=== PATIENT | male | born 1950 | race African-American/Black ===

== ENCOUNTER 2023-12-22 13:50 | Outpatient (CLI) | payer MEDICARE, BC, SELFPAY ==
[2023-12-22] MEDS: albuterol 2.5 mg/3 mL Neb INHALATION (14:05)
[2023-12-22 14:07] VITALS: PULSE 95; RESP 18; O2SAT 90
[2023-12-22 14:11] VITALS: PULSE 94
== END 2023-12-22 13:51 | disposition home or self-care (01) ==
PROVIDERS: Visit Provider Nurse Practitioner Family
DX: J44.9 Chronic obstructive pulmonary disease, unspecified (principal); R94.2 Abnormal results of pulmonary function studies
CPT/HCPCS: 94060; 94726; 94729

== ENCOUNTER 2025-01-12 04:12 | Inpatient (IN) | payer MEDICARE, SELFPAY ==
[2025-01-12] VITALS (61 sets, daily range): BP systolic 67–128; BP diastolic 50–87; PULSE 73–126; RESP 15–41; TEMP 36.2–36.8; O2SAT 85–98; BMI 25.7; BMI 24.0
--- NOTE | 2025-01-12 04:16 | XRR_ITS ---
PROCEDURE INFORMATION: Exam: XR Chest Exam date and time: 01/12/2025 4:18 AM Age: 74 years old Clinical indication: Shortness of breath; Prior surgery; Surgery date: 6+ months; Surgery type: Cervical fusion; C/O SOB. Hypotensive. ; Additional info: Dyspnea flulike symptoms TECHNIQUE: Imaging protocol: Radiologic exam of the chest. Views: 1 view. COMPARISON: No relevant prior studies available. FINDINGS: Lungs: Appears to be large bulla formation in the right upper lobe. Severe COPD changes. Infiltrates of the lung bases. Postsurgical change of the left upper lobe. Pleural spaces: Small left pleural effusion. Heart/Mediastinum: Unremarkable. No cardiomegaly. Vasculature: Atherosclerotic disease. Bones/joints: Unremarkable. XR/XR chest 1V portable [id number] IMPRESSION: 1. Basilar infiltrates with possible iuas-bbbqcci-avep-right pleural effusions. May represent multifocal infection in the correct clinical setting. 2. Likely bulla formation in the right upper lobe, rarely focal pneumothoraces can appear similarly. Consider CT of the chest for further assessment.
--- NOTE | 2025-01-12 04:17 | ECG_ITS ---
[facility] Test Date: 2025-01-12 Pat Name: Edgard Slater Department: Room: Gender: Male Manager Leasing: : 1950 Requested By: Bebeto Webb Order Number: [id number] Troncoso MD: Tin Toledo M.D. Measurements Intervals [place] Rate: 79 P: 67 [place]: 149 QRS: 106 QRSD: 93 T: -10 QT: 430 QTc: 495 Interpretive Statements SINUS RHYTHM WITH FREQUENT VENTRICULAR PREMATURE COMPLEXES POSSIBLE LEFT ATRIAL ENLARGEMENT [-0.1mV P-WAVE IN V1/V2] RIGHT AXIS DEVIATION [QRS AXIS > 100] NONSPECIFIC ST & T-WAVE ABNORMALITY PROLONGED QT INTERVAL No previous ECG available for comparison Electronically Signed On 01-13-2025 18:03:21 BRIDGE EXPERT by Tin Toledo M.D. [id number]
--- NOTE | 2025-01-12 04:26 | W.ED.FALL ---
Documented by User: Bebeto Webb DO 01/12/25 04:28 HPI - Fall General: Chief Complaint: Fall Stated Complaint: Fall, Flu Like Time Seen by Provider: 01/12/25 04:16 History of Present Illness: Patient presents to the ER by EMS with complaints of flulike symptoms, weakness and fall. Patient stated he got up to use the restroom and fell and could not get himself back up because he is weak. Has been having flulike symptoms for the last several days. Patient denies any injury or hitting his head from the fall. Patient is on Eliquis. Patient also uses 2 L of oxygen per nasal cannula at all times. Related Data Home Medications ?Medication ?Instructions ?Recorded ?Confirmed albuterol sulfate 90 mcg/actuation 2 puff inhalation QID PRN 01/12/25 01/12/25 aerosol inhaler Shortness Of Breath Or Wheezing amlodipine 5 mg-benazepril 10 mg 1 cap PO DAILY 01/12/25 01/12/25 capsule apixaban 5 mg tablet (Eliquis) 5 mg PO BID 01/12/25 01/12/25 cholecalciferol (vitamin D3) 125 125 mcg PO DAILY 01/12/25 01/12/25 mcg (5,000 unit) tablet (Vitamin D3) cyanocobalamin (vitamin B-12) 1,000 mcg SUBCUT Q30D 01/12/25 01/12/25 1,000 mcg/mL injection solution furosemide 20 mg tablet 20 mg PO DAILY 01/12/25 01/12/25 omeprazole 40 mg capsule,delayed 40 mg PO DAILY 01/12/25 01/12/25 release potassium chloride 8 mEq 8 meq PO DAILY 01/12/25 01/12/25 capsule,extended release Allergies Allergy/AdvReac Type Severity Reaction Status Date / Time No Known Allergies Allergy Verified 01/12/25 09:38 Review of Systems General: Reports: 10 or more systems reviewed and unremarkable except in HPI and below Physical Exam Const: COMMON NORMALS: no acute distress, average body habitus, patient oriented x3, no limitations, healthy appearing, alert and well nourished HENMT: COMMON NORMALS: normocephalic, atraumatic, hearing grossly normal bilaterally, external ears normal, Normal external nose present, moist oral mucous membranes and oropharynx normal HEAD & SCALP: normocephalic and atraumatic NOSE: Normal external nose present EXTERNAL EAR: Yes external ears normal Neck/C-Spine: COMMON NORMALS: full ROM, no lymphadenopathy, supple, no meningeal signs and no JVD Chest: COMMONS NORMALS: normal inspection of the chest and normal palpation of entire chest wall Resp: COMMON NORMALS: normal respiratory effort, No retractions, No use of accessory muscles and clear to auscultation bilaterally AUSCULTATION: clear to auscultation bilaterally Cardio: COMMON NORMALS: no JVD, regular rate, regular rhythm, S1 normal heart sound present, S2 normal heart sound present, No gallops present (Cardio), No clicks present (Cardio), No murmurs present (Cardio) and No rub (Cardio) RATE: regular rate RHYTHM: regular rhythm HEART SOUNDS: S1 normal heart sound present and S2 normal heart sound present GI: COMMON NORMALS: Normal to inspection, nondistended, normoactive bowel sounds present, Soft to palpation, non-tender, No hepatosplenomegaly present and no masses PALPATION: Yes Soft to palpation and Yes No hepatosplenomegaly present Neuro: COMMON NORMALS: patient oriented x3 SENSORIUM/ORIENTATION: Yes alert MENINGEAL SIGNS: Yes no meningeal signs Course Vital Signs: Vital signs: Vital Signs Pulse Rate 79 01/12/25 07:58 Respiratory Rate 24 H 01/12/25 07:58 Blood Pressure 82/56 01/12/25 07:58 Pulse Oximetry 96 01/12/25 06:30 Oxygen Delivery Me thod Nasal Cannula 01/12/25 06:00 Oxygen Flow Rate 2 01/12/25 06:00 - Fall Medical Records I reviewed the patient's medical records. Lab Data I reviewed the patient's lab results. 01/12/25 05:04 01/12/25 05:04 Radiology Impressions Chest/Abdomen/Pelvis CT 01/12/25 06:23 IMPRESSION: 1. Large amount of soft tissue at the hilar regions bilaterally encasing and narrowing the pulmonary arteries. Combination of pulmonary emboli and lymphadenopathy. Pulmonary arterial narrowing is predominately due to lymphadenopathy. Greatest narrowing involves the LEFT main pulmonary artery. 2. Marked RIGHT heart strain. 3. Extensive bilateral pulmonary opacifications consistent with pneumonia and atelectasis, predominantly at the lung bases. Follow-up chest CT to resolution to ensure no underlying malignancy. 4. Chronic emphysema. 5. Cholelithiasis without acute cholecystitis. 6. Extensive atherosclerosis aorta. 7. Postsurgical changes near the GE junction and stomach. No prior studies for comparison. No obvious perforation. 8. No GI tract ischemia or obstruction. 9. Chronic atrophy and cortical thinning lower pole LEFT kidney from ischemia. 10. Marked pancreatic atrophy. 11. Bilateral renal cysts. 12. RIGHT adrenal mass 1.8 cm. Notified Saurav Girard DO at 01/12/2025 9:46 AM. Chest X-Ray 01/12/25 07:21 IMPRESSION: Central line placement and abnormal chest as above. Head CT 01/12/25 08:05 IMPRESSION: 1. No acute intracranial hemorrhage or edema. 2. Moderate cerebral atrophy and small vessel disease. Laboratory Results WBC 12.64 10^3/uL (3.29-11.43) H 01/12/25 05:04 RBC 4.48 10^6/uL (3.85-5.65) 01/12/25 05:04 Hgb 14.90 g/dL (11.27-16.99) 01/12/25 05:04 Hct 42.4 % (37-53) 01/12/25 05:04 MCV 94.6 fl (82-101) 01/12/25 05:04 MCH 33.3 pg (27-33) H 01/12/25 05:04 MCHC 35.1 g/dL (30-55) 01/12/25 05:04 RDW 20.0 % (12.1-15.1) H 01/12/25 05:04 Plt Count 313 10^3/cmm (157-399) 01/12/25 05:04 MPV 12.5 fL (7.4-10.4) H 01/12/25 05:04 Neut % (Auto) 86.1 % 01/12/25 05:04 Lymph % (Auto) 8.6 % 01/12/25 05:04 Bullock % (Auto) 4.1 % 01/12/25 05:04 Eos % (Auto) 0.0 % 01/12/25 05:04 Baso % (Auto) 0.2 % 01/12/25 05:04 Neut # (Auto) 10.87 10^3/uL (1.8-7.7) H 01/12/25 05:04 Lymph # (Auto) 1.1 10^3/uL (0.8-4.8) 01/12/25 05:04 Bullock # (Auto) 0.5 10^3/uL (0.2-0.9) 01/12/25 05:04 Eos # (Auto) 0.0 10^3/uL (0.0-0.8) 01/12/25 05:04 Baso # (Auto) 0.0 10^3/uL (0.0-0.1) 01/12/25 05:04 Nucleated RBC % (auto) 4.3 % 01/12/25 05:04 Nucleated RBCs # 0.5 /100WBC 01/12/25 05:04 Sodium 139 mmol/L (136-145) 01/12/25 05:04 Potassium 3.4 mmol/L (3.5-5.1) L 01/12/25 05:04 Chloride 95 mmol/L (98-107) L 01/12/25 05:04 Carbon Dioxide 23 mmol/L (22-29) 01/12/25 05:04 Anion Gap 24.4 (5-19) H 01/12/25 05:04 BUN 30 mg/dL (8-23) H 01/12/25 05:04 Creatinine 1.4 mg/dL (0.7-1.2) H 01/12/25 05:04 GFR Calculation Not Reportable 01/12/25 05:04 Glucose 87 mg/dL (65-115) 01/12/25 05:04 Calculated Osmolality 294 mOsm/kg (285-295) 01/12/25 05:04 Lactic Acid 6.2 mmol/L (0.5-2.2) H* 01/12/25 05:04 Lactic Acid (Sepsis) 6.2 mmol/L (0.5-2.2) H* 01/12/25 07:32 Calcium 8.5 mg/dL (8.5-10.5) 01/12/25 05:04 Magnesium 1.9 mg/dL (1.7-2.3) 01/12/25 05:04 Total Bilirubin 4.2 mg/dL (0.15-1.2) H 01/12/25 05:04 AST 682 U/L (0-40) H 01/12/25 05:04 ALT 194 U/L (0-41) H 01/12/25 05:04 Alkaline Phosphatase 160 U/L (40-130) H 01/12/25 05:04 Troponin T Baseline 25 ng/L (0-15) H 01/12/25 05:04 Troponin T 120 Minute 24.75 ng/L (0-15) H 01/12/25 06:56 Delta Troponin T -0.25 ABS# (0-10) L 01/12/25 06:56 NT-Pro-B Natriuret Pep 26541 pg/mL (0-450) H 01/12/25 05:04 Total Protein 5.9 g/dL (6.6-8.7) L 01/12/25 05:04 Albumin 2.6 g/dL (3.5-5.2) L 01/12/25 05:04 Globulin 3.3 g/dL (1.3-4.6) 01/12/25 05:04 Procalcitonin > 100.00 ng/mL (0-0.5) H 01/12/25 05:04 Influenza A (PCR) Positive (Negative) 01/12/25 04:18 Influenza Type B (PCR) Negative (Negative) 01/12/25 04:18 RSV (PCR) Negative (Negative) 01/12/25 04:18 SARS-CoV-2 (PCR) Negative (Negative) 01/12/25 04:18 All radiology interpretation(s) finalized by discharge Discharge Plan Discharge Patient Disposition: Admitted As Inpatient Admit Provider: Sea Shepherd Clinical Impression: Influenza A, Pneumonia, Septic shock, Pulmonary HTN, Acute on chronic right-sided heart failure, Personal history of DVT (deep vein thrombosis) Condition: Stable Sign Out Sign Out Data: Patient Sign Out occurred on 01/12/25 at 05:50. Patient's care was discussed, and care was transferred from Bebeto Webb DO to Saurav Girard DO. Coding Level of Care Code ED Education Professor for Chg Fwd Documented by User: Saurav Girard DO 01/12/25 10:36 HPI - Fall General: Chief Complaint: Fall Stated Complaint: Fall, Flu Like Time Seen by Provider: 01/12/25 04:16 Related Data Home Medications ?Medication ?Instructions ?Recorded ?Confirmed albuterol sulfate 90 mcg/actuation 2 puff inhalation QID PRN 01/12/25 01/12/25 aerosol inhaler Shortness Of Breath Or Wheezing amlodipine 5 mg-benazepril 10 mg 1 cap PO DAILY 01/12/25 01/12/25 capsule apixaban 5 mg tablet (Eliquis) 5 mg PO BID 01/12/25 01/12/25 cholecalciferol (vitamin D3) 125 125 mcg PO DAILY 01/12/25 01/12/25 mcg (5,000 unit) tablet (Vitamin D3) cyanocobalamin (vitamin B-12) 1,000 mcg SUBCUT Q30D 01/12/25 01/12/25 1,000 mcg/mL injection solution furosemide 20 mg tablet 20 mg PO DAILY 01/12/25 01/12/25 omeprazole 40 mg capsule,delayed 40 mg PO DAILY 01/12/25 01/12/25 release potassium chloride 8 mEq 8 meq PO DAILY 01/12/25 01/12/25 capsule,extended release Allergies Allergy/AdvReac Type Severity Reaction Status Date / Time No Known Allergies Allergy Verified 01/12/25 09:38 Procedures Central Line Placement Right IJ: Prep: mask, gown and gloves Central Line Prep: Chlorhexidine scrub Local Anesthetic: lidocaine 1% Amount of anesthesia used (mL): 5 Central Line Lumen Inserted: triple Post Procedure: sutured in place, good blood return, all ports aspirated, flushed, capped and sterile dressing applied Post Procedure X-Ray: tip of catheter in good position Patient Tolerated Procedure: well Course Vital Signs: Vital signs: Vital Signs Pulse Rate 79 01/12/25 07:58 Respiratory Rate 24 H 01/12/25 07:58 Blood Pressure 82/56 01/12/25 07:58 Pulse Oximetry 96 01/12/25 06:30 Oxygen Delivery Me thod Nasal Cannula 01/12/25 06:00 Oxygen Flow Rate 2 01/12/25 06:00 MDM - Fall Medical Decision Making Care assumed at change of shift patient is septic tensive several is low blood pressures I believe were spurious he had a child's cuff on his forearm on the right and it had slipped down however he is even when it was corrected for he still had blood pressures in the 80s systolic. Patient is awake and alert. I discussed that events precipitating this illness with the family and been sick for couple days he has a history of PE but has not been taking his Eliquis last couple days patient states he was told he had a upper left leg clot that went to his lung he has been on the Eliquis for several months now. He has been increasingly short of breath he is normally not on oxygen now requiring 2 to 3 L to maintain his oxygen saturations. On exam he is noted to have significant JVD as well. He does not have any swelling in his legs. Based on his exam findings and his laboratory tests which show marked elevation of his liver functions I highly suspect he has a right sided heart failure stat ultrasound was ordered this confirmed dilated right ventricle with bowing of the septum. Patient has a mild elevation of his creatinine we do not know what his baseline creatinine is he was given fluids improved his blood pressure and then brought to CT suite for CTA chest abdomen pelvis. Also included to head since family report he fell this morning when he got up to go to the bathroom patient denies striking his head there is no loss consciousness he was stunned for a time according to the son was gasping for breath. He is denying any chest pain at this time. His lactate is elevated at 6. Because of his right sided heart failure has been given fluid to bring his pressure up not given him a full fluid bolus because of concern of worsening his overall condition. He is also been cultured and started on IV antibiotics vancomycin and Zosyn. CTA of the chest shows pulmonary embolism but rather moderate load there is more extrinsic compression from lymphadenopathy. We already started heparinizing the patient before the CT came back because they reviewed the CT and could see definite PE. His blood pressure did not respond to fluids because of his severe right heart failure did not feel any further fluids were warranted and instead we started him on Levophed. His blood pressure has improved significantly to 127/63 at this time. He has received his antibiotics. Discussed Dr. Shepherd also called and talked talk to the pulmonology on-call doctor at [facility] in [place]. Fortunately they had previous records on this patient we had power shared the CT done today and he reviewed it comparing to 1 they did in September 2024. They also had an echo done in September 2024. It showed dilated right ventricular failure at that time as well as pulmonary hypertension. The lymphadenopathy was present in September 2024 as well. Food And Drug Research Scientist felt that it had increased somewhat in size. He did not feel that the Bianka patient was a candidate for embolectomy he agreed that it was more intrinsic compression. He recommended Tamiflu antibiotics to treat secondary pneumonia and heparin. We are going to try to get the films power shared to our facility so our radiologist can compare them. Discussed Dr. Guerra the time is dictation she is comparing films and will update her report. Lab Data 01/12/25 05:04 01/12/25 05:04 Radiology Impressions Chest/Abdomen/Pelvis CT 01/12/25 06:23 IMPRESSION: 1. Large amount of soft tissue at the hilar regions bilaterally encasing and narrowing the pulmonary arteries. Combination of pulmonary emboli and lymphadenopathy. Pulmonary arterial narrowing is predominately due to lymphadenopathy. Greatest narrowing involves the LEFT main pulmonary artery. 2. Marked RIGHT heart strain. 3. Extensive bilateral pulmonary opacifications consistent with pneumonia and atelectasis, predominantly at the lung bases. Follow-up chest CT to resolution to ensure no underlying malignancy. 4. Chronic emphysema. 5. Cholelithiasis without acute cholecystitis. 6. Extensive atherosclerosis aorta. 7. Postsurgical changes near the GE junction and stomach. No prior studies for comparison. No obvious perforation. 8. No GI tract ischemia or obstruction. 9. Chronic atrophy and cortical thinning lower pole LEFT kidney from ischemia. 10. Marked pancreatic atrophy. 11. Bilateral renal cysts. 12. RIGHT adrenal mass 1.8 cm. Notified Saurav Girard DO at 01/12/2025 9:46 AM. Chest X-Ray 01/12/25 07:21 IMPRESSION: Central line placement and abnormal chest as above. Head CT 01/12/25 08:05 IMPRESSION: 1. No acute intracranial hemorrhage or edema. 2. Moderate cerebral atrophy and small vessel disease. Laboratory Results WBC 12.64 10^3/uL (3.29-11.43) H 01/12/25 05:04 RBC 4.48 10^6/uL (3.85-5.65) 01/12/25 05:04 Hgb 14.90 g/dL (11.27-16.99) 01/12/25 05:04 Hct 42.4 % (37-53) 01/12/25 05:04 MCV 94.6 fl (82-101) 01/12/25 05:04 MCH 33.3 pg (27-33) H 01/12/25 05:04 MCHC 35.1 g/dL (30-55) 01/12/25 05:04 RDW 20.0 % (12.1-15.1) H 01/12/25 05:04 Plt Count 313 10^3/cmm (157-399) 01/12/25 05:04 MPV 12.5 fL (7.4-10.4) H 01/12/25 05:04 Neut % (Auto) 86.1 % 01/12/25 05:04 Lymph % (Auto) 8.6 % 01/12/25 05:04 Bullock % (Auto) 4.1 % 01/12/25 05:04 Eos % (Auto) 0.0 % 01/12/25 05:04 Baso % (Auto) 0.2 % 01/12/25 05:04 Neut # (Auto) 10.87 10^3/uL (1.8-7.7) H 01/12/25 05:04 Lymph # (Auto) 1.1 10^3/uL (0.8-4.8) 01/12/25 05:04 Bullock # (Auto) 0.5 10^3/uL (0.2-0.9) 01/12/25 05:04 Eos # (Auto) 0.0 10^3/uL (0.0-0.8) 01/12/25 05:04 Baso # (Auto) 0.0 10^3/uL (0.0-0.1) 01/12/25 05:04 Nucleated RBC % (auto) 4.3 % 01/12/25 05:04 Nucleated RBCs # 0.5 /100WBC 01/12/25 05:04 Sodium 139 mmol/L (136-145) 01/12/25 05:04 Potassium 3.4 mmol/L (3.5-5.1) L 01/12/25 05:04 Chloride 95 mmol/L (98-107) L 01/12/25 05:04 Carbon Dioxide 23 mmol/L (22-29) 01/12/25 05:04 Anion Gap 24.4 (5-19) H 01/12/25 05:04 BUN 30 mg/dL (8-23) H 01/12/25 05:04 Creatinine 1.4 mg/dL (0.7-1.2) H 01/12/25 05:04 GFR Calculation Not Reportable 01/12/25 05:04 Glucose 87 mg/dL (65-115) 01/12/25 05:04 Calculated Osmolality 294 mOsm/kg (285-295) 01/12/25 05:04 Lactic Acid 6.2 mmol/L (0.5-2.2) H* 01/12/25 05:04 Lactic Acid (Sepsis) 6.2 mmol/L (0.5-2.2) H* 01/12/25 07:32 Calcium 8.5 mg/dL (8.5-10.5) 01/12/25 05:04 Magnesium 1.9 mg/dL (1.7-2.3) 01/12/25 05:04 Total Bilirubin 4.2 mg/dL (0.15-1.2) H 01/12/25 05:04 AST 682 U/L (0-40) H 01/12/25 05:04 ALT 194 U/L (0-41) H 01/12/25 05:04 Alkaline Phosphatase 160 U/L (40-130) H 01/12/25 05:04 Troponin T Baseline 25 ng/L (0-15) H 01/12/25 05:04 Troponin T 120 Minute 24.75 ng/L (0-15) H 01/12/25 06:56 Delta Troponin T -0.25 ABS# (0-10) L 01/12/25 06:56 NT-Pro-B Natriuret Pep 70815 pg/mL (0-450) H 01/12/25 05:04 Total Protein 5.9 g/dL (6.6-8.7) L 01/12/25 05:04 Albumin 2.6 g/dL (3.5-5.2) L 01/12/25 05:04 Globulin 3.3 g/dL (1.3-4.6) 01/12/25 05:04 Procalcitonin > 100.00 ng/mL (0-0.5) H 01/12/25 05:04 Influenza A (PCR) Positive (Negative) 01/12/25 04:18 Influenza Type B (PCR) Negative (Negative) 01/12/25 04:18 RSV (PCR) Negative (Negative) 01/12/25 04:18 SARS-CoV-2 (PCR) Negative (Negative) 01/12/25 04:18 Critical Care Time Critical Care Time: Critical Care Time: Yes Total Critical Care Time: 40 Attestation: The high probability of a clinically significant, sudden or life threatening deterioration of the patient's cardiovascular respiratory renal system(s) required my full and direct attention, intervention and personal management. The critical care time is as shown. This time is in addition to time spent performing any reported procedures but includes the following: [x] Data and vital sign review and interpretation [x] Patient assessment, examination and intervention [x] Documentation [x] Medication orders and management Discharge Plan Discharge Patient Disposition: Admitted As Inpatient Admit Provider: Sea Shepherd Clinical Impression: Influenza A, Pneumonia, Septic shock, Pulmonary HTN, Acute on chronic right-sided heart failure, Personal history of DVT (deep vein thrombosis) Condition: Stable Sign Out Sign Out Data: Patient Sign Out occurred on 01/12/25 at 05:50. Patient's care was discussed, and care was transferred from Bebeto Webb DO to Saurav Girard DO. Coding Level of Care Code ED Education Professor for Ashley Melendez
[2025-01-12 05:13] LABS: Basophils % 0.2 %; Hematocrit 42.4 % (37-53); Lymphocytes # 1.1 10^3/uL (0.8-4.8); Lymphocytes % 8.6 %; Mean Corpuscular HGB Conc 35.1 g/dL (30-55); Mean Corpuscular Hemoglobin 33.3 pg (27-33); Mean Corpuscular Volume 94.6 fl (82-101); Mean Platelet Volume 12.5 fL (7.4-10.4); Monocytes # 0.5 10^3/uL (0.2-0.9); Monocytes % 4.1 %; Neutrophils # 10.87 10^3/uL (1.8-7.7); Neutrophils % 86.1 %; Nucleated Red Blood Cells # 0.5 /100WBC; Nucleated Red Blood Cells % 4.3 %; Platelet Count 313 10^3/cmm (157-399); Red Blood Count 4.48 10^6/uL (3.85-5.65); White Blood Count 12.64 10^3/uL (3.29-11.43)
[2025-01-12] MEDS: sodium chloride 0.9% 1,000 ML 999 ML IV ×2 (05:16→06:08)
[2025-01-12 05:33] LABS: Troponin(5th) Baseline 25 ng/L (0-15)
[2025-01-12 05:35] LABS: Influenza A POSITIVE (Negative); Influenza B NEGATIVE (Negative); Respiratory Syncytial Virus Ce NEGATIVE (Negative); SARS-CoV-2 PCR NEGATIVE (Negative)
[2025-01-12 05:42] LABS: NT Pro B Type Natriuretic Pept 13973 pg/mL (0-450)
[2025-01-12 05:50] LABS: Lactic Sepsis W/Reflex 6.2 mmol/L (0.5-2.2)
[2025-01-12 05:53] LABS: Alanine Aminotransferase 194 U/L (0-41); Albumin Level 2.6 g/dL (3.5-5.2); Alkaline Phosphatase 160 U/L (40-130); Aspartate Amino Transferase 682 U/L (0-40); Blood Urea Nitrogen 30 mg/dL (8-23); Calcium 8.5 mg/dL (8.5-10.5); Carbon Dioxide 23 mmol/L (22-29); Chloride 95 mmol/L (98-107); Globulin 3.3 g/dL (1.3-4.6); Glucose 87 mg/dL (65-115); Magnesium 1.9 mg/dL (1.7-2.3); Osmolality Calculated 294 mOsm/kg (285-295); Sodium 139 mmol/L (136-145); Total Bilirubin 4.2 mg/dL (0.15-1.2); Total Protein 5.9 g/dL (6.6-8.7)
[2025-01-12 06:06] LABS: Anion Gap 24.4 (5-19); Potassium 3.4 mmol/L (3.5-5.1)
[2025-01-12] MEDS: piperacillin-tazobactam 3.375 GM in sodium chloride 0.9% (plus) 50 ML IV ×3 (06:08→22:56)
[2025-01-12 06:17] LABS: Procalcitonin > 100.00 ng/mL (0-0.5)
--- NOTE | 2025-01-12 06:23 | USCV_ITS ---
Bryon Edgard Age: 74 Gender: M : 1950 Exam Date: 01/12/2025 07:50 Ordering Phys: Saurav Girard DO Technologist: Exam Location: [facility] [place] Indication: pe rt side pressure BP: 73 / 53 HR: 80 Rhythm: Sinus Technical Quality: Adequate MEASUREMENTS (Male / Female) Normal Values 2D ECHO LV Diastolic Diameter PLAX 3.2 cm 4.2 - 5.9 / 3.9 - 5.3 cm IVS Diastolic Thickness 1.2 cm 0.6 - 1.0 / 0.6 - 0.9 cm IVS Systolic Thickness 1.8 cm LVPW Diastolic Thickness 1.2 cm 0.6 - 1.0 / 0.6 - 0.9 cm LVPW Systolic Thickness 1.4 cm LVOT Diameter 2.2 cm LV Ejection Fraction 2D Teich 66.9 % LV Ejection Fraction MOD 4C 72.9 % LV Ejection Fraction MOD 2C 60.2 % LV Ejection Fraction 2C AL 62.1 % LA Diameter 3.4 cm RA Systolic Volume 4C AL 79.9 ml RA Systolic Volume 4C MOD 74.6 ml Aorta at Sinotubular Diameter 2.6 cm M-MODE LA Ao Ratio MM 1.3 AV Cusp Separation MM 2.0 cm DOPPLER AV Peak Velocity 154.0 cm/s LVOT Peak Velocity 101.0 cm/s AV Area Cont Eq vti 2.9 cm squared AV Area Cont Eq pk 2.6 cm squared MV Peak Velocity 80.0 cm/s TV Peak Velocity 260.5 cm/s TR Peak Velocity 326.0 cm/s TR Peak Gradient 42.5 mmHg TV Peak E Velocity 123.0 cm/s FINDINGS Left Ventricle Left ventricle is normal in size. LV systolic function is normal with EF of 65-70%. No regional wall motion abnormalities are seen. Septal motion consistent with RV pressure overload. Right Ventricle RV is dilated Right Atrium Dilated Left Atrium Normal in size Mitral Valve Structurally normal mitral valve. Mild mitral regurgitation. Aortic Valve Structurally normal aortic valve. No significant stenosis or regurgitation. Tricuspid Valve Mild tricuspid regurgitation. RVSP is 40 to 45 mmHg. This is consistent with mild pulmonary hypertension Pulmonic Valve Not well visualized Pericardium Normal Aorta Normal in size IVC Not visualized CONCLUSIONS LV systolic function is normal with EF of 65-70%. Septal motion consistent with RV pressure overload. RV is dilated. Right atrium is dilated. Mild mitral regurgitation. Mild tricuspid regurgitation. Mild pulmonary hypertension Tin Toledo MD (Electronically Signed) Final Date: 13 January 2025 11:20 S
--- NOTE | 2025-01-12 06:23 | CT_ITS ---
WS: [id number] CTA CHEST WITH CT ABDOMEN AND PELVIS. HISTORY: Flulike symptoms, weakness and fall. TECHNIQUE: CT angiogram is performed through the chest. Additional imaging is performed through the abdomen and pelvis with IV contrast. Sagittal and coronal reformats have been submitted. MIP imaging also reviewed. All CT scans at [facility] use at least one of these dose optimization techniques: automated exposure control; mA and/or kV adjustment per patient size (includes targeted exams where dose is matched to clinical indication); or iterative reconstruction. Contrast: Omnipaque 350; 95 cc IV. DLP: 850.09 mGy.cm COMPARISON: No similar studies. Chest CTA: Pulmonary emboli identified. The main pulmonary artery is slightly dilated and free of emboli. Thrombus is noted in the aleman of the proximal pulmonary arteries. There is also marked narrowing of the pulmonary arteries which is likely due to encasement by lymphoid tissue. Hilar lymph nodes aren't enlarged. Encroachment upon the pulmonary arteries is causing narrowing. There is RIGHT heart strain. Mild pulmonary enlargement. Mild atherosclerosis aorta. Centrilobular and paraseptal emphysema. Groundglass attenuation throughout both lungs. Bilateral pulmonary opacifications in the mid and lower lung avalos, greatest at the lung bases. Consistent with pneumonia. No pneumothorax. No significant pericardial or pleural effusions. Abdomen CT: Hepatic steatosis. 8 mm low-attenuation liver mass may be a cyst. Early metastatic site not excluded. Cholelithiasis without acute cholecystitis. Severe pancreatic atrophy. Small spleen. RIGHT adrenal mass 1.8 cm. LEFT adrenal gland is normal. Atherosclerosis aorta. No aortic aneurysm. Heavy calcification at the origin of the SMA and celiac axis. Decreased enhancement lower pole LEFT kidney with cortical thinning consistent with an area of ischemia. Bilateral renal cysts. Portal vein and SMV are normally enhancing. Postsurgical changes are noted near the GE junction. There is some tethering which is probably clotted chronic and related to the surgical procedure. Foci of air at the surgical site involving the distal esophagus all appear to be contained. No prior studies available to evaluate for any interval change of the postsurgical site. No GI tract obstruction. No ascites. Pelvic CT: Urinary bladder is minimally distended. No free fluid in the pelvis. No adenopathy. Soft tissue anasarca. No destructive bone lesions are identified. Note: No prior studies are available at [address] [place] [address]. If studies become available an addendum can be performed. Comparison with prior imaging would be very beneficial in this patient. CT/CT angio chest w abd pel w con IMPRESSION: 1. Large amount of soft tissue at the hilar regions bilaterally encasing and n arrowing the pulmonary arteries. Combination of pulmonary emboli and lymphadeno moose. Pulmonary arterial narrowing is predominately due to lymphadenopathy. Gr eatest narrowing involves the LEFT main pulmonary artery. 2. Marked RIGHT heart strain. 3. Extensive bilateral pulmonary opacifications consistent with pneumonia and atelectasis, predominantly at the lung bases. Follow-up chest CT to resolution to ensure no underlying malignancy. 4. Chronic emphysema. 5. Cholelithiasis without acute cholecystitis. 6. Extensive atherosclerosis aorta. 7. Postsurgical changes near the GE junction and stomach. No prior studies for comparison. No obvious perforation. 8. No GI tract ischemia or obstruction. 9. Chronic atrophy and cortical thinning lower pole LEFT kidney from ischemia. 10. Marked pancreatic atrophy. 11. Bilateral renal cysts. 12. RIGHT adrenal mass 1.8 cm. Notified Saurav Girard DO at 01/12/2025 9:46 AM.
[2025-01-12 06:59] LABS: Reflex Lactate Order REFLEX LACTIC ORDERD
--- NOTE | 2025-01-12 07:21 | XR_ITS ---
WS: [id number] XR chest 1V portable [id number] REASON FOR EXAM: LINE PL FINDINGS: Compared to the previous examination 0420 hours this same day, right internal jugular central venous line is been placed. The tip is within the right atrium. There is significant tortuosity of the aorta and cardiac enlargement. There is extensive bullous disease in the right upper lung and coarse reticular interstitial lung opacities in the lower lung avalos. There is blunting of the left costophrenic angle. There is no examination for comparison therefore the chronicity of the changes in the lower lung avalos are of uncertain chronicity. Potentially this could represent acute/subacute congestive heart failure or somewhat less likely acute/subacute pneumonitis. XR/XR chest 1V portable [id number] IMPRESSION: Central line placement and abnormal chest as above.
[2025-01-12 07:24] LABS: Troponin 5 2HR 24.75 ng/L (0-15); Troponin 5 2HR Delta -0.25 ABS# (0-10)
[2025-01-12 07:57] LABS: Lactic Acid level (Lactate) 6.2 mmol/L (0.5-2.2)
--- NOTE | 2025-01-12 08:05 | CT_ITS ---
WS: [id number] CT HEAD NONCONTRAST HISTORY: fall TECHNIQUE: Contiguous axial imaging performed through the brain. Bone and soft tissue windows. Sagittal and coronal reformats reviewed. All CT scans at [facility] use at least one of these dose optimization techniques: automated exposure control; mA and/or kV adjustment per patient size (includes targeted exams where dose is matched to clinical indication); or iterative reconstruction. DLP: 1014.68 mGy.cm COMPARISON: None available. Moderate symmetric atrophy and small vessel disease. No acute infarct. No atrophy or prior infarcts or herniation. Ventricles: Normal size with no hydrocephalus. Paranasal sinuses: As visualized are clear. Mastoid air cells: Well pneumatized. Calvarium and scalp: Skull is intact with no soft tissue edema or swelling. Moderate atherosclerotic calcification in the intracranial carotid arteries. CT/CT head wo con* [id number] IMPRESSION: 1. No acute intracranial hemorrhage or edema. 2. Moderate cerebral atrophy and small vessel disease.
--- NOTE | 2025-01-12 08:08 | PC.PHAR ---
Patient gave me a medication list from his wallet , only a few are on his external med list . I will call [facility] and verify when the open at 8:30am.
--- NOTE | 2025-01-12 08:14 | PC.PHAR ---
Patient statess he takes Eliquis ,I called [facility] and they have 1 fill for Eliquis 5 on 11/03/24 30days.No other fill dates .
[2025-01-12] MEDS: iohexol 350 mg/mL 500 mL Btl (per mL) IV (08:45)
--- NOTE | 2025-01-12 08:47 | PC.PHAR ---
I spoke to [facility] and their last fill for anything was 11/02/24 for the Furosemide 20 and the Lotrel 5/10mg . Pharmacist states that he should be out of everything and h hasn't picked up since October .
[2025-01-12] MEDS: norepinephrine 4 MG/250 ML BAG 30 MG IV (09:38)
[2025-01-12] MEDS: heparin 5,000 unit/mL INJ 1 mL IVP (11:00)
[2025-01-12] MEDS: heparin drip 25,000 UNIT/500 ML PREMIX 26 UNIT IV (11:06)
[2025-01-12 11:29] LABS: Troponin 5 6HR 24.47 ng/L (0-15); Troponin 5 6HR Delta -0.53 ng/L (0-12)
--- NOTE | 2025-01-12 11:40 | PC.NURSE ---
Pt arrives to ICU from ED. Pt able to tell his name, birthdate, where he is and month. But then he started talking about walking into a corner when [facility] question about transportation asked. CVL right , patent with Levophed at 10mcg/min and Heparin at 26 ml/hr. Pt given call light and remote instructions. No further questions. Pt denied need to urinate at this time.
--- NOTE | 2025-01-12 13:23 | P.HP_ITS ---
Providers/Chief Complaint 2 Admitting Physician: Sea Shepherd Chief Complaint: Fall, Flu Like History of Present Illness Edgard Slater is a 74 year old male with history of gaskets, status post gastric resection, history of bilateral lower extremity DVT, PEs, on Eliquis, however, has had difficulty obtaining Eliquis and so had not been able to take his medication for last 2 weeks. He was brought in for evaluation to emergency room due to generalized weakness, fall, flulike symptoms. In ER he was found to be in shock, required starting Levophed, found positive for influenza. With history of PE, DVT, having missed anticoagulation, concern for recurrent VTE, massive PE. Underwent additional assessment with CT angiogram chest as well as TTE. Finding of right ventricular strain on TTE and preliminary echo read by ER physician, findings further discussed with critical care provider at [facility] in [place] was also able to review and compare his prior imaging from a year ago with noted rather unchanged findings currently. Recommendation for anticoagulation without thrombolysis as well as treatment for influenza. Review of Systems 2 Const: Reports: fatigue and malaise; Denies: fever(s) ENMT: Denies: throat pain Card: Denies: chest pain, edema, pre-syncope or dyspnea on exertion Resp: Denies: dyspnea, productive cough, change in phlegm color or hemoptysis GI: Denies: abdominal pain, nausea, vomiting, diarrhea, constipation, hematochezia or melena : Denies: flank pain, difficulty urinating, urinary frequency or hematuria Musc: Denies: back pain, joint swelling or joint redness Skin/Breast: Denies: rash or new lesions Neuro: Denies: headache(s) or confusion Medications/Allergies Home Medications ?Medication ?Instructions ?Recorded ?Confirmed ?Last Taken ?Type albuterol sulfate 90 mcg/actuation 2 puff inhalation Q ID PRN 01/12/25 01/12/25 Unknown History aerosol inhaler Shortness Of Breath Or Wheez ing amlodipine 5 mg-benazepril 10 mg 1 cap PO DAILY 01/12/25 Unknown History capsule apixaban 5 mg tablet (Eliquis) 5 mg PO BID 01/12/25 Unknown History cholecalciferol (vitamin D3) 125 125 mcg PO DAILY 06/0101/12/25 Unknown History mcg (5,000 unit) tablet (Vitamin D3) cyanocobalamin (vitamin B-12) 1,000 mcg SUBCUT Q30D 01/12/25 10/14/24 History 1,000 mcg/mL injection solution furosemide 20 mg tablet 20 mg PO DAILY 01/12/2506/01 Unknown History omeprazole 40 mg capsule,delayed 40 mg PO DAILY 01/12/25 Unknown History release potassium chloride 8 mEq 8 meq PO DAILY 01/12/2506/01 Unknown History capsule,extended release Allergies Allergy/AdvReac Type Severity Reaction Status Date / Time No Known Allergies Allergy Verified 01/12/25 09:38 PFSH Acute 2 PFSH: Medical History HTN (hypertension) PE (pulmonary thromboembolism) DVT (deep venous thrombosis) Gastric cancer Surgical History H/O resection of stomach Social History (Updated 01/12/25 @ 14:25 by Sea Shepherd MD) Smoking and tobacco/nicotine status: former use of tobacco/nicotine Alcohol intake: current Alcohol use comment: States has been trying to quit, has not drank in 2 months Substance/Drug Use: never Household members: significant other Vitals/I&O/Wt Last Vital Signs Pulse 83 01/12/25 11:00 Resp 25 H 01/12/25 10:00 BP 114/58 01/12/25 11:30 Pulse Ox 95 01/12/25 11:00 O2 Del Method Nasal Cannula 01/12/25 11:47 O2 Flow Rate 2 01/12/25 06:00 01/11/25 01/12/25 01/12/25 22:59 06:59 14:59 Intake Total 0 / 0 2102.5 / 2102.5 Balance 0 / 0 2102.5 / 2102.5 Weight last 48 hrs Weight 90.718 kg Physical Exam 2 Const: COMMON NORMALS: patient oriented x3 and alert GENERAL APPEARANCE: c ooperative ORIENTATION/CONSCIOUSNESS: Yes awake HENMT: COMMON NORMALS: oropharynx normal Neck/C-Spine: COMMON NORMALS: no JVD Resp: COMMON NORMALS: normal respiratory effort and clear to auscultation bilaterally AUSCULTATION: clear to auscultation bilaterally Cardio: COMMON NORMALS: no JVD, regular rhythm, S1 normal heart sound present, S2 normal heart sound present and No murmurs present (Cardio) RHYTHM: regular rhythm HEART SOUNDS: S1 normal heart sound present and S2 normal heart sound present GI: COMMON NORMALS: Normal to inspection, nondistended, normoactive bowel sounds present, Soft to palpation and non-tender PALPATION: Yes Soft to palpation Extremity: COMMON NORMALS: no joint enlargement GENERAL: Yes edema (Trace) Neuro: COMMON NORMALS: patient oriented x3 and moves all extremities S ENSORIUM/ORIENTATION: Yes alert Skin: COMMON NORMALS: no rashes or lesions noted GENERAL SKIN EXAM: no rashes or lesions noted Data 01/12/25 05:04 01/12/25 05:04 Micro: Microbiology 01/12/25 05:40 Blood Culture - Preliminary Blood SPECIMEN COLLECTED 01/12/25 05:40 Blood Culture - Preliminary Blood SPECIMEN COLLECTED A&P Assessment and plan (1) Obstructive cardiovascular shock: Obstructive cardiovascular shock on presentation as below, requiring 10 mcg/min Levophed with multiorgan injury including acute kidney injury, creatinine up to 1.4, BUN 30, as well as acute liver injury, acute liver dysfunction, AST 682, ALT 194, alk phos 160, T. bili 4.2. With cardiac demand ischemia with troponin 25-25-25, NT proBNP 13,973. Consideration of thrombolytic therapy as below. As per condition continue treatment with anticoagulation, hemodynamic support in ICU. Continue pressor, target arterial pressure 65 mmHg. Request NICOM assessment fluid responsiveness. Monitor vitals. Discussed with nursing staff, if fluid responsive will give additional fluid boluses. (2) Pulmonary embolus: Noted pulmonary embolization on CT angiogram, with history of PE, has not been able to take his anticoagulants over the last 2 weeks due to having difficulty filling Eliquis. Additionally noted large amount of soft tissue in the hilar regions bilaterally encasing and narrowing pulmonary arteries, in combination with pulmonary emboli additionally found to have bilateral lymphadenopathy. Pulmonary artery narrowing predominantly due to the lymphadenopathy. Greatest on the left. Marked right heart strain noted on CT, and right heart strain noted on preliminary read of TTE in ER. Concerns discussed with rn first assist at [facility] given hemodynamic instability in setting of PE, concern for massive PE, consideration of treatment with thrombolysis, consideration of corticosteroids with lymphadenopathy and extrinsic pulmonary artery compression. Recommendation at this time to treat with anticoagulation, without corticosteroids, without thrombolysis at this time. With noted lactic acidosis 6.2. Reviewed vitals, CBC, CMP, magnesium, troponin, procalcitonin, COVID, chest, RSV PCR, chest x-ray, CT abdomen pelvis. Right IJ CVC had been obtained in ER due to poor peripheral access and for hemodynamic support. Reviewed chest x-ray reviewed head CT, reviewed ER provider note, discussed with ER provider. Continue hemodynamic support. Continue Levophed, target mean arterial pressure 65 mmHg. Continue treatment in ICU. (3) Influenza A: Will give Tamiflu, oxygen support as needed. Maintain isolation. Monitor oxygenation. Breathing treatments as needed. Monitor for possible undiagnosed COPD exacerbation. Incentive spirometer. With possible secondary bacterial pneumonia with patchy opacities as below. Empiric coverage with Zosyn. Check MRSA PCR. (4) Liver dysfunction: Acute liver dysfunction, AST 682, ALT 194, alk phos 160, T. bili 4.2. No abdominal pain, no right upper quadrant tenderness. CT abdomen pelvis with incidentally noted cholelithiasis without acute cholecystitis. For now empiric antibiotic coverage with Zosyn as below but low suspicion of infectious gallbladder process. Suspect component possible shock liver with multiorgan dysfunction with obstructive shock as above, additionally possible component of congestive hepatopathy with possible acute on chronic right heart failure with endorgan injury with contrast hepatopathy, congestive nephropathy. Continue metabolic support, reassess liver parameters. Check INR. Check hepatitis panel. (5) Lymphadenopathy: Mediastinal lymphadenopathy, additional incidentally noted 1.8 cm right adrenal mass. Seems to have been some progression of lymphadenopathy compared to the CT done blurrier ago at [facility]. Will need follow-up, consideration of biopsy given history of malignancy. (6) Leukocytosis: Patchy opacities on CT in both lungs, consideration of possible pneumonia with dyspnea, tachypnea, hypoxia, requiring 2 L of oxygen, not normally on oxygen, concern for possible aspiration pneumonia, continue empiric antibiotic coverage with Zosyn for now. He does not have cough at this time, no sputum production. Collect culture in case producing sputum. Obtain MRSA PCR. Continue nasal oxygen. Plan Emphysema: Incidentally noted on CT chest. Breathing treatments as needed. Atherosclerosis of aorta: Incidentally noted on CT. Chronic atrophy and cortical thinning of the left kidney, lower pole, follow-up with PCP. Pancreatic atrophy: Incidentally noted on CT Right adrenal mass: 1.8 cm incident[address] noted on CT. Will need follow-up after acute illness. EtOH consumption: He reports that he does drink quite a bit of alcohol. States that he feels he needs to cut down and has been trying to. States he has not drank any in about 2 months. History of gastric cancer with gastric resection. Continue PPI History of hypertension: Currently in shock. Hold any antihypertensives. PDMP PDMP Reviewed: Not Reviewed Attestations 2 Medical Necessity Statement*: Admission over 2 midnights anticipated for assessment management of obstructive shock intermittent with bilateral compression of pulmonary trace with both extrinsic compression with bilateral lymphadenopathy as well as recurrent pulmonary emboli, with multiorgan injury, influenza A infection, possible secondary bacterial pneumonia intermittent with underlying emphysema, additional comorbidities as above. Coding Level of Care Code Critical Care >/= 30 minutes Critical care time (in minutes): 50 The high probability of a clinically significant, sudden or life threatening deterioration, as referenced in this documentation, required my full and direct attention, intervention and personal management. The critical care time shown is in addition to time spent performing any reported separately billable procedures and includes the following: [x] Data and vital sign review and interpretation [x ] Patient assessment, examination and intervention [x] Medication orders and management [x] Patient/Family updates as able [x] Care Coordination and Documentation. Diagnoses Obstructive cardiovascular shock R57.8 Pulmonary embolus I26.99 Influenza A J10.1 Liver dysfunction K76.89 Lymphadenopathy R59.1 Leukocytosis D72.829
[2025-01-12] MEDS: oseltamivir phosphate 75 mg Capsule PO (14:25)
--- NOTE | 2025-01-12 15:26 | PC.NURSE ---
[facility] hemodynamic assessment completed. SVI CI HR 1502 18 1.6 92 1503 16 1.5 92 PLR start 1504 18 1.7 92 1505 19 1.7 92 1506 19 1.7 91 1507 20 1.9 96 1508 20 1.9 95 1509 20 1.9 95 SVI change 9.2%. Pt not fluid responsive. Dr Shepherd notified via secured messaging.
--- NOTE | 2025-01-12 16:07 | USR_ITS ---
PROCEDURE INFORMATION: Exam: US Abdomen, Limited; Right Upper Quadrant Exam date and time: 01/12/2025 5:33 PM Age: 74 years old Clinical indication: Abnormal findings; Abnormal lab test; Other: Tbili elev; Prior surgery; Surgery date: 6+ months; Surgery type: Unsure of dates or what he had done but patient has had abdominal surgery and history of stomach CA; Additional info: Tbili elev, ap elev, confirm no findings of cholecystitis TECHNIQUE: Imaging protocol: Real time ultrasound of the abdomen with image documentation. Limited exam focused on the right upper quadrant. COMPARISON: CT angio chest w abd pel w con 01/12/2025 8:28 AM FINDINGS: Liver: Small complex cyst versus clustered cysts measuring up to 1.1 cm in the right lobe of the liver. The liver is otherwise normal. Gallbladder: Gallstones identified within the gallbladder. Gallbladder wall measures at the upper limits of normal at 3 mm. Biliary ducts: There is no evidence of intra or extrahepatic ductal dilatation. The common bile duct measures 3 mm. Pancreas: The visualized portions of the pancreas are within normal limits. The tail is obscured by bowel gas. Right kidney: 2.4 cm simple renal cyst. The right kidney is otherwise normal. There is no renal calcification or hydronephrosis identified. The right kidney measures 8.4 cm in length. Aorta: The visualized aorta appears within normal limits. Inferior vena cava: The visualized inferior vena cava is within normal limits. Portal venous: The portal vein is patent. US/US gall bladder [id number] IMPRESSION: 1. Cholelithiasis. Borderline gallbladder wall thickening. 2. Other nonemergent findings above.
[2025-01-12] MEDS: norepinephrine 4 MG/250 ML BAG 37.5 MG IV (16:31)
[2025-01-12 16:43] LABS: Creatine Phosphokinase 55 U/L (39-308)
[2025-01-12 18:32] LABS: INR 2.23 (0.8-1.2)
[2025-01-12 18:55] LABS: Partial Thromboplastin Time > 250.0 SECONDS (23.9-36.7)
[2025-01-12 18:59] LABS: Hepatitis A Antibody IgM Non-Reactive (Nonreactive); Hepatitis B Core IgM Non-Reactive (Nonreactive); Hepatitis B Surface Antigen Non-Reactive (Nonreactive); Hepatitis C Virus Antibody Non-Reactive (Nonreactive)
--- NOTE | 2025-01-12 19:10 | PC.NURSE ---
Heparin Drip Patient's ptt critical >250. Dr. Bauman contacted and order received to pause heparin drip for 4 hours then recheck ptt.
[2025-01-12 19:43] LABS: MRSA PCR OZH (swab) NOT DETECTED (Negative)
[2025-01-12 20:15] LABS: Glucose Point of Care 71 mg/dL (70-110)
[2025-01-12 20:15] LABS: Glucose Point of Care 78 mg/dL (70-110)
[2025-01-12] MEDS: glucagon 1 mg/mL KIT 1 mL IM (20:39)
--- NOTE | 2025-01-12 21:15 | PC.NURSE ---
Physician Communication No urine output documented since admission. Bladder scan revealed 140 ml urine remaining in the bladder. Additionally, patient's blood sugar 71 on first check, 78 on recheck. When attempting to drink juice, patient starting choking and coughing. Dr. Bauman notified of bladder scan results, blood sugar, and trouble swallowing. Orders received for insertion of a fallon catheter, administration of 1 mg glucagon IM, npo diet, and a speech eval.
[2025-01-12 21:21] LABS: Bilirubin Urine 2+ (Negative); Blood Urine Negative (Negative); Glucose Urine UA Negative (Normal); Ketones Urine Negative (Negative); Leukocyte Esterase Urine Trace (Negative); Nitrate Urine Positive (Negative); Protein Urine 1+ (Negative); Urine Appearance Clear (CLEAR); Urine Color Dark Yellow (Yellow)
[2025-01-12 21:24] LABS: Add Urine Microscopic? YES; Bacteria Urine None Seen /hpf; RBC Urine 0-2 /hpf (0-2); Squamous Epithelial Cell Urine 0-5 /hpf (0-5); Universal Test for UA Present (0); WBC Urine 0-5 /hpf (0-5)
[2025-01-12 21:35] LABS: Add Urine Culture? No; Specific Gravity, Urine 1.059 (1.005-1.030)
--- NOTE | 2025-01-12 22:02 | PC.NURSE ---
Ativan Following fallon catheter insertion, patient attempting to get out of bed multiple times while pulling at vital sign wires. Verbal redirection and repositioning attempted with no success. Patient continuing to thrash around in bed. Dr. Bauman contacted and order received for ativan per [facility] protocol.
[2025-01-12] MEDS: norepinephrine 4 MG/250 ML BAG 45 MG IV (22:22)
[2025-01-12] MEDS: LORazepam 2 mg/mL INJ 1 mL IVP (22:24)
[2025-01-12 23:11] LABS: Glucose Point of Care 85 mg/dL (70-110)
[2025-01-12 23:28] LABS: Partial Thromboplastin Time 52.9 SECONDS (23.9-36.7)
[2025-01-13] VITALS (99 sets, daily range): BP systolic 66–125; BP diastolic 43–93; PULSE 83–133; RESP 12–40; TEMP 35.9–36.6; O2SAT 71–99
--- NOTE | 2025-01-13 | PC.NURSE ---
Heparin drip Patient's ptt resulted 52.9. Dr. Bauman contacted and order received to restart heparin drip 2 unit/kg/hr less than previous rate.
[2025-01-13] MEDS: norepinephrine 4 MG/250 ML BAG 45 MG IV (03:41)
[2025-01-13] MEDS: piperacillin-tazobactam 3.375 GM in sodium chloride 0.9% (plus) 50 ML IV ×3 (05:04→22:05)
--- NOTE | 2025-01-13 05:20 | PC.NURSE ---
Neurological status Dr. Bauman notified of patient's declined neurological status following ativan administration earlier in shift. Order received to place ativan on hold.
[2025-01-13 06:56] LABS: Basophils % 0.2 %; Hematocrit 34.4 % (37-53); Lymphocytes # 0.5 10^3/uL (0.8-4.8); Lymphocytes % 3.4 %; Mean Corpuscular HGB Conc 35.2 g/dL (30-55); Mean Corpuscular Hemoglobin 33.2 pg (27-33); Mean Corpuscular Volume 94.5 fl (82-101); Mean Platelet Volume 11.4 fL (7.4-10.4); Monocytes # 0.6 10^3/uL (0.2-0.9); Monocytes % 4.2 %; Neutrophils # 13.94 10^3/uL (1.8-7.7); Neutrophils % 90.7 %; Nucleated Red Blood Cells # 0.8 /100WBC; Nucleated Red Blood Cells % 4.9 %; Platelet Count 279 10^3/cmm (157-399); Red Blood Count 3.64 10^6/uL (3.85-5.65); Red Cell Distribution Width 20.4 % (12.1-15.1); White Blood Count 15.36 10^3/uL (3.29-11.43)
[2025-01-13 07:12] LABS: Alanine Aminotransferase 618 U/L (0-41); Albumin Level 2.3 g/dL (3.5-5.2); Alkaline Phosphatase 145 U/L (40-130); Anion Gap 26.9 (5-19); Blood Urea Nitrogen 35 mg/dL (8-23); Calcium 7.8 mg/dL (8.5-10.5); Carbon Dioxide 18 mmol/L (22-29); Chloride 100 mmol/L (98-107); Globulin 3.4 g/dL (1.3-4.6); Glucose 109 mg/dL (65-115); Magnesium 1.9 mg/dL (1.7-2.3); Osmolality Calculated 301 mOsm/kg (285-295); Potassium 3.9 mmol/L (3.5-5.1); Sodium 141 mmol/L (136-145); Total Bilirubin 3.7 mg/dL (0.15-1.2); Total Protein 5.7 g/dL (6.6-8.7)
[2025-01-13 07:22] LABS: Aspartate Amino Transferase 2084 U/L (0-40)
[2025-01-13 07:31] LABS: Partial Thromboplastin Time > 250.0 SECONDS (23.9-36.7)
--- NOTE | 2025-01-13 07:38 | PC.NURSE ---
Addendum entered by Shayan Finley RN 01/13/25 11:47: Per Dr manzanares orders, restarted heparin at half the previous rate. 6 units/kg/hr...... 11ml/hr. Original Note: PTT resulted as greater than 250. NUrse turned off heparin drip and alerted physician. waiting on further orders.
--- OUTSIDE RECORDS SUMMARY | 2025-01-13 09:43 | XMS_ITS | Encounter Summary ---
Author Organization [facility] Address [address] [place] [address] Care Team Providers Care Pole Peeler Name Role Phone Unavailable Primary Care Provider Unavailabl e Encounter Details Date Type Department Care Team (Late st Contact Info) Description 01/12/2025 Chart Note [facility] [address] [place] [address] Meir Hines FNP [address] [place] [address] Social History Tobacco Use Types Packs/Day Years Used Date Smoking Tobacco: Former Cigarettes 2 31 Smokeless Tobacco: Never Comments:Quit 1994 Feeling Safe Answer Date Recorded Are you in a relationship wi th someone who hurts you emotionally and/or physically? No 09/19/2024 Sex and Gender Information Value Date Recorded Sex Assigned at Not on file Legal Sex Male 10:19 AM CDT Gender Identity Not on file Sexual Orientation Not on file documented as of this encounter Progress Notes * Meir Hines FNP - 01/12/2025 10:31 AM CST Received call from outside hospital for patient with PE. Evidence of right heart strain on CT scan.There is also concern for extrinsic compression of the pulmonary artery secondary to mediastinal lymphadenopathy. There is some mediastinal lymphadenopathy that is not adequate to cause significant right heart strain, patient does have pulmonary embolism however there is no saddle PE. There was a question regarding possible sarcoidosis and administration of steroids, given the patient does not have a diagnosis of steroids and is positive for influenza A I do not recommend steroids at this time.Recommended for full PERT evaluation for IR intervention for pulmonary embolism, would need to consult with the PERT team with CCM. E MOCK UP ASSEMBLER documented in this encounter Plan of Treatment Not on file documented as of this encounter Visit Diagnoses Not on filedocumented in this encounter
--- OUTSIDE RECORDS SUMMARY | 2025-01-13 09:43 | XMS_ITS | Encounter Summary ---
Author Organization [facility] Address [address] [place] [address] Care Team Providers Care Digital Learning Platforms Manager Name Role Phone Unavailable Primary Care Provider Unavailabl e Encounter Details Date Type Department Care Team (Late st Contact Info) Description 12/19/2024 External Device Data [facility] ABSTRACTION Provider, Abstract NO ADDRESS ON FILE Social History Tobacco Use Types Packs/Day Years [...] on file documented as of this encounter Plan of Treatment Not on file documented as of this encounter Visit Diagnoses Not on filedocumented in this encounter
--- OUTSIDE RECORDS SUMMARY | 2025-01-13 09:43 | XMS_ITS | Continuity of Care Document ---
Author Organization [facility] Address [address] [place] [address] [place] [address] Phone Care Team Providers Care Primary Health Organisation Manager Name Role Phone Unavailable Unavailable Unavailable Allergies, Adverse Reactions, Alerts Substance Reaction Status Criticality No Known allergies Medications Medication Instructions Dosage Effective Dates (start - stop) Status Comments Prilosec 20 mg Cap take by Oral route 2 times every day 0.00 - Active Advance Directives Directive Yes / No Effective Date File Name Resuscitation Not Answered N/A N/A Life Support Not Answered N/A N/A Intubation Not Answered N/A N/A Antibiotics Not Answered N/A N/A IV Fluid Support Not Answered N/A N/A Tube Feed Not Answered N/A N/A Other Directive N/A N/A WARNING:The information contained in this section is historical and is provided for information only and does not constitute a legal document or any assurance that the information is still accurate. Please verify the information with the amaya of the legal document before using it for clinical purposes. Encounters Encounter Description Practice Location Reason(s) For Visit Diagnoses Date Provider Providers Copied on Encounter [facility], [address] [place] [address] [place], [id number], [place] tel:[phone] *[facility] No Information No Information Family History Family Member Type Diagnosis Age At Onset Problem (finding) Family history of Cance r - Payers Payer name Insurance type Covered alliance party ID Authoriza tion(s) No Information Social History Type Description Quantity Date Captured Comments Alcohol Use Details - Caffeine Use Details Unknown Tobacco Use Status No Information Smoking Status No Information Sex Male Chief Complaint And Reason For Visit No Information Reason For Referral Reason For Referral No Information History Of Present Illness Encounter Date Complaint History Of Prese nt Illness No Information Functional Status Date Functional Assessmen t No Information Instructions Date Instruction Additional Infor mation No Information Assessments Type Assessment Date No Information Patient Care Teams Name Effective Dates (start - stop) Status Members No Information
--- OUTSIDE RECORDS SUMMARY | 2025-01-13 09:43 | XMS_ITS | Clinical Summary ---
Author Organization [facility] Address [address] [address] Phone Care Team Providers Care Entry Manager Name Role Phone Unavailable Primary Care Provider Unavailabl e Allergies No known active allergies Medications amLODIPine-jodi zepril (LOTREL) 5-10 mg capsule Take 1 Capsule by mouth daily. Active fluvastatin (LESCOL XL) 80 mg Extended Release 24 hour tablet Take by mouth daily at bedtime. Active ergocalciferol (VITAMIN D2) 50,000 unit capsule Take 50,000 Units by mouth every 7 days. Active fluticasone propion-salmete roL (ADVAIR DISKUS,WIXELA INHUB) 250-50 mcg/dose disk inhaler Take 1 Puff by inhalation 2 times daily. Active albuterol sulfate HFA 90 mcg/actuation aerosol inhaler Take 2 Puffs by inhalation every 6 hours as needed for Shortness of Breath. Active omeprazole (PriLOSEC) 40 mg Capsule, Delayed Release(E.C.) Take 40 mg by mouth 2 times daily. Active fluticasone propionate (FLONASE) 50 mcg/spray Mcintosh, Suspension nasal inhaler Administer 2 Sprays in each nostril daily. Active cyanocobalamin (VITAMIN B-12) 500 mcg tablet Take 1,000 mcg by mouth every 30 days. 3 Active furosemide (LASIX) 20 mg tablet Take 20 mg by mouth daily. 4 Active potassium chloride (MICRO-K EXTENCAPS) 8 mEq Extended Release capsule Take 8 mEq by mouth daily. 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 09/11/2024 Encounters Date Type Department Care Team Description 01/12/2025 Chart Note [facility] [address] [place] [address] Meir Hines, ADAMA 01/09/2025 External Device Data [facility] ABSTRACTION Provider, Abstract 01/02/2025 External Device Data [facility] ABSTRACTION Provider, Abstract 12/19/2024 External Device Data [facility] ABSTRACTION Provider, Abstract 12/05/2024 External Device Data [facility] ABSTRACTION Provider, Abstract 11/22/2024 External Device Data [facility] ABSTRACTION Provider, Abstract 11/14/2024 External Device Data [facility] ABSTRACTION Provider, Abstract 10/17/2024 External Device Data [facility] ABSTRACTION Provider, Abstract 10/17/2024 Telephone [facility] [address] [place] [address] Jill Ortega NP Results from Last 3 Months Family History Medical History Relation Name Comments Lung Cancer Brother 1 Prostate Cancer Brother 2 Lung Cancer Brother 3 Other Father Prostate Cancer Father Heart Disease Mother Heart Disease Sister 1 Stroke Sister 1 Relation Name Status Comments Brother 1 Brother 2 Brother 3 Brother 4 Alive Brother 5 Alive Father Mother Sister 1 Sister 2 Alive Social History Tobacco Use Types Packs/Day Years Used Date Smoking Tobacco: Former Cigarettes 2 31 Smokeless Tobacco: Never Tobacco Cessation:Counseling Given: Not Answered Comments:Quit 1994 Feeling Safe Answer Date Recorded Are you in a relationship wi th someone who hurts you emotionally and/or physically? No 09/19/2024 Sex and Gender Information Value Date Recorded Sex Assigned at Not on file Legal Sex Male 10:19 AM CDT Gender Identity Not on file Sexual Orientation Not on file Last Filed Vital Signs Vital Sign Reading Time Taken Comments Blood Pressure 110/71 09/26/2024 2:57 PM CRANE ASSEMBLER Pulse 90 09/26/2024 2:57 PM CRANE ASSEMBLER Temperature 37.5 ??C (99.5 ??F) 09/26/2024 2:57 PM CS T Respiratory Rate 20 09/26/2024 2:57 PM CRANE ASSEMBLER Oxygen Saturation 92% 09/26/2024 2:57 PM CRANE ASSEMBLER Inhaled Oxygen Concentration - - Weight 80.9 kg (178 lb 6.4 oz) 09/26/2024 2:57 P M CRANE ASSEMBLER Height 172.7 cm (5' 8 ) 09/26/2024 2:57 PM CRANE ASSEMBLER Body Mass Index 27.13 09/26/2024 2:57 PM CRANE ASSEMBLER Plan of Treatment Health Maintenance Due Date Last Done Comments COLORECTAL SCREENING 1994 Colorectal Cancer Screening 1994 FIT-DNA Q 3 years 1994 FIT/FOBT Q 1 year 1994 Flex Sig/CT Colonography Q 5 years 1994 Abdominal Aortic Aneurysm (AAA) Screening 2014 PNEUMOCOCCAL VACCINE 50+ YEA RS (2 of 2 - PCV) 01/17/2022 01/17/2021 INFLUENZA VACCINE (#1) 2024 10/18/2023 RSV VACCINE (60+ or ) (1 - 1-dose 75+ series) 2024 Medicare Advantage (MI) Prev entative Visit/Annual Wellness Visit 11/08/2024 DTAP/TDAP/TD VACCINES (2 - Td or Tdap) 09/30/2031 ZOSTER VACCINE Completed 07/10/2021, 01/08/[address] [place] [address] [facility] MEDICARE HMO
--- OUTSIDE RECORDS SUMMARY | 2025-01-13 09:43 | XMS_ITS | Encounter Summary ---
Author Organization [facility] Address [address] [place] [address] Care Team Providers Care Residential Building Inspector Name Role Phone Unavailable Primary Care Provider Unavailabl e Encounter Details Date Type Department Care Team (Late st Contact Info) Description 01/09/2025 External Device Data STL ABSTRACTION Provider, [...]
--- OUTSIDE RECORDS SUMMARY | 2025-01-13 09:43 | XMS_ITS | Encounter Summary ---
Author Organization [facility] Address [address] [place] [address] Care Team Providers Care Software Publisher Name Role Phone Unavailable Primary Care Provider Unavailabl e Encounter Details Date Type Department Care Team (Late st Contact Info) Description 01/02/2025 External Device Data ST[facility] ABSTRACTION Provider, [...]
--- NOTE | 2025-01-13 09:59 | PC.NURSE ---
Patient's mental status continues to be altered (see notes from previous nurse). Currently is non verbal, pulling at monitoring devises and very fidgety. Very little urine is present in fallon catheter bag. Previous nurse reports only 130mL of urine since admission. Nurse bladder scanned patient to rule out distended bladder as a source of agitation. Bladder scan shows no urine retained.
[2025-01-13 10:32] LABS: Glucose Point of Care 91 mg/dL (70-110)
[2025-01-13] MEDS: norepinephrine 4 MG/250 ML BAG 22.5 MG IV (10:33)
--- NOTE | 2025-01-13 10:33 | PC.SLP ---
Attempted service shop foreman eval-nursing reported history of ativan for aggitation, currently aggitated and not following directives. Unable to perform service shop foreman eval at this time
[2025-01-13 11:59] LABS: Estmated Average Glucose 123; Hemoglobin A1C 5.9 % (4.0-6.0)
[2025-01-13 12:20] LABS: HIV 1 & 2 Antibody Non-Reactive (Non-Reactiv); HIV 1 & 2 Antigen Non-Reactive (Non-Reactiv)
[2025-01-13 12:28] LABS: Vitamin B12 > 2000 pg/mL (232-1245)
[2025-01-13 12:31] LABS: Iron 132 ug/dL (59-158)
[2025-01-13 12:36] LABS: Ammonia 34 umol/L (16-60)
[2025-01-13 12:41] LABS: Procalcitonin > 100.00 ng/mL (0-0.5)
[2025-01-13 13:01] LABS: Unsaturated Iron Binding < 17 ug/dL (112-347)
[2025-01-13 13:14] LABS: Glucose Point of Care 93 mg/dL (70-110)
[2025-01-13] MEDS: methylPREDNISolone sod succ 40 mg/mL INJ IVP ×2 (13:42→20:49)
--- NOTE | 2025-01-13 13:49 | PM.PN ---
Subjective Subjective: Hospital course, labs appreciated. It seems patient was confused overnight and received dose of Ativan earlier today morning. After Ativan he has been more confused and otherwise has been feeling cooperative. Remains on 2-4 of Levophed. Mean artery pressure mostly maintained at 65. Poor urine output. Slight tachycardia. Seen with life partner at bedside. Vitals/I&O/Wt Last Vital Signs Temp 97.1 F L 01/13/25 08:15 Pulse 93 01/13/25 11:00 Resp 22 H 01/13/25 11:00 BP 102/61 01/13/25 11:00 Pulse Ox 95 01/13/25 11:00 O2 Del Method Nasal Cannula 01/13/25 11:00 O2 Flow Rate 3 01/13/25 11:00 FiO2 3 01/13/25 09:31 01/12/25 01/13/25 01/13/25 22:59 06:59 14:59 Intake Total 705.500 / 2838.000 300.75 / 3138.750 462.300 / 462.300 Output Total 30 / 30 100 / 130 0 / 0 Balance 675.500 / 2808.000 200.75 / 3008.750 462.300 / 462.300 Weight last 48 hrs Weight 67.5 kg Weight 69.5 kg Weight 90.718 kg Physical Exam Narrative: General: No acute distress, on nasal cannula, AO x 1 to 2, confused HEENT: PERRLA, pupils bilaterally equal and reactive Chest: Bilateral bronchial breath sounds, occasional rhonchi all over lung avalos CVS: S1-S2 regular, no murmurs, tachycardia, no gallops, no rubs Abdomen: Soft, nontender, no organomegaly, bowel sounds present Neuro: No focal deficits, no facial deformity, Urinary Catheter Management: Swain: Cath Placed During This Visit: yes Reason for Continuing Indwelling Catheter: Accurate Measurement of Urinary Output in Critically Ill Patients Urinary Catheter Date of Insertion: 01/12/25 Urinary Catheter Time of Insertion: 21:00 Data 01/14/25 04:55 01/14/25 04:55 Micro: Microbiology 01/12/25 05:40 Blood Culture - Preliminary Blood NEGATIVE TO DATE 01/12/25 05:40 Blood Culture - Preliminary Blood NEGATIVE TO DATE A&P Assessment and plan (1) Obstructive cardiovascular shock: Concerns for right heart failure. Multiorgan dysfunction. Keep mean arterial pressure 65. Recheck lactate level. Patient has had minimal urine output with worsening transaminitis. If lactate level continues to remain elevated will plan to add dobutamine. Continue with Levophed. Wean Levophed keeping mean arterial pressure over 65. IV albumin Q8h Patient not found to be fluid responsive on NICOM fluid assessment. (2) Hypoxic respiratory failure: Oxygen supplementation keeping saturation over 90%. In setting of aspiration pneumonia, COPD exacerbation due to influenza, pulmonary embolism and obstruction to pulmonary vasculature because of significant hilar lymphadenopathy. (3) Pulmonary embolus: History of PE in the past. History of RV dysfunction in the past. Missed home medications of Eliquis for last couple of weeks. Found to have pulmonary embolism along with right heart strain on CTA due to combination of PE and obstruction of pulmonary vasculature due to lymphadenopathy. Continue with heparin drip. Oxygen supplementation keeping saturation over 90%. (4) Influenza A: Supportive treatment. Continue Tamiflu as per creatinine clearance. Aggressive pulmonary toilet with incentive spirometry when patient is more awake. MRSA swab negative. Concern for superadded bacterial infection. Start on Solu-Medrol 40 mg every 8 hours IV. (5) Pneumonia: Concern for aspiration pneumonia. Chest imaging showing concerns for right lower lobe pneumonia. For now continue with IV Zosyn. MRSA swab negative. Follow-up blood culture. Sputum culture when possible. Trend procalcitonin. Keep n.p.o. for now. Speech evaluation once patient is more awake. (6) Acute kidney injury: In setting of multiorgan failure due to cardiogenic shock. Patient anuric. Repeat BMP later in the day. Strict input and output charting, daily weights. Swain catheterization. Monitor electrolytes. Medical reconciliation done for nephrotoxic drugs. CT abdomen pelvis negative for obstructive nephropathy. (7) Liver dysfunction: Severe transaminitis. Worsening. Could be in setting of shock along with right-sided heart failure. Appreciate CT abdomen pelvis along with gallbladder ultrasound. Concern for cholelithiasis but no emergent findings. Worsening transaminitis with hyperbilirubinemia. Check hepatitis panel, HIV. Dobutamine drip as above. (8) Lymphadenopathy: Mediastinal lymphadenopathy, additional incidentally noted 1.8 cm right adrenal mass. Seems to have been some progression of lymphadenopathy compared to the CT done 1 year ago at [facility]. Will need follow-up, consideration of biopsy given history of malignancy versus sarcoidosis. Check FRANCISCO level. (9) Elevated lactic acid level: (10) Acute on chronic right-sided heart failure: (11) Pulmonary HTN: (12) Encephalopathy: Metabolic encephalopathy. Could be in setting of acute illness with shock and influenza. Frequent reorientation. Patient did receive Ativan overnight after which he became obtunded. No further Ativan. Haldol 1 mg every 4 hours as needed. As per family member he has not had alcohol in many months. Urine drug screen not checked on admission. Will try to see if can be added. Check ammonia level. Plan EtOH consumption: He reports that he does drink quite a bit of alcohol. States that he feels he needs to cut down and has been trying to. States he has not drank any in about 2 months. History of gastric cancer with gastric resection. Continue PPI History of hypertension: Currently in shock. Hold any antihypertensives. Analgesia: Tylenol as needed Glycemic control: Not needed. Check A1c. Nutrition: N.p.o. for now. CODE STATUS: Discussed in detail with the life partner. Patient does not have a DPOA. Patient is but is not in touch with his anymore. He does have a brother. Will try to get in touch with the brother. Full code for now. PUD prophylaxis: Protonix DVT prophylaxis: Heparin drip will be sufficient Severely guarded prognosis Continue with care at ICU This documentation was created by [employer] student recruiter software. Every effort was made to ensure accuracy of student recruiter. Any obvious errors or omissions should be clarified with the author of the document. PDMP PDMP Reviewed: Not Reviewed Attestations Medical Necessity Statement*: Requires further hospitalization for management of cardiogenic shock with multiorgan dysfunction in setting of right-sided heart failure, pulmonary embolism with lymphadenopathy encasing pulmonary vasculature, encephalopathy, influenza, pneumonia Critical Care Time: The high probability of a clinically significant, sudden or life threatening deterioration of the patient's [cardiac, renal, pulmonary, GI, neurological, goals of care] system(s) required my full and direct attention, intervention and personal management. The critical care time is as shown. This time is in addition to time spent performing any reported procedures but includes the following: [x] Data and vital sign review and interpretation [x] Patient assessment, examination and intervention [x] Documentation [x] Medication orders and management Critical Care Time (min): 90 Coding Level of Care Code Critical Care >/= 30 minutes Critical care time (in minutes): 90 The high probability of a clinically significant, sudden or life threatening deterioration, as referenced in this documentation, required my full and direct attention, intervention and personal management. The critical care time shown is in addition to time spent performing any reported separately billable procedures and includes the following: [x] Data and vital sign review and interpretation [x] Patient assessment, examination and intervention [x] Medication orders and management [x] Patient/Family updates as able [x] Care Coordination and Documentation. Other Coding Information This patient has a high probability of clinically significant, sudden or life threatening deterioration of the patient's (neurological/pulmonary/cardiac/renal/ID/endocrine) systems required my full, direct attention, the highest level of physician preparedness for urgent intervention and personal management. I managed/supervised life or organ supporting interventions that required frequent physician assessment. I devoted my full attention in the ICU to the direct care of this patient for the period of time indicated above. Time I spent with family or surrogate(s) is included only if the patient was incapable of providing necessary information or participating in decision making. This time includes the following services provided: Telemetry review NOn-Mechanical Ventilation Hemodynamic interpretation, assessment and management Review and interpretation of CXR Review and interpretation of lab values Review and interpretation of microbiologic data and culture results Review of medications and administration Review and interpretation of Nutrition requirements and management Discussion of management with other consultants and services Clinical update to family members Diagnoses Obstructive cardiovascular shock R57.8 Hypoxic respiratory failure J96.91 Pulmonary embolus I26.99 Influenza A J10.1 Pneumonia J18.9 Acute kidney injury N17.9 Liver dysfunction K76.89 Lymphadenopathy R59.1 Elevated lactic acid level R79.89 Acute on chronic right-sided heart failure I50.813 Pulmonary HTN I27.20 Encephalopathy G93.40
[2025-01-13 14:06] LABS: Lactic Sepsis W/Reflex 4.5 mmol/L (0.5-2.2)
[2025-01-13 14:09] LABS: Reflex Lactate Order REFLEX LACTIC ORDERD
[2025-01-13] MEDS: ipratropium-albuterol 3 mL Neb INHALATION ×2 (14:33→19:58)
[2025-01-13] MEDS: DOBUTamine drip 500 MG/250 ML PREMIX 10.13 MG IV (14:39)
[2025-01-13 15:14] LABS: Anion Gap 20.8 (5-19); Blood Urea Nitrogen 39 mg/dL (8-23); Calcium 7.7 mg/dL (8.5-10.5); Carbon Dioxide 22 mmol/L (22-29); Chloride 103 mmol/L (98-107); Glucose 113 mg/dL (65-115); Lactic Acid level (Lactate) 3.7 mmol/L (0.5-2.2); Osmolality Calculated 304 mOsm/kg (285-295); Potassium 3.8 mmol/L (3.5-5.1); Sodium 142 mmol/L (136-145)
[2025-01-13 16:41] LABS: Glucose Point of Care 113 mg/dL (70-110)
[2025-01-13] MEDS: albumin 25 G/100 ML BAG 60 G IV (17:50)
[2025-01-13] MEDS: sodium chloride 0.9% 500 ML IV (17:57)
[2025-01-13] MEDS: sodium chloride 0.9% 1,000 ML 50 ML IV (17:59)
[2025-01-13 18:49] LABS: Partial Thromboplastin Time 123.1 SECONDS (23.9-36.7)
--- NOTE | 2025-01-13 19:18 | PC.NURSE ---
SHift SUmmary: Altered mental status throughout shift, no improvement. Very fidgety, will occasionally open eyes an look towards his name being called but will not speak. Doesn't appear to be aware of surroundings. By end of shift has been titrated off of levophed. Started on Dobutamine. Started on albumin and maintenance fluids. WIth last check at 1800 today the PTT was 123.1. Has been greater than 250 on two previous occasions. Per Dr manzanares heparin was paused and needs to be restarted in 4 hours at half the rate. (restart @ 2300 at 5.5 ml/hr)
[2025-01-13 19:20] LABS: Amphetamines Screen Urine Negative (Negative); Barbiturates Screen Urine Negative (Negative); Benzodiazepines Screen Urine Negative (Negative); Cocaine Screen Urine Negative (Negative); Opiate Screen Urine Negative (Negative); PCP Screen Urine Negative (Negative); THC Screen Urine Negative (Negative)
[2025-01-13] MEDS: budesonide 0.5 mg/2 mL Neb INHALATION (19:58)
[2025-01-13 20:20] LABS: Cortisol Random 24.25 ug/dL (2.47-19.5)
[2025-01-14] VITALS (62 sets, daily range): BP systolic 79–126; BP diastolic 47–88; PULSE 89–130; RESP 14–35; TEMP 35.4–36.2; O2SAT 84–100
[2025-01-14] MEDS: albumin 25 G/100 ML BAG 60 G IV ×3 (01:07→16:49)
[2025-01-14] MEDS: ipratropium-albuterol 3 mL Neb INHALATION ×4 (03:40→20:00)
[2025-01-14] MEDS: morphine 4 mg/mL SDV 1 mL 2 MG IVP (04:16)
[2025-01-14] MEDS: methylPREDNISolone sod succ 40 mg/mL INJ IVP ×3 (05:00→21:56)
[2025-01-14 05:04] LABS: Basophils % 0.2 %; Hematocrit 29.1 % (37-53); Lymphocytes # 0.3 10^3/uL (0.8-4.8); Lymphocytes % 2.3 %; Mean Corpuscular HGB Conc 34.7 g/dL (30-55); Mean Corpuscular Hemoglobin 34.5 pg (27-33); Mean Corpuscular Volume 99.3 fl (82-101); Mean Platelet Volume 11.5 fL (7.4-10.4); Monocytes # 0.3 10^3/uL (0.2-0.9); Monocytes % 2.5 %; Neutrophils # 11.46 10^3/uL (1.8-7.7); Neutrophils % 93.5 %; Nucleated Red Blood Cells # 0.6 /100WBC; Nucleated Red Blood Cells % 4.6 %; Platelet Count 249 10^3/cmm (157-399); Red Blood Count 2.93 10^6/uL (3.85-5.65); Red Cell Distribution Width 20.8 % (12.1-15.1); White Blood Count 12.26 10^3/uL (3.29-11.43)
[2025-01-14 05:16] LABS: INR 1.79 (0.8-1.2)
[2025-01-14 05:22] LABS: Alanine Aminotransferase 484 U/L (0-41); Alkaline Phosphatase 104 U/L (40-130); Anion Gap 25.9 (5-19); Blood Urea Nitrogen 44 mg/dL (8-23); Calcium 7.8 mg/dL (8.5-10.5); Carbon Dioxide 17 mmol/L (22-29); Chloride 101 mmol/L (98-107); Chol HDL Ratio 4.19 mg/dL (1.0-5.00); Cholesterol 67 mg/dL (0-200); Globulin 2.6 g/dL (1.3-4.6); Glucose 152 mg/dL (65-115); HDL Cholesterol 16 mg/dL (60-100); LDL Cholesterol Calculated 32 mg/dL (50-129); Osmolality Calculated 304 mOsm/kg (285-295); Potassium 3.9 mmol/L (3.5-5.1); Sodium 140 mmol/L (136-145); Total Bilirubin 3.7 mg/dL (0.15-1.2); Total Protein 5.6 g/dL (6.6-8.7); Triglycerides 96 mg/dL (0-150); VLDL Cholestrol Calculation 19 mg/dL (0-30)
[2025-01-14 05:25] LABS: Partial Thromboplastin Time 83.5 SECONDS (23.9-36.7)
[2025-01-14 05:34] LABS: Aspartate Amino Transferase 1160 U/L (0-40)
[2025-01-14 05:37] LABS: Folate Level 12.1 ng/mL (4.5-32.2)
--- NOTE | 2025-01-14 06:47 | PC.NURSE ---
Preformed a bladder scan due to 0 catheter output overnight. No urine found via bladder scan, consistent with previous nurse on day shifts assessment.
[2025-01-14] MEDS: piperacillin-tazobactam 3.375 GM in sodium chloride 0.9% (plus) 50 ML IV ×2 (08:09→13:13)
[2025-01-14] MEDS: budesonide 0.5 mg/2 mL Neb INHALATION ×2 (08:43→20:00)
[2025-01-14] MEDS: FUROsemide 10 mg/mL SDV 10mL 80 MG IVP (09:31)
--- NOTE | 2025-01-14 09:35 | CTR_ITS ---
PROCEDURE INFORMATION: Exam: CT Head Without Contrast Exam date and time: 01/14/2025 3:06 PM Age: 74 years old Clinical indication: Altered mental status/memory loss; Additional info: AMS TECHNIQUE: Imaging protocol: Computed tomography of the head without contrast. Radiation optimization: All CT scans at this facility use at least one of these dose optimization techniques: automated exposure control; mA and/or kV adjustment per patient size (includes targeted exams where dose is matched to clinical indication); or iterative reconstruction. COMPARISON: CT head wo con* [id number] 01/12/2025 8:20 AM RADIATION DOSE METRICS: Total DLP (mGy-cm): 992.14 FINDINGS: Brain: Moderate to markedly prominent patchy periventricular and deep white matter decreased density seen both cerebral hemispheres. The midline is intact. Beam hardening artifact obscure some resolution through the lower sections of the posterior fossa. No hemorrhage. Unremarkable white matter. No mass effect. Atherosclerotic calcifications are seen in the right supraclinoid ICA and to a trace degree in the vertebrobasilar system. Cerebral ventricles: No ventriculomegaly. Paranasal sinuses: Tiny air-fluid levels are seen in the right ethmoid and sphenoid sinus air cells. Sinuses are otherwise relatively unremarkable with respect to the visualized portions. Mastoid air cells: Visualized mastoid air cells are well aerated. Bones: Unremarkable. No acute fracture. Soft tissues: Unremarkable. CT/CT head wo con* [id number] IMPRESSION: 1. No acute intracranial head CT findings. 2. Atrophy/involutional changes of aging with chronic small-vessel disease, unchanged. 3. Small air-fluid levels in the sinuses are nonspecific.
[2025-01-14] MEDS: norepinephrine 4 MG/250 ML BAG 7.5 MG IV (09:40)
[2025-01-14 09:59] LABS: ABG PCO2 29.9 mmHg (35-45); ABG PH Result 7.32 (7.35-7.45); Alveolar-Arterial Oxygen Gradi 29.4 mmHg (5-10); Arterial Blood Gas Hematocrit 31.8 % (42-52); Base Excess ABG -9.5 mmol/L (-2.0-2.0); Blood Gas Allen Test Pos; Blood Gas Operator Identificat GD; Blood Gas Sample Site Radial, left; Blood Gas Sample Type Arterial; HCO3 ABG 15.4 mmol/L (22-26); HGB O2 Sat 76.3 % (95-100); Methemoglobin 0.6 % (0.4-1.5); Oxygen Device NC; Oxygen Saturation ABG 77.6; PO2 ABG 50.4 mmHg (80.0-100.0); PO2 FiO2 Ratio Arterial Blood 114; Potassium Level - ABG 4.2 mmol/L (3.5-5.0); Total Hemoglobin 10.4 g/dL (14-18)
[2025-01-14] MEDS: sodium bicarbonate 50 MEQ in sodium chloride 0.45% 1,000 ML 100 MEQ IV (10:04)
--- NOTE | 2025-01-14 10:50 | PC.SLP ---
attempted automobile and property underwriter eval-nursing reported not coherent for eval
[2025-01-14] MEDS: haloperidol inj 5 mg/mL INJ 1 mL 1 MG IM (12:08)
[2025-01-14] MEDS: FUROsemide 100 MG in sodium chloride 0.9% 40 ML IV ×2 (13:11→21:55)
[2025-01-14] MEDS: LORazepam 2 mg/mL INJ 1 mL IVP (13:11)
[2025-01-14] MEDS: DOBUTamine drip 500 MG/250 ML PREMIX 10.13 MG IV (13:46)
--- NOTE | 2025-01-14 13:59 | PM.CCN ---
Critical Care Event Note The high probability of a clinically significant, sudden or life threatening deterioration of the patient's [] system(s) required my full and direct attention, intervention and personal management. The critical care time is as shown. This time is in addition to time spent performing any reported procedures but includes the following: [x] Data and vital sign review and interpretation [x] Patient assessment, examination and intervention [x] Documentation [x] Medication orders and management Critical Care Time Code activated: No Critical Care Time (min): 10 Additional information about critical care time: I was asked to come to the ICU to intubate Mr. Slater by Dr. Erickson. The patient was confused and unable to answer questions. Sats were in the mid to high 90's on high flow nasal cannula. I reviewed his meds and history. He was intubated wtih fiber optic assistance, an 8.0 cuffed tube, rocuronium and etomidate. No complications. Tube placement was confirmed with ausculation of bilateral lungs and epigastrium, color change on the CO2 detector. Sats dropped to 89% few quickly after the high flow cannula was removed but improved as quickly once he was intubated and on the vent. Procedures Intubation Sedative: etomidate Mg given: 20 Paralytic: rocuronium Mg given: 50 Laryngoscope: fiber optic video scope ET tube size: 8 Tube secured depth (cm): 25 Tube secured location: lips Tube placement confirmation: visualized tube passing through cords, equal breath sounds bilaterally, no breath sounds over epigastrium and color change noted Intubation complications: none Coding Level of Care Code Acute Code for Chg Fwd Time Spent (min) 10
[2025-01-14] MEDS: fentaNYL 1,000 MCG/100 ML BAG 2.5 MCG IV (14:20)
[2025-01-14] MEDS: rocuronium 10 mg/mL INJ 5mL 50 MG (14:20)
--- NOTE | 2025-01-14 14:21 | PC.NURSE ---
Pt intubated at 1345 by ER doctor and ER nurse. This nurse entered room after intubation and started sedation.
--- NOTE | 2025-01-14 14:58 | PM.PN ---
Subjective Subjective: Seen multiple times during the day today. Early in the morning patient was found to be confused, has been an uric overnight. Today morning he was seen on Levophed of 2, dobutamine of 5. Found to be saturating in the low and 80s on 6 L and will transition to heated high flow. He was given high-dose Lasix. He remained an uric. Eventually because of worsening encephalopathy he was intubated. Postintubation he is on 50% FiO2, tidal volume of 500 with PEEP of 8. Later in the day Levophed was weaned off and was continued on dobutamine of 5 with mean of pressure being maintained around 70. Vitals/I&O/Wt Last Vital Signs Temp 95.8 F L 01/14/25 07:30 Pulse 117 H 01/14/25 13:07 Resp 14 01/14/25 14:09 BP 97/62 01/14/25 12:30 Pulse Ox 100 01/14/25 14:09 O2 Del Method Heated High Flow 01/14/25 12:59 O2 Flow Rate 60 01/14/25 12:59 FiO2 100 01/14/25 14:09 01/13/25 01/14/25 01/14/25 22:59 07:59 14:59 Intake Total 776.583 / 1238.883 275.925 / 1514.808 294.167 / 294.167 Output Total 0 / 10 Balance 766.583 / 1228.883 275.925 / 1504.808 294.167 / 294.167 Weight last 48 hrs Weight 71.139 kg Weight 67.5 kg Physical Exam Narrative: General: Intubated, sedated HEENT: PERRLA, pupils bilaterally equal and reactive Chest: Bilateral bronchial breath sounds, occasional rhonchi all over lung avalos CVS: S1-S2 regular, no murmurs, tachycardia, no gallops, no rubs Abdomen: Soft, nontender, no organomegaly, bowel sounds present Neuro: No focal deficits, no facial deformity, Urinary Catheter Management: Swain: Cath Placed During This Visit: yes Reason for Continuing Indwelling Catheter: Accurate Measurement of Urinary Output in Critically Ill Patients Urinary Catheter Date of Insertion: 01/12/25 Urinary Catheter Time of Insertion: 21:00 Data 01/14/25 04:55 01/14/25 04:55 A&P Assessment and plan (1) Obstructive cardiovascular shock: Concerns for right heart failure. Multiorgan dysfunction. Keep mean arterial pressure 65. Wean Levophed accordingly. Continue with dobutamine drip. LFTs improving on dobutamine drip. Recheck CBC, CMP, lactate later in the day. Continue with IV albumin every 8 hours. Switch to bicarb drip at 50 cc/h given metabolic acidosis. (2) Hypoxic respiratory failure: Oxygen supplementation keeping saturation over 90%. In setting of aspiration pneumonia, COPD exacerbation due to influenza, pulmonary embolism and obstruction to pulmonary vasculature because of significant hilar lymphadenopathy. Intubated on 01/14. (3) Pulmonary embolus: History of PE in the past. History of RV dysfunction in the past. Missed home medications of Eliquis for last couple of weeks. Found to have pulmonary embolism along with right heart strain on CTA due to combination of PE and obstruction of pulmonary vasculature due to lymphadenopathy. Continue with heparin drip. Oxygen supplementation keeping saturation over 90%. (4) Influenza A: Supportive treatment. Did not get Tamiflu for last 2 days because of AMS. Restart Tamiflu as per creatinine clearance as he is intubated now. Aggressive pulmonary toilet with incentive spirometry when patient is more awake. MRSA swab negative. Concern for superadded bacterial infection. Continue with Solu-Medrol 40 mg every 8 hours IV. (5) Pneumonia: Concern for aspiration pneumonia. Chest imaging showing concerns for right lower lobe pneumonia. For now continue with IV Zosyn. MRSA swab negative. Follow-up blood culture. Pro-Siddharth elevated. Stat sputum culture. Speech evaluation once patient is more awake. (6) Acute kidney injury: In setting of multiorgan failure due to cardiogenic shock. Patient anuric. Repeat BMP later in the day. Strict input and output charting, daily weights. Swain catheterization. Monitor electrolytes. Medical reconciliation done for nephrotoxic drugs. CT abdomen pelvis negative for obstructive nephropathy. (7) Liver dysfunction: Severe transaminitis. Worsening. Could be in setting of shock along with right-sided heart failure. Appreciate CT abdomen pelvis along with gallbladder ultrasound. Concern for cholelithiasis but no emergent findings. Worsening transaminitis with hyperbilirubinemia. Check hepatitis panel, HIV. Dobutamine drip as above. (8) Lymphadenopathy: Mediastinal lymphadenopathy, additional incidentally noted 1.8 cm right adrenal mass. Seems to have been some progression of lymphadenopathy compared to the CT done 1 year ago at [facility]. Will need follow-up, consideration of biopsy given history of malignancy versus sarcoidosis. Check FRANCISCO level. (9) Elevated lactic acid level: (10) Acute on chronic right-sided heart failure: (11) Pulmonary HTN: (12) Encephalopathy: Metabolic encephalopathy. Could be in setting of acute illness with shock and influenza. Frequent reorientation. Patient did receive Ativan overnight after which he became obtunded. No further Ativan. Haldol 1 mg every 4 hours as needed. As per family member he has not had alcohol in many months. Urine drug screen not checked on admission. Will try to see if can be added. Check ammonia level. Plan EtOH consumption: He reports that he does drink quite a bit of alcohol. States that he feels he needs to cut down and has been trying to. States he has not drank any in about 2 months. History of gastric cancer with gastric resection. Continue PPI History of hypertension: Currently in shock. Hold any antihypertensives. Analgesia: Tylenol as needed Glycemic control: Not needed. Check A1c. Nutrition: N.p.o. for now. CODE STATUS: Discussed in detail with the life partner. Patient does not have a DPOA. Patient is but is not in touch with his anymore. He does have a brother. Will try to get in touch with the brother. Full code for now. PUD prophylaxis: Protonix DVT prophylaxis: Heparin drip will be sufficient Severely guarded prognosis Continue with care at ICU Plan for the day: Intubated given concerns for metabolic encephalopathy, respiratory failure. Maintains oxygen supplementation over 90%. Maintain sedation with fentanyl and Versed for now. Continues to remain encephalopathic. Urine drug screen negative. Check CT head. Encephalopathy could be in setting of hypoxia and hypotension on admission. Continue with heparin drip. Pulmicort twice daily, DuoNeb every 6 hour. Continue with Solu-Medrol every 8 hour. Restart Tamiflu as patient is intubated now. Has remained anuric. IV Lasix 100 mg one-time. Continue with IV albumin every 8 hours. Will recheck urine output in next 2 hours. If remains low will start on Lasix drip. Recheck CMP and CBC during the day. Repeat ABG. If persistent metabolic acidosis and anuria on Lasix drip will consult nephrology. Metabolic acidosis. Start on bicarb drip at 50 cc/h. Repeat ABG later in the day. LFTs improving. Continue with dobutamine drip. Wean Levophed keeping mean arterial pressure over 65. Repeating CMP later in the day. Recheck lactate. Follow-up cultures. Continue with IV Zosyn for now. MRSA swab negative. Patient's care discussed in detail with life partner at bedside. We discussed poor prognosis. For now she wants to continue with aggressive management. She is agreeable with dialysis if needed. This documentation was created by [employer] managing cognitive engineer software. Every effort was made to ensure accuracy of managing cognitive engineer. Any obvious errors or omissions should be clarified with the author of the document. PDMP PDMP Reviewed: Not Reviewed Attestations Medical Necessity Statement*: Requires further hospitalization for management of respiratory failure, mechanical ventilation, multiorgan failure due to cardiogenic shock, liver and renal failure as patient remains anuric Critical Care Time: The high probability of a clinically significant, sudden or life threatening deterioration of the patient's [cardiac, pulmonary, renal, goals of care discussion, GI] system(s) required my full and direct attention, intervention and personal management. The critical care time is as shown. This time is in addition to time spent performing any reported procedures but includes the following: [x] Data and vital sign review and interpretation [x] Patient assessment, examination and intervention [x] Documentation [x] Medication orders and management Critical Care Time (min): 90 Coding Level of Care Code Critical Care >/= 30 minutes Critical care time (in minutes): 90 The high probability of a clinically significant, sudden or life threatening deterioration, as referenced in this documentation, required my full and direct attention, intervention and personal management. The critical care time shown is in addition to time spent performing any reported separately billable procedures and includes the following: [x] Data and vital sign review and interpretation [x] Patient assessment, examination and intervention [x] Medication orders and management [x] Patient/Family updates as able [x] Care Coordination and Documentation. Other Coding Information This patient has a high probability of clinically significant, sudden or life threatening deterioration of the patient's (neurological/pulmonary/cardiac/renal/ID/endocrine) systems required my full, direct attention, the highest level of physician preparedness for urgent intervention and personal management. I managed/supervised life or organ supporting interventions that required frequent physician assessment. I devoted my full attention in the ICU to the direct care of this patient for the period of time indicated above. Time I spent with family or surrogate(s) is included only if the patient was incapable of providing necessary information or participating in decision making. This time includes the following services provided: Telemetry review Mechanical Ventilation Hemodynamic interpretation, assessment and management Review and interpretation of CXR Review and interpretation of lab values Review and interpretation of microbiologic data and culture results Review of medications and administration Review and interpretation of Nutrition requirements and management Discussion of management with other consultants and services Clinical update to family members Diagnoses Obstructive cardiovascular shock R57.8 Hypoxic respiratory failure J96.91 Pulmonary embolus I26.99 Influenza A J10.1 Pneumonia J18.9 Acute kidney injury N17.9 Liver dysfunction K76.89 Lymphadenopathy R59.1 Elevated lactic acid level R79.89 Acute on chronic right-sided heart failure I50.813 Pulmonary HTN I27.20 Encephalopathy G93.40
[2025-01-14 15:00] LABS: ABG PCO2 42.3 mmHg (35-45); ABG PH Result 7.27 (7.35-7.45); Alveolar-Arterial Oxygen Gradi 41.4 mmHg (5-10); Arterial Blood Gas Hematocrit 29.4 % (42-52); Base Excess ABG -7.3 mmol/L (-2.0-2.0); Blood Gas Allen Test Pos; Blood Gas Operator Identificat GD; Blood Gas Sample Site Radial, right; Blood Gas Sample Type Arterial; Carboxyhemoglobin 0.6 %THgb (0.4-20.1); HCO3 ABG 19.2 mmol/L (22-26); HGB O2 Sat 98.8 % (95-100); Ionized Calcium Level - ABG 1.1 mmol/L (1.1-1.4); Methemoglobin 0.6 % (0.4-1.5); Oxygen Device VENT; Oxygen Saturation ABG > 99.1; PO2 FiO2 Ratio Arterial Blood 335; Potassium Level - ABG 3.4 mmol/L (3.5-5.0); Total Hemoglobin 9.6 g/dL (14-18)
--- NOTE | 2025-01-14 15:16 | XRR_ITS ---
PROCEDURE INFORMATION: Exam: XR Chest Exam date and time: 01/14/2025 2:22 PM Age: 74 years old Clinical indication: Device placement; Ett placement (vent status); Additional info: Ett/og placement TECHNIQUE: Imaging protocol: Radiologic exam of the chest. Views: 1 view. COMPARISON: CT angio chest w abd pel w con 01/12/2025 8:28 AM FINDINGS: Lungs: Various monitoring leads and tubing artifacts overlie the chest. A right jugular central line is seen with its tip in the SVC RA level. An NG tube extends to the epigastric region over the area of the stomach. An ET tube appears to be present over the manubrial level but is not well seen due to overlying artifacts. Bilateral central and lower lung areas of irregular consolidative like infiltrates are suspected with blunting of the angles consistent with effusions. Pleural spaces: Unremarkable. No pleural effusion. No pneumothorax. Heart/Mediastinum: Bilateral hilar prominence is noted. The heart is enlarged. Bones/joints: Plate and screws are seen over the lower cervical region. XR/XR chest 1V portable [id number] IMPRESSION: 1. Support devices appear to be appropriately positioned, as noted above. 2. Prominent bilateral azalia with central and lower lung infiltrates appear improved in comparison to the prior CT scanogram study from 2 days ago
[2025-01-14] MEDS: midazolam hcl 100 MG/100 ML BAG IV (16:50)
[2025-01-14 17:13] LABS: Partial Thromboplastin Time 58.2 SECONDS (23.9-36.7)
[2025-01-14] MEDS: pantoprazole 40 mg SDV IVP (18:05)
--- NOTE | 2025-01-14 18:06 | PC.NURSE ---
Heparin gtt paused per verbal orders.
[2025-01-14 18:34] LABS: Basophils % 0.1 %; Hematocrit 27.5 % (37-53); Lymphocytes # 0.4 10^3/uL (0.8-4.8); Lymphocytes % 2.3 %; Mean Corpuscular HGB Conc 33.8 g/dL (30-55); Mean Corpuscular Hemoglobin 33.2 pg (27-33); Mean Corpuscular Volume 98.2 fl (82-101); Mean Platelet Volume 12.1 fL (7.4-10.4); Monocytes # 0.5 10^3/uL (0.2-0.9); Monocytes % 3.2 %; Neutrophils # 14.94 10^3/uL (1.8-7.7); Neutrophils % 92.8 %; Nucleated Red Blood Cells # 0.6 /100WBC; Nucleated Red Blood Cells % 3.9 %; Platelet Count 238 10^3/cmm (157-399); Red Cell Distribution Width 21.4 % (12.1-15.1); White Blood Count 16.09 10^3/uL (3.29-11.43)
[2025-01-14 18:53] LABS: Lactic Sepsis W/Reflex 1.9 mmol/L (0.5-2.2)
--- NOTE | 2025-01-14 20:24 | PM.CONSULT ---
Providers/Reason For Consult Consulting Physician/Specialty*: General Surgery Reason for Consult*: Need for temporary dialysis catheter Attending Physician: Chuck Brown MD History of Present Illness History of Present Illness Edgard Slater is a 74 year old male admitted with cardiogenic shock, lactic acidosis, encephalopathy respiratory failure and multiorgan failure including YESI with anuria. Currently intubated and sedated. I was consulted as it has been decided that the patient will require dialysis today. Review of Systems General: Reports: ROS unobtainable due to endotracheal tube Medications/Allergies Home Medications ?Medication ?Instructions ?Recorded ?Confirmed ?Last Taken ?Type albuterol sulfate 90 mcg/actuation 2 puff inhalation QID PRN 01/12/25 01/12/25 Unknown History aerosol inhaler Shortness Of Breath Or Wheezing amlodipine 5 mg-benazepril 10 mg 1 cap PO DAILY 01/12/25 01/12/25 Unknown History capsule apixaban 5 mg tablet (Eliquis) 5 mg PO BID 01/12/25 01/12/25 Unknown History cholecalciferol (vitamin D3) 125 125 mcg PO DAILY 01/12/25 01/12/25 Unknown History mcg (5,000 unit) tablet (Vitamin D3) cyanocobalamin (vitamin B-12) 1,000 mcg SUBCUT Q30D 01/12/25 01/12/25 10/14/24 History 1,000 mcg/mL injection solution furosemide 20 mg tablet 20 mg PO DAILY 01/12/25 01/12/25 Unknown History omeprazole 40 mg capsule,delayed 40 mg PO DAILY 01/12/25 01/12/25 Unknown History release potassium chloride 8 mEq 8 meq PO DAILY 01/12/25 01/12/25 Unknown History capsule,extended release Allergies Allergy/AdvReac Type Severity Reaction Status Date / Time No Known Allergies Allergy Verified 01/12/25 09:38 Current Medications Generic Name Dose Route Start Last Admin Trade Name Freq PRN Reason Stop Dose Admin Albuterol/Ipratropium 3 ml 01/13/25 14:00 01/14/25 20:00 Ipratropium-Albuterol 3 Ml Neb INHALATION 3 ml Q6H.RESP JOANNA Administration Budesonide 0.5 mg 01/13/25 20:00 01/14/25 20:00 Budesonide 0.5 Mg/2 Ml Neb INHALATION 0.5 mg BID.RESPIRATORY JOANNA Administration Haloperidol Lactate 1 mg 01/13/25 12:18 01/14/25 12:08 Haloperidol Inj 5 Mg/Ml Inj 1 Ml IM 1 mg Q4H PRN Administration AGITATION Heparin Sodium/Sodium Chloride 25,000 unit in 500 mls @ 0 mls/hr 01/12/25 09:00 01/14/25 17:50 Heparin Drip IV Infused CONT JOANNA Titration Protocol Per Protocol Norepinephrine Bitartrate 4 mg in 250 mls @ 0 mls/hr 01/12/25 09:30 01/14/25 09:40 Levophed IV 2 mcg/min .Q0M JOANNA 7.5 mls/hr Administration Protocol Per Protocol Piperacillin Sod/Tazobactam 50 mls @ 12.5 mls/hr 01/12/25 14:00 01/14/25 19:53 Sod 3.375 gm/ Sodium Chloride IV Infused Q8H JOANNA Infusion Protocol Dobutamine HCl/Dextrose 500 mg in 250 mls @ 0 mls/hr 01/13/25 14:30 01/14/25 13:46 Dobutamine Drip IV 5 mcg/kg/min .Q0M JOANNA 10.13 mls/hr Administration Protocol Per Protocol Albumin Human 25 g in 100 mls @ 60 mls/hr 01/13/25 17:45 01/14/25 19:53 Albumin IV Infused Q8H JOANNA Infusion Sodium Bicarbonate 50 meq/ 1,050 mls @ 50 mls/hr 01/14/25 09:45 01/14/25 10:04 Sodium Chloride IV 100 mls/hr .Q21H JOANNA Administration Furosemide 100 mg/ Sodium 50 mls @ 5 mls/hr 01/14/25 11:45 01/14/25 13:11 Chloride IV 10 mg/hr .Q10H JOANNA 5 mls/hr Administration 10 MG/HR Fentanyl 1,000 mcg in 100 mls @ 0 mls/hr 01/14/25 13:45 01/14/25 14:20 Sublimaze IV 25 mcg/hr .Q0M JOANNA 2.5 mls/hr Administration Protocol Per Protocol Midazolam HCl 100 mg in 100 mls @ 0 mls/hr 01/14/25 14:00 01/14/25 16:50 Versed IV 2 mg/hr .Q0M JOANNA 2 mls/hr Administration Protocol Per Protocol Lorazepam 2 mg 01/12/25 21:54 01/12/25 22:24 Lorazepam 2 Mg/Ml Inj 1 Ml IVP 2 mg PRN PRN Administration WITHDRAWAL Protocol Methylprednisolone Sodium Succinate 40 mg 01/13/25 12:30 01/14/25 12:08 Methylprednisolone Sod Succ 40 Mg/Ml Inj IVP 40 mg Q8H JOANNA Administration Oseltamivir Phosphate 30 mg 01/14/25 09:00 01/14/25 09:32 Oseltamivir Phosphate 30 Mg Capsule PO Not Given DAILY JOANNA Pantoprazole Sodium 40 mg 01/14/25 17:35 01/14/25 18:05 Pantoprazole 40 Mg Sdv IVP 40 mg DAILY JOANNA Administration PFSH Acute PFSH: Medical History HTN (hypertension) PE (pulmonary thromboembolism) DVT (deep venous thrombosis) Gastric cancer Surgical History H/O resection of stomach Social History (Updated 01/12/25 @ 14:25 by Sea Shepherd MD) Smoking and tobacco/nicotine status: former use of tobacco/nicotine Alcohol intake: current Alcohol use comment: States has been trying to quit, has not drank in 2 months Substance/Drug Use: never Household members: significant other Vitals/I&O/Wt Last Vital Signs Temp 97.1 F L 01/14/25 16:41 Pulse 91 01/14/25 20:00 Resp 14 01/14/25 20:00 BP 105/71 01/14/25 18:00 Pulse Ox 95 01/14/25 20:00 O2 Del Method Mechanical Ventilation 01/14/25 20:00 O2 Flow Rate 60 01/14/25 12:59 FiO2 40 01/14/25 20:00 01/14/25 01/14/25 01/14/25 07:59 14:59 22:59 Intake Total 275.925 / 1514.808 394.167 / 578.789 6698.025 / 1575.192 Output Total 0 / 10 Balance 275.925 / 1504.808 394.167 / 654.533 9838.025 / 1575.192 Weight last 48 hrs Weight 156 lb 13.362 oz Weight 148 lb 12.992 oz Physical Exam Narrative: Patient is intubated and sedated, unresponsive. Bilateral groins were examined and appeared unremarkable. Ultrasound examination bilateral groin show adequate targets on both sides. Urinary Catheter Management: Swain: Cath Placed During This Visit: yes Reason for Continuing Indwelling Catheter: Accurate Measurement of Urinary Output in Critically Ill Patients Urinary Catheter Date of Insertion: 01/12/25 Urinary Catheter Time of Insertion: 21:00 Data 01/14/25 18:18 01/14/25 04:55 Micro: Microbiology 01/14/25 14:05 Gram Stain - Final Sputum - Endotracheal Tube Aspirate A&P Assessment and plan (1) Personal history of DVT (deep vein thrombosis): (2) Pulmonary embolus: (3) Obstructive cardiovascular shock: (4) Septic shock: Plan After complete history physical examination and review of all available clinical data I agree that patient will benefit from placement of a temporary dialysis catheter. Consent was obtained from patient life partner, I discussed all risk benefits with the life partner including the risk of bleeding, infection, need for additional interventions, pneumothorax in the case of a catheter in the neck or injury to the intra-abdominal structures in the case of a catheter in the groin. I discussed with the family members at high risk of bleeding as the patient is currently on a heparin drip we have stopped it for about 1 hour before proceeding. A left femoral dialysis catheter was placed without complications, catheter is ready to be used. My recommendation is that we hold heparin drip for 12 hours to prevent hematoma. PDMP PDMP Reviewed: Not Reviewed Coding Level of Care Code Acute Code for g Fwd Diagnoses Personal history of DVT (deep vein thrombosis) Z86.718 Pulmonary embolus I26.99 Obstructive cardiovascular shock R57.8 Septic shock A41.9; R65.21
--- NOTE | 2025-01-14 20:29 | P.PCN_ITS ---
Procedure/Consent Time out: Time Out Performed: Yes Consent: Consent for Procedure: Consent obtained from other (indicate) ([email or web address] (life partner)), Risks & Benefits reviewed and Agrees to proceed with procedure Procedure Narrative: The patient was already intubated and sedated in the ICU. He was in a supine position. Bilateral groins were prepped and draped in the usual sterile fashion. Timeout was conducted. I proceeded to identified with ultrasound the right femoral vein it appeared to be a good target, I proceeded to place some local anesthesia on top of the main and then I accessed the vein with a 18-gauge needle. I attempted to advance the wire but I felt distal resistance. I accessed the vein 2 more times and every time the wire had distal resistance therefore I decided to abandon this approach and go to the left groin. In the left groin the femoral vein was identified, I was able to cannulate the vein with a 18-gauge needle and immediate return of blood was noted. This was done under ultrasound guidance. The wire was advanced and the needle was removed. Wire position was verified with ultrasound. I then proceeded to make a small incision at the level of the wire insertion site in the skin, the tract was dilated with sequential sizes of dilators and then a double-lumen dialysis catheter was advanced over the wire and the wire removed. The catheter was tested and was working well on both ports. The catheter was fixed with #3-0 silk to the skin. A sterile dressing and a chlorhexidine sauk-suiattle was placed. The catheter was tested once again and was working well was flushed with saline. At the end of the procedure all counts were correct patient tolerated well the procedure and remained in the ICU in stable but critical condition Acute Procedures Epistaxis Control: Time out performed: Yes
[2025-01-14 20:37] LABS: Hepatitis C Virus Antibody Non-Reactive (Nonreactive)
[2025-01-14 20:38] LABS: Hepatitis B Surface AB < 3.5 (11.5-1000); Hepatitis B Surface Antigen Non-Reactive (Nonreactive)
[2025-01-14 20:46] LABS: Alanine Aminotransferase 344 U/L (0-41); Albumin Level 3.4 g/dL (3.5-5.2); Alkaline Phosphatase 82 U/L (40-130); Anion Gap 25.6 (5-19); Aspartate Amino Transferase 630 U/L (0-40); Blood Urea Nitrogen 48 mg/dL (8-23); Calcium 7.7 mg/dL (8.5-10.5); Carbon Dioxide 19 mmol/L (22-29); Chloride 102 mmol/L (98-107); Globulin 2.2 g/dL (1.3-4.6); Glucose 215 mg/dL (65-115); Osmolality Calculated 315 mOsm/kg (285-295); Potassium 3.6 mmol/L (3.5-5.1); Sodium 143 mmol/L (136-145); Total Bilirubin 3.6 mg/dL (0.15-1.2); Total Protein 5.6 g/dL (6.6-8.7)
[2025-01-14 21:17] LABS: Glucose Point of Care 206 mg/dL (70-110)
--- NOTE | 2025-01-14 21:39 | PM.CONSULT ---
Providers/Reason For Consult Consulting Physician/Specialty*: Nephrology Reason for Consult*: Carlos Requesting Physician: DR Brown Attending Physician: Chuck Brown MD History of Present Illness History of Present Illness Patient is intubated and sedated on mechanical ventilation. he is unable to provide any medical history. History is obtained from the medical record. Edgard Slater is a 74 year old male, with a history of gastric resection, history of bilateral LE DVT, PE, who initially presented to the ER on 01/12/2025 complaining og generalized weakness, falls, myalgias. he was previously on Eliquis; however, he has had difficulty obtaining Eliquis and had not taken Eliquis for 2 weeks prior to presentation. On presentation, he was found to be Influenza A positive and was hypotensive, requirin Levophed. CT chest PE protocol revealed a PE and his TTE revealed right ventricular strain. Patient subsequently developed respiratory failure and was intubated. He was weaned off LEvophed, but has been requiring dobutamine. He became anuric with a rising creatinine, prompting a nephrology consult. Review of Systems General: Reports: ROS unobtainable due to medical condition Medications/Allergies Home Medications ?Medication ?Instructions ?Recorded ?Confirmed ?Last Taken ?Type albuterol sulfate 90 mcg/actuation 2 puff inhalation QID PRN 01/12/25 01/12/25 Unknown History aerosol inhaler Shortness Of Breath Or Wheezing amlodipine 5 mg-benazepril 10 mg 1 cap PO DAILY 01/12/25 01/12/25 Unknown History capsule apixaban 5 mg tablet (Eliquis) 5 mg PO BID 01/12/25 01/12/25 Unknown History cholecalciferol (vitamin D3) 125 125 mcg PO DAILY 01/12/25 01/12/25 Unknown History mcg (5,000 unit) tablet (Vitamin D3) cyanocobalamin (vitamin B-12) 1,000 mcg SUBCUT Q30D 01/12/25 01/12/25 10/14/24 History 1,000 mcg/mL injection solution furosemide 20 mg tablet 20 mg PO DAILY 01/12/25 01/12/25 Unknown History omeprazole 40 mg capsule,delayed 40 mg PO DAILY 01/12/25 01/12/25 Unknown History release potassium chloride 8 mEq 8 meq PO DAILY 01/12/25 01/12/25 Unknown History capsule,extended release Allergies Allergy/AdvReac Type Severity Reaction Status Date / Time No Known Allergies Allergy Verified 01/12/25 09:38 Current Medications Generic Name Dose Route Start Last Admin Trade Name Freq PRN Reason Stop Dose Admin Albuterol/Ipratropium 3 ml 01/13/25 14:00 01/14/25 20:00 Ipratropium-Albuterol 3 Ml Neb INHALATION 3 ml Q6H.RESP JOANNA Administration Budesonide 0.5 mg 01/13/25 20:00 01/14/25 20:00 Budesonide 0.5 Mg/2 Ml Neb INHALATION 0.5 mg BID.RESPIRATORY JOANNA Administration Haloperidol Lactate 1 mg 01/13/25 12:18 01/14/25 12:08 Haloperidol Inj 5 Mg/Ml Inj 1 Ml IM 1 mg Q4H PRN Administration AGITATION Heparin Sodium/Sodium Chloride 25,000 unit in 500 mls @ 0 mls/hr 01/12/25 09:00 01/14/25 17:50 Heparin Drip IV Infused CONT JOANNA Titration Protocol Per Protocol Norepinephrine Bitartrate 4 mg in 250 mls @ 0 mls/hr 01/12/25 09:30 01/14/25 09:40 Levophed IV 2 mcg/min .Q0M JOANNA 7.5 mls/hr Administration Protocol Per Protocol Piperacillin Sod/Tazobactam 50 mls @ 12.5 mls/hr 01/12/25 14:00 01/14/25 19:53 Sod 3.375 gm/ Sodium Chloride IV Infused Q8H JOANNA Infusion Protocol Dobutamine HCl/Dextrose 500 mg in 250 mls @ 0 mls/hr 01/13/25 14:30 01/14/25 13:46 Dobutamine Drip IV 5 mcg/kg/min .Q0M JOANNA 10.13 mls/hr Administration Protocol Per Protocol Albumin Human 25 g in 100 mls @ 60 mls/hr 01/13/25 17:45 01/14/25 19:53 Albumin IV Infused Q8H JOANNA Infusion Sodium Bicarbonate 50 meq/ 1,050 mls @ 50 mls/hr 01/14/25 09:45 01/14/25 10:04 Sodium Chloride IV 100 mls/hr .Q21H JOANNA Administration Furosemide 100 mg/ Sodium 50 mls @ 5 mls/hr 01/14/25 11:45 01/14/25 13:11 Chloride IV 10 mg/hr .Q10H JOANNA 5 mls/hr Administration 10 MG/HR Fentanyl 1,000 mcg in 100 mls @ 0 mls/hr 01/14/25 13:45 01/14/25 14:20 Sublimaze IV 25 mcg/hr .Q0M JOANNA 2.5 mls/hr Administration Protocol Per Protocol Midazolam HCl 100 mg in 100 mls @ 0 mls/hr 01/14/25 14:00 01/14/25 16:50 Versed IV 2 mg/hr .Q0M JOANNA 2 mls/hr Administration Protocol Per Protocol Lorazepam 2 mg 01/12/25 21:54 01/12/25 22:24 Lorazepam 2 Mg/Ml Inj 1 Ml IVP 2 mg PRN PRN Administration WITHDRAWAL Protocol Methylprednisolone Sodium Succinate 40 mg 01/13/25 12:30 01/14/25 12:08 Methylprednisolone Sod Succ 40 Mg/Ml Inj IVP 40 mg Q8H JOANNA Administration Oseltamivir Phosphate 30 mg 01/14/25 09:00 01/14/25 09:32 Oseltamivir Phosphate 30 Mg Capsule PO Not Given DAILY JOANNA Pantoprazole Sodium 40 mg 01/14/25 17:35 01/14/25 18:05 Pantoprazole 40 Mg Sdv IVP 40 mg DAILY JOANNA Administration PFSH Acute PFSH: Medical History HTN (hypertension) PE (pulmonary thromboembolism) DVT (deep venous thrombosis) Gastric cancer Surgical History H/O resection of stomach Social History (Updated 01/12/25 @ 14:25 by Sea Shepherd MD) Smoking and tobacco/nicotine status: former use of tobacco/nicotine Alcohol intake: current Alcohol use comment: States has been trying to quit, has not drank in 2 months Substance/Drug Use: never Household members: significant other Vitals/I&O/Wt Last Vital Signs Temp 97.1 F L 01/14/25 16:41 Pulse 91 01/14/25 20:00 Resp 14 01/14/25 20:00 BP 105/71 01/14/25 18:00 Pulse Ox 95 01/14/25 20:00 O2 Del Method Mechanical Ventilation 01/14/25 20:00 O2 Flow Rate 60 01/14/25 12:59 FiO2 40 01/14/25 20:00 01/14/25 01/14/25 01/14/25 07:59 14:59 22:59 Intake Total 275.925 / 1514.808 394.167 / 330.109 3536.025 / 1575.192 Output Total 0 / 10 Balance 275.925 / 1504.808 394.167 / 226.049 7824.025 / 1575.192 Weight last 48 hrs Weight 71.139 kg Weight 67.5 kg Physical Exam Narrative: GEN: Intubated, sedated, ett in place HEAD: normocephalic, atraumatic EYES: eyes are closed HEENT: ett in place NECK: no jvd CV: RRR LUNGS: diminished BS ABD: Soft, ND, +bs EXT: trace BLE edema NEURO: sedated : fallon in place SKIN: no rash Urinary Catheter Management: Fallon: Cath Placed During This Visit: yes Reason for Continuing Indwelling Catheter: Accurate Measurement of Urinary Output in Critically Ill Patients Urinary Catheter Date of Insertion: 01/12/25 Urinary Catheter Time of Insertion: 21:00 Data 01/14/25 18:18 01/14/25 19:51 Micro: Microbiology 01/14/25 14:05 Gram Stain - Final Sputum - Endotracheal Tube Aspirate A&P Assessment and plan (1) Acute kidney injury: CARLOS- His carlos is likely due to ATN from sepsis and possibly contrast induced nephropathy. he will need to initiate renal replacement therapy. I will attempt HD today. If he is unable to tolerate HD today, he will need to be transferrd to another facility for CRRT - Maintain map > 65 for renal perfusion cardiogenic shock- On dobutamine per the primary service. Likely due to PE. on AC per the primary service acute hypoxic respiratory failure- due to influenza, pneumonia and PE. on zosyn per the primary service acidosis- due to lactate and carlos. i expect his acidosis to improve with HD PE- on heparin drip Influenza A- on Tamiflu. PDMP PDMP Reviewed: Not Reviewed Consult Attestations Medical Necessity Statement: carlos, acute respiratory failure Time Spent in Patient Care: 50 minutes Coding Level of Care Code Acute Code for Chg Fwd Diagnoses Acute kidney injury N17.9
--- NOTE | 2025-01-14 22:20 | PC.NURSE ---
Dr. Brown called for an update on the patient. Advised of current sedation levels and heparin currently paused. Received orders to restart the heparin drip now at the previous rate and to follow the protocol afterwards, and to use an extra dose of albumin if needed for hypotension during dialysis.
[2025-01-14] MEDS: heparin drip 25,000 UNIT/500 ML PREMIX 3.5 UNIT IV (22:24)
--- NOTE | 2025-01-14 22:33 | PC.HD ---
Patient intubated and sedated. Phone consent obtained from [facility] Marcos Olivera with Frederic Cueto RN as witness.
[2025-01-14] MEDS: albumin 12.5 GM/50 ML VIAL IV ×2 (23:10→23:45)
[2025-01-15] VITALS (61 sets, daily range): BP systolic 89–140; BP diastolic 63–98; PULSE 72–109; RESP 14–26; TEMP 33.9–37.1; O2SAT 91–100
[2025-01-15] MEDS: albumin 12.5 GM/50 ML VIAL IV ×2 (00:03→17:13)
[2025-01-15] MEDS: heparin, porcine 1,000 unit/mL INJ 10 mL 10000 UNIT INTRACATH (01:05)
[2025-01-15] MEDS: ipratropium-albuterol 3 mL Neb INHALATION ×4 (01:26→19:42)
--- NOTE | 2025-01-15 01:29 | PC.HD ---
During dialysis tx pt had recurring hypotension requiring albumin x3 and Levophed gtt started at 2mcg/min, 2L fluid removed.
[2025-01-15] MEDS: albumin 25 G/100 ML BAG 60 G IV ×3 (02:36→17:13)
[2025-01-15] MEDS: fentaNYL 1,000 MCG/100 ML BAG 12.5 MCG IV (03:03)
[2025-01-15] MEDS: methylPREDNISolone sod succ 40 mg/mL INJ IVP ×3 (03:59→20:25)
--- NOTE | 2025-01-15 04:15 | PC.NURSE ---
Patient had trending downward temperature with axillary and temporal scan. Rectal temperature probe applied, and found to have 93.0 [address] temperature. Bear hugger applied. Dr. Bauman notified.
[2025-01-15 04:24] LABS: Basophils % 0.1 %; Hematocrit 24.4 % (37-53); Lymphocytes # 0.2 10^3/uL (0.8-4.8); Mean Corpuscular HGB Conc 34.8 g/dL (30-55); Mean Corpuscular Hemoglobin 33.3 pg (27-33); Mean Corpuscular Volume 95.7 fl (82-101); Mean Platelet Volume 10.9 fL (7.4-10.4); Monocytes # 0.6 10^3/uL (0.2-0.9); Monocytes % 3.4 %; Neutrophils # 15.05 10^3/uL (1.8-7.7); Neutrophils % 93.7 %; Nucleated Red Blood Cells % 5.9 %; Platelet Count 209 10^3/cmm (157-399); Red Blood Count 2.55 10^6/uL (3.85-5.65); Red Cell Distribution Width 20.8 % (12.1-15.1); White Blood Count 16.07 10^3/uL (3.29-11.43)
[2025-01-15 04:44] LABS: Alanine Aminotransferase 325 U/L (0-41); Albumin Level 4.3 g/dL (3.5-5.2); Alkaline Phosphatase 101 U/L (40-130); Anion Gap 22.4 (5-19); Aspartate Amino Transferase 494 U/L (0-40); Blood Urea Nitrogen 30 mg/dL (8-23); Calcium 8.4 mg/dL (8.5-10.5); Carbon Dioxide 23 mmol/L (22-29); Chloride 98 mmol/L (98-107); Globulin 2.3 g/dL (1.3-4.6); Glucose 181 mg/dL (65-115); Osmolality Calculated 301 mOsm/kg (285-295); Partial Thromboplastin Time 102.4 SECONDS (23.9-36.7); Potassium 3.4 mmol/L (3.5-5.1); Sodium 140 mmol/L (136-145); Total Bilirubin 3.8 mg/dL (0.15-1.2); Total Protein 6.6 g/dL (6.6-8.7)
[2025-01-15 04:45] LABS: Magnesium 2.1 mg/dL (1.7-2.3)
--- NOTE | 2025-01-15 04:58 | PC.NURSE ---
Contacted Dr. Bauman in reference to patient's PTT lab and heparin protocol. By protocol, heparin would be decreased by 6ml/hr, however, heparin currently running at 3.5ml/hr. Heparin is currently off standard protocol ranges per previous orders from Dr. Brown. Received orders from Dr. Bauman to hold heparin for now and retest PTT lab at 0700.
[2025-01-15 05:06] LABS: Blood Gas Allen Test Pos; Blood Gas Operator Identificat JDB; Blood Gas Sample Site Radial, right; Blood Gas Sample Type Arterial; Ionized Calcium Level - ABG 1.1 mmol/L (1.1-1.4); Methemoglobin 0.5 % (0.4-1.5); Oxygen Device VENT; Potassium Level - ABG 3.2 mmol/L (3.5-5.0)
--- NOTE | 2025-01-15 05:07 | PC.NURSE ---
Bladder scan preformed as patient remains anuric. After several attempts, only ~10mL fluid found with bladder scanner.
[2025-01-15 05:08] LABS: ABG PCO2 44.8 mmHg (35-45); ABG PH Result 7.34 (7.35-7.45); Alveolar-Arterial Oxygen Gradi 21.7 mmHg (5-10); Arterial Blood Gas Hematocrit 30.9 % (42-52); Base Excess ABG -1.9 mmol/L (-2.0-2.0); HGB O2 Sat 87.3 % (95-100); Oxygen Saturation ABG 88.7; PO2 FiO2 Ratio Arterial Blood 157; Total Hemoglobin 10.1 g/dL (14-18)
[2025-01-15 05:21] LABS: Glucose Point of Care 185 mg/dL (70-110)
[2025-01-15] MEDS: piperacillin-tazobactam 3.375 GM in sodium chloride 0.9% (plus) 50 ML IV ×2 (05:40→20:50)
--- NOTE | 2025-01-15 06:00 | XRR_ITS ---
PROCEDURE INFORMATION: Exam: XR Chest Exam date and time: 01/15/2025 4:22 AM Age: 74 years old Clinical indication: Device placement; Ett placement (vent status); Resp failure. Intubated. Flu a positive; Additional info: Respiratory failure, intubated TECHNIQUE: Imaging protocol: Radiologic exam of the chest. Views: Portable semi upright AP chest x-ray, 1 view. COMPARISON: CR XR chest 1V portable [id number] 01/14/2025 2:22 PM FINDINGS: Tubes, catheters and devices: ET tube in place in expected position within the trachea. Right IJ central line in place within the right atrium. NG or OG tube in place within the stomach or proximal small bowel with side port at the GE junction or gastric remnant. Monitor leads project over the chest. Lungs: Upper lung zone emphysema with bibasilar pneumonia versus atelectasis. Right apical bulla. Pleural spaces: Possible small pleural effusions. No evidence of pneumothorax. Heart/Mediastinum: Heart size is stable. Obscured cardiac borders. GE junction postsurgical changes with small metallic clips and sutures. Vasculature: Atherosclerotic tortuosity and calcification of the thoracic aorta. Bones/joints: Previous lower cervical spine fusion with metallic hardware in place. XR/XR chest 1V portable [id number] IMPRESSION: 1. Upper lung zone emphysema with bibasilar pneumonia versus atelectasis. 2. Possible small pleural effusions. 3. Supportive lines and tubes in place as described.
[2025-01-15 07:05] LABS: Partial Thromboplastin Time 60.9 SECONDS (23.9-36.7)
[2025-01-15] MEDS: budesonide 0.5 mg/2 mL Neb INHALATION ×2 (07:47→19:42)
[2025-01-15] MEDS: FUROsemide 100 MG in sodium chloride 0.9% 40 ML IV ×2 (08:38→08:52)
[2025-01-15] MEDS: pantoprazole 40 mg SDV IVP (08:51)
[2025-01-15] MEDS: sodium bicarbonate 50 MEQ in sodium chloride 0.45% 1,000 ML IV (08:52)
[2025-01-15] MEDS: oseltamivir phosphate 30 mg Capsule PO (08:52)
--- NOTE | 2025-01-15 10:25 | P.PN_ITS ---
Subjective 2 Subjective: Patient is intubated and sedated on mechanical ventilation with an fio2 45% and peep 8. he is on dobutamine 5mg. he was initiated on HD yesterday Medications: Reviewed: Yes Vitals/I&O/Wt Last Vital Signs Temp 93.0 F L 01/15/25 04:00 Pulse 96 01/15/25 07:51 Resp 14 01/15/25 09:47 BP 138/91 01/15/25 06:00 Pulse Ox 97 01/15/25 09:47 O2 Del Method Mechanical Ventilation 01/15/25 07:51 O2 Flow Rate 60 01/14/25 12:59 FiO2 40 01/15/25 09:47 01/14/25 01/15/25 01/15/25 22:59 06:59 14:59 Intake Total 2221.626 / 2615.793 987.082 / 3602.875 207.834 / 207.834 Output Total 0 / 0 2544 / 2544 Balance 2221.626 / 2615.793 -1556.918 / 1058.875 207.834 / 207.834 Weight last 48 hrs Weight 70 kg Weight 69.5 kg Weight 71.139 kg Physical Exam 2 Narrative: GEN: Intubated, sedated, ett in place HEAD: normocephalic, atraumatic EYES: eyes are closed HEENT: ett in place NECK: no jvd CV: RRR LUNGS: diminished BS ABD: Soft, ND, +bs EXT: trace BLE edema NEURO: sedated : fallon in place SKIN: no rash Urinary Catheter Management: Fallon: Cath Placed During This Visit: yes Reason for Continuing Indwelling Catheter: Accurate Measurement of Urinary Output in Critically Ill Patients Urinary Catheter Date of Insertion: 01/12/25 Urinary Catheter Time of Insertion: 21:00 Data 01/15/25 04:15 01/15/25 04:15 Micro: Microbiology 01/14/25 14:05 Gram Stain - Final Sputum - Endotracheal Tube Aspirate A&P Assessment and plan (1) Acute kidney injury: YESI- His yesi is likely due to ATN from sepsis and possibly contrast induced nephropathy. he was initiated on hd yesterday. I will plan on HD again today with uf as tolerated. - Maintain map > 65 for renal perfusion cardiogenic shock- On dobutamine per the primary service. Likely due to PE. on AC per the primary service acute hypoxic respiratory failure- due to influenza, pneumonia and PE. on zosyn per the primary service. i will plan on uf with hd to assist with weaning acidosis- due to lactate and yesi. Improve with HD PE- on heparin drip Influenza A- on Tamiflu. PDMP PDMP Reviewed: Not Reviewed Attestations 2 Medical Necessity Statement*: yesi, ahrf Time Spent in Patient Care: 25 minutes Coding Level of Care Code Acute Code for [facility] Fwd Diagnoses Acute kidney injury N17.9
[2025-01-15] MEDS: DOBUTamine drip 500 MG/250 ML PREMIX 10.13 MG IV (10:45)
[2025-01-15] MEDS: fentaNYL 1,000 MCG/100 ML BAG 10 MCG IV ×2 (10:45→20:50)
--- NOTE | 2025-01-15 11:05 | PC.SLP ---
Patient sleeping upon therapist arrival. Nursing stated patient would not be good candidate for speech therapy today.
[2025-01-15 16:58] LABS: Partial Thromboplastin Time 51.7 SECONDS (23.9-36.7)
[2025-01-15] MEDS: heparin drip 25,000 UNIT/500 ML PREMIX 3.5 UNIT IV (18:49)
--- NOTE | 2025-01-15 19:56 | PC.NURSE ---
After physical assessment, a small firm spot was noted on the left lateral hip not far from the patient's left groin HD port, which was firmer as compared to the right side. Spoke with Dr. Bauman with findings and trending downward Hgb. Received orders to hold heparin for now, CTA abdomen/pelvis, and inform the dialysis nurse that hemodialysis may be early in the morning due to contrast from CT.
--- NOTE | 2025-01-15 20:05 | PM.PN ---
Vitals/I&O/Wt Last Vital Signs Temp 98.4 F 01/15/25 18:48 Pulse 77 01/15/25 19:43 Resp 14 01/15/25 19:44 BP 98/68 01/15/25 18:48 Pulse Ox 94 01/15/25 19:44 O2 Del Method Mechanical Ventilation 01/15/25 19:43 O2 Flow Rate 60 01/14/25 12:59 FiO2 40 01/15/25 19:44 01/15/25 01/15/25 01/15/25 06:59 14:59 22:59 Intake Total 987.082 / 3602.875 628.920 / 628.920 206.725 / 835.645 Output Total 2544 / 2544 Balance -1556.918 / 1058.875 628.920 / 628.920 206.725 / 835.645 Weight last 48 hrs Weight 70 kg Weight 69.5 kg Weight 71.139 kg Physical Exam Narrative: GEN: Intubated, sedated, ett in place HEAD: normocephalic, atraumatic EYES: eyes are closed HEENT: ett in place NECK: no jvd CV: RRR LUNGS: diminished BS ABD: Soft, ND, +bs EXT: trace BLE edema NEURO: sedated : fallon in place SKIN: no rash Urinary Catheter Management: Fallon: Cath Placed During This Visit: yes Reason for Continuing Indwelling Catheter: Accurate Measurement of Urinary Output in Critically Ill Patients Urinary Catheter Date of Insertion: 01/12/25 Urinary Catheter Time of Insertion: 21:00 Data 01/15/25 04:15 01/15/25 04:15 Micro: Microbiology 01/14/25 14:05 Gram Stain - Final Sputum - Endotracheal Tube Aspirate Sputum Culture - Preliminary A&P Assessment and plan (1) Obstructive cardiovascular shock: Concerns for right heart failure. Multiorgan dysfunction. Keep mean arterial pressure 65. D/c dobutamine drip. Will start on levophed if needed Echo reviewed (2) Hypoxic respiratory failure: Oxygen supplementation keeping saturation over 90%. In setting of aspiration pneumonia, COPD exacerbation due to influenza, pulmonary embolism and obstruction to pulmonary vasculature because of significant hilar lymphadenopathy. Intubated on 01/14 Fio2 decreased to 40% (3) Pulmonary embolus: History of PE in the past. History of RV dysfunction in the past. Missed home medications of Eliquis for last couple of weeks. Found to have pulmonary embolism along with right heart strain on CTA due to combination of PE and obstruction of pulmonary vasculature due to lymphadenopathy. Continue with heparin drip. Oxygen supplementation keeping saturation over 90%. she (4) Influenza A: Supportive treatment. Did not get Tamiflu for last 2 days because of AMS. Aggressive pulmonary toilet with incentive spirometry when patient is more awake. MRSA swab negative. Continue with Solu-Medrol 40 mg every 8 hours IV. Will start to wean steroids in next 81-2 days (5) Pneumonia: Concern for aspiration pneumonia. Chest imaging showing concerns for right lower lobe pneumonia. For now continue with IV Zosyn. MRSA swab negative. Follow-up blood culture. Pro-Siddharth elevated. Speech evaluation once patient is more awake. Broad spectrum abx if continued to be hypothermic (6) Acute kidney injury: In setting of multiorgan failure due to cardiogenic shock. Patient anuric. Repeat BMP later in the day. Strict input and output charting, daily weights. Fallon catheterization. Monitor electrolytes. Medical reconciliation done for nephrotoxic drugs. CT abdomen pelvis negative for obstructive nephropathy. (7) Liver dysfunction: CMP in am (8) Lymphadenopathy: Mediastinal lymphadenopathy, additional incidentally noted 1.8 cm right adrenal mass. Seems to have been some progression of lymphadenopathy compared to the CT done 1 year [facility] at [facility]. (9) Elevated lactic acid level: (10) Acute on chronic right-sided heart failure: (11) Pulmonary HTN: (12) Encephalopathy: Sedated Plan Nephro on board Continue with HD D/C lasix drip Hold IVF Poor U/O Overall very poor prognosis. PDMP PDMP Reviewed: Not Reviewed Attestations Medical Necessity Statement*: Requires further hospitalization for management of respiratory failure, mechanical ventilation, multiorgan failure due to cardiogenic shock, liver and renal failure as patient remains anuric Critical Care Time: The high probability of a clinically significant, sudden or life threatening deterioration of the patient's [cardiac, pulmonary, renal, goals of care discussion, GI] system(s) required my full and direct attention, intervention and personal management. The critical care time is as shown. This time is in addition to time spent performing any reported procedures but includes the following: [x] Data and vital sign review and interpretation [x] Patient assessment, examination and intervention [x] Documentation [x] Medication orders and management Critical Care Time (min): 90 Coding Level of Care Code Acute Code for Chg Fwd Diagnoses Obstructive cardiovascular shock R57.8 Hypoxic respiratory failure J96.91 Pulmonary embolus I26.99 Influenza A J10.1 Pneumonia J18.9 Acute kidney injury N17.9 Liver dysfunction K76.89 Lymphadenopathy R59.1 Elevated lactic acid level R79.89 Acute on chronic right-sided heart failure I50.813 Pulmonary HTN I27.20 Encephalopathy G93.40
--- NOTE | 2025-01-15 20:07 | CTR_ITS ---
PROCEDURE INFORMATION: Exam: CT Abdomen And Pelvis With Contrast Exam date and time: 01/15/2025 9:32 PM Age: 74 years old Clinical indication: Mass, lump, or swelling; Other: Left hip hematoma; Prior surgery; Surgery date: Post-operative (0-2 days); Surgery type: Dialysis cath; Additional info: Possible hematoma, firm area left lateral hip TECHNIQUE: Imaging protocol: Computed tomography of the abdomen and pelvis with contrast. Radiation optimization: All CT scans at this facility use at least one of these dose optimization techniques: automated exposure control; mA and/or kV adjustment per patient size (includes targeted exams where dose is matched to clinical indication); or iterative reconstruction. Contrast material: OMNI 350; Contrast volume: 100 ml; Contrast route: INTRAVENOUS (IV); COMPARISON: CT angio chest w abd pel w con 01/12/2025 8:28 AM RADIATION DOSE METRICS: Total DLP (mGy-cm): 645.23 FINDINGS: Limitations: Study somewhat limited due to streak artifact created by the patient being scanned with the arms at the sides. Tubes, catheters and devices: There is a nasogastric tube in place within the small gastric pouch that appears to be extending to or through the gastrojejunostomy. There is a left femoral central venous catheter in place extending into the left common iliac vein. Lungs: There is some atelectasis and consolidation posterior right lower lobe with some air bronchograms which is concerning for possible pneumonia. There is mild atelectasis at the left lung base. Pleural spaces: There are small bilateral pleural effusions. Liver: There is a diffuse decrease in hepatic parenchymal density, consistent with moderate fatty infiltration. There is 9 mm benign-appearing simple cyst left lobe of the liver. Gallbladder and biliary ducts: Contrast material within the gallbladder could be from vicarious excretion of contrast. Patient's known gallstones are not as well seen as on the previous examination as they are partly obscured by the contrast material. There is no common bile duct dilation. Pancreas: The pancreas is normal. Spleen: The spleen is normal. Adrenal glands: There is a 13 mm sized right adrenal mass not significantly changed from the recent previous examinations. Consider further evaluation with non urgent adrenal MRI when clinically appropriate. Kidneys and ureters: There is a 3.5 cm sized benign-appearing simple cyst arising from the mid left kidney. There is a 2.3 cm sized benign-appearing simple cyst anterior aspect of the upper pole of the right kidney. Other small cortical cysts are seen in the right kidney. There is also focal scarring in the upper pole of the right kidney. There is no evidence of hydronephrosis. There is no evidence of renal or ureteral calcifications. There is scarring and cortical thinning in the upper pole of the left kidney not significantly changed from previous. Stomach and bowel: There is no evidence of colitis/diverticulitis. There are postsurgical changes in the upper abdomen which appear to represent some form of gastric bypass surgery not significantly changed from the prior examination. The main portion of the body and antrum of the stomach is located anteriorly. There is no evidence of colitis/diverticulitis. There is no evidence of intestinal obstruction. There is mild thickening of the ascending colon which could represent some mild enteritis. Appendix: A normal appendix is identified. Intraperitoneal space: There is a small amount of ascites in the abdomen, mainly around the liver. There is no evidence of free intraperitoneal fluid. Vasculature: The aorta demonstrates mild atherosclerotic calcification. There is no evidence of an abdominal aortic aneurysm. Lymph nodes: There is no evidence of lymphadenopathy. Urinary bladder: Urinary bladder is drained by Swain catheter. Reproductive: Unremarkable as visualized. Bones/joints: There is no evidence of acute fracture. There is no evidence of acute fracture. Soft tissues: There is a large benign lipoma in the left adductor brevis muscle. There is mild subcutaneous edema in the flank regions on both sides. There is more prominent soft tissue thickening or edema in the deeper subcutaneous fat on the left side extending lateral to the left hip. This could represent small hematoma in the subcutaneous region. Please correlate with the clinical findings. The area in question measures approximately 2.6 x 8.2 x [address]/CT abdomen pelvis w con* [id number] IMPRESSION: 1. There is some soft tissue thickening in the subcutaneous fat of the left flank overlying the left hip which could represent small hematoma as questioned in the history 2. Fatty liver 3. Mild ascites 4. Right lower lobe pneumonia not significantly changed. 5. Left adrenal mass not significantly changed COMMENTS: Consistent with the [employer]'s Incidental Findings Committee white paper (J Am Jesus Radiol 2018): Any incidental renal lesion less than 1 cm or classified as too small to characterize, or any incidental cystic renal lesion characterized as simple-appearing, is likely benign. No follow-up imaging is recommended for these lesions per consensus recommendations based on imaging criteria.
[2025-01-15] MEDS: iohexol 350 mg/mL 500 mL Btl (per mL) IV (21:35)
--- NOTE | 2025-01-15 21:54 | PC.NURSE ---
Returned from CT scan.
[2025-01-16] VITALS (61 sets, daily range): BP systolic 94–139; BP diastolic 70–99; PULSE 49–92; RESP 12–28; TEMP 35.8–36.6; O2SAT 94–100
[2025-01-16] MEDS: albumin 25 G/100 ML BAG 60 G IV ×3 (01:03→17:18)
[2025-01-16] MEDS: ipratropium-albuterol 3 mL Neb INHALATION ×4 (01:40→20:38)
[2025-01-16 04:06] LABS: Hematocrit 24.2 % (37-53); Mean Corpuscular Hemoglobin 34.4 pg (27-33); Mean Corpuscular Volume 95.7 fl (82-101); Mean Platelet Volume 11.5 fL (7.4-10.4); Platelet Count 193 10^3/cmm (157-399); Red Blood Count 2.53 10^6/uL (3.85-5.65)
[2025-01-16 04:18] LABS: Anion Gap 23.7 (5-19); Blood Urea Nitrogen 21 mg/dL (8-23); Calcium 9.1 mg/dL (8.5-10.5); Carbon Dioxide 23 mmol/L (22-29); Chloride 97 mmol/L (98-107); Potassium 3.7 mmol/L (3.5-5.1); Sodium 140 mmol/L (136-145); Total Bilirubin 4.2 mg/dL (0.15-1.2); Total Protein 6.5 g/dL (6.6-8.7)
[2025-01-16 04:21] LABS: ABG PCO2 41.8 mmHg (35-45); ABG PH Result 7.36 (7.35-7.45); Alveolar-Arterial Oxygen Gradi 16.8 mmHg (5-10); Arterial Blood Gas Hematocrit 27.7 % (42-52); Base Excess ABG -1.7 mmol/L (-2.0-2.0); Blood Gas Operator Identificat JDB; Blood Gas Sample Site Brachial, right; Blood Gas Sample Type Arterial; Carboxyhemoglobin 0.9 %THgb (0.4-20.1); HCO3 ABG 23.6 mmol/L (22-26); HGB O2 Sat 96.7 % (95-100); Ionized Calcium Level - ABG 1.2 mmol/L (1.1-1.4); Methemoglobin 0.2 % (0.4-1.5); Oxygen Device VENT; Oxygen Saturation ABG 97.9; PO2 FiO2 Ratio Arterial Blood 252; Potassium Level - ABG 3.5 mmol/L (3.5-5.0)
[2025-01-16] MEDS: piperacillin-tazobactam 3.375 GM in sodium chloride 0.9% (plus) 50 ML IV ×2 (05:10→17:18)
[2025-01-16] MEDS: methylPREDNISolone sod succ 40 mg/mL INJ IVP ×3 (05:10→18:43)
[2025-01-16 05:12] LABS: Slide Review Slide Review Perform
[2025-01-16 05:13] LABS: Absolute Segmented Neutrophil 17.2 10/cmm (1.6-7.1); Anisocytosis 2+; Corrected White Blood Count 18.2 10^3/cmm (4.8-10.8); Eosinophils 0 %; Lymphocytes 2 %; Macrocytosis Trace; Microcytosis Trace; Monocytes Absolute 0.4 10^3/cmm (0.1-0.6); Platelet Estimate Normal (Normal); Segmented Neutrophils 85 %; Total Cells Counted 100 (0-100)
[2025-01-16 05:16] LABS: Alanine Aminotransferase 244 U/L (0-41); Albumin Level 4.8 g/dL (3.5-5.2); Alkaline Phosphatase 72 U/L (40-130); Aspartate Amino Transferase 197 U/L (0-40); C Reactive Protein 50.3 mg/L (0.0-4.9); Globulin 1.7 g/dL (1.3-4.6); Glucose 149 mg/dL (65-115); Osmolality Calculated 296 mOsm/kg (285-295)
[2025-01-16 05:18] LABS: Magnesium 2.1 mg/dL (1.7-2.3)
[2025-01-16 05:31] LABS: Procalcitonin > 100.00 ng/mL (0-0.5)
[2025-01-16] MEDS: fentaNYL 1,000 MCG/100 ML BAG 10 MCG IV ×2 (05:57→15:01)
--- NOTE | 2025-01-16 07:00 | XRR_ITS ---
PROCEDURE INFORMATION: Exam: XR Chest Exam date and time: 01/16/2025 6:04 AM Age: 74 years old Clinical indication: Condition or disease; Lung condition and disease; Respiratory failure; Status not specified TECHNIQUE: Imaging protocol: Radiologic exam of the chest. Views: 1 view. COMPARISON: CR XR chest 1V portable [id number] 01/15/2025 4:22 AM FINDINGS: Tubes, catheters and devices: No changes in life-support device positions. The endotracheal tube is about 5.5 cm above will. Central venous catheter extends to the right atrium and terminates near the inferior cavoatrial junction margin. The enteric catheter terminates in the proximal stomach. Lungs: Emphysematous lung changes. Patchy parenchymal opacities in the mid to lower lung zones. Pleural spaces: Costophrenic angles are blunted. Heart/Mediastinum: Mild cardiomegaly. Bones/joints: Multilevel ACDF plate is noted. XR/XR chest 1V portable [id number] IMPRESSION: The patchy bilateral pulmonary disease is similar to comparison.
[2025-01-16] MEDS: budesonide 0.5 mg/2 mL Neb INHALATION ×2 (07:45→20:38)
[2025-01-16] MEDS: oseltamivir phosphate 30 mg Capsule PO (08:47)
[2025-01-16] MEDS: pantoprazole 40 mg SDV IVP (08:47)
--- NOTE | 2025-01-16 09:01 | PC.NURSE ---
Levophed drip was paused at the beginning of this nurse's shift. MAR was updated to reflect this.
--- NOTE | 2025-01-16 11:06 | PM.PN ---
Subjective Subjective: Patient is intubated and sedated on mechanical ventilation with an fio2 35% and peep 8. he currently off dobutamine. Medications: Reviewed: Yes Vitals/I&O/Wt Last Vital Signs Temp 96.6 F L 01/16/25 10:00 Pulse 76 01/16/25 10:00 Resp 14 01/16/25 09:38 BP 115/73 01/16/25 10:00 Pulse Ox 95 01/16/25 10:00 O2 Del Method Mechanical Ventilation 01/16/25 10:00 O2 Flow Rate 60 01/14/25 12:59 FiO2 35 01/16/25 10:00 01/15/25 01/16/25 01/16/25 22:59 06:59 14:59 Intake Total 956.725 / 1585.645 250 / 1835.645 248.25 / 248.25 Output Total 3497 / 3497 40 / 3537 Balance -2540.275 / -1911.355 210 / -1701.355 248.25 / 248.25 Weight last 48 hrs Weight 72.5 kg Weight 69.5 kg Weight 70 kg Weight 69.5 kg Physical Exam Narrative: GEN: Intubated, sedated, ett in place HEAD: normocephalic, atraumatic EYES: eyes are closed HEENT: ett in place NECK: no jvd CV: RRR LUNGS: diminished BS ABD: Soft, ND, +bs EXT: trace BLE edema NEURO: sedated : fallon in place SKIN: no rash Urinary Catheter Management: Fallon: Cath Placed During This Visit: yes Reason for Continuing Indwelling Catheter: Accurate Measurement of Urinary Output in Critically Ill Patients Urinary Catheter Date of Insertion: 01/12/25 Urinary Catheter Time of Insertion: 21:00 Data 01/16/25 03:31 01/16/25 03:31 Micro: Microbiology 01/14/25 14:05 Gram Stain - Final Sputum - Endotracheal Tube Aspirate Sputum Culture - Final A&P Assessment and plan (1) Acute kidney injury: YESI- His yesi is likely due to ATN from sepsis and possibly contrast induced nephropathy. he was initiated on hd on 01/14. I will plan on HD again today with uf as tolerated. - Maintain map > 65 for renal perfusion cardiogenic shock- Improved. he is now off dobutamine. Likely due to PE. Heparin on hold due to bleeding form catheter site per the primary service acute hypoxic respiratory failure- due to influenza, pneumonia and PE. on zosyn per the primary service. i will plan on uf with hd to assist with weaning acidosis- due to lactate and yesi. Improve with HD PE- heparin drip currently on hold due to bleeding form catheter site Influenza A- on Tamiflu. PDMP PDMP Reviewed: Not Reviewed Attestations Medical Necessity Statement*: yesi, respiratory failure Time Spent in Patient Care: 25 minutes Coding Level of Care Code Acute Code for [facility] Diagnoses Acute kidney injury N17.9
[2025-01-16 11:22] LABS: Partial Thromboplastin Time 49.2 SECONDS (23.9-36.7)
--- NOTE | 2025-01-16 15:18 | PC.NURSE ---
Dr. Yusuf ordered to start heparin drip back up per protocol.
[2025-01-16] MEDS: midazolam hcl 100 MG/100 ML BAG IV (17:29)
--- NOTE | 2025-01-16 17:35 | P.PN_ITS ---
Subjective 2 Subjective: 74-year-old male with past medical histo ry significant for gastric cancer with prior gastric resection, bilateral lower extremity DVTs and PEs (was on Eliquis but non-compliant, stopped taking for two weeks prior to admission on 01/14/2025), and chronic respiratory failure on 2L oxygen via nasal cannula at all times presents with generalized weakness, falls, and flu-like symptoms. Information obtained from review of records as patient is currently intubated. Initial vitals in ER showed blood pressure 82/56, respiratory rate 24, pulse 79, and SpO2 96% on room air. Labs revealed WBC 12.6, hemoglobin 14, hematocrit 42, platelets 313, sodium 139, potassium 3.4, chloride 95, bicarbonate 23, BUN 30, creatinine 1.4, lactic acid 6.2, elevated LFTs (AST 682, ALT 194, alkaline phosphatase 160), troponin T 25 (24 at 120 minutes), proBNP 13,973, procalcitonin >100. Influenza A positive, B/RSV/COVID-[address] chest/abdomen/pelvis on 01/12/2025 showed large amount of soft tissue at hilar regions bilaterally encasing and narrowing pulmonary arteries (combination of pulmonary emboli and lymphadenopathy suspected, greatest narrowing of left main pulmonary artery causing marked right heart strain), extensive bilateral pulmonary opacifications (pneumonia and atelectasis predominantly at lung bases), chronic emphysema, cholelithiasis without acute cholecystitis, extensive atherosclerotic arteritis, surgical changes near GE junction, marked pancreatic atrophy, and 1.8 cm right adrenal mass. Head CT showed moderate cerebral atrophy of small vessel. Noted to have JVD on exam but no lower extremity edema. Comparison to prior CT from 09/2024 at [facility] revealed dilated right ventricular failure, pulmonary hypertension, and lymphadenopathy (increased in size) at that time as well. Not felt to be a candidate for mechanical thrombectomy or thrombolysis by senior db2 systems programmer at [facility]. Started on IV heparin drip and admitted to ICU. Hospital Course - Became increasingly confused on 2024, given Ativan. Continued on IV levetiracetam. - Started on Tamiflu on admission - Initiated on IV Zosyn for suspected vi ral/bacterial pneumonia (possibly aspiration) and elevated procalcitonin. - Developed worsening kidney dysfunction (creatinine increased to 4.7) and anuria, likely due to multi-organ failure from cardiogenic shock. Temporary dialysis catheter placed, started on dialysis 01/14/2025-01/16/2025. - Required pressors (levophed, then dobu tamine which was weaned off 01/15/2025). - LFTs improving, likely due to resolvin g passive congestion from right heart failure. Hepatitis panel negative. - WBC increasing (12.7 on admission, 20. 2 on 01/16/2025), possibly due to steroids and/or infection. Noted to be hypothermic, on bear hugger. - Currently on solumedrol 40mg IV q8h, p zak to change to BID. - Intubated on 01/14/2025 at 1400 for ai rway protection due to increasing confusion and O2 sats in mid 90s on high-flow nasal cannula. - ABG on 01/16/2025: pH 7.36, pCO2 41.8. FiO2 decreased to 35%. - Repeat CT abdomen/pelvis with contrast on 01/15/2025 showed small hematoma in subcutaneous fat of left flank/hip, fatty liver, mild ascites, right lower lobe pneumonia, and stable left renal mass. - Hemoglobin trending down (14.9 on admi ssion, 8.7 on 01/16/2025), possibly due to bleeding into left hip hematoma. - Blood cultures on 01/12/2025 and sputu m culture on 01/14/2025 negative. - TTE on 01/12/2025: EF 65-70%, no RWMA, findings consistent with right ventricular pressure overload (RVSP 40-45 mmHg, dilated RV/RA, normal LA size), mild pulmonary HTN, right heart failure. Vitals/I&O/Wt Last Vital Signs Temp 97.3 F L 01/16/25 15:30 Pulse 74 01/16/25 16:00 Resp 14 01/16/25 16:57 BP 111/74 01/16/25 16:00 Pulse Ox 94 01/16/25 16:57 O2 Del Method Mechanical Ventilation 01/16/25 15:30 O2 Flow Rate 60 01/14/25 12:59 FiO2 35 01/16/25 16:57 01/16/25 01/16/25 01/16/25 06:59 14:59 22:59 Intake Total 250 / 1835.645 261.625 / 261.625 123.150 / 384.775 Output Total 40 / 3537 Balance 210 / -1701.355 261.625 / 261.625 123.150 / 384.775 Weight last 48 hrs Weight 72.5 kg Weight 69.5 kg Weight 70 kg Weight 69.5 kg Physical Exam 2 Narrative: GEN: Intubated, sedated, ett in place HEAD: normocephalic, atraumatic EYES: eyes are closed HEENT: ett in place NECK: no jvd CV: RRR LUNGS: diminished BS ABD: Soft, ND, +bs EXT: trace BLE edema NEURO: sedated : fallon in place SKIN: no rash Urinary Catheter Management: Fallon: Cath Placed During This Visit: yes Reason for Continuing Indwelling Catheter: Accurate Measurement of Urinary Output in Critically Ill Patients Urinary Catheter Date of Insertion: 01/12/25 Urinary Catheter Time of Insertion: 21:00 Data 01/16/25 03:31 01/16/25 03:31 Micro: Microbiology 01/14/25 14:05 Gram Stain - Final Sputum - Endotracheal Tube Aspirate Sputum Culture - Final A&P Assessment and plan (1) Obstructive cardiovascular shock: (2) Hypoxic respiratory failure: (3) Pulmonary embolus: (4) Influenza A: (5) Pneumonia: (6) Acute kidney injury: (7) Liver dysfunction: (8) Lymphadenopathy: (9) Elevated lactic acid level: (10) Acute on chronic right-sided heart failure: (11) Pulmonary HTN: (12) Encephalopathy: Plan Acute Hypoxemic Respiratory Failure -Secondary to pneumonia, pulmonary emboli, and cardiogenic shock. Currently intubated on mechanical ventilation. - ABG 01/16/2025: pH 7.36, pCO2 41.8 on FiO2 35%. Plan: Wean sedation and assess readiness for ventilator liberation trial. Repeat ABG and CXR in AM. Continue pulmonary hygiene (Pulmicort, duonebs). Sepsis due to Pneumonia - Suspected aspiration vs viral/bacterial pneumonia. On broad-spectrum antibiotics. Procalcitonin >100 on admission. Plan: - Continue Zosyn 3.375 grams IV q12h. - Trend WBC and procalcitonin. -Repeat cultures as indicated. Acute Kidney Injury/Failure - Likely secondary to multi-organ failure and cardiogenic shock. Required initiation of dialysis. Plan: - Continue dialysis per nephrology recommendations. - Strict I/Os and daily electrolytes. Influenza A Infection - Positive influenza A testing on admission. On Tamiflu. - Plan: Discontinue Tamiflu today as treatment course completed. Encephalopathy Multifactorial - likely components of toxic/metabolic encephalopathy and hypoxemia. Plan: - Wean sedation as able and assess mental status. - Avoid benzodiazepines if possible. Cardiogenic Shock Secondary to acute right heart failure in the setting of multiple pulmonary emboli and pulmonary HTN. - Off pressors since 01/15/2025. TTE showed dilated RV/RA, RVSP 40-45 mmHg. Plan: - Maintain euvolemia, avoid fluid overload. - Optimize RV afterload reduction. Gastric Cancer - History of gastric cancer with prior resection. No evidence of acute issues on imaging. Plan: - No further work up Pulmonary Emboli - Multiple pulmonary emboli noted on CTA chest. On heparin drip, but paused due to bleeding. Plan: - Restart heparin drip now that bleeding controlled. - If unable to tolerate anticoagulation, consider IVC filter placement. DVT Prophylaxis - Currently on heparin drip for treatment of pulmonary emboli. Code Status - Full code. Unable to discuss goals of care as patient intubated and sedated. - Attempts to contact brother and life partner unsuccessful. in [place] reportedly uninvolved. PDMP PDMP Reviewed: Not Reviewed Attestations 2 Medical Necessity Statement*: Requires further hospitalization for management of respiratory failure, mechanical ventilation, multiorgan failure due to cardiogenic shock, liver and renal failure as patient remains anuric Critical Care Time: The high probability of a clinically significant, sudden or life threatening deterioration of the patient's [cardiac, pulmonary, renal, goals of care discussion, GI] system(s) required my full and direct attention, intervention and personal management. The critical care time is as shown. This time is in addition to time spent performing any reported procedures but includes the following: [x] Data and vital sign review and interpretation [x] Patient assessment, examination and intervention [x] Documentation [x] Medication orders and management Critical Care Time (min): 90 Coding Level of Care Code Acute Code for Chg Fwd Diagnoses Obstructive cardiovascular shock R57.8 Hypoxic respiratory failure J96.91 Pulmonary embolus I26.99 Influenza A J10.1 Pneumonia J18.9 Acute kidney injury N17.9 Liver dysfunction K76.89 Lymphadenopathy R59.1 Elevated lactic acid level R79.89 Acute on chronic right-sided heart failure I50.813 Pulmonary HTN I27.20 Encephalopathy G93.40
[2025-01-16 19:37] LABS: Partial Thromboplastin Time > 250.0 SECONDS (23.9-36.7)
--- NOTE | 2025-01-16 19:40 | PC.NURSE ---
Contacted Dr. Bauman in reference to patient's PTT result at >250. Received orders to pause heparin for 4 hours, restart at down 2units/kg/hr following heparin protocol chart and retest PTT.
[2025-01-17] VITALS (62 sets, daily range): BP systolic 97–140; BP diastolic 69–96; PULSE 58–86; RESP 12–36; TEMP 35.8–37.3; O2SAT 89–98
[2025-01-17] MEDS: fentaNYL 1,000 MCG/100 ML BAG 10 MCG IV ×2 (00:31→21:34)
[2025-01-17] MEDS: albumin 25 G/100 ML BAG 60 G IV ×3 (01:33→17:43)
[2025-01-17] MEDS: ipratropium-albuterol 3 mL Neb INHALATION ×4 (02:42→20:49)
--- NOTE | 2025-01-17 04:08 | PC.NURSE ---
Bearhugger reapplied due to patient's temperature trending downward despite warmed blankets.
[2025-01-17 04:11] LABS: Hematocrit 24.1 % (37-53); Mean Corpuscular HGB Conc 35.7 g/dL (30-55); Mean Corpuscular Hemoglobin 34.1 pg (27-33); Mean Corpuscular Volume 95.6 fl (82-101); Mean Platelet Volume 12.3 fL (7.4-10.4); Platelet Count 168 10^3/cmm (157-399); Red Blood Count 2.52 10^6/uL (3.85-5.65); Red Cell Distribution Width 21.5 % (12.1-15.1); White Blood Count 19.02 10^3/uL (3.29-11.43)
[2025-01-17 04:29] LABS: Alanine Aminotransferase 166 U/L (0-41); Albumin Level 4.8 g/dL (3.5-5.2); Alkaline Phosphatase 69 U/L (40-130); Anion Gap 22.8 (5-19); Aspartate Amino Transferase 79 U/L (0-40); Blood Urea Nitrogen 29 mg/dL (8-23); Calcium 9.4 mg/dL (8.5-10.5); Carbon Dioxide 22 mmol/L (22-29); Chloride 98 mmol/L (98-107); Glucose 166 mg/dL (65-115); Osmolality Calculated 298 mOsm/kg (285-295); Potassium 3.8 mmol/L (3.5-5.1); Sodium 139 mmol/L (136-145); Total Bilirubin 4.2 mg/dL (0.15-1.2); Total Protein 6.8 g/dL (6.6-8.7)
[2025-01-17 04:43] LABS: Partial Thromboplastin Time > 250.0 SECONDS (23.9-36.7)
[2025-01-17 04:45] LABS: ABG PCO2 43.8 mmHg (35-45); ABG PH Result 7.33 (7.35-7.45); Arterial Blood Gas Hematocrit 28.5 % (42-52); Base Excess ABG -2.8 mmol/L (-2.0-2.0); Blood Gas Allen Test Pos; Blood Gas Operator Identificat SAM; Blood Gas Sample Site Radial, right; Blood Gas Sample Type Arterial; Oxygen Device VENT; PO2 ABG 63.9 mmHg (80.0-100.0); PO2 FiO2 Ratio Arterial Blood 182
--- NOTE | 2025-01-17 04:51 | PC.NURSE ---
Contacted Dr. Bauman in reference to patient's >250 PTT critical lab. Received orders to pause heparin and redraw PTT in 4 hours to reevaluate drip rate then.
[2025-01-17 04:59] LABS: Slide Review Slide Review Perform; Total Cells Counted 100 (0-100)
[2025-01-17 05:00] LABS: Absolute Segmented Neutrophil 13.9 10/cmm (1.6-7.1); Eosinophils 0 %; Hypersegmented Polys Trace; Lymphocytes 3 %; Lymphocytes Absolute 0.6 10^3/cmm (1.2-3.4); Macrocytosis 1+; Microcytosis Trace; Platelet Estimate Normal (Normal); Polychromasia Trace; Segmented Neutrophils 73 %; Target Cells 1+
[2025-01-17] MEDS: piperacillin-tazobactam 3.375 GM in sodium chloride 0.9% (plus) 50 ML IV ×2 (05:21→20:28)
--- NOTE | 2025-01-17 06:00 | XR_ITS ---
WS: [id number] Portable AP supine chest, 01/17/2025 Clinical Data: Respiratory failure, intubated Comparison: Portable chest, 01/16/2025 Findings: The multiple tubes remain in the same position. The endotracheal tube, right internal jugular venous catheter and gastric tube remain in the same position. There are patchy parenchymal opacities throughout both lungs also unchanged. There are probably small bilateral pleural effusions. No pneumothorax is seen. The aortic arch is tortuous with calcification. The heart is not enlarged. There are monitor leads on the chest wall. There is an anterior cervical disc fusion. XR/XR chest 1V portable [id number] Impression: No change in bilateral patchy pulmonary opacities.
[2025-01-17] MEDS: budesonide 0.5 mg/2 mL Neb INHALATION ×2 (07:59→20:49)
[2025-01-17] MEDS: methylPREDNISolone sod succ 40 mg/mL INJ IVP ×2 (08:19→20:27)
[2025-01-17] MEDS: oseltamivir phosphate 30 mg Capsule PO (08:19)
[2025-01-17] MEDS: pantoprazole 40 mg SDV IVP (08:19)
[2025-01-17 09:18] LABS: Partial Thromboplastin Time 49.2 SECONDS (23.9-36.7)
[2025-01-17] MEDS: fentaNYL 1,000 MCG/100 ML BAG 7.5 MCG IV (09:47)
--- NOTE | 2025-01-17 10:21 | PC.NURSE ---
Heparin drip restarted at 15 mls/hr per Dr. Yusuf orders.
--- NOTE | 2025-01-17 10:38 | P.PN_ITS ---
Subjective 2 Subjective: Patient is intubated and sedated on mechanical ventilation with an fio2 35% and peep 8. he remains off pressors/dobutamine. Medications: Reviewed: Yes Vitals/I&O/Wt Last Vital Signs Temp 96.4 F L 01/17/25 09:00 Pulse 68 01/17/25 09:00 Resp 12 01/17/25 09:52 BP 115/80 01/17/25 09:00 Pulse Ox 96 01/17/25 09:52 O2 Del Method Mechanical Ventilation 01/17/25 09:00 O2 Flow Rate 60 01/14/25 12:59 FiO2 35 01/17/25 09:52 01/16/25 01/17/25 01/17/25 22:59 06:59 14:59 Intake Total 395.650 / 657.275 311.0 / 968.275 94.542 / 94.542 Output Total 40 / 40 Balance 395.650 / 657.275 311.0 / 968.275 54.542 / 54.542 Weight last 48 hrs Weight 70.454 kg Weight 72.5 kg Weight 69.5 kg Physical Exam 2 Narrative: GEN: Intubated, sedated, ett in place HEAD: normocephalic, atraumatic EYES: eyes are closed HEENT: ett in place NECK: no jvd CV: RRR LUNGS: diminished BS ABD: Soft, ND, +bs EXT: trace BLE edema NEURO: sedated : fallon in place SKIN: no rash Urinary Catheter Management: Fallon: Cath Placed During This Visit: yes Reason for Continuing Indwelling Catheter: Accurate Measurement of Urinary Output in Critically Ill Patients Urinary Catheter Date of Insertion: 01/12/25 Urinary Catheter Time of Insertion: 21:00 Data 01/17/25 03:51 01/17/25 03:51 Micro: Microbiology 01/12/25 05:40 Blood Culture - Final Blood NO GROWTH AFTER 5 DAYS 01/12/25 05:40 Blood Culture - Final Blood NO GROWTH AFTER 5 DAYS 01/14/25 14:05 Gram Stain - Final Sputum - Endotracheal Tube Aspirate Sputum Culture - Final A&P Assessment and plan (1) Acute kidney injury: YESI- His yesi is likely due to ATN from sepsis and possibly contrast induced nephropathy. he was initiated on hd on 01/14. I will plan on HD again today with uf as tolerated. - Maintain map > 65 for renal perfusion cardiogenic shock- Improved. he is now off dobutamine. Likely due to PE. Heparin on hold due to bleeding form catheter site per the primary service acute hypoxic respiratory failure- due to influenza, pneumonia and PE. on zosyn per the primary service. i will plan on uf with hd to assist with weaning acidosis- due to lactate and yesi. Improve with HD PE- heparin drip currently on hold due to bleeding form catheter site Influenza A- on Tamiflu. PDMP PDMP Reviewed: Not Reviewed Attestations 2 Medical Necessity Statement*: yesi Time Spent in Patient Care: 25 minutes Coding Level of Care Code Acute Code for [facility] Diagnoses Acute kidney injury N17.9
--- NOTE | 2025-01-17 15:32 | PC.SOCIAL ---
IMM updated IMM dated and initialed copy given to patient and copy placed in chart
[2025-01-17 18:43] LABS: Partial Thromboplastin Time 200.4 SECONDS (23.9-36.7)
--- NOTE | 2025-01-17 18:51 | PC.NURSE ---
PTT came back at 200. Dr. Yusuf was made aware and he ordered to stop the heaprin drip and recheck a PTT level after 6 hours.
--- NOTE | 2025-01-17 21:11 | P.PN_ITS ---
Subjective 2 Subjective: Weaned off sedation HD today No sign change overnight Medications: Reviewed: Yes Vitals/I&O/Wt Last Vital Signs Temp 96.6 F L 01/17/25 14:00 Pulse 83 01/17/25 20:50 Resp 12 01/17/25 20:50 BP 97/69 01/17/25 18:00 Pulse Ox 97 01/17/25 20:50 O2 Del Method Mechanical Ventilation 01/17/25 20:50 O2 Flow Rate 60 01/14/25 12:59 FiO2 35 01/17/25 20:50 01/17/25 01/17/25 01/17/25 06:59 14:59 22:59 Intake Total 311.0 / 968.275 246.417 / 036.637 5646.795 / 1583.212 Output Total 40 / 40 Balance 311.0 / 968.275 206.417 / 056.444 4302.795 / 1543.212 Weight last 48 hrs Weight 70.454 kg Weight 72.5 kg Weight 69.5 kg Physical Exam 2 Narrative: GEN: Intubated, sedated, ett in place HEAD: normocephalic, atraumatic EYES: eyes are closed HEENT: ett in place NECK: no jvd CV: RRR LUNGS: diminished BS ABD: Soft, ND, +bs EXT: trace BLE edema NEURO: sedated : fallon in place SKIN: no rash Urinary Catheter Management: Fallon: Cath Placed During This Visit: yes Reason for Continuing Indwelling Catheter: Accurate Measurement of Urinary Output in Critically Ill Patients Urinary Catheter Date of Insertion: 01/12/25 Urinary Catheter Time of Insertion: 21:00 Data 01/17/25 03:51 01/17/25 03:51 Micro: Microbiology 01/12/25 05:40 Blood Culture - Final Blood NO GROWTH AFTER 5 DAYS 01/12/25 05:40 Blood Culture - Final Blood NO GROWTH AFTER 5 DAYS A&P Assessment and plan (1) Obstructive cardiovascular shock: (2) Hypoxic respiratory failure: (3) Pulmonary embolus: (4) Influenza A: (5) Pneumonia: (6) Acute kidney injury: (7) Liver dysfunction: (8) Lymphadenopathy: (9) Elevated lactic acid level: (10) Acute on chronic right-sided heart failure: (11) Pulmonary HTN: (12) Encephalopathy: Plan Acute Hypoxemic Respiratory Failure -Secondary to pneumonia, pulmonary emboli, and cardiogenic shock. Currently intubated on mechanical ventilation. - ABG 01/16/2025: pH 7.36, pCO2 41.8 on FiO2 35%. Plan: Repeat ABG and CXR in AM. Continue pulmonary hygiene (Pulmicort, duonebs). Wean sedation today Change to precedex D/w RT Sepsis due to Pneumonia - Suspected aspiration vs viral/bacterial pneumonia. On broad-spectrum antibiotics. Procalcitonin >100 on admission. Plan: - Continue Zosyn 3.375 grams IV q12h. - Trend WBC and procalcitonin. -Repeat cultures as indicated. - No change to managment Acute Kidney Injury/Failure - Likely secondary to multi-organ failure and cardiogenic shock. Required initiation of dialysis. Plan: - Continue dialysis per nephrology recommendations. - Strict I/Os and daily electrolytes. Influenza A Infection - Positive influenza A testing on admission. On Tamiflu. - Plan: DC tamiflu Encephalopathy Multifactorial - likely components of toxic/metabolic encephalopathy and hypoxemia. Plan: - Wean sedation as able and assess mental status. - Avoid benzodiazepines if possible. Cardiogenic Shock Secondary to acute right heart failure in the setting of multiple pulmonary emboli and pulmonary HTN. - Off pressors since 01/15/2025. TTE showed dilated RV/RA, RVSP 40-45 mmHg. Plan: - Maintain euvolemia, avoid fluid overload. - Optimize RV afterload reduction. Gastric Cancer - History of gastric cancer with prior resection. No evidence of acute issues on imaging. Plan: - No further work up Pulmonary Emboli - Multiple pulmonary emboli noted on CTA chest. On heparin drip, but paused due to bleeding. Plan: - Restart heparin drip now that bleeding controlled. - If unable to tolerate anticoagulation, consider IVC filter placement. DVT Prophylaxis - Currently on heparin drip for treatment of pulmonary emboli. Code Status - Full code Assess for select PDMP PDMP Reviewed: Not Reviewed Attestations 2 Medical Necessity Statement*: critical will need over 2 midnight Time Spent in Patient Care: 25 minutes Critical Care Time: The high probability of a clinically significant, sudden or life threatening deterioration of the patient's [cardiac, pulmonary, renal, goals of care discussion, GI] system(s) required my full and direct attention, intervention and personal management. The critical care time is as shown. This time is in addition to time spent performing any reported procedures but includes the following: [x] Data and vital sign review and interpretation [x] Patient assessment, examination and intervention [x] Documentation [x] Medication orders and management Critical Care Time (min): 90 Coding Level of Care Code Acute Code for Chg Fwd Diagnoses Obstructive cardiovascular shock R57.8 Hypoxic respiratory failure J96.91 Pulmonary embolus I26.99 Influenza A J10.1 Pneumonia J18.9 Acute kidney injury N17.9 Liver dysfunction K76.89 Lymphadenopathy R59.1 Elevated lactic acid level R79.89 Acute on chronic right-sided heart failure I50.813 Pulmonary HTN I27.20 Encephalopathy G93.40
[2025-01-17] MEDS: norepinephrine 4 MG/250 ML BAG 7.5 MG IV (21:20)
--- NOTE | 2025-01-17 21:46 | PC.NURSE ---
Fentanyl gtt edits MAR showed fentanyl gtt was about to need replaced. This nurse pulled fentanyl from the pyxis to replace it and the levophed at the same time to avoid repeated entering/exiting flu+ pt room. Medicine was scanned and saved. When this nursewent to replace bag, it was noted that previous bag had plenty left. This nurse checked MAR to see why the discrepancy, and it was discovered that this nurse had made a typo and MAR was showing 100 ml/hr instead of actual 10 ml/hr. Edits were made, but nurse unable to undo administration. Charge nurse (Humberto RN) was informed and this nruse advised to write this note and not waste previous bag. Current rate is 10 ml/hr (100 mcg/hr).
[2025-01-18] VITALS (67 sets, daily range): BP systolic 101–148; BP diastolic 70–102; PULSE 47–101; RESP 8–15; TEMP 35.7–36.4; O2SAT 80–100
[2025-01-18 01:19] LABS: Partial Thromboplastin Time 45.2 SECONDS (23.9-36.7)
[2025-01-18] MEDS: albumin 25 G/100 ML BAG 60 G IV ×3 (01:55→18:50)
[2025-01-18] MEDS: ipratropium-albuterol 3 mL Neb INHALATION ×4 (02:34→20:24)
[2025-01-18 03:40] LABS: ABG PCO2 40.1 mmHg (35-45); ABG PH Result 7.39 (7.35-7.45); Arterial Blood Gas Hematocrit 27.2 % (42-52); Base Excess ABG -0.5 mmol/L (-2.0-2.0); Blood Gas Allen Test Pos; Blood Gas Operator Identificat SAM; Blood Gas Sample Site Radial, right; Blood Gas Sample Type Arterial; HCO3 ABG 24.3 mmol/L (22-26); Oxygen Device VENT; PO2 FiO2 Ratio Arterial Blood 325
[2025-01-18 04:24] LABS: Basophils % 0.1 %; Hematocrit 24.5 % (37-53); Mean Corpuscular HGB Conc 34.7 g/dL (30-55); Mean Corpuscular Hemoglobin 33.2 pg (27-33); Mean Corpuscular Volume 95.7 fl (82-101); Mean Platelet Volume 11.9 fL (7.4-10.4); Monocytes # 0.6 10^3/uL (0.2-0.9); Monocytes % 3.5 %; Neutrophils # 15.35 10^3/uL (1.8-7.7); Neutrophils % 94.7 %; Nucleated Red Blood Cells # 3.1 /100WBC; Nucleated Red Blood Cells % 18.8 %; Platelet Count 164 10^3/cmm (157-399); Red Blood Count 2.56 10^6/uL (3.85-5.65); Red Cell Distribution Width 21.7 % (12.1-15.1)
[2025-01-18 04:51] LABS: Anion Gap 22.2 (5-19); Blood Urea Nitrogen 24 mg/dL (8-23); Calcium 9.9 mg/dL (8.5-10.5); Carbon Dioxide 24 mmol/L (22-29); Chloride 96 mmol/L (98-107); Glucose 155 mg/dL (65-115); Osmolality Calculated 293 mOsm/kg (285-295); Potassium 4.2 mmol/L (3.5-5.1); Sodium 138 mmol/L (136-145)
[2025-01-18] MEDS: piperacillin-tazobactam 3.375 GM in sodium chloride 0.9% (plus) 50 ML IV ×2 (05:19→17:32)
[2025-01-18] MEDS: fentaNYL 1,000 MCG/100 ML BAG 20 MCG IV (05:47)
[2025-01-18 06:01] LABS: Slide Review Slide Review Perform
--- NOTE | 2025-01-18 07:40 | PM.PN ---
Subjective Subjective: sedated, intubated. off of pressors Medications: Reviewed: Yes Medication Review Details: Current Medications Acetaminophen (Acetaminophen 325 Mg Tablet) 650 mg PO Q6H PRN PRN Reason: Mild/Mod Pain Or Temp >/= 101 Albuterol/Ipratropium (Ipratropium-Albuterol 3 Ml Neb) 3 ml INHALATION Q6H.RESP JOANNA Last Admin: 01/18/25 02:34 Dose: 3 ml Alteplase, Recombinant (Alteplase 1 Mg/Ml Sdv 2 Ml) 2 mg INTRACATH PRN PRN PRN Reason: DIALYSIS USE ONLY Alteplase, Recombinant (Alteplase 1 Mg/Ml Sdv 2 Ml) 2 mg INTRACATH PRN PRN PRN Reason: DIALYSIS USE ONLY Alteplase, Recombinant (Alteplase 1 Mg/Ml Sdv 2 Ml) 2 mg INTRACATH PRN PRN PRN Reason: DIALYSIS USE ONLY Budesonide (Budesonide 0.5 Mg/2 Ml Neb) 0.5 mg INHALATION BID.RESPIRATORY JOANNA Last Admin: 01/17/25 20:49 Dose: 0.5 mg Chlorhexidine Gluconate (Chlorhexidine Gluconate 4% Btl 118 Ml) 1 applic TOPICAL DAILY PRN PRN Reason: Intubated patient bathing Haloperidol Lactate (Haloperidol Inj 5 Mg/Ml Inj 1 Ml) 1 mg IM Q4H PRN PRN Reason: AGITATION Last Admin: 01/14/25 12:08 Dose: 1 mg Heparin Sodium (Porcine) (Heparin 5,000 Unit/Ml Inj 1 Ml) 0 unit IVP PRN PRN; Protocol PRN Reason: Heparin Weight Based Protocol -Subsequent Bolus Heparin Sodium (Porcine) (Heparin, Porcine 1,000 Unit/Ml Inj 10 Ml) 1,000 unit IV PRN PRN PRN Reason: clotting Heparin Sodium/Sodium Chloride (Heparin Drip) 25,000 unit in 500 mls @ 0 mls/hr IV CONT JOANNA; Protocol Last Titration: 01/18/25 01:51 Dose: 5.51 unit/kg/hr, 10 mls/hr Norepinephrine Bitartrate (Levophed) 4 mg in 250 mls @ 0 mls/hr IV .Q0M JOANNA; Protocol Last Titration: 01/18/25 01:45 Dose: 0 mcg/min, 0 mls/hr Albumin Human (Albumin) 25 g in 100 mls @ 60 mls/hr IV Q8H [facility] Last Infusion: 01/18/25 02:56 Dose: Infused Fentanyl (Sublimaze) 1,000 mcg in 100 mls @ 0 mls/hr IV .Q0M JOANNA; Protocol Last Admin: 01/18/25 05:47 Dose: 200 mcg/hr, 20 mls/hr Midazolam HCl (Versed) 100 mg in 100 mls @ 0 mls/hr IV .Q0M JOANNA; Protocol Last Titration: 01/17/25 04:23 Dose: 0 mg/hr, 0 mls/hr Sodium Chloride (Sodium Chloride 0.9%) 1,000 mls @ 0 mls/hr IV .Q0M PRN PRN Reason: hypotension or symptomatic Sodium Chloride (Sodium Chloride 0.9%) 1,000 mls @ 0 mls/hr IV .Q0M PRN PRN Reason: hypotension or symptomatic Albumin Human (Albumin) 12.5 gm in 50 mls @ 60 mls/hr IV PRN PRN PRN Reason: Hypotension and/or symptomatic Last Infusion: 01/15/25 19:00 Dose: Infused Piperacillin Sod/Tazobactam (Sod 3.375 gm/ Sodium Chloride) 50 mls @ 12.5 mls/hr IV Q12H [facility]; Protocol Last Admin: 01/18/25 05:19 Dose: 12.5 mls/hr Albumin Human (Albumin) 12.5 gm in 50 mls @ 60 mls/hr IV PRN PRN PRN Reason: Hypotension and/or symptomatic Dexmedetomidine/Sodium Chloride (Precedex) 400 mcg in 100 mls @ 0 mls/hr IV .Q0M JOANNA; Protocol Sodium Chloride (Sodium Chloride 0.9%) 1,000 mls @ 0 mls/hr IV .Q0M PRN PRN Reason: hypotension or symptomatic Lorazepam (Lorazepam 2 Mg/Ml Inj 1 Ml) 2 mg IM Q4H PRN; Protocol PRN Reason: ALCOHOL WITHDRAWAL Lorazepam (Lorazepam 2 Mg/Ml Inj 1 Ml) 2 mg IVP PRN PRN; Protocol PRN Reason: WITHDRAWAL Last Admin: 01/12/25 22:24 Dose: 2 mg Methylprednisolone Sodium Succinate (Methylprednisolone Sod Succ 40 Mg/Ml Inj) 40 mg IVP BID [facility] Last Admin: 01/17/25 20:27 Dose: 40 mg Ondansetron HCl (Ondansetron 2 Mg/Ml Sdv 2 Ml) 4 mg IVP Q8H PRN PRN Reason: vomiting, or N/V if npo Oseltamivir Phosphate (Oseltamivir Phosphate 30 Mg Capsule) 30 mg PO DAILY [facility] Last Admin: 01/17/25 08:19 Dose: 30 mg Pantoprazole Sodium (Pantoprazole 40 Mg Sdv) 40 mg IVP DAILY [facility] Last Admin: 01/17/25 08:19 Dose: 40 mg Vitals/I&O/Wt Last Vital Signs Temp 97.2 F L 01/18/25 06:00 Pulse 65 01/18/25 06:00 Resp 12 01/18/25 03:58 BP 148/96 01/18/25 06:00 Pulse Ox 100 01/18/25 06:00 O2 Del Method Mechanical Ventilation 01/18/25 02:40 O2 Flow Rate 60 01/14/25 12:59 FiO2 35 01/18/25 03:58 01/17/25 01/18/25 01/18/25 22:59 06:59 14:59 Intake Total 1955.045 / 2201.462 263.896 / 2465.358 Output Total 3512 / 3552 Balance -1556.955 / -1350.538 263.896 / -1086.642 Weight last 48 hrs Weight 68.4 kg Weight 67.5 kg Weight 70.454 kg Physical Exam Narrative: intubated, sedated off pressors heent- nc/at neck supple lungs - dull bases heart regular ext + edema + femoral dialysis catheter neuro- not responsive, sedated Urinary Catheter Management: Swain: Cath Placed During This Visit: yes Reason for Continuing Indwelling Catheter: Accurate Measurement of Urinary Output in Critically Ill Patients Urinary Catheter Date of Insertion: 01/12/25 Urinary Catheter Time of Insertion: 21:00 Data 01/18/25 04:03 01/18/25 04:03 Micro: Microbiology 01/12/25 05:40 Blood Culture - Final Blood NO GROWTH AFTER 5 DAYS 01/12/25 05:40 Blood Culture - Final Blood NO GROWTH AFTER 5 DAYS A&P Assessment and plan (1) Acute kidney injury: 74 year old male, with a history of gastric resection, history of bilateral LE DVT, PE, who initially presented to the ER on 01/12/2025 complaining og generalized weakness, falls, myalgias. he was previously on Eliquis; however, he has had difficulty obtaining Eliquis and had not taken Eliquis for 2 weeks prior to presentation. On presentation, he was found to be Influenza A positive and was hypotensive, requirin Levophed. CT chest PE protocol revealed a PE and his TTE revealed right ventricular strain. Patient subsequently developed respiratory failure and was intubated. He was weaned off LEvophed, but has been requiring dobutamine. He became anuric with a rising creatinine, prompting a nephrology consult. cr on admission was 1.4 mg/dl 1. [place] -presumed ATN. s/p HD yesterday. no emergent need for HD today. will hold dialysis. give bumex or furosemide and monitor seen and examined w/ AIDE of RN- usinf A/V equipment Plan diuretic challenge check ck PDMP PDMP Reviewed: Not Reviewed Attestations Medical Necessity Statement*: [place], anuric Time Spent in Patient Care: 16 - 35 minutes (>than 50% of time spent in counselling and/or direct pt care on unit). Coding Level of Care Code Acute Code for [facility] Diagnoses Acute kidney injury N17.9
[2025-01-18] MEDS: budesonide 0.5 mg/2 mL Neb INHALATION ×2 (08:20→20:24)
[2025-01-18 08:44] LABS: Partial Thromboplastin Time 66.7 SECONDS (23.9-36.7)
[2025-01-18] MEDS: fentaNYL 1,000 MCG/100 ML BAG 17.5 MCG IV (09:19)
[2025-01-18] MEDS: methylPREDNISolone sod succ 40 mg/mL INJ IVP ×2 (09:31→17:31)
[2025-01-18] MEDS: heparin drip 25,000 UNIT/500 ML PREMIX 10 UNIT IV (09:33)
[2025-01-18] MEDS: bumetanide 0.25 mg/mL SDV 10 mL 2 MG IVP ×2 (09:35→19:58)
[2025-01-18] MEDS: pantoprazole 40 mg SDV IVP (09:36)
[2025-01-18] MEDS: oseltamivir phosphate 30 mg Capsule PO (09:37)
[2025-01-18] MEDS: dexmedeTOMIDine 0.9 % NaCL 400 MCG/100 ML PREMIX IV (10:55)
[2025-01-18 11:05] LABS: Glucose Point of Care 179 mg/dL (70-110)
[2025-01-18] MEDS: lanolin oint 7 gm 1 APPLIC TOPICAL (17:39)
[2025-01-18 17:46] LABS: Partial Thromboplastin Time 59.8 SECONDS (23.9-36.7)
--- NOTE | 2025-01-18 19:45 | PC.NURSE ---
SHift SUmmary: Uneventful shift. Weaned off of fentanyl. Precedex was only briefly used. CUrrently only on a heparin drip. Patient has remained calm throughout the day. Will open his eyes to voice, but does not appear to have any purposeful movements. May have followed commands during one of the neuro checks, but was not able to reproduce following the commands at a later time. Patient has not produced any urine today. Bladder scan shows no retention.
--- NOTE | 2025-01-18 20:34 | P.PN_ITS ---
Subjective 2 Subjective: Overnight noted to be bradycardic Was placed back on fentanyl overnight Versed has been stopped. Medications: Reviewed: Yes Vitals/I&O/Wt Last Vital Signs Temp 97.1 F L 01/18/25 19:30 Pulse 62 01/18/25 20:25 Resp 12 01/18/25 20:25 BP 135/101 01/18/25 19:30 Pulse Ox 95 01/18/25 20:25 O2 Del Method Mechanical Ventilation 01/18/25 20:25 O2 Flow Rate 60 01/14/25 12:59 FiO2 35 01/18/25 20:25 01/18/25 01/18/25 01/18/25 06:59 14:59 22:59 Intake Total 263.896 / 2465.358 352.034 / 352.034 89.5 / 441.534 Balance 263.896 / -1086.642 352.034 / 352.034 89.5 / 441.534 Weight last 48 hrs Weight 68.4 kg Weight 67.5 kg Weight 70.454 kg Physical Exam 2 Narrative: GEN: Intubated, sedated, ett in place HEAD: normocephalic, atraumatic EYES: eyes are closed HEENT: ett in place NECK: no jvd CV: RRR LUNGS: diminished BS ABD: Soft, ND, +bs EXT: trace BLE edema NEURO: sedated : fallon in place SKIN: no rash Urinary Catheter Management: Fallon: Cath Placed During This Visit: yes Reason for Continuing Indwelling Catheter: Accurate Measurement of Urinary Output in Critically Ill Patients Urinary Catheter Date of Insertion: 01/12/25 Urinary Catheter Time of Insertion: 21:00 Data 01/18/25 04:03 01/18/25 04:03 A&P Assessment and plan (1) Obstructive cardiovascular shock: (2) Hypoxic respiratory failure: (3) Pulmonary embolus: (4) Influenza A: (5) Pneumonia: (6) Acute kidney injury: (7) Liver dysfunction: (8) Lymphadenopathy: (9) Elevated lactic acid level: (10) Acute on chronic right-sided heart failure: (11) Pulmonary HTN: (12) Encephalopathy: Plan Acute Hypoxemic Respiratory Failure -Secondary to pneumonia, pulmonary emboli, and cardiogenic shock. Currently intubated on mechanical ventilation. - ABG 01/16/2025: pH 7.36, pCO2 41.8 on FiO2 35%. - Repeat abg noted today Plan: Repeat ABG in am -Wean fentanyl today -Sedation off -Precedex if needed if not [place] -Discussed with RT for weaning trial today Sepsis due to Pneumonia - Suspected aspiration vs viral/bacterial pneumonia. On broad-spectrum antibiotics. Procalcitonin >100 on admission. Plan: - Continue Zosyn 3.375 grams IV q12h. - Trend WBC and procalcitonin. - Repeat cultures as indicated. - No change to management - Will cosider de-escalation of abx - Has not been febrile Acute Kidney Injury/Failure - Likely secondary to multi-organ failure and cardiogenic shock. Required initiation of dialysis. Plan: - Continue dialysis per nephrology recommendations. - Strict I/Os and daily electrolytes. - Bumex / albumin given today Influenza A Infection - Positive influenza A testing on admission. On Tamiflu. - Plan: DC tamiflu Encephalopathy Multifactorial - likely components of toxic/metabolic encephalopathy and hypoxemia. Plan: - Wean sedation as able and assess mental status. - Avoid benzodiazepines if possible. Cardiogenic Shock Secondary to acute right heart failure in the setting of multiple pulmonary emboli and pulmonary HTN. - Off pressors since 01/15/2025. TTE showed dilated RV/RA, RVSP 40-45 mmHg. Plan: - Maintain euvolemia, avoid fluid overload. - Optimize RV afterload reduction. Gastric Cancer - History of gastric cancer with prior resection. No evidence of acute issues on imaging. Plan: - No further work up Pulmonary Emboli - Multiple pulmonary emboli noted on CTA chest. On heparin drip, but paused due to bleeding. Plan: - Continue heparn drip - If unable to tolerate anticoagulation, consider IVC filter placement. DVT Prophylaxis - Currently on heparin drip for treatment of pulmonary emboli. Code Status - Full code Assess for select PDMP PDMP Reviewed: Not Reviewed Attestations 2 Medical Necessity Statement*: critical will need over 2 midnight Time Spent in Patient Care: 25 minutes Critical Care Time: The high probability of a clinically significant, sudden or life threatening deterioration of the patient's [cardiac, pulmonary, renal, goals of care discussion, GI] system(s) required my full and direct attention, intervention and personal management. The critical care time is as shown. This time is in addition to time spent performing any reported procedures but includes the following: [x] Data and vital sign review and interpretation [x] Patient assessment, examination and intervention [x] Documentation [x] Medication orders and management Critical Care Time (min): 90 Coding Level of Care Code Acute Code for Chg Fwd Diagnoses Obstructive cardiovascular shock R57.8 Hypoxic respiratory failure J96.91 Pulmonary embolus I26.99 Influenza A J10.1 Pneumonia J18.9 Acute kidney injury N17.9 Liver dysfunction K76.89 Lymphadenopathy R59.1 Elevated lactic acid level R79.89 Acute on chronic right-sided heart failure I50.813 Pulmonary HTN I27.20 Encephalopathy G93.40
--- NOTE | 2025-01-18 22:00 | PC.NURSE ---
Sputum Patient's sputum bright pink and frothy while on heparin drip. Dr. Bauman notified and order received to leave heparin drip on unless more than 5 ml of blood suctioned from ET tube.
[2025-01-18 22:25] LABS: Glucose Point of Care 187 mg/dL (70-110)
[2025-01-19] VITALS (115 sets, daily range): BP systolic 118–159; BP diastolic 76–107; PULSE 50–93; RESP 7–24; TEMP 34.1–36.7; O2SAT 77–100
[2025-01-19 00:34] LABS: Partial Thromboplastin Time 77.7 SECONDS (23.9-36.7)
[2025-01-19] MEDS: albumin 25 G/100 ML BAG 60 G IV ×3 (01:02→17:44)
--- NOTE | 2025-01-19 01:22 | PC.NURSE ---
Fentanyl Patient moving arms and legs, biting ET tube, and breathing asynchronously with ventilator. Oxygen saturation decreased to as low as 76%. Fentanyl increased per JAN. Dr. Bauman notified; no new orders received.
[2025-01-19] MEDS: ipratropium-albuterol 3 mL Neb INHALATION ×4 (01:53→20:26)
[2025-01-19 02:42] LABS: Glucose Point of Care 196 mg/dL (70-110)
[2025-01-19] MEDS: piperacillin-tazobactam 3.375 GM in sodium chloride 0.9% (plus) 50 ML IV ×2 (05:49→17:44)
[2025-01-19 06:47] LABS: Basophils % 0.1 %; Hematocrit 24.7 % (37-53); Mean Corpuscular HGB Conc 34.8 g/dL (30-55); Mean Corpuscular Hemoglobin 33.5 pg (27-33); Mean Corpuscular Volume 96.1 fl (82-101); Mean Platelet Volume 12.3 fL (7.4-10.4); Monocytes # 0.6 10^3/uL (0.2-0.9); Monocytes % 4.4 %; Neutrophils # 13.18 10^3/uL (1.8-7.7); Neutrophils % 93.2 %; Nucleated Red Blood Cells # 2.5 /100WBC; Nucleated Red Blood Cells % 17.5 %; Platelet Count 155 10^3/cmm (157-399); Red Blood Count 2.57 10^6/uL (3.85-5.65); Red Cell Distribution Width 22.3 % (12.1-15.1); White Blood Count 14.13 10^3/uL (3.29-11.43)
[2025-01-19 07:00] LABS: Partial Thromboplastin Time 46.2 SECONDS (23.9-36.7)
[2025-01-19 07:04] LABS: Alanine Aminotransferase 93 U/L (0-41); Albumin Level 5.1 g/dL (3.5-5.2); Alkaline Phosphatase 55 U/L (40-130); Aspartate Amino Transferase 34 U/L (0-40); Blood Urea Nitrogen 47 mg/dL (8-23); Calcium 9.9 mg/dL (8.5-10.5); Carbon Dioxide 19 mmol/L (22-29); Chloride 95 mmol/L (98-107); Glucose 176 mg/dL (65-115); Magnesium 2.3 mg/dL (1.7-2.3); Osmolality Calculated 303 mOsm/kg (285-295); Phosphorus 4.3 mg/dL (2.5-4.5); Sodium 138 mmol/L (136-145); Total Bilirubin 4.7 mg/dL (0.15-1.2); Total Protein 7.1 g/dL (6.6-8.7)
[2025-01-19 07:18] LABS: Slide Review Slide Review Perform
[2025-01-19] MEDS: heparin 5,000 unit/mL INJ 1 mL IVP (07:30)
[2025-01-19] MEDS: fentaNYL 1,000 MCG/100 ML BAG 5 MCG IV (07:31)
[2025-01-19] MEDS: bumetanide 0.25 mg/mL SDV 10 mL 2 MG IVP ×2 (07:31→19:05)
[2025-01-19] MEDS: budesonide 0.5 mg/2 mL Neb INHALATION ×2 (08:09→20:26)
--- NOTE | 2025-01-19 09:04 | PM.PN ---
Subjective Subjective: remians on vent. moves, not following commands. not verbal. not able to get a review of systems Medications: Reviewed: Yes Medication Review Details: Current Medications Acetaminophen (Acetaminophen 325 Mg Tablet) 650 mg PO Q6H PRN PRN Reason: Mild/Mod Pain Or Temp >/= 101 Albuterol/Ipratropium (Ipratropium-Albuterol 3 Ml Neb) 3 ml INHALATION Q6H.RESP JOANNA Last Admin: 01/19/25 08:09 Dose: 3 ml Alteplase, Recombinant (Alteplase 1 Mg/Ml Sdv 2 Ml) 2 mg INTRACATH PRN PRN PRN Reason: DIALYSIS USE ONLY Alteplase, Recombinant (Alteplase 1 Mg/Ml Sdv 2 Ml) 2 mg INTRACATH PRN PRN PRN Reason: DIALYSIS USE ONLY Alteplase, Recombinant (Alteplase 1 Mg/Ml Sdv 2 Ml) 2 mg INTRACATH PRN PRN PRN Reason: DIALYSIS USE ONLY Budesonide (Budesonide 0.5 Mg/2 Ml Neb) 0.5 mg INHALATION BID.RESPIRATORY JOANNA Last Admin: 01/19/25 08:09 Dose: 0.5 mg Bumetanide (Bumetanide 0.25 Mg/Ml Sdv 10 Ml) 2 mg IVP Q12H JOANNA Last Admin: 01/19/25 07:31 Dose: 2 mg Chlorhexidine Gluconate (Chlorhexidine Gluconate 4% Btl 118 Ml) 1 applic TOPICAL DAILY PRN PRN Reason: Intubated patient bathing Haloperidol Lactate (Haloperidol Inj 5 Mg/Ml Inj 1 Ml) 1 mg IM Q4H PRN PRN Reason: AGITATION Last Admin: 01/14/25 12:08 Dose: 1 mg Heparin Sodium (Porcine) (Heparin 5,000 Unit/Ml Inj 1 Ml) 0 unit IVP PRN PRN; Protocol PRN Reason: Heparin Weight Based Protocol -Subsequent Bolus Last Admin: 01/19/25 07:30 Dose: 1,400 unit Heparin Sodium (Porcine) (Heparin, Porcine 1,000 Unit/Ml Inj 10 Ml) 1,000 unit IV PRN PRN PRN Reason: clotting Heparin Sodium/Sodium Chloride (Heparin Drip) 25,000 unit in 500 mls @ 0 mls/hr IV CONT JOANNA; Protocol Last Admin: 01/19/25 09:01 Dose: Not Given Norepinephrine Bitartrate (Levophed) 4 mg in 250 mls @ 0 mls/hr IV .Q0M JOANNA; Protocol Last Titration: 01/18/25 01:45 Dose: 0 mcg/min, 0 mls/hr Albumin Human (Albumin) 25 g in 100 mls @ 60 mls/hr IV Q8H JOANNA Last Infusion: 01/19/25 02:41 Dose: Infused Fentanyl (Sublimaze) 1,000 mcg in 100 mls @ 0 mls/hr IV .Q0M JOANNA; Protocol Last Titration: 01/19/25 08:00 Dose: 0 mcg/hr, 0 mls/hr Midazolam HCl (Versed) 100 mg in 100 mls @ 0 mls/hr IV .Q0M JOANNA; Protocol Last Titration: 01/17/25 04:23 Dose: 0 mg/hr, 0 mls/hr Sodium Chloride (Sodium Chloride 0.9%) 1,000 mls @ 0 mls/hr IV .Q0M PRN PRN Reason: hypotension or symptomatic Sodium Chloride (Sodium Chloride 0.9%) 1,000 mls @ 0 mls/hr IV .Q0M PRN PRN Reason: hypotension or symptomatic Albumin Human (Albumin) 12.5 gm in 50 mls @ 60 mls/hr IV PRN PRN PRN Reason: Hypotension and/or symptomatic Last Infusion: 01/15/25 19:00 Dose: Infused Piperacillin Sod/Tazobactam (Sod 3.375 gm/ Sodium Chloride) 50 mls @ 12.5 mls/hr IV Q12H [facility]; Protocol Last Admin: 01/19/25 05:49 Dose: 12.5 mls/hr Albumin Human (Albumin) 12.5 gm in 50 mls @ 60 mls/hr IV PRN PRN PRN Reason: Hypotension and/or symptomatic Dexmedetomidine/Sodium Chloride (Precedex) 400 mcg in 100 mls @ 0 mls/hr IV .Q0M JOANNA; Protocol Last Titration: 01/19/25 08:32 Dose: 0.5 mcg/kg/hr, 8.81 mls/hr Sodium Chloride (Sodium Chloride 0.9%) 1,000 mls @ 0 mls/hr IV .Q0M PRN PRN Reason: hypotension or symptomatic Lanolin (Lanolin Oint 7 Gm) 1 applic TOPICAL PRN PRN PRN Reason: DRYNESS Last Admin: 01/18/25 17:39 Dose: 1 applic Lorazepam (Lorazepam 2 Mg/Ml Inj 1 Ml) 2 mg IM Q4H PRN; Protocol PRN Reason: ALCOHOL WITHDRAWAL Lorazepam (Lorazepam 2 Mg/Ml Inj 1 Ml) 2 mg IVP PRN PRN; Protocol PRN Reason: WITHDRAWAL Last Admin: 01/12/25 22:24 Dose: 2 mg Methylprednisolone Sodium Succinate (Methylprednisolone Sod Succ 40 Mg/Ml Inj) 40 mg IVP BID [facility] Last Admin: 01/18/25 17:31 Dose: 40 mg Ondansetron HCl (Ondansetron 2 Mg/Ml Sdv 2 Ml) 4 mg IVP Q8H PRN PRN Reason: vomiting, or N/V if npo Oseltamivir Phosphate (Oseltamivir Phosphate 30 Mg Capsule) 30 mg PO DAILY [facility] Last Admin: 01/18/25 09:37 Dose: 30 mg Pantoprazole Sodium (Pantoprazole 40 Mg Sdv) 40 mg IVP DAILY [facility] Last Admin: 01/18/25 09:36 Dose: 40 mg Vitals/I&O/Wt Last Vital Signs Temp 96.8 F L 01/19/25 03:30 Pulse 66 01/19/25 08:49 Resp 15 01/19/25 08:35 BP 141/94 01/19/25 06:30 Pulse Ox 90 01/19/25 08:35 O2 Del Method Mechanical Ventilation 01/19/25 08:10 O2 Flow Rate 60 01/14/25 12:59 FiO2 35 01/19/25 08:35 01/18/25 01/19/25 01/19/25 22:59 06:59 14:59 Intake Total 237.58 / 589.614 189.487 / 779.101 106.637 / 106.637 Output Total 30 / 30 Balance 237.58 / 589.614 159.487 / 749.101 106.637 / 106.637 Weight last 48 hrs Weight 64.5 kg Weight 68.4 kg Weight 67.5 kg Physical Exam Narrative: intubated, sedated off pressors heent- nc/at neck supple lungs - dull bases heart regular ext + edema + femoral dialysis catheter neuro- not responsive, sedated, moves Urinary Catheter Management: Swain: Cath Placed During This Visit: yes Reason for Continuing Indwelling Catheter: Accurate Measurement of Urinary Output in Critically Ill Patients Urinary Catheter Date of Insertion: 01/12/25 Urinary Catheter Time of Insertion: 21:00 Data 01/19/25 06:35 01/19/25 06:35 A&P Assessment and plan (1) Acute kidney injury: 74 year old male, with a history of gastric resection, history of bilateral LE DVT, PE, who initially presented to the ER on 01/12/2025 complaining og generalized weakness, falls, myalgias. he was previously on Eliquis; however, he has had difficulty obtaining Eliquis and had not taken Eliquis for 2 weeks prior to presentation. On presentation, he was found to be Influenza A positive and was hypotensive, requirin Levophed. CT chest PE protocol revealed a PE and his TTE revealed right ventricular strain. Patient subsequently developed respiratory failure and was intubated. He was weaned off LEvophed, but has been requiring dobutamine. He became anuric with a rising creatinine, prompting a nephrology consult. cr on admission was 1.4 mg/dl 1. [place] -presumed ATN. for HD today. then monitor for renal recovery -did not urinate w/ diuretic abg- 7.39/40/114 anemia- hgb stable seen and examined w/ AIDE of RN- usinf A/V equipment Plan as above PDMP PDMP Reviewed: Not Reviewed Attestations Medical Necessity Statement*: AMS, VDRF, YESI Time Spent in Patient Care: Greater than 35 minutes (>than 50% of time spent in counselling and/or direct pt care on unit). Coding Level of Care Code Acute Code for g Fwd Diagnoses Acute kidney injury N17.9
[2025-01-19] MEDS: pantoprazole 40 mg SDV IVP (09:09)
[2025-01-19] MEDS: oseltamivir phosphate 30 mg Capsule PO (09:09)
[2025-01-19] MEDS: methylPREDNISolone sod succ 40 mg/mL INJ IVP ×2 (09:10→17:44)
[2025-01-19] MEDS: dexmedeTOMIDine 0.9 % NaCL 400 MCG/100 ML PREMIX 10.57 MCG IV (11:24)
[2025-01-19 13:37] LABS: Partial Thromboplastin Time 120.6 SECONDS (23.9-36.7)
--- NOTE | 2025-01-19 13:58 | PC.NURSE ---
Addendum entered by Chandana Carpenter RN 01/19/25 14:09: Dr. Ysuuf was made aware of this. Original Note: Heparin protocol: Heparin protocol had the patient at 90 kg. It was reported at shift change that heparin drip is being titrated now by the patient's real weight which is 68 kg. Pharmacy was called to update this weight. Heparin protocol is being titrated by new weight.
[2025-01-19] MEDS: heparin, porcine 1,000 unit/mL INJ 10 mL 1000 UNIT IV (14:10)
--- NOTE | 2025-01-19 15:06 | PC.NURSE ---
Patient had multiple breathing trials to see if they would tolerate coming off the ventilator. Patient does well for a short time but then goes apneic. Patient remains ventilated.
--- NOTE | 2025-01-19 15:58 | PC.NURSE ---
Patient's temperature was 93.[address] Yusuf was made aware and bear hugger was applied.
--- NOTE | 2025-01-19 16:33 | P.PN_ITS ---
Subjective 2 Subjective: Did not tolerate weaning trial initially however was changed to pressure support weaning off sedation Medications: Reviewed: Yes Vitals/I&O/Wt Last Vital Signs Temp 96.1 F L 01/19/25 16:00 Pulse 67 01/19/25 16:00 Resp 13 01/19/25 15:57 BP 133/91 01/19/25 16:00 Pulse Ox 92 01/19/25 16:00 O2 Del Method Mechanical Ventilation 01/19/25 16:00 O2 Flow Rate 60 01/14/25 12:59 FiO2 35 01/19/25 16:00 01/19/25 01/19/25 01/19/25 06:59 14:59 22:59 Intake Total 189.487 / 779.101 216.935 / 216.935 Output Total 30 30 Balance 159.487 / 749.101 216.935 / 216.935 Weight last 48 hrs Weight 64.5 kg Weight 68.4 kg Weight 67.5 kg Physical Exam 2 Narrative: GEN: Intubated, sedated, ett in place HEAD: normocephalic, atraumatic EYES: eyes are closed HEENT: ett in place NECK: no jvd CV: RRR LUNGS: diminished BS ABD: Soft, ND, +bs EXT: trace BLE edema NEURO: sedated : fallon in place SKIN: no rash Urinary Catheter Management: Fallon: Cath Placed During This Visit: yes Reason for Continuing Indwelling Catheter: Accurate Measurement of Urinary Output in Critically Ill Patients Urinary Catheter Date of Insertion: 01/12/25 Urinary Catheter Time of Insertion: 21:00 Data 01/20/25 02:33 01/20/25 02:33 A&P Assessment and plan (1) Obstructive cardiovascular shock: (2) Hypoxic respiratory failure: (3) Pulmonary embolus: (4) Influenza A: (5) Pneumonia: (6) Acute kidney injury: (7) Liver dysfunction: (8) Lymphadenopathy: (9) Elevated lactic acid level: (10) Acute on chronic right-sided heart failure: (11) Pulmonary HTN: (12) Encephalopathy: Plan Acute Hypoxemic Respiratory Failure -Secondary to pneumonia, pulmonary emboli, and cardiogenic shock. Currently intubated on mechanical ventilation. - ABG 01/16/2025: pH 7.36, pCO2 41.8 on FiO2 35%. - Repeat abg noted today Plan: - weaning trial -Chest xray in am - ABG in am - Wean off sedation - Continue pressure support Sepsis due to Pneumonia - Suspected aspiration vs viral/bacterial pneumonia. On broad-spectrum antibiotics. Procalcitonin >100 on admission. Plan: - Continue Zosyn 3.375 grams IV q12h. - Trend WBC and procalcitonin. - Repeat cultures as indicated. - No change to management - Will cosider de-escalation of abx - Has not been febrile Acute Kidney Injury/Failure - Likely secondary to multi-organ failure and cardiogenic shock. Required initiation of dialysis. Plan: - Continue dialysis per nephrology recommendations. - Strict I/Os and daily electrolytes. - Bumex / albumin given today Influenza A Infection - Positive influenza A testing on admission. On Tamiflu. - Plan: DC tamiflu Encephalopathy Multifactorial - likely components of toxic/metabolic encephalopathy and hypoxemia. Plan: - Wean sedation as able and assess mental status. - Avoid benzodiazepines if possible. Cardiogenic Shock Secondary to acute right heart failure in the setting of multiple pulmonary emboli and pulmonary HTN. - Off pressors since 01/15/2025. TTE showed dilated RV/RA, RVSP 40-45 mmHg. Plan: - Maintain euvolemia, avoid fluid overload. - Optimize RV afterload reduction. Gastric Cancer - History of gastric cancer with prior resection. No evidence of acute issues on imaging. Plan: - No further work up Pulmonary Emboli - Multiple pulmonary emboli noted on CTA chest. On heparin drip, but paused due to bleeding. Plan: - Continue heparn drip - If unable to tolerate anticoagulation, consider IVC filter placement. DVT Prophylaxis - Currently on heparin drip for treatment of pulmonary emboli. Code Status - Full code Assess for select PDMP PDMP Reviewed: Not Reviewed Attestations 2 Medical Necessity Statement*: critical will need over 2 midnight Time Spent in Patient Care: 25 minutes Critical Care Time: The high probability of a clinically significant, sudden or life threatening deterioration of the patient's [cardiac, pulmonary, renal, goals of care discussion, GI] system(s) required my full and direct attention, intervention and personal management. The critical care time is as shown. This time is in addition to time spent performing any reported procedures but includes the following: [x] Data and vital sign review and interpretation [x] Patient assessment, examination and intervention [x] Documentation [x] Medication orders and management Critical Care Time (min): 90 Coding Level of Care Code Acute Code for Chg Fwd Diagnoses Obstructive cardiovascular shock R57.8 Hypoxic respiratory failure J96.91 Pulmonary embolus I26.99 Influenza A J10.1 Pneumonia J18.9 Acute kidney injury N17.9 Liver dysfunction K76.89 Lymphadenopathy R59.1 Elevated lactic acid level R79.89 Acute on chronic right-sided heart failure I50.813 Pulmonary HTN I27.20 Encephalopathy G93.40
[2025-01-19 18:47] LABS: Glucose Point of Care 144 mg/dL (70-110)
[2025-01-19 19:46] LABS: Partial Thromboplastin Time 121.1 SECONDS (23.9-36.7)
--- NOTE | 2025-01-19 20:00 | PC.NURSE ---
Addendum entered by Aimee Balderrama RN 01/19/25 20:02: This nurse witnessed waste. Original Note: Versed waste 100 ml of versed wasted with LAYLA Yu.
[2025-01-19] MEDS: dexmedeTOMIDine 0.9 % NaCL 400 MCG/100 ML PREMIX 12.33 MCG IV (23:24)
[2025-01-20] VITALS (92 sets, daily range): BP systolic 123–159; BP diastolic 81–109; PULSE 67–92; RESP 15–30; TEMP 35.9–37; O2SAT 78–100
[2025-01-20] MEDS: albumin 25 G/100 ML BAG 60 G IV ×3 (01:45→18:04)
[2025-01-20] MEDS: lanolin oint 7 gm 1 APPLIC TOPICAL (01:47)
[2025-01-20] MEDS: chlorhexidine gluconate 4% Btl 118 mL 1 APPLIC TOPICAL (01:47)
[2025-01-20] MEDS: ipratropium-albuterol 3 mL Neb INHALATION ×4 (01:52→19:46)
--- NOTE | 2025-01-20 01:55 | PC.NURSE ---
pts BP greater than [address] Bauman contacted and order received for hydralazine 10 mg IV push once.
[2025-01-20] MEDS: hyDRALAzine 20 mg/mL INJ 1 mL 10 MG IVP (02:02)
[2025-01-20 03:33] LABS: Partial Thromboplastin Time 42.2 SECONDS (23.9-36.7)
[2025-01-20 03:44] LABS: Hematocrit 26.5 % (37-53); Mean Corpuscular HGB Conc 33.6 g/dL (30-55); Mean Corpuscular Hemoglobin 33.2 pg (27-33); Mean Corpuscular Volume 98.9 fl (82-101); Mean Platelet Volume 12.4 fL (7.4-10.4); Platelet Count 149 10^3/cmm (157-399); Red Blood Count 2.68 10^6/uL (3.85-5.65); Red Cell Distribution Width 23.8 % (12.1-15.1)
[2025-01-20 03:56] LABS: Alanine Aminotransferase 87 U/L (0-41); Albumin Level 5.6 g/dL (3.5-5.2); Alkaline Phosphatase 84 U/L (40-130); Blood Urea Nitrogen 35 mg/dL (8-23); Calcium 10.3 mg/dL (8.5-10.5); Carbon Dioxide 16 mmol/L (22-29); Chloride 95 mmol/L (98-107); Glucose 178 mg/dL (65-115); Magnesium 2.2 mg/dL (1.7-2.3); Osmolality Calculated 298 mOsm/kg (285-295); Phosphorus 3.6 mg/dL (2.5-4.5); Sodium 138 mmol/L (136-145); Total Bilirubin 5.7 mg/dL (0.15-1.2); Total Protein 7.6 g/dL (6.6-8.7)
[2025-01-20 03:58] LABS: Anion Gap 31.4 (5-19); Aspartate Amino Transferase 51 U/L (0-40); Potassium 4.4 mmol/L (3.5-5.1)
[2025-01-20 03:59] LABS: Glucose Point of Care 206 mg/dL (70-110)
[2025-01-20] MEDS: heparin 5,000 unit/mL INJ 1 mL IVP (04:21)
[2025-01-20 04:30] LABS: Absolute Segmented Neutrophil 13.1 10/cmm (1.6-7.1); Eosinophils 0 %; Lymphocytes 2 %; Lymphocytes Absolute 0.3 10^3/cmm (1.2-3.4); Monocytes Absolute 0.3 10^3/cmm (0.1-0.6); Segmented Neutrophils 96 %; Slide Review Slide Review Perform; Total Cells Counted 100 (0-100)
[2025-01-20 04:31] LABS: Absolute Neutrophil 13.1 10^3/cmm (1.4-6.5); Corrected White Blood Count 12.4 10^3/cmm (4.8-10.8); Hypochromasia 2+; Platelet Estimate Normal (Normal); Target Cells 2+
[2025-01-20 04:32] LABS: Anisocytosis 4+; Schistocytes Trace; Spherocytes 1+
[2025-01-20] MEDS: piperacillin-tazobactam 3.375 GM in sodium chloride 0.9% (plus) 50 ML IV ×2 (05:58→18:05)
[2025-01-20] MEDS: dexmedeTOMIDine 0.9 % NaCL 400 MCG/100 ML PREMIX 12.33 MCG IV (06:40)
[2025-01-20] MEDS: budesonide 0.5 mg/2 mL Neb INHALATION ×2 (08:02→19:47)
--- NOTE | 2025-01-20 09:21 | P.PN_ITS ---
Subjective 2 Subjective: The patient was seen and examined. The patient was on the vent. The patient found following commands. Patient may be responding to painful stimuli or just moving on his own. Remains anuric Medications: Reviewed: Yes Medication Review Details: Current Medications Acetaminophen (Acetaminophen 325 Mg Tablet) 650 mg PO Q6H PRN PRN Reason: Mild/Mod Pain Or Temp >/= 101 Albuterol/Ipratropium (Ipratropium-Albuterol 3 Ml Neb) 3 ml INHALATION Q6H.RESP JOANNA Last Admin: 01/20/25 08:02 Dose: 3 ml Alteplase, Recombinant (Alteplase 1 Mg/Ml Sdv 2 Ml) 2 mg INTRACATH PRN PRN PRN Reason: DIALYSIS USE ONLY Alteplase, Recombinant (Alteplase 1 Mg/Ml Sdv 2 Ml) 2 mg INTRACATH PRN PRN PRN Reason: DIALYSIS USE ONLY Alteplase, Recombinant (Alteplase 1 Mg/Ml Sdv 2 Ml) 2 mg INTRACATH PRN PRN PRN Reason: DIALYSIS USE ONLY Budesonide (Budesonide 0.5 Mg/2 Ml Neb) 0.5 mg INHALATION BID.RESPIRATORY JOANNA Last Admin: 01/20/25 08:02 Dose: 0.5 mg Bumetanide (Bumetanide 0.25 Mg/Ml Sdv 10 Ml) 2 mg IVP Q12H JOANNA Last Admin: 01/19/25 19:05 Dose: 2 mg Chlorhexidine Gluconate (Chlorhexidine Gluconate 4% Btl 118 Ml) 1 applic TOPICAL DAILY PRN PRN Reason: Intubated patient bathing Last Admin: 01/20/25 01:47 Dose: 1 applic Haloperidol Lactate (Haloperidol Inj 5 Mg/Ml Inj 1 Ml) 1 mg IM Q4H PRN PRN Reason: AGITATION Last Admin: 01/14/25 12:08 Dose: 1 mg Heparin Sodium (Porcine) (Heparin 5,000 Unit/Ml Inj 1 Ml) 0 unit IVP PRN PRN; Protocol PRN Reason: Heparin Weight Based Protocol -Subsequent Bolus Last Admin: 01/20/25 04:21 Dose: 2,700 unit Heparin Sodium (Porcine) (Heparin, Porcine 1,000 Unit/Ml Inj 10 Ml) 1,000 unit IV PRN PRN PRN Reason: clotting Heparin Sodium/Sodium Chloride (Heparin Drip) 25,000 unit in 500 mls @ 0 mls/hr IV CONT JOANNA; Protocol Last Titration: 01/20/25 04:15 Dose: 3.88 unit/kg/hr, 5 mls/hr Norepinephrine Bitartrate (Levophed) 4 mg in 250 mls @ 0 mls/hr IV .Q0M JOANNA; Protocol Last Titration: 01/18/25 01:45 Dose: 0 mcg/min, 0 mls/hr Albumin Human (Albumin) 25 g in 100 mls @ 60 mls/hr IV Q8H JOANNA Last Infusion: 01/20/25 06:11 Dose: Infused Fentanyl (Sublimaze) 1,000 mcg in 100 mls @ 0 mls/hr IV .Q0M JOANNA; Protocol Last Titration: 01/19/25 08:00 Dose: 0 mcg/hr, 0 mls/hr Midazolam HCl (Versed) 100 mg in 100 mls @ 0 mls/hr IV .Q0M JOANNA; Protocol Last Titration: 01/19/25 20:01 Dose: Infused Sodium Chloride (Sodium Chloride 0.9%) 1,000 mls @ 0 mls/hr IV .Q0M PRN PRN Reason: hypotension or symptomatic Sodium Chloride (Sodium Chloride 0.9%) 1,000 mls @ 0 mls/hr IV .Q0M PRN PRN Reason: hypotension or symptomatic Albumin Human (Albumin) 12.5 gm in 50 mls @ 60 mls/hr IV PRN PRN PRN Reason: Hypotension and/or symptomatic Last Infusion: 01/15/25 19:00 Dose: Infused Piperacillin Sod/Tazobactam (Sod 3.375 gm/ Sodium Chloride) 50 mls @ 12.5 mls/hr IV Q12H JOANNA; Protocol Last Admin: 01/20/25 05:58 Dose: 12.5 mls/hr Albumin Human (Albumin) 12.5 gm in 50 mls @ 60 mls/hr IV PRN PRN PRN Reason: Hypotension and/or symptomatic Dexmedetomidine/Sodium Chloride (Precedex) 400 mcg in 100 mls @ 0 mls/hr IV .Q0M JOANNA; Protocol Last Admin: 01/20/25 06:40 Dose: 0.7 mcg/kg/hr, 12.33 mls/hr Sodium Chloride (Sodium Chloride 0.9%) 1,000 mls @ 0 mls/hr IV .Q0M PRN PRN Reason: hypotension or symptomatic Albumin Human (Albumin) 12.5 gm in 50 mls @ 60 mls/hr IV PRN PRN PRN Reason: Hypotension and/or symptomatic Lanolin (Lanolin Oint 7 Gm) 1 applic TOPICAL PRN PRN PRN Reason: DRYNESS Last Admin: 01/20/25 01:47 Dose: 1 applic Lorazepam (Lorazepam 2 Mg/Ml Inj 1 Ml) 2 mg IM Q4H PRN; Protocol PRN Reason: ALCOHOL WITHDRAWAL Lorazepam (Lorazepam 2 Mg/Ml Inj 1 Ml) 2 mg IVP PRN PRN; Protocol PRN Reason: WITHDRAWAL Last Admin: 01/12/25 22:24 Dose: 2 mg Methylprednisolone Sodium Succinate (Methylprednisolone Sod Succ 40 Mg/Ml Inj) 40 mg IVP BID [facility] Last Admin: 01/19/25 17:44 Dose: 40 mg Ondansetron HCl (Ondansetron 2 Mg/Ml Sdv 2 Ml) 4 mg IVP Q8H PRN PRN Reason: vomiting, or N/V if npo Oseltamivir Phosphate (Oseltamivir Phosphate 30 Mg Capsule) 30 mg PO DAILY [facility] Last Admin: 01/19/25 09:09 Dose: 30 mg Pantoprazole Sodium (Pantoprazole 40 Mg Sdv) 40 mg IVP DAILY [facility] Last Admin: 01/19/25 09:09 Dose: 40 mg Vitals/I&O/Wt Last Vital Signs Temp 98.4 F 01/20/25 07:45 Pulse 86 01/20/25 08:45 Resp 22 H 01/20/25 08:05 BP 140/84 01/20/25 08:45 Pulse Ox 95 01/20/25 08:30 O2 Del Method Mechanical Ventilation 01/20/25 08:05 O2 Flow Rate 60 01/14/25 12:59 FiO2 35 01/20/25 08:05 01/19/25 01/20/25 01/20/25 22:59 06:59 14:59 Intake Total 718.948 / 1085.883 269.667 / 1355.550 Output Total 2500 / 2500 5 Balance -1781.052 / -1414.117 254.667 / -1159.450 Weight last 48 hrs Weight 64 kg Weight 63.2 kg Weight 64.5 kg Physical Exam 2 Narrative: intubated, sedated off pressors heent- nc/at neck supple lungs -clear b/l heart regular ext + 1+ b/l leg edema + femoral dialysis catheter neuro- not responsive, sedated, moves Urinary Catheter Management: Swain: Cath Placed During This Visit: yes Reason for Continuing Indwelling Catheter: Accurate Measurement of Urinary Output in Critically Ill Patients Urinary Catheter Date of Insertion: 01/12/25 Urinary Catheter Time of Insertion: 21:00 Data 01/20/25 02:33 01/20/25 02:33 A&P Assessment and plan (1) Acute kidney injury: 74 year old male, with a history of gastric resection, history of bilateral LE DVT, PE, who initially presented to the ER on 01/12/2025 complaining og generalized weakness, falls, myalgias. he was previously on Eliquis; however, he has had difficulty obtaining Eliquis and had not taken Eliquis for 2 weeks prior to presentation. On presentation, he was found to be Influenza A positive and was hypotensive, requirin Levophed. CT chest PE protocol revealed a PE and his TTE revealed right ventricular strain. Patient subsequently developed respiratory failure and was intubated. He was weaned off LEvophed, but has been requiring dobutamine. He became anuric with a rising creatinine, prompting a nephrology consult. cr on admission was 1.4 mg/dl 1. yesi -presumed ATN. s/p HD yesterday -no signs of renal recovery -did not urinate w/ diuretic 2. anemia- hgb stable has target cells as per hospitalist 3. met acidosis-repeat abg w/ lactate. however, bp is normal. non tender abdomen on exam 4. encephalopathic seen and examined w/ AIDE of RN- usinf A/V equipment Plan as above PDMP PDMP Reviewed: Not Reviewed Attestations 2 Medical Necessity Statement*: AMS, YESI, VDRF Time Spent in Patient Care: 16 - 35 minutes (>than 50% of time sp ent in counselling and/or direct pt care on unit) . Coding Level of Care Code Acute Code for [facility] Fwd Diagnoses Acute kidney injury N17.9
[2025-01-20] MEDS: bumetanide 0.25 mg/mL SDV 10 mL 2 MG IVP ×2 (09:32→20:07)
[2025-01-20] MEDS: methylPREDNISolone sod succ 40 mg/mL INJ IVP ×2 (09:32→18:27)
[2025-01-20] MEDS: oseltamivir phosphate 30 mg Capsule PO (09:33)
[2025-01-20] MEDS: pantoprazole 40 mg SDV IVP (09:33)
[2025-01-20 10:04] LABS: ABG PCO2 33.1 mmHg (35-45); Alveolar-Arterial Oxygen Gradi 15.4 mmHg (5-10); Arterial Blood Gas Hematocrit 28.1 % (42-52); Base Excess ABG -3.9 mmol/L (-2.0-2.0); Blood Gas Allen Test Pos; Blood Gas Operator Identificat BROMA; Blood Gas Sample Site Radial, left; Blood Gas Sample Type Arterial; Carboxyhemoglobin 1.1 %THgb (0.4-20.1); HCO3 ABG 20.4 mmol/L (22-26); HGB O2 Sat 93.4 % (95-100); Ionized Calcium Level - ABG 1.3 mmol/L (1.1-1.4); Methemoglobin 1.5 % (0.4-1.5); Oxygen Device VENT; Oxygen Saturation ABG 95.9; PO2 ABG 83.1 mmHg (80.0-100.0); PO2 FiO2 Ratio Arterial Blood 237; Potassium Level - ABG 3.9 mmol/L (3.5-5.0); Total Hemoglobin 9.2 g/dL (14-18)
[2025-01-20 10:55] LABS: Partial Thromboplastin Time 49.2 SECONDS (23.9-36.7)
[2025-01-20 10:58] LABS: Lactate (Lactic Acid level) 1.7 mmol/L (0.5-2.2)
[2025-01-20 12:39] LABS: Glucose Point of Care 200 mg/dL (70-110)
--- NOTE | 2025-01-20 13:31 | PC.NURSE ---
Extubation: Patient extubated to 4L NC at 1315. Saturating in the mid 90's on 4L. Patient is mumbling incoherently and has a weak cough. Nurse performed oral care immediately after extubation and one of his front teeth was found to have fallen out, tooth was removed from mouth. NUrse continued to assess mouth for any additional teeth that may have fallen out and none were found. Patient has very poor dentation.
[2025-01-20 17:00] LABS: Partial Thromboplastin Time 55.5 SECONDS (23.9-36.7)
--- NOTE | 2025-01-20 18:24 | P.PN_ITS ---
Subjective 2 Subjective: Extubated today to 8l via NC Did follow commands at times post extubation no new clinical event overnight Medications: Reviewed: Yes Vitals/I&O/Wt Last Vital Signs Temp 98.6 F 01/20/25 12:00 Pulse 74 01/20/25 14:00 Resp 18 01/20/25 13:15 BP 140/91 01/20/25 14:00 Pulse Ox 93 01/20/25 14:00 O2 Del Method Nasal Cannula 01/20/25 14:00 O2 Flow Rate 4 01/20/25 14:00 FiO2 35 01/20/25 12:00 01/20/25 01/20/25 01/20/25 06:59 14:59 22:59 Intake Total 269.667 / 1355.550 253.779 / 253.779 36.2 / 289.979 Output Total 2514 Balance 254.667 / -1159.450 253.779 / 253.779 36.2 / 289.979 Weight last 48 hrs Weight 64 kg Weight 63.2 kg Weight 64.5 kg Physical Exam 2 Narrative: GEN: Extuabted HEAD: normocephalic, atraumatic EYES: eyes are closed HEENT: ett in place NECK: no jvd CV: RRR LUNGS: diminished BS ABD: Soft, ND, +bs EXT: trace BLE edema NEURO: sedated : fallon in place SKIN: no rash Urinary Catheter Management: Fallon: Cath Placed During This Visit: yes Reason for Continuing Indwelling Catheter: Accurate Measurement of Urinary Output in Critically Ill Patients Urinary Catheter Date of Insertion: 01/12/25 Urinary Catheter Time of Insertion: 21:00 Data 01/20/25 02:33 01/20/25 02:33 A&P Assessment and plan (1) Obstructive cardiovascular shock: (2) Hypoxic respiratory failure: (3) Pulmonary embolus: (4) Influenza A: (5) Pneumonia: (6) Acute kidney injury: (7) Liver dysfunction: (8) Lymphadenopathy: (9) Elevated lactic acid level: (10) Acute on chronic right-sided heart failure: (11) Pulmonary HTN: (12) Encephalopathy: Plan Acute Hypoxemic Respiratory Failure -Secondary to pneumonia, pulmonary emboli, and cardiogenic shock. Currently intubated on mechanical ventilation. - ABG 01/16/2025: pH 7.36, pCO2 41.8 on FiO2 35%. - Repeat abg noted today Plan: Extbated today - on O2 via NC -Repeat xray if woresning Sepsis due to Pneumonia - Suspected aspiration vs viral/bacterial pneumonia. On broad-spectrum antibiotics. Procalcitonin >100 on admission. Plan: - Continue Zosyn 3.375 grams IV q12h. - Trend WBC and procalcitonin. - Repeat cultures as indicated. - No change to management - Will cosider de-escalation of abx - Has not been febrile - Santos consider change to PO Acute Kidney Injury/Failure - Likely secondary to multi-organ failure and cardiogenic shock. Required initiation of dialysis. Plan: - Continue dialysis per nephrology recommendations. - Strict I/Os and daily electrolytes. - Bumex / albumin given today Influenza A Infection - Positive influenza A testing on admission. On Tamiflu. - Plan: DC tamiflu Encephalopathy Multifactorial - likely components of toxic/metabolic encephalopathy and hypoxemia. Plan: - Wean sedation as able and assess mental status. - Avoid benzodiazepines if possible. - Using precedex if increasing agitation following extubation Cardiogenic Shock Secondary to acute right heart failure in the setting of multiple pulmonary emboli and pulmonary HTN. - Off pressors since 01/15/2025. TTE showed dilated RV/RA, RVSP 40-45 mmHg. Plan: - Maintain euvolemia, avoid fluid overload. - Optimize RV afterload reduction. Gastric Cancer - History of gastric cancer with prior resection. No evidence of acute issues on imaging. Plan: - No further work up Pulmonary Emboli - Multiple pulmonary emboli noted on CTA chest. On heparin drip, but paused due to bleeding. Plan: - Continue heparn drip - If unable to tolerate anticoagulation, consider IVC filter placement. DVT Prophylaxis - Currently on heparin drip for treatment of pulmonary emboli. Code Status - Full code PDMP PDMP Reviewed: Not Reviewed Attestations 2 Medical Necessity Statement*: critical will need over 2 midnight Time Spent in Patient Care: 25 minutes Critical Care Time: The high probability of a clinically significant, sudden or life threatening deterioration of the patient's [cardiac, pulmonary, renal, goals of care discussion, GI] system(s) required my full and direct attention, intervention and personal management. The critical care time is as shown. This time is in addition to time spent performing any reported procedures but includes the following: [x] Data and vital sign review and interpretation [x] Patient assessment, examination and intervention [x] Documentation [x] Medication orders and management Critical Care Time (min): 90 Coding Level of Care Code Acute Code for Chg Fwd Diagnoses Obstructive cardiovascular shock R57.8 Hypoxic respiratory failure J96.91 Pulmonary embolus I26.99 Influenza A J10.1 Pneumonia J18.9 Acute kidney injury N17.9 Liver dysfunction K76.89 Lymphadenopathy R59.1 Elevated lactic acid level R79.89 Acute on chronic right-sided heart failure I50.813 Pulmonary HTN I27.20 Encephalopathy G93.40
--- NOTE | 2025-01-20 19:03 | PC.NURSE ---
SHift SUmmary: Extubated today at 1315. Has done well since on 5 LNC. Since extubation and off of precedex, mental status has continued to improve. His mental state waxes and wanes, but at the time of this note he is able to answer yes/no questions, will occaisonally ask for water (which cannot safely drink at this time), Can tell you his name, will follow simple commands, recognized his girlfriend Sasha when she visited, and recognized his brother's voice on the phone. total urine output: 15mL
--- NOTE | 2025-01-20 19:45 | PC.NURSE ---
Addendum entered by Lucy Guerra RN 01/20/25 20:09: Witnessed Cindi Arenas waste 98ml Fentanyl. Original Note: Fentanyl Wasted: 98ml Fentanyl wasted w/ LAYLA Ayala.
[2025-01-21] VITALS (44 sets, daily range): BP systolic 131–156; BP diastolic 88–109; PULSE 73–99; RESP 14–34; TEMP 36.3–36.4; O2SAT 87–100
[2025-01-21] MEDS: albumin 25 G/100 ML BAG 60 G IV ×3 (00:59→18:01)
[2025-01-21] MEDS: ipratropium-albuterol 3 mL Neb INHALATION ×4 (01:06→20:02)
[2025-01-21 05:16] LABS: Basophils # 0.1 10^3/uL (0.0-0.1); Basophils % 0.3 %; Hematocrit 27.2 % (37-53); Mean Corpuscular HGB Conc 33.8 g/dL (30-55); Mean Corpuscular Hemoglobin 33.7 pg (27-33); Mean Corpuscular Volume 99.6 fl (82-101); Mean Platelet Volume 12.4 fL (7.4-10.4); Monocytes # 0.8 10^3/uL (0.2-0.9); Monocytes % 5.1 %; Neutrophils # 14.05 10^3/uL (1.8-7.7); Neutrophils % 89.2 %; Nucleated Red Blood Cells # 2.7 /100WBC; Nucleated Red Blood Cells % 17.3 %; Platelet Count 126 10^3/cmm (157-399); Red Blood Count 2.73 10^6/uL (3.85-5.65); White Blood Count 15.76 10^3/uL (3.29-11.43)
[2025-01-21 05:17] LABS: Slide Review Slide Review Perform
[2025-01-21 05:26] LABS: Partial Thromboplastin Time 56.4 SECONDS (23.9-36.7)
[2025-01-21] MEDS: piperacillin-tazobactam 3.375 GM in sodium chloride 0.9% (plus) 50 ML IV ×2 (05:33→18:01)
[2025-01-21 05:34] LABS: Alanine Aminotransferase 80 U/L (0-41); Alkaline Phosphatase 60 U/L (40-130); Anion Gap 31.9 (5-19); Aspartate Amino Transferase 36 U/L (0-40); Blood Urea Nitrogen 61 mg/dL (8-23); Calcium 11.2 mg/dL (8.5-10.5); Carbon Dioxide 18 mmol/L (22-29); Chloride 97 mmol/L (98-107); Glucose 153 mg/dL (65-115); Magnesium 2.2 mg/dL (1.7-2.3); Osmolality Calculated 316 mOsm/kg (285-295); Phosphorus 2.8 mg/dL (2.5-4.5); Potassium 3.9 mmol/L (3.5-5.1); Sodium 143 mmol/L (136-145); Total Bilirubin 6.7 mg/dL (0.15-1.2); Total Protein 8.1 g/dL (6.6-8.7)
[2025-01-21 05:47] LABS: Albumin Level 7.2 g/dL (3.5-5.2); Globulin 0.9 g/dL (1.3-4.6)
[2025-01-21] MEDS: budesonide 0.5 mg/2 mL Neb INHALATION ×2 (08:02→20:02)
[2025-01-21] MEDS: bumetanide 0.25 mg/mL SDV 10 mL 2 MG IVP ×2 (08:11→19:58)
[2025-01-21] MEDS: pantoprazole 40 mg SDV IVP (08:12)
[2025-01-21] MEDS: methylPREDNISolone sod succ 40 mg/mL INJ IVP ×2 (08:35→18:01)
--- NOTE | 2025-01-21 09:08 | P.PN_ITS ---
Subjective 2 Subjective: extubated. verbal, follows some simple commands. weak, confused. Medications: Reviewed: Yes Medication Review Details: Current Medications Acetaminophen (Acetaminophen 325 Mg Tablet) 650 mg PO Q6H PRN PRN Reason: Mild/Mod Pain Or Temp >/= 101 Albuterol/Ipratropium (Ipratropium-Albuterol 3 Ml Neb) 3 ml INHALATION Q6H.RESP JOANNA Last Admin: 01/21/25 08:02 Dose: 3 ml Alteplase, Recombinant (Alteplase 1 Mg/Ml Sdv 2 Ml) 2 mg INTRACATH PRN PRN PRN Reason: DIALYSIS USE ONLY Alteplase, Recombinant (Alteplase 1 Mg/Ml Sdv 2 Ml) 2 mg INTRACATH PRN PRN PRN Reason: DIALYSIS USE ONLY Alteplase, Recombinant (Alteplase 1 Mg/Ml Sdv 2 Ml) 2 mg INTRACATH PRN PRN PRN Reason: DIALYSIS USE ONLY Budesonide (Budesonide 0.5 Mg/2 Ml Neb) 0.5 mg INHALATION BID.RESPIRATORY JOANNA Last Admin: 01/21/25 08:02 Dose: 0.5 mg Bumetanide (Bumetanide 0.25 Mg/Ml Sdv 10 Ml) 2 mg IVP Q12H JOANNA Last Admin: 01/21/25 08:11 Dose: 2 mg Chlorhexidine Gluconate (Chlorhexidine Gluconate 4% Btl 118 Ml) 1 applic TOPICAL DAILY PRN PRN Reason: Intubated patient bathing Last Admin: 01/20/25 01:47 Dose: 1 applic Haloperidol Lactate (Haloperidol Inj 5 Mg/Ml Inj 1 Ml) 1 mg IM Q4H PRN PRN Reason: AGITATION Last Admin: 01/14/25 12:08 Dose: 1 mg Heparin Sodium (Porcine) (Heparin 5,000 Unit/Ml Inj 1 Ml) 0 unit IVP PRN PRN; Protocol PRN Reason: Heparin Weight Based Protocol -Subsequent Bolus Last Admin: 01/20/25 04:21 Dose: 2,700 unit Heparin Sodium (Porcine) (Heparin, Porcine 1,000 Unit/Ml Inj 10 Ml) 1,000 unit IV PRN PRN PRN Reason: clotting Heparin Sodium/Sodium Chloride (Heparin Drip) 25,000 unit in 500 mls @ 0 mls/hr IV CONT JOANNA; Protocol Last Titration: 01/21/25 05:29 Dose: 5.43 unit/kg/hr, 7 mls/hr Norepinephrine Bitartrate (Levophed) 4 mg in 250 mls @ 0 mls/hr IV .Q0M JOANNA; Protocol Last Titration: 01/20/25 19:00 Dose: Infused Albumin Human (Albumin) 25 g in 100 mls @ 60 mls/hr IV Q8H JOANNA Last Infusion: 01/21/25 03:08 Dose: Infused Sodium Chloride (Sodium Chloride 0.9%) 1,000 mls @ 0 mls/hr IV .Q0M PRN PRN Reason: hypotension or symptomatic Sodium Chloride (Sodium Chloride 0.9%) 1,000 mls @ 0 mls/hr IV .Q0M PRN PRN Reason: hypotension or symptomatic Albumin Human (Albumin) 12.5 gm in 50 mls @ 60 mls/hr IV PRN PRN PRN Reason: Hypotension and/or symptomatic Last Infusion: 01/15/25 19:00 Dose: Infused Piperacillin Sod/Tazobactam (Sod 3.375 gm/ Sodium Chloride) 50 mls @ 12.5 mls/hr IV Q12H JOANNA; Protocol Last Admin: 01/21/25 05:33 Dose: 12.5 mls/hr Albumin Human (Albumin) 12.5 gm in 50 mls @ 60 mls/hr IV PRN PRN PRN Reason: Hypotension and/or symptomatic Dexmedetomidine/Sodium Chloride (Precedex) 400 mcg in 100 mls @ 0 mls/hr IV .Q0M JOANNA; Protocol Last Titration: 01/21/25 05:34 Dose: 0.1 mcg/kg/hr, 1.76 mls/hr Sodium Chloride (Sodium Chloride 0.9%) 1,000 mls @ 0 mls/hr IV .Q0M PRN PRN Reason: hypotension or symptomatic Albumin Human (Albumin) 12.5 gm in 50 mls @ 60 mls/hr IV PRN PRN PRN Reason: Hypotension and/or symptomatic Lanolin (Lanolin Oint 7 Gm) 1 applic TOPICAL PRN PRN PRN Reason: DRYNESS Last Admin: 01/20/25 01:47 Dose: 1 applic Lorazepam (Lorazepam 2 Mg/Ml Inj 1 Ml) 2 mg IM Q4H PRN; Protocol PRN Reason: ALCOHOL WITHDRAWAL Lorazepam (Lorazepam 2 Mg/Ml Inj 1 Ml) 2 mg IVP PRN PRN; Protocol PRN Reason: WITHDRAWAL Last Admin: 01/12/25 22:24 Dose: 2 mg Methylprednisolone Sodium Succinate (Methylprednisolone Sod Succ 40 Mg/Ml Inj) 40 mg IVP BID [facility] Last Admin: 01/20/25 18:27 Dose: 40 mg Ondansetron HCl (Ondansetron 2 Mg/Ml Sdv 2 Ml) 4 mg IVP Q8H PRN PRN Reason: vomiting, or N/V if npo Oseltamivir Phosphate (Oseltamivir Phosphate 30 Mg Capsule) 30 mg PO DAILY [facility] Last Admin: 01/20/25 09:33 Dose: 30 mg Pantoprazole Sodium (Pantoprazole 40 Mg Sdv) 40 mg IVP DAILY [facility] Last Admin: 01/21/25 08:12 Dose: 40 mg Vitals/I&O/Wt Last Vital Signs Temp 97.3 F L 01/21/25 04:24 Pulse 83 01/21/25 08:05 Resp 20 H 01/21/25 08:05 BP 155/104 01/21/25 06:00 Pulse Ox 97 01/21/25 08:05 O2 Del Method High Flow Nasal Cannula 01/21/25 08:05 O2 Flow Rate 10 01/21/25 08:05 FiO2 35 01/20/25 12:00 01/20/25 01/21/25 01/21/25 22:59 06:59 14:59 Intake Total 228.348 / 482.127 163.880 / 646.007 Output Total 0 15 Balance 213.348 / 467.127 163.880 / 631.007 Weight last 48 hrs Weight 62.868 kg Weight 64 kg Weight 63.2 kg Physical Exam 2 Narrative: extubated vs noted BP elevated heent- nc/at neck supple lungs -clear b/l heart regular ext + 1+ b/l leg edema + femoral dialysis catheter neuro- responsive interactive, talks a little Urinary Catheter Management: Swain: Cath Placed During This Visit: yes Reason for Continuing Indwelling Catheter: Accurate Measurement of Urinary Output in Critically Ill Patients Urinary Catheter Date of Insertion: 01/12/25 Urinary Catheter Time of Insertion: 21:00 Data 01/21/25 04:37 01/21/25 04:37 A&P Assessment and plan (1) Acute kidney injury: 74 year old male, with a history of gastric resection, history of bilateral LE DVT, PE, who initially presented to the ER on 01/12/2025 complaining og generalized weakness, falls, myalgias. he was previously on Eliquis; however, he has had difficulty obtaining Eliquis and had not taken Eliquis for 2 weeks prior to presentation. On presentation, he was found to be Influenza A positive and was hypotensive, requirin Levophed. CT chest PE protocol revealed a PE and his TTE revealed right ventricular strain. Patient subsequently developed respiratory failure and was intubated. He was weaned off LEvophed, but has been requiring dobutamine. He became anuric with a rising creatinine, prompting a nephrology consult. cr on admission was 1.4 mg/dl 1. [place] -presumed ATN. s/p HD 01-19-25 -no signs of renal recovery -did not urinate w/ diuretic repeat HD tomorrow please have surgery place a neck permacath/ tunneled dialysis catheter and remove his femoral dialysis catheter 2. anemia- hgb slowly dropping- give epo, iron studies has target cells as per hospitalist 3. met acidosis-repeat abg w/ metabolic acidosis and resp compensation 4. encephalopathic- improving seen and examined w/ AIDE of RN- usinf A/V equipment Plan as above PDMP PDMP Reviewed: Not Reviewed Attestations 2 Medical Necessity Statement*: per hospitalist. needs a permacath Time Spent in Patient Care: 16 - 35 minutes (>than 50% of time sp ent in counselling and/or direct pt care on unit) . Coding Level of Care Code Acute Code for Chg Fwd Diagnoses Acute kidney injury N17.9
[2025-01-21 10:05] LABS: Iron 98 ug/dL (59-158)
[2025-01-21] MEDS: epoetin alfa-epbx 10,000 unit/ml SDV (ESRD) 10000 UNIT SUBCUT (10:05)
--- NOTE | 2025-01-21 10:15 | P.PN_ITS ---
Subjective 2 Subjective: Patient was extuabated on 01/20 He was initially confused however now this appears to be wax and waning. He was less agitated today Has been requiring HFNC Did not appear to be in respiratory distress Today patients partner was at bedside today. Contact was made with brother who gave consent for PermCath placement Medications: Reviewed: Yes Vitals/I&O/Wt Last Vital Signs Temp 97.3 F L 01/21/25 04:24 Pulse 90 01/21/25 08:30 Resp 23 H 01/21/25 08:30 BP 150/106 01/21/25 08:30 Pulse Ox 97 01/21/25 08:05 O2 Del Method High Flow Nasal Cannula 01/21/25 08:30 O2 Flow Rate 10 01/21/25 08:30 FiO2 35 01/20/25 12:00 01/20/25 01/21/25 01/21/25 22:59 06:59 14:59 Intake Total 228.348 / 482.127 163.880 / 646.007 Output Total Balance 213.348 / 467.127 163.880 / 631.007 Weight last 48 hrs Weight 62.868 kg Weight 64 kg Weight 63.2 kg Physical Exam 2 Narrative: GEN: Extuabted on HFNC HEAD: normocephalic, atraumatic HEENT: Very poor dentition NECK: no jvd CV: RRR LUNGS: diminished BS ABD: Soft, ND, +bs EXT: BLE edema left femoral HD catheter in place NEURO: at time confused. : fallon in place SKIN: no rash Urinary Catheter Management: Fallon: Cath Placed During This Visit: yes Reason for Continuing Indwelling Catheter: Accurate Measurement of Urinary Output in Critically Ill Patients Urinary Catheter Date of Insertion: 01/12/25 Urinary Catheter Time of Insertion: 21:00 Data 01/21/25 04:37 01/21/25 04:37 A&P Assessment and plan (1) Obstructive cardiovascular shock: (2) Hypoxic respiratory failure: (3) Pulmonary embolus: (4) Influenza A: (5) Pneumonia: (6) Acute kidney injury: (7) Liver dysfunction: (8) Lymphadenopathy: (9) Elevated lactic acid level: (10) Acute on chronic right-sided heart failure: (11) Pulmonary HTN: (12) Encephalopathy: Plan Acute Hypoxemic Respiratory Failure- etiology is multi-factorial -Secondary to pneumonia, pulmonary emboli, fluid overload in setting of renal failure. Patient was on mechanical ventilation until he was Extubated on 01/20.Currently on 8L via NC. Does not appear to be in any respiratory distress - Fluid management with HD Plan: - Continue to wean oxygen as tolerated - Keep head of bed > 30 degrees, high risk for aspiration - Made NPO again - ST consult in am - Repeat Chest xray and ABG if again worsening respiratory status - Has been on solu-medrol as well - decreased to BID - Will maintain for now and once oxygen requirement improve de-escalate to daily and or oral taper Acute Pulmonary Emboli with Cor Pulmonale Secondary to acute right heart failure in the setting of multiple pulmonary emboli and pulmonary HTN. - Off pressors since 01/15/2025. TTE showed dilated RV/RA, RVSP 40-45 mmHg. Plan: - Maintain euvolemia, avoid fluid overload. - Optimize RV afterload reduction. - On heparin drip once able to take PO can consider change to Eliquis Sepsis due to Pneumonia - Suspected aspiration vs viral/bacterial pneumonia. On broad-spectrum antibiotics. Procalcitonin >100 on admission. Patient has been on a prolonged course of antibiotics. Currently noted to have increasing leukocytosis which is likely due to steroids. Culture remained negative. No longer hypothermic. Off bear hugger. Plan: - Continue Zosyn 3.375 grams IV q12h. Plan to de-escalate in next few days - Repeat cultures if febrile - Will consider de-escalation of abx Acute Kidney Injury/Failure now progressed to ESRD requiring HD - Likely secondary to multi-organ failure and cardiogenic shock. Required initiation of dialysis. Remained aneuric. Not likely to recover - Currently has a temp HD catheter - Per nephrology patient will likley be HD dependent Plan: - Continue dialysis per nephrology recommendations. - Will need surgery consult for PermCath placement however no surgery coverage available today - Please consult Sx in am for line placement Influenza A Infection - Positive influenza A testing on admission. - Plan: DC tamiflu Encephalopathy - Multi-factorial - likely components of toxic/metabolic encephalopathy and hypoxemia. - Slowing improving, wax and waning Plan: - Haldol IM PRN for agitation - Avoid benzodiazepines if possible. Gastric Cancer - History of gastric cancer with prior resection. No evidence of acute issues on imaging. Plan: - No further work up inpatient FEN - Made NPO again due to risk of aspiration Plan: - ST consult in am Deconditioning - PT/OT consult in am DVT Prophylaxis - Currently on heparin drip for treatment of pulmonary emboli. Code Status - Full code PDMP PDMP Reviewed: Not Reviewed Attestations 2 Medical Necessity Statement*: Will need ongoing hospitalization for management of respiratory failure, PermCath placement, arranging HD. Time Spent in Patient Care: 25 minutes Critical Care Time: The high probability of a clinically significant, sudden or life threatening deterioration of the patient's [cardiac, pulmonary, renal, goals of care discussion, GI] system(s) required my full and direct attention, intervention and personal management. The critical care time is as shown. This time is in addition to time spent performing any reported procedures but includes the following: [x] Data and vital sign review and interpretation [x] Patient assessment, examination and intervention [x] Documentation [x] Medication orders and management Critical Care Time (min): 90 Coding Level of Care Code Acute Code for g Fwd Diagnoses Obstructive cardiovascular shock R57.8 Hypoxic respiratory failure J96.91 Pulmonary embolus I26.99 Influenza A J10.1 Pneumonia J18.9 Acute kidney injury N17.9 Liver dysfunction K76.89 Lymphadenopathy R59.1 Elevated lactic acid level R79.89 Acute on chronic right-sided heart failure I50.813 Pulmonary HTN I27.20 Encephalopathy G93.40
[2025-01-21] MEDS: heparin drip 25,000 UNIT/500 ML PREMIX 7 UNIT IV (10:23)
[2025-01-21 12:01] LABS: Partial Thromboplastin Time 53.9 SECONDS (23.9-36.7)
[2025-01-21] MEDS: heparin 5,000 unit/mL INJ 1 mL IVP (13:26)
--- NOTE | 2025-01-21 18:26 | PC.NURSE ---
Addendum entered by Carol Dominguez RN 01/21/25 18:51: Pt utilizing 9lpm/HFNC. He did not pass his bedside swallow test this am. Original Note: Shift summary: Pt rested in bed throughout this shift. He is alert to self, place and . He can verbalize his needs. He has denied pain or other discomforts. VSS. Sinus rhythm noted on monitor. Dressing change for HD cath completed. CVl in right IJ had dressing changed yesterday, caps and tubing changed today. Precede was at 0.1 mcg/kg/hr, it was stopped. Heparin gtt remains infusing and adjusted per protocol as ordered. His significant other and her children came in to visit him today. He has had 150ml of urine output. No Bm noted.
[2025-01-21 18:47] LABS: Partial Thromboplastin Time 69.5 SECONDS (23.9-36.7)
[2025-01-21] MEDS: metoprolol tartrate 1 mg/1 mL SDV 5 mL 2.5 MG IVP (23:43)
[2025-01-22] VITALS (55 sets, daily range): BP systolic 135–173; BP diastolic 99–121; PULSE 83–102; RESP 14–38; TEMP 35.7–36.9; O2SAT 86–100
--- NOTE | 2025-01-22 01:37 | PC.NURSE ---
Albumin consent Discussed reason for albumin administration and the chance of a reaction with patient. Patient is agreeable to proceed with administration. Patient is physically unable to sign consent at this time due to weakness. Double witnessed consent with LAYLA Paul who signed consent form as a witness.
[2025-01-22 01:46] LABS: Partial Thromboplastin Time 54.7 SECONDS (23.9-36.7)
[2025-01-22 01:50] LABS: Alanine Aminotransferase 70 U/L (0-41); Albumin Level 5.9 g/dL (3.5-5.2); Alkaline Phosphatase 57 U/L (40-130); Anion Gap 33.9 (5-19); Aspartate Amino Transferase 37 U/L (0-40); Blood Urea Nitrogen 79 mg/dL (8-23); Calcium 11.6 mg/dL (8.5-10.5); Carbon Dioxide 17 mmol/L (22-29); Chloride 96 mmol/L (98-107); Globulin 2.1 g/dL (1.3-4.6); Glucose 181 mg/dL (65-115); Magnesium 2.2 mg/dL (1.7-2.3); Osmolality Calculated 324 mOsm/kg (285-295); Phosphorus 2.9 mg/dL (2.5-4.5); Potassium 3.9 mmol/L (3.5-5.1); Sodium 143 mmol/L (136-145)
[2025-01-22 01:53] LABS: Total Bilirubin 7.1 mg/dL (0.15-1.2)
[2025-01-22] MEDS: heparin 5,000 unit/mL INJ 1 mL IVP (02:01)
[2025-01-22] MEDS: albumin 25 G/100 ML BAG 60 G IV ×3 (02:04→17:12)
[2025-01-22 02:06] LABS: Ferritin 853 ng/mL (30-400); Iron 92 ug/dL (59-158); Percent Saturation 78.6 % (20-50); Total Iron Binding Capacity 117 mcg/dl; Unsaturated Iron Binding 25 ug/dL (112-347)
[2025-01-22] MEDS: metoprolol tartrate 1 mg/1 mL SDV 5 mL 2.5 MG IVP ×2 (02:32→23:17)
[2025-01-22] MEDS: ipratropium-albuterol 3 mL Neb INHALATION ×3 (03:18→21:29)
[2025-01-22] MEDS: piperacillin-tazobactam 3.375 GM in sodium chloride 0.9% (plus) 50 ML IV ×2 (05:24→17:12)
[2025-01-22] MEDS: budesonide 0.5 mg/2 mL Neb INHALATION ×2 (08:28→21:30)
[2025-01-22] MEDS: bumetanide 0.25 mg/mL SDV 10 mL 2 MG IVP ×2 (08:36→20:47)
[2025-01-22] MEDS: methylPREDNISolone sod succ 40 mg/mL INJ IVP ×2 (08:36→17:13)
[2025-01-22] MEDS: pantoprazole 40 mg SDV IVP (08:36)
--- NOTE | 2025-01-22 09:45 | PM.PN ---
Subjective Subjective: Patient is lethargic this morning. He wakes up to calling his name, opens his eyes, squeezes my hand, however does not speak in any meaningful words or sentences. Medications: Reviewed: Yes Medication Review Details: Current Medications Acetaminophen (Acetaminophen 325 Mg Tablet) 650 mg PO Q6H PRN PRN Reason: Mild/Mod Pain Or Temp >/= 101 Albuterol/Ipratropium (Ipratropium-Albuterol 3 Ml Neb) 3 ml INHALATION Q6H.RESP JOANNA Last Admin: 01/21/25 08:02 Dose: 3 ml Alteplase, Recombinant (Alteplase 1 Mg/Ml Sdv 2 Ml) 2 mg INTRACATH PRN PRN PRN Reason: DIALYSIS USE ONLY Alteplase, Recombinant (Alteplase 1 Mg/Ml Sdv 2 Ml) 2 mg INTRACATH PRN PRN PRN Reason: DIALYSIS USE ONLY Alteplase, Recombinant (Alteplase 1 Mg/Ml Sdv 2 Ml) 2 mg INTRACATH PRN PRN PRN Reason: DIALYSIS USE ONLY Budesonide (Budesonide 0.5 Mg/2 Ml Neb) 0.5 mg INHALATION BID.RESPIRATORY JOANNA Last Admin: 01/21/25 08:02 Dose: 0.5 mg Bumetanide (Bumetanide 0.25 Mg/Ml Sdv 10 Ml) 2 mg IVP Q12H JOANNA Last Admin: 01/21/25 08:11 Dose: 2 mg Chlorhexidine Gluconate (Chlorhexidine Gluconate 4% Btl 118 Ml) 1 applic TOPICAL DAILY PRN PRN Reason: Intubated patient bathing Last Admin: 01/20/25 01:47 Dose: 1 applic Haloperidol Lactate (Haloperidol Inj 5 Mg/Ml Inj 1 Ml) 1 mg IM Q4H PRN PRN Reason: AGITATION Last Admin: 01/14/25 12:08 Dose: 1 mg Heparin Sodium (Porcine) (Heparin 5,000 Unit/Ml Inj 1 Ml) 0 unit IVP PRN PRN; Protocol PRN Reason: Heparin Weight Based Protocol -Subsequent Bolus Last Admin: 01/20/25 04:21 Dose: 2,700 unit Heparin Sodium (Porcine) (Heparin, Porcine 1,000 Unit/Ml Inj 10 Ml) 1,000 unit IV PRN PRN PRN Reason: clotting Heparin Sodium/Sodium Chloride (Heparin Drip) 25,000 unit in 500 mls @ 0 mls/hr IV CONT JOANNA; Protocol Last Titration: 01/21/25 05:29 Dose: 5.43 unit/kg/hr, 7 mls/hr Norepinephrine Bitartrate (Levophed) 4 mg in 250 mls @ 0 mls/hr IV .Q0M JOANNA; Protocol Last Titration: 01/20/25 19:00 Dose: Infused Albumin Human (Albumin) 25 g in 100 mls @ 60 mls/hr IV Q8H JOANNA Last Infusion: 01/21/25 03:08 Dose: Infused Sodium Chloride (Sodium Chloride 0.9%) 1,000 mls @ 0 mls/hr IV .Q0M PRN PRN Reason: hypotension or symptomatic Sodium Chloride (Sodium Chloride 0.9%) 1,000 mls @ 0 mls/hr IV .Q0M PRN PRN Reason: hypotension or symptomatic Albumin Human (Albumin) 12.5 gm in 50 mls @ 60 mls/hr IV PRN PRN PRN Reason: Hypotension and/or symptomatic Last Infusion: 01/15/25 19:00 Dose: Infused Piperacillin Sod/Tazobactam (Sod 3.375 gm/ Sodium Chloride) 50 mls @ 12.5 mls/hr IV Q12H JOANNA; Protocol Last Admin: 01/21/25 05:33 Dose: 12.5 mls/hr Albumin Human (Albumin) 12.5 gm in 50 mls @ 60 mls/hr IV PRN PRN PRN Reason: Hypotension and/or symptomatic Dexmedetomidine/Sodium Chloride (Precedex) 400 mcg in 100 mls @ 0 mls/hr IV .Q0M JOANNA; Protocol Last Titration: 01/21/25 05:34 Dose: 0.1 mcg/kg/hr, 1.76 mls/hr Sodium Chloride (Sodium Chloride 0.9%) 1,000 mls @ 0 mls/hr IV .Q0M PRN PRN Reason: hypotension or symptomatic Albumin Human (Albumin) 12.5 gm in 50 mls @ 60 mls/hr IV PRN PRN PRN Reason: Hypotension and/or symptomatic Lanolin (Lanolin Oint 7 Gm) 1 applic TOPICAL PRN PRN PRN Reason: DRYNESS Last Admin: 01/20/25 01:47 Dose: 1 applic Lorazepam (Lorazepam 2 Mg/Ml Inj 1 Ml) 2 mg IM Q4H PRN; Protocol PRN Reason: ALCOHOL WITHDRAWAL Lorazepam (Lorazepam 2 Mg/Ml Inj 1 Ml) 2 mg IVP PRN PRN; Protocol PRN Reason: WITHDRAWAL Last Admin: 01/12/25 22:24 Dose: 2 mg Methylprednisolone Sodium Succinate (Methylprednisolone Sod Succ 40 Mg/Ml Inj) 40 mg IVP BID [facility] Last Admin: 01/20/25 18:27 Dose: 40 mg Ondansetron HCl (Ondansetron 2 Mg/Ml Sdv 2 Ml) 4 mg IVP Q8H PRN PRN Reason: vomiting, or N/V if npo Oseltamivir Phosphate (Oseltamivir Phosphate 30 Mg Capsule) 30 mg PO DAILY [facility] Last Admin: 01/20/25 09:33 Dose: 30 mg Pantoprazole Sodium (Pantoprazole 40 Mg Sdv) 40 mg IVP DAILY [facility] Last Admin: 01/21/25 08:12 Dose: 40 mg Vitals/I&O/Wt Last Vital Signs Temp 97.9 F 01/22/25 11:27 Pulse 84 01/22/25 14:00 Resp 22 H 01/22/25 14:00 BP 146/99 01/22/25 14:00 Pulse Ox 100 01/22/25 14:00 O2 Del Method High Flow Nasal Cannula 01/22/25 08:28 O2 Flow Rate 9 01/22/25 08:28 FiO2 35 01/20/25 12:00 01/22/25 01/22/25 01/22/25 06:59 14:59 22:59 Intake Total 151.067 / 545.476 228.6 / 228.6 Output Total 200 / 350 Balance -48.933 / 195.476 228.6 / 228.6 Weight last 48 hrs Weight 66 kg Weight 62.868 kg Physical Exam Narrative: General: No acute distress, AO x3 HEENT: PERRLA, pupils bilaterally equal and reactive, pallors not present Chest: Normal vesicular breath sounds, no added sounds, equal good air entry bilaterally CVS: S1-S2 regular, no murmurs, no tachycardia, no gallops, no rubs Abdomen: Soft, nontender, no organomegaly, bowel sounds present Neuro: No focal deficits, no facial deformity, AO x3, power 5/5 in all limbs Urinary Catheter Management: Swain: Cath Placed During This Visit: yes Reason for Continuing Indwelling Catheter: Accurate Measurement of Urinary Output in Critically Ill Patients Urinary Catheter Date of Insertion: 01/12/25 Urinary Catheter Time of Insertion: 21:00 Data 01/22/25 01:20 01/22/25 01:20 A&P Assessment and plan (1) Obstructive cardiovascular shock: (2) Hypoxic respiratory failure: (3) Pulmonary embolus: (4) Influenza A: (5) Pneumonia: (6) Acute kidney injury: (7) Liver dysfunction: (8) Lymphadenopathy: (9) Elevated lactic acid level: (10) Acute on chronic right-sided heart failure: (11) Pulmonary HTN: (12) Encephalopathy: Plan Acute Hypoxemic Respiratory Failure- etiology is multi-factorial -Secondary to pneumonia, pulmonary emboli, fluid overload in setting of renal failure. Patient was on mechanical ventilation until he was Extubated on 01/20.Currently on 8L via NC. Does not appear to be in any respiratory distress - Fluid management with HD Plan: - Continue to wean oxygen as tolerated - Keep head of bed > 30 degrees, high risk for aspiration - Made NPO again - ST consult in am - Repeat Chest xray and ABG if again worsening respiratory status - Has been on solu-medrol as well - decreased to BID - Will maintain for now and once oxygen requirement improve de-escalate to daily and or oral taper Acute Pulmonary Emboli with Cor Pulmonale Secondary to acute right heart failure in the setting of multiple pulmonary emboli and pulmonary HTN. - Off pressors since 01/15/2025. TTE showed dilated RV/RA, RVSP 40-45 mmHg. Plan: - Maintain euvolemia, avoid fluid overload. - Optimize RV afterload reduction. - On heparin drip once able to take PO can consider change to Eliquis Sepsis due to Pneumonia - Suspected aspiration vs viral/bacterial pneumonia. On broad-spectrum antibiotics. Procalcitonin >100 on admission. Patient has been on a prolonged course of antibiotics. Currently noted to have increasing leukocytosis which is likely due to steroids. Culture remained negative. No longer hypothermic. Off bear hugger. Plan: - Continue Zosyn 3.375 grams IV q12h. Plan to de-escalate in next few days - Repeat cultures if febrile - Will consider de-escalation of abx Acute Kidney Injury/Failure now progressed to ESRD requiring HD - Likely secondary to multi-organ failure and cardiogenic shock. Required initiation of dialysis. Remained aneuric. Not likely to recover - Currently has a temp HD catheter - Per nephrology patient will likley be HD dependent Plan: - Continue dialysis per nephrology recommendations. - Will need surgery consult for PermCath placement however no surgery coverage available today - Please consult Sx in am for line placement Influenza A Infection - Positive influenza A testing on admission. - Plan: DC tamiflu Encephalopathy - Multi-factorial - likely components of toxic/metabolic encephalopathy and hypoxemia. - Slowing improving, wax and waning Plan: - Haldol IM PRN for agitation - Avoid benzodiazepines if possible. Gastric Cancer - History of gastric cancer with prior resection. No evidence of acute issues on imaging. Plan: - No further work up inpatient FEN - Made NPO again due to risk of aspiration Plan: - ST consult in am Deconditioning - PT/OT consult in am DVT Prophylaxis - Currently on heparin drip for treatment of pulmonary emboli. Code Status - Full code January 22, 2025 Patient is planned for placement of a tunneled HD cath today. Currently he has a right jugular CVC in place. This has been in for over 10 days at this point. Will remove jugular CVC today. Alternate IV access to be obtained by placement of a PICC line. Patient has had waxing and waning mentation. Failed a swallow evaluation yesterday. He is again very lethargic today. Will start TPN for nutrition. If mentation remains poor and patient is unable to swallow, may need PEG. Head CT on admission was without any acute intracranial findings. There was noted chronic small vessel disease. Noted to have target cells schistocytes on CBC on January 20, 2025. Elevated T. bili 7.0. Low hemoglobin ranging between 8.2-9. Concern for potential hemolysis as contributing. Check peripheral smear. Check indirect bili, haptoglobin LDH reticulocyte count. Unlikely to have sickle cell disease given no prior history of the same. Brother Mateo denies any known history of sickle cell anemia. Unlikely to be a sickling crisis currently. Continue steroids methylprednisolone 40 mg IV every 12 hours until results of hemolysis labs are available. Continue dialysis per nephrology. Appreciate recommendations. PDMP PDMP Reviewed: Not Reviewed Attestations Medical Necessity Statement*: Tunneled HD cath today. Remove right IJ CVC. Proceed with placement of PICC line. Start TPN, continue to monitor mentation and assess for improvement. Coding Level of Care Code Acute Code for Chg Fwd Diagnoses Obstructive cardiovascular shock R57.8 Hypoxic respiratory failure J96.91 Pulmonary embolus I26.99 Influenza A J10.1 Pneumonia J18.9 Acute kidney injury N17.9 Liver dysfunction K76.89 Lymphadenopathy R59.1 Elevated lactic acid level R79.89 Acute on chronic right-sided heart failure I50.813 Pulmonary HTN I27.20 Encephalopathy G93.40
--- NOTE | 2025-01-22 10:21 | XRR_ITS ---
PROCEDURE INFORMATION: Exam: XR Chest Exam date and time: 01/22/2025 9:49 AM Age: 74 years old Clinical indication: Device placement; Other: Check lines position. TECHNIQUE: Imaging protocol: Radiologic exam of the chest. Views: 1 view. COMPARISON: CR XR chest 1V portable [id number] 01/17/2025 6:06 AM FINDINGS: Tubes, catheters and devices: Right central line terminates in the right atrium. Lungs: Bilateral pulmonary infiltrates are stable. Pleural spaces: Unremarkable. No pleural effusion. No pneumothorax. Heart/Mediastinum: No change in the heart or mediastinum. Bones/joints: Unremarkable. Other findings: Likely left effusion. No acute findings. XR/XR chest 1V portable [id number] IMPRESSION: No significant change.
--- NOTE | 2025-01-22 10:26 | W.PM.OPSFHP ---
Same Day Surgery H&P Indication for Procedure/HPI DATE OF PROCEDURE: January 22, 2025 CHIEF COMPLAINT/INDICATIONFOR SURGICAL PROCEDURE: Need for dialysis PREOP DIAGNOSIS: Acute kidney injury requiring long-term dialysis PLANNED PROCEDURE: Operation Date: 01/22/25 14:55 Proposed Procedures p Dialysis Catheter Insertion(Not Applicable) - Navin Salgado MD 74-year-old male who was admitted with pneumonia multiorgan failure, he has been receiving dialysis through a left groin dialysis catheter, now we have been requested to do tunneled dialysis catheter. I discussed all the risk benefits with the brother including the risk of pneumothorax, cannulation of the artery, injury to surrounding structures, infection, need for additional operations. He shows understanding and agrees. Medications/Allergies* Home Medications ?Medication ?Instructions ?Recorded ?Confirmed ?Type albuterol sulfate 90 mcg/actuation 2 puff inhalation QID PRN 01/12/25 01/12/25 History aerosol inhaler Shortness Of Breath Or Wheezing amlodipine 5 mg-benazepril 10 mg 1 cap PO DAILY 01/12/25 01/12/25 History capsule apixaban 5 mg tablet (Eliquis) 5 mg PO BID 01/12/25 01/12/25 History cholecalciferol (vitamin D3) 125 125 mcg PO DAILY 01/12/25 01/12/25 History mcg (5,000 unit) tablet (Vitamin D3) cyanocobalamin (vitamin B-12) 1,000 mcg SUBCUT Q30D 01/12/25 01/12/25 History 1,000 mcg/mL injection solution furosemide 20 mg tablet 20 mg PO DAILY 01/12/25 01/12/25 History omeprazole 40 mg capsule,delayed 40 mg PO DAILY 01/12/25 01/12/25 History release potassium chloride 8 mEq 8 meq PO DAILY 01/12/25 01/12/25 History capsule,extended release Allergies/Adverse Reactions Allergy/AdvReac Type Severity Reaction Status Date / Time No Known Allergies Allergy Verified 01/12/25 09:38 Current Medications: Generic Name Dose Route Start Last Admin Trade Name Freq PRN Reason Stop Dose Admin Albuterol/Ipratropium 3 ml 01/13/25 14:00 01/22/25 08:27 Ipratropium-Albuterol 3 Ml Neb INHALATION 3 ml Q6H.RESP JOANNA Administration Budesonide 0.5 mg 01/13/25 20:00 01/22/25 08:28 Budesonide 0.5 Mg/2 Ml Neb INHALATION 0.5 mg BID.RESPIRATORY JOANNA Administration Bumetanide 2 mg 01/18/25 08:00 01/22/25 08:36 Bumetanide 0.25 Mg/Ml Sdv 10 Ml IVP 2 mg Q12H JOANNA Administration Chlorhexidine Gluconate 1 applic 01/15/25 02:07 01/20/25 01:47 Chlorhexidine Gluconate 4% Btl 118 Ml TOPICAL 1 applic DAILY PRN Administration Intubated patient bathing Haloperidol Lactate 1 mg 01/13/25 12:18 01/14/25 12:08 Haloperidol Inj 5 Mg/Ml Inj 1 Ml IM 1 mg Q4H PRN Administration AGITATION Heparin Sodium (Porcine) 0 unit 01/12/25 09:00 01/22/25 02:01 Heparin 5,000 Unit/Ml Inj 1 Ml IVP 1,400 unit PRN PRN Administration Heparin Weight Based Protocol -Subsequent Bolus Protocol Heparin Sodium/Sodium Chloride 25,000 unit in 500 mls @ 0 mls/hr 01/12/25 09:00 01/22/25 08:37 Heparin Drip IV Not Given CONT JOANNA Protocol Per Protocol Albumin Human 25 g in 100 mls @ 60 mls/hr 01/13/25 17:45 01/22/25 08:35 Albumin IV 60 mls/hr Q8H JOANNA Administration Piperacillin Sod/Tazobactam 50 mls @ 12.5 mls/hr 01/15/25 18:00 01/22/25 05:24 Sod 3.375 gm/ Sodium Chloride IV 12.5 mls/hr Q12H JOANNA Administration Protocol Dexmedetomidine/Sodium Chloride 400 mcg in 100 mls @ 0 mls/hr 01/17/25 10:15 01/21/25 08:12 Precedex IV Infused .Q0M JOANNA Titration Protocol Per Protocol Lanolin 1 applic 01/18/25 17:30 01/20/25 01:47 Lanolin Oint 7 Gm TOPICAL 1 applic PRN PRN Administration DRYNESS Lorazepam 2 mg 01/12/25 21:54 01/12/25 22:24 Lorazepam 2 Mg/Ml Inj 1 Ml IVP 2 mg PRN PRN Administration WITHDRAWAL Protocol Methylprednisolone Sodium Succinate 40 mg 01/16/25 18:00 01/22/25 08:36 Methylprednisolone Sod Succ 40 Mg/Ml Inj IVP 40 mg BID JOANNA Administration Metoprolol Tartrate 2.5 mg 01/21/25 23:35 01/21/25 23:43 Metoprolol Tartrate 1 Mg/1 Ml Sdv 5 Ml IVP 2.5 mg Q12H JOANNA Administration Pantoprazole Sodium 40 mg 01/14/25 17:35 01/22/25 08:36 Pantoprazole 40 Mg Sdv IVP 40 mg DAILY JOANNA Administration Pertinent History/Comorbid Conditions* Medical History (Updated 01/13/25 @ 18:47 by Chuck Brown MD) HTN (hypertension) PE (pulmonary thromboembolism) DVT (deep venous thrombosis) Gastric cancer Surgical History (Updated 01/12/25 @ 14:16 by Sea Shepherd MD) H/O resection of stomach Social History Smoking and tobacco/nicotine status: former use of tobacco/nicotine Alcohol intake: current Alcohol use comment: States has been trying to quit, has not drank in 2 months Substance/Drug Use: never Household members: significant other Pertinent Exam Findings alert, oriented x 3, clear to auscultation bilaterally and regular rate & rhythm There is a right IJ central line Recommendations Surgery/Procedure today Coding Level of Care Code Acute Code for Chg Fwd
[2025-01-22] MEDS: heparin, porcine 1,000 unit/mL INJ 10 mL 1000 UNIT IV (11:18)
[2025-01-22 11:26] LABS: Reticulocyte % 4.1 % (0.5-2.0)
[2025-01-22 11:30] LABS: Hematocrit 26.1 % (37-53); Retic Production Index 2.74; Reticulocyte % 4.2 % (0.5-2.0)
[2025-01-22 11:33] LABS: LAB Peripheral Smear Sent for Review
[2025-01-22 11:47] LABS: Lactate Dehydrogenase 410 U/L (135-225)
--- NOTE | 2025-01-22 12:01 | P.ANESASSM_ITS ---
Pre-Anesthetic Assessment Height/Weight: Height 1.7 m Weight 66 kg Temp Pulse Resp BP Pulse Ox O2 Del Method O2 Flow Rate 97.9 F 98 29 H 148/104 94 High Flow Nasal Cannula 9 01/22/25 11:27 01/22/25 11:27 01/22/25 11:27 01/22/25 11:27 01/22/25 10:00 01/22/25 08:28 01/22/25 08:28 FiO2 35 01/20/25 12:00 Preop Diagnosis: Acute kidney injury requiring long-term dialysis Operation Date: 01/22/25 14:55 Proposed Procedures p Dialysis Catheter Insertion(Not Applicable) - Navin Salgado MD Familial anesthetic complications: None Last intake: > 8 hrs Exam clear to auscultation bilaterally (coarse breath sounds b/l) and regular rate & rhythm Pulmonary Pneumonia Had Flu A on admission CV/HEM Anemia and Deep Vein Thrombosis B/L DVT w/ pulmonary emboli leading to R heart strain - R ventricle dilated, RVsP 40 -45 mmHg; avoid hypoxemia and hypoventilation YESI on dialysis GI hx gastric resection for gastric cancer Neuropsych encephalopathy Anesthetic Plan ASA status: 4 Anesthesia: MAC Risk of > 500 ml blood loss (7ml/kg in children): No Other Pertinent Information History obtained from chart review, consent obtained from brother Medications/Allergies Home Medications ?Medication ?Instructions ?Recorded ?Confirmed ?Last Taken ?Type albuterol sulfate 90 mcg/actuation 2 puff inhalation Q ID PRN 01/12/25 01/12/25 Unknown History aerosol inhaler Shortness Of Breath Or Wheez ing amlodipine 5 mg-benazepril 10 mg 1 cap PO DAILY 01/12/25 Unknown History capsule apixaban 5 mg tablet (Eliquis) 5 mg PO BID 01/12/25 Unknown History cholecalciferol (vitamin D3) 125 125 mcg PO DAILY 06/0101/12/25 Unknown History mcg (5,000 unit) tablet (Vitamin D3) cyanocobalamin (vitamin B-12) 1,000 mcg SUBCUT Q30D 01/12/25 10/14/24 History 1,000 mcg/mL injection solution furosemide 20 mg tablet 20 mg PO DAILY 01/12/2506/01 Unknown History omeprazole 40 mg capsule,delayed 40 mg PO DAILY 01/12/25 Unknown History release potassium chloride 8 mEq 8 meq PO DAILY 01/12/2506/01 Unknown History capsule,extended release Allergies Allergy/AdvReac Type Severity Reaction Status Date / Time No Known Allergies Allergy Verified 01/12/25 09:38 Current Medications Generic Name Dose Route Start Last Admin Trade Name Freq PRN Reason Stop Dose Admin Albuterol/Ipratropium 3 ml 01/13/25 14:00 01/22/25 08:27 Ipratropium-Albuterol 3 Ml Neb INHALATION 3 ml Q6H.RESP JOANNA Administration Budesonide 0.5 mg 01/13/25 20:00 01/22/25 08:28 Budesonide 0.5 Mg/2 Ml Neb INHALATION 0.5 mg BID.RESPIRATORY JOANNA Administration Bumetanide 2 mg 01/18/25 08:00 01/22/25 08:36 Bumetanide 0.25 Mg/Ml Sdv 10 Ml IVP 2 mg Q12H JOANNA Administration Chlorhexidine Gluconate 1 applic 01/15/25 02:07 01/20/25 01:47 Chlorhexidine Gluconate 4% Btl 118 Ml TOPICAL 1 applic DAILY PRN Administration Intubated patient bathing Haloperidol Lactate 1 mg 01/13/25 12:18 01/14/25 12:08 Haloperidol Inj 5 Mg/Ml Inj 1 Ml IM 1 mg Q4H PRN Administration AGITATION Heparin Sodium (Porcine) 0 unit 01/12/25 09:00 01/22/25 02:01 Heparin 5,000 Unit/Ml Inj 1 Ml IVP 1,400 unit PRN PRN Administration Heparin Weight Based Protocol -Subsequent Bolus Protocol Heparin Sodium/Sodium Chloride 25,000 unit in 500 mls @ 0 mls/hr 01/12/25 09:00 01/22/25 10:38 Heparin Drip IV 0 unit/kg/hr CONT JOANNA 0 mls/hr Titration Protocol Per Protocol Albumin Human 25 g in 100 mls @ 60 mls/hr 01/13/25 17:45 01/22/25 08:35 Albumin IV 60 mls/hr Q8H JOANNA Administration Piperacillin Sod/Tazobactam 50 mls @ 12.5 mls/hr 01/15/25 18:00 01/22/25 05:24 Sod 3.375 gm/ Sodium Chloride IV 12.5 mls/hr Q12H JOANNA Administration Protocol Dexmedetomidine/Sodium Chloride 400 mcg in 100 mls @ 0 mls/hr 01/17/25 10:15 01/21/25 08:12 Precedex IV Infused .Q0M JOANNA Titration Protocol Per Protocol Lanolin 1 applic 01/18/25 17:30 01/20/25 01:47 Lanolin Oint 7 Gm TOPICAL 1 applic PRN PRN Administration DRYNESS Lorazepam 2 mg 01/12/25 21:54 01/12/25 22:24 Lorazepam 2 Mg/Ml Inj 1 Ml IVP 2 mg PRN PRN Administration WITHDRAWAL Protocol Methylprednisolone Sodium Succinate 40 mg 01/16/25 18:00 01/22/25 08:36 Methylprednisolone Sod Succ 40 Mg/Ml Inj IVP 40 mg BID JOANNA Administration Metoprolol Tartrate 2.5 mg 01/21/25 23:35 01/21/25 23:43 Metoprolol Tartrate 1 Mg/1 Ml Sdv 5 Ml IVP 2.5 mg Q12H JOANNA Administration Pantoprazole Sodium 40 mg 01/14/25 17:35 01/22/25 08:36 Pantoprazole 40 Mg Sdv IVP 40 mg DAILY JOANNA Administration Additional Medication Information Current Medications Acetaminophen (Acetaminophen 325 Mg Tablet) 650 mg PO Q6H PRN PRN Reason: Mild/Mod Pain Or Temp >/= 101 Albuterol/Ipratropium (Ipratropium-Albuterol 3 Ml Neb) 3 ml INHALATION Q6H.RESP JOANNA Last Admin: 01/21/25 08:02 Dose: 3 ml Alteplase, Recombinant (Alteplase 1 Mg/Ml Sdv 2 Ml) 2 mg INTRACATH PRN PRN PRN Reason: DIALYSIS USE ONLY Alteplase, Recombinant (Alteplase 1 Mg/Ml Sdv 2 Ml) 2 mg INTRACATH PRN PRN PRN Reason: DIALYSIS USE ONLY Alteplase, Recombinant (Alteplase 1 Mg/Ml Sdv 2 Ml) 2 mg INTRACATH PRN PRN PRN Reason: DIALYSIS USE ONLY Budesonide (Budesonide 0.5 Mg/2 Ml Neb) 0.5 mg INHALATION BID.RESPIRATORY JOANNA Last Admin: 01/21/25 08:02 Dose: 0.5 mg Bumetanide (Bumetanide 0.25 Mg/Ml Sdv 10 Ml) 2 mg IVP Q12H JOANNA Last Admin: 01/21/25 08:11 Dose: 2 mg Chlorhexidine Gluconate (Chlorhexidine Gluconate 4% Btl 118 Ml) 1 applic TOPICAL DAILY PRN PRN Reason: Intubated patient bathing Last Admin: 01/20/25 01:47 Dose: 1 applic Haloperidol Lactate (Haloperidol Inj 5 Mg/Ml Inj 1 Ml) 1 mg IM Q4H PRN PRN Reason: AGITATION Last Admin: 01/14/25 12:08 Dose: 1 mg Heparin Sodium (Porcine) (Heparin 5,000 Unit/Ml Inj 1 Ml) 0 unit IVP PRN PRN; Protocol PRN Reason: Heparin Weight Based Protocol -Subsequent Bolus Last Admin: 01/20/25 04:21 Dose: 2,700 unit Heparin Sodium (Porcine) (Heparin, Porcine 1,000 Unit/Ml Inj 10 Ml) 1,000 unit IV PRN PRN PRN Reason: clotting Heparin Sodium/Sodium Chloride (Heparin Drip) 25,000 unit in 500 mls @ 0 mls/hr IV CONT JOANNA; Protocol Last Titration: 01/21/25 05:29 Dose: 5.43 unit/kg/hr, 7 mls/hr Norepinephrine Bitartrate (Levophed) 4 mg in 250 mls @ 0 mls/hr IV .Q0M JOANNA; Protocol Last Titration: 01/20/25 19:00 Dose: Infused Albumin Human (Albumin) 25 g in 100 mls @ 60 mls/hr IV Q8H JOANNA Last Infusion: 01/21/25 03:08 Dose: Infused Sodium Chloride (Sodium Chloride 0.9%) 1,000 mls @ 0 mls/hr IV .Q0M PRN PRN Reason: hypotension or symptomatic Sodium Chloride (Sodium Chloride 0.9%) 1,000 mls @ 0 mls/hr IV .Q0M PRN PRN Reason: hypotension or symptomatic Albumin Human (Albumin) 12.5 gm in 50 mls @ 60 mls/hr IV PRN PRN PRN Reason: Hypotension and/or symptomatic Last Infusion: 01/15/25 19:00 Dose: Infused Piperacillin Sod/Tazobactam (Sod 3.375 gm/ Sodium Chloride) 50 mls @ 12.5 mls/hr IV Q12H JOANNA; Protocol Last Admin: 01/21/25 05:33 Dose: 12.5 mls/hr Albumin Human (Albumin) 12.5 gm in 50 mls @ 60 mls/hr IV PRN PRN PRN Reason: Hypotension and/or symptomatic Dexmedetomidine/Sodium Chloride (Precedex) 400 mcg in 100 mls @ 0 mls/hr IV .Q0M JOANNA; Protocol Last Titration: 01/21/25 05:34 Dose: 0.1 mcg/kg/hr, 1.76 mls/hr Sodium Chloride (Sodium Chloride 0.9%) 1,000 mls @ 0 mls/hr IV .Q0M PRN PRN Reason: hypotension or symptomatic Albumin Human (Albumin) 12.5 gm in 50 mls @ 60 mls/hr IV PRN PRN PRN Reason: Hypotension and/or symptomatic Lanolin (Lanolin Oint 7 Gm) 1 applic TOPICAL PRN PRN PRN Reason: DRYNESS Last Admin: 01/20/25 01:47 Dose: 1 applic Lorazepam (Lorazepam 2 Mg/Ml Inj 1 Ml) 2 mg IM Q4H PRN; Protocol PRN Reason: ALCOHOL WITHDRAWAL Lorazepam (Lorazepam 2 Mg/Ml Inj 1 Ml) 2 mg IVP PRN PRN; Protocol PRN Reason: WITHDRAWAL Last Admin: 01/12/25 22:24 Dose: 2 mg Methylprednisolone Sodium Succinate (Methylprednisolone Sod Succ 40 Mg/Ml Inj) 40 mg IVP BID [facility] Last Admin: 01/20/25 18:27 Dose: 40 mg Ondansetron HCl (Ondansetron 2 Mg/Ml Sdv 2 Ml) 4 mg IVP Q8H PRN PRN Reason: vomiting, or N/V if npo Oseltamivir Phosphate (Oseltamivir Phosphate 30 Mg Capsule) 30 mg PO DAILY [facility] Last Admin: 01/20/25 09:33 Dose: 30 mg Pantoprazole Sodium (Pantoprazole 40 Mg Sdv) 40 mg IVP DAILY [facility] Last Admin: 01/21/25 08:12 Dose: 40 mg PFSH Anesthesia Medical History HTN (hypertension) PE (pulmonary thromboembolism) DVT (deep venous thrombosis) Gastric cancer Surgical History H/O resection of stomach Social History (Updated 01/12/25 @ 14:25 by Sea Shepherd MD) Smoking and tobacco/nicotine status: former use of tobacco/nicotine Alcohol intake: current Alcohol use comment: States has been trying to quit, has not drank in 2 months Substance/Drug Use: never Household members: significant other Data Anesthesia 01/22/25 01:20 01/22/25 01:20 Short CBC 01/21/25 01/22/25 Range/Units 04:37 01:20 WBC 15.76 H (3.29-11.43) 10^3/uL Hgb 9.20 L (11.27-16.99) g/dL Hct 27.2 L 26.1 L (37-53) % MCV 99.6 (82-101) fl Plt Count 126 L (157-399) 10^3/cmm Neut % (Auto) 89.2 % Neut # (Auto) 14.05 H (1.8-7.7) 10^3/uL BMP 01/21/25 01/22/25 04:37 01:20 Sodium 143 143 Potassium 3.9 3.9 Chloride 97 L 96 L Carbon Dioxide 18 L 17 L BUN 61 H 79 H Creatinine 4.8 H 5.9 H* Glucose 153 H 181 H Calcium 11.2 H 11.6 H Liver Function 01/21/25 01/22/25 Range/Units 04:37 01:20 Total Bilirubin 6.7 H 7.1 H* (0.15-1.2) mg/dL Direct Bilirubin 4.10 H (0.00-0.30) mg/dL AST 36 37 (0-40) U/L ALT 80 H 70 H (0-41) U/L Alkaline Phosphatase 60 57 (40-130) U/L Albumin 7.2 H 5.9 H (3.5-5.2) g/dL Coags 01/20/25 01/20/25 01/21/25 16:42 22:21 04:37 APTT 55.5 H 55.0 H 56.4 H 01/21/25 01/21/25 01/22/25 11:40 18:19 01:20 APTT 53.9 H 69.5 H 54.7 H 01/22/25 07:33 APTT 62.0 H Cardiac Studies: 2 Echocardiogram 01/12/25
--- NOTE | 2025-01-22 13:08 | PC.SOCIAL ---
IMM Updated Provided pt a copy. Initialed, dated, & timed copy in chart.
--- NOTE | 2025-01-22 13:10 | PM.PN ---
Subjective Subjective: Patient is confused on HF oxygen with 10L Medications: Reviewed: Yes Vitals/I&O/Wt Last Vital Signs Temp 97.9 F 01/22/25 11:27 Pulse 98 01/22/25 11:27 Resp 29 H 01/22/25 11:27 BP 148/104 01/22/25 11:27 Pulse Ox 94 01/22/25 10:00 O2 Del Method High Flow Nasal Cannula 01/22/25 08:28 O2 Flow Rate 9 01/22/25 08:28 FiO2 35 01/20/25 12:00 01/21/25 01/22/25 01/22/25 22:59 06:59 14:59 Intake Total 199.2 / 394.409 151.067 / 545.476 78.6 / 78.6 Output Total 150 / 150 200 / 350 Balance 49.2 / 244.409 -48.933 / 195.476 78.6 / 78.6 Weight last 48 hrs Weight 66 kg Weight 62.868 kg Physical Exam Narrative: GEN: confused, NAD, on HF oxygen with 10L HEAD: normocephalic, atraumatic EYES: eomi, anicteric sclera HEENT: MMM NECK: no jvd LUNGS: diminished BS bilaterally ABD: soft, nt, nd EXT: NO LE edema SKIN: no rash NEURO: grossly normal Urinary Catheter Management: Swain: Cath Placed During This Visit: yes Reason for Continuing Indwelling Catheter: Accurate Measurement of Urinary Output in Critically Ill Patients Urinary Catheter Date of Insertion: 01/12/25 Urinary Catheter Time of Insertion: 21:00 Data 01/22/25 01:20 01/22/25 01:20 A&P Assessment and plan (1) Acute kidney injury: YESI- His yesi is likely due to ATN from sepsis and possibly contrast induced nephropathy. he was initiated on hd on 01/14 and still has no evidence of renal recovery. I will plan on HD again today with uf as tolerated. cardiogenic shock- Improved. Likely due to PE. He is on a Heparin drip acute hypoxic respiratory failure- due to influenza, pneumonia and PE. on zosyn per the primary service. i will plan on uf with hd to assist with weaning acidosis- due to lactate and yesi. Improve with HD PE- on heparin drip currently Influenza A- s/p on Tamiflu. PDMP PDMP Reviewed: Not [facility]ed [facility] Necessity Statement*: yesi Time Spent in Patient Care: 25 minutes Coding Level of Care Code Acute Code for Chg Fwd Diagnoses Acute kidney injury N17.9
--- NOTE | 2025-01-22 13:56 | PC.NUTR ---
Consult received for TPN. Recommend beginning TPN (8%AA and 10%Dextrose) @22mls/hr and increasing 20mls Q8H until goal rate of 62mls/hr is reached with standard electrolytes, MV 10mls/day, and 20 gm/100mls fat emulsion.
--- NOTE | 2025-01-22 14:19 | PC.NURSE ---
Metoprolol not given due to patient getting dialysis. Dialysis stopped 30 minuets early per Patient taken to OR at 2:10
--- NOTE | 2025-01-22 14:37 | SC_ITS ---
WS: [id number] C-ARM RADIOGRAPHS CHEST; 2 IMAGES HISTORY: OR PICS COMPARISON: None available. Intraoperative imaging during dialysis catheter placement. Dialysis catheter tips overlie the cavoatrial junction. SC/C-arm FL for CVA [id number] IMPRESSION: Intraoperative imaging during RIGHT dialysis catheter placement.
[2025-01-22 14:46] LABS: Partial Thromboplastin Time 174.1 SECONDS (23.9-36.7)
[2025-01-22] MEDS: heparin, porcine 1,000 unit/mL INJ 10 mL 10000 UNIT IRRIGATION (15:00)
[2025-01-22] MEDS: lidocaine-epi 1% PF 1:200,000 30 mL SDV INJECTION (15:12)
--- NOTE | 2025-01-22 15:22 | PC.HD ---
Patient was receiving dialysis when surgical staff came to room to take patient to the OR. Requested we terminate treatment early (30 min early). Aerial Photogrammetrist contacted and gave permission to terminate early. UF goal was 2000; net removal 1578.
--- NOTE | 2025-01-22 15:54 | P.OP_ITS ---
Operative Report Date of procedure: January 22, 2025 Pre-op diagnosis: Acute kidney injury requiring long-term dialysis Post-op diagnosis: Same Post-op findings: Normal vascular anatomy Procedure done: Insertion of right IJ tunneled dialysis catheter Implants: 23 cm cuff to tip dual-lumen dialysis catheter Surgeon: Navin Salgado MD Cyber Security Engineer: MEGAN OR Staff Estimated blood loss: 20 Brief History: 74-year-old male admitted with pneumonia and multiorgan failure and liver dysfunction who will require long-term dialysis. I was asked to place a tunneled dialysis catheter. Recent benefits were discussed with the brother as patient currently cannot provide consent Procedure: Patient was brought into the OR, she was placed in a supine position, moderate anesthesia sedation was given. A right IJ central line was noted, evaluated with ultrasound but the insertion point in the vein was too posterior to be used and therefore I remove the line and probably held pressure for 5 minutes before continuing. Timeout was conducted after the skin was prepped and draped in the usual sterile fashion. I then proceeded to identify the right IJ vein with ultrasound, I infiltrated local anesthesia on top of the vein. I then proceeded to cannulate the vein under direct ultrasound guidance using an 18-gauge needle, the needle tip was seen entering the vein and immediate return of blood was noted. A wire was advanced through the needle and the needle was removed. The position of the wire was verified with ultrasound and fluoroscopy. The wire was then fixed to the drapes. I then placed my attention to the chest, local anesthesia was infiltrated in the previously marked area on the chest and then a tract connecting the chest to the wire insertion site in the neck. I then proceeded to make a 0.5cm incision on the chest and a 0.5cm incision on the neck at the level of the wire insertion site. I then tunneled the catheter from the chest wound to the neck using the provider tunneler. the vein was then dilatated with serial sizes of dilatators under direct fluoro guidance. I then proceeded to insert an introducer with a peel-off sheath over the wire under direct fluoroscopic guidance. I then remove the wire and the introducer leaving the peel-off sheath in place. The catheter was then advanced through the peel-off sheath and the peel-off sheath was removed leaving the catheter in place. Fluoroscopy showed evidence of good catheter position. The catheter was tested and was working fine with good flow in both lumens. I then proceeded to fix the catheter with #2-0 nylon to the skin. I then closed the neck wound with #3-0 Vicryl. The catheter was tested once again and was working fine I then Locked the catheter. Dermabond was applied over the wound and a sterile dressing was applied on top. Some oozing was noted from the neck wound, 10 minutes of pressure was applied and oozing subsided. At the end of the procedure all counts were correct, the patient tolerated well the procedure was transferred to the PACU in stable condition.
--- NOTE | 2025-01-22 16:30 | ANE.PACU2 ---
Inpatient post-anesthesia follow up: Airway intact: Yes Vital signs: Temperature 98.2 F Pulse Rate [Curren t] 105 Pulse Rate 91 Respiratory Rate [ Current] 26 Respiratory Rate 18 Blood Pressure 151/119 Pulse Oximetry [Cu rrent] 93 Pulse Oximetry 94 Oxygen Delivery Me thod High Flow Nasal Ca nnula Oxygen Flow Rate [ Current] 60 Oxygen Flow Rate 9 Fraction of Inspir ed Oxygen [ 80 Therapy Changed] Fraction of Inspir ed Oxygen [ 80 Current] Fraction of Inspir ed Oxygen 35 Hydration adequate: Yes Nausea and vomiting: No Pain level: 1 Mental status: Baseline
[2025-01-22] MEDS: AA-Dex 4.25%-5% w/Lytes 1,000 ML 20 ML IV (17:12)
--- NOTE | 2025-01-22 19:35 | XRR_ITS ---
PROCEDURE INFORMATION: Exam: XR Chest Exam date and time: 01/22/2025 8:32 PM Age: 74 years old Clinical indication: Device placement; Other: Dialysis cath; Prior surgery; Surgery date: Post-operative (0-2 days); Additional info: Tunneled dialysis catheter placement TECHNIQUE: Imaging protocol: Radiologic exam of the chest. Views: 1 view. COMPARISON: CR XR chest 1V portable [id number] 01/22/2025 9:49 AM FINDINGS: Tubes, catheters and devices: Interval placement of right-sided catheter with tip projecting over expected location of cavoatrial junction. Previously seen right IJ catheter is no longer present. Lungs: Stable bilateral pulmonary infiltrates. Pleural spaces: Likely left pleural effusion. Heart/Mediastinum: Cardiomediastinal silhouette is stable. Bones/joints: Unremarkable. XR/XR chest 1V portable [id number] IMPRESSION: 1. Interval removal of previously seen right-sided central line with placement of dialysis catheter with tip projecting over expected location of cavoatrial junction. 2. Stable appearance of cardiomediastinal silhouette and bilateral lungs.
[2025-01-22 20:09] LABS: Adenovirus Not Detected (NOT DETECT); Chlamydia Pneumoniae Not Detected (NOT DETECT); Coronavirus 229E,HKU1,NL63,OC4 Not Detected (NOT DETECT); Human Metapneumovirus Not Detected (NOT DETECT); Human Rhinovirus/Enterovirus Not Detected (NOT DETECT); Influenza A Not Detected (NOT DETECT); Influenza A H1 Not Detected (NOT DETECT); Influenza A H1-2009 Not Detected (NOT DETECT); Influenza A H3 Not Detected (NOT DETECT); Influenza B Not Detected (NOT DETECT); Mycoplasma Pneumoniae Not Detected (NOT DETECT); Parainfluenza Virus Type 1 Not Detected (NOT DETECT); Parainfluenza Virus Type 2 Not Detected (NOT DETECT); Parainfluenza Virus Type 3 Not Detected (NOT DETECT); Parainfluenza Virus Type 4 Not Detected (NOT DETECT); Respiratory Syncytial Virus A Not Detected (NOT DETECT); Respiratory Syncytial Virus B Not Detected (NOT DETECT); SARS-COV-2 Not Detected (NOT DETECT)
[2025-01-22 21:54] LABS: Glucose Point of Care 236 mg/dL (70-110)
[2025-01-23] VITALS (55 sets, daily range): BP systolic 133–161; BP diastolic 85–119; PULSE 82–95; RESP 16–32; TEMP 35.9–36.8; O2SAT 91–100; BMI 21.4
[2025-01-23] MEDS: albumin 25 G/100 ML BAG 60 G IV ×2 (01:10→11:40)
[2025-01-23] MEDS: ipratropium-albuterol 3 mL Neb INHALATION ×4 (02:19→20:40)
[2025-01-23 04:50] LABS: Hematocrit 25.8 % (37-53); Mean Corpuscular HGB Conc 32.2 g/dL (30-55); Mean Corpuscular Volume 105.7 fl (82-101); Platelet Count 102 10^3/cmm (157-399); Red Blood Count 2.44 10^6/uL (3.85-5.65); Red Cell Distribution Width 26.6 % (12.1-15.1); White Blood Count 17.88 10^3/uL (3.29-11.43)
[2025-01-23 05:16] LABS: Ammonia 22 umol/L (16-60)
[2025-01-23 05:17] LABS: Alanine Aminotransferase 58 U/L (0-41); Alkaline Phosphatase 59 U/L (40-130); Blood Urea Nitrogen 68 mg/dL (8-23); Calcium 11.4 mg/dL (8.5-10.5); Carbon Dioxide 17 mmol/L (22-29); Chloride 98 mmol/L (98-107); Glucose 250 mg/dL (65-115); Magnesium 2.2 mg/dL (1.7-2.3); Osmolality Calculated 324 mOsm/kg (285-295); Phosphorus 2.9 mg/dL (2.5-4.5); Sodium 143 mmol/L (136-145)
[2025-01-23] MEDS: piperacillin-tazobactam 3.375 GM in sodium chloride 0.9% (plus) 50 ML IV (05:21)
[2025-01-23 05:27] LABS: Slide Review Slide Review Perform
[2025-01-23 05:28] LABS: Absolute Neutrophil 9.3 10^3/cmm (1.4-6.5); Absolute Segmented Neutrophil 8.9 10/cmm (1.6-7.1); Anisocytosis 3+; Band Neutrophils Absolute 0.4 10^3/cmm (0.0-1.2); Corrected White Blood Count 13.1 10^3/cmm (4.8-10.8); Eosinophils 0 %; Hypochromasia 1+; Lymphocytes 1 %; Lymphocytes Absolute 0.2 10^3/cmm (1.2-3.4); Macrocytosis 2+; Microcytosis Trace; Monocytes Absolute 0.9 10^3/cmm (0.1-0.6); Platelet Estimate Decreased (Normal); Schistocytes Trace; Segmented Neutrophils 50 %; Total Cells Counted 100 (0-100)
[2025-01-23 05:29] LABS: Target Cells 2+
[2025-01-23 05:34] LABS: Anion Gap 32.3 (5-19); Aspartate Amino Transferase 46 U/L (0-40); Potassium 4.3 mmol/L (3.5-5.1)
[2025-01-23 05:35] LABS: Total Bilirubin 7.6 mg/dL (0.15-1.2)
[2025-01-23] MEDS: methylPREDNISolone sod succ 40 mg/mL INJ IVP (08:37)
[2025-01-23] MEDS: pantoprazole 40 mg SDV IVP (08:37)
[2025-01-23] MEDS: bumetanide 0.25 mg/mL SDV 10 mL 2 MG IVP ×2 (08:37→19:38)
--- NOTE | 2025-01-23 08:41 | P.PN_ITS ---
Subjective 2 Subjective: Preoperative day 1 status post placement of tunneled dialysis catheter. Patient continues to be stable from a clinical standpoint, there was no major hematoma minimal oozing around the catheter that has stopped by now. Vitals/I&O/Wt Last Vital Signs Temp 97.2 F L 01/23/25 06:00 Pulse 91 01/23/25 06:00 Resp 16 01/23/25 06:00 BP 137/106 01/23/25 06:00 Pulse Ox 95 01/23/25 06:00 O2 Del Method High Flow Nasal Cannula 01/23/25 02:20 O2 Flow Rate 9 01/23/25 02:20 FiO2 35 01/20/25 12:00 01/22/25 01/23/25 01/23/25 22:59 06:59 14:59 Intake Total 600 / 828.6 211.333 / 1039.933 Output Total 8 / 2078 200 / 2278 Balance -1478 / -1249.4 11.333 / -1238.067 Weight last 48 hrs Weight 136 lb 10.986 oz Weight 146 lb 9.718 oz Weight 145 lb 8.081 oz Physical Exam 2 Chest: OTHER: Do not dialysis catheter in the right upper chest, dressing was replaced, no evidence of active bleeding there was some blood soiling of the padding around the catheter. Neck wound was evaluated no evidence of a hematoma or active bleeding Urinary Catheter Management: Swain: Cath Placed During This Visit: yes Reason for Continuing Indwelling Catheter: Accurate Measurement of Urinary Output in Critically Ill Patients Urinary Catheter Date of Insertion: 01/12/25 Urinary Catheter Time of Insertion: 21:00 Data 01/23/25 04:25 01/23/25 04:25 A&P Assessment and plan (1) Septic shock: (2) Encephalopathy: (3) Liver dysfunction: (4) Acute kidney injury: Plan Patient showing good progression after placement of tunneled dialysis catheter. I recommend to hold heparin at least until noon today to complete 24 hours without anticoagulation to prevent bleeding from the catheter insertion site. Left groin catheter can be removed after dialysis confirms that tunneled dialysis catheter is completely functional. Alternatively if patient will be transition to the outpatient setting before next dialysis is okay to remove the groin catheter today. At this point General Surgery signs off. Please reconsult as needed PDMP PDMP Reviewed: Not Reviewed Attestations 2 Medical Necessity Statement*: Per medical team Coding Level of Care Code Acute Code for Chg Fwd Diagnoses Septic shock A41.9; R65.21 Encephalopathy G93.40 Liver dysfunction K76.89 Acute kidney injury N17.9
[2025-01-23] MEDS: budesonide 0.5 mg/2 mL Neb INHALATION ×2 (09:07→20:40)
--- NOTE | 2025-01-23 10:38 | PM.PN ---
Subjective Subjective: The patient was seen and examined in the ICU. The patient has been bleeding from his permacath since insertion yesterday at 10:30 AM. The patient is not very verbal. Says a few words awakens and responds to tactile stimuli. Not following commands. Not able to get a full review of systems due to poor mental status. Medications: Reviewed: Yes Medication Review Details: Current Medications Acetaminophen (Acetaminophen 325 Mg Tablet) 650 mg PO Q6H PRN PRN Reason: Mild/Mod Pain Or Temp >/= 101 Albuterol/Ipratropium (Ipratropium-Albuterol 3 Ml Neb) 3 ml INHALATION Q6H.RESP JOANNA Last Admin: 01/23/25 09:07 Dose: 3 ml Alteplase, Recombinant (Alteplase 1 Mg/Ml Sdv 2 Ml) 2 mg INTRACATH PRN PRN PRN Reason: DIALYSIS USE ONLY Budesonide (Budesonide 0.5 Mg/2 Ml Neb) 0.5 mg INHALATION BID.RESPIRATORY JOANNA Last Admin: 01/23/25 09:07 Dose: 0.5 mg Bumetanide (Bumetanide 0.25 Mg/Ml Sdv 10 Ml) 2 mg IVP Q12H JOANNA Last Admin: 01/23/25 08:37 Dose: 2 mg Chlorhexidine Gluconate (Chlorhexidine Gluconate 4% Btl 118 Ml) 1 applic TOPICAL DAILY PRN PRN Reason: Intubated patient bathing Last Admin: 01/20/25 01:47 Dose: 1 applic Haloperidol Lactate (Haloperidol Inj 5 Mg/Ml Inj 1 Ml) 1 mg IM Q4H PRN PRN Reason: AGITATION Last Admin: 01/14/25 12:08 Dose: 1 mg Heparin Sodium (Porcine) (Heparin 5,000 Unit/Ml Inj 1 Ml) 0 unit IVP PRN PRN; Protocol PRN Reason: Heparin Weight Based Protocol -Subsequent Bolus Last Admin: 01/22/25 02:01 Dose: 1,400 unit Heparin Sodium (Porcine) (Heparin, Porcine 1,000 Unit/Ml Inj 10 Ml) 1,000 unit IV PRN PRN PRN Reason: clotting Heparin Sodium/Sodium Chloride (Heparin Drip) 25,000 unit in 500 mls @ 0 mls/hr IV CONT JOANNA; Protocol Last Titration: 01/22/25 10:38 Dose: 0 unit/kg/hr, 0 mls/hr Albumin Human (Albumin) 25 g in 100 mls @ 60 mls/hr IV Q8H [facility] Last Admin: 01/23/25 01:10 Dose: 60 mls/hr Piperacillin Sod/Tazobactam (Sod 3.375 gm/ Sodium Chloride) 50 mls @ 12.5 mls/hr IV Q12H [facility]; Protocol Last Admin: 01/23/25 05:21 Dose: 12.5 mls/hr Dexmedetomidine/Sodium Chloride (Precedex) 400 mcg in 100 mls @ 0 mls/hr IV .Q0M JOANNA; Protocol Last Titration: 01/21/25 08:12 Dose: Infused Sodium Chloride (Sodium Chloride 0.9%) 1,000 mls @ 0 mls/hr IV .Q0M PRN PRN Reason: hypotension or symptomatic Albumin Human (Albumin) 12.5 gm in 50 mls @ 60 mls/hr IV PRN PRN PRN Reason: Hypotension and/or symptomatic Amino Acids/Electrolytes/Dextrose (Clinimix E 4.25%-5%) 1,000 mls @ 42 mls/hr IV .[id number] [facility] Last Infusion: 01/23/25 01:16 Dose: 30 mls/hr Lanolin (Lanolin Oint 7 Gm) 1 applic TOPICAL PRN PRN PRN Reason: DRYNESS Last Admin: 01/20/25 01:47 Dose: 1 applic Lorazepam (Lorazepam 2 Mg/Ml Inj 1 Ml) 2 mg IM Q4H PRN; Protocol PRN Reason: ALCOHOL WITHDRAWAL Lorazepam (Lorazepam 2 Mg/Ml Inj 1 Ml) 2 mg IVP PRN PRN; Protocol PRN Reason: WITHDRAWAL Last Admin: 01/12/25 22:24 Dose: 2 mg Methylprednisolone Sodium Succinate (Methylprednisolone Sod Succ 40 Mg/Ml Inj) 40 mg IVP BID [facility] Last Admin: 01/23/25 08:37 Dose: 40 mg Metoprolol Tartrate (Metoprolol Tartrate 1 Mg/1 Ml Sdv 5 Ml) 2.5 mg IVP Q12H [facility] Last Admin: 01/22/25 23:17 Dose: 2.5 mg Ondansetron HCl (Ondansetron 2 Mg/Ml Sdv 2 Ml) 4 mg IVP Q8H PRN PRN Reason: vomiting, or N/V if npo Pantoprazole Sodium (Pantoprazole 40 Mg Sdv) 40 mg IVP DAILY JOANNA Last Admin: 01/23/25 08:37 Dose: 40 mg Vitals/I&O/Wt Last Vital Signs Temp 98.2 F 01/23/25 07:00 Pulse 93 01/23/25 09:21 Resp 18 01/23/25 09:05 BP 151/119 01/23/25 09:00 Pulse Ox 94 01/23/25 09:05 O2 Del Method High Flow Nasal Cannula 01/23/25 09:05 O2 Flow Rate 9 01/23/25 09:05 FiO2 35 01/20/25 12:00 01/22/25 01/23/25 01/23/25 22:59 06:59 14:59 Intake Total 600 / 828.6 211.333 / 1039.933 Output Total 2078 / 2078 200 / 2278 Balance -1478 / -1249.4 11.333 / -1238.067 Weight last 48 hrs Weight 62 kg Weight 66.5 kg Weight 66 kg Physical Exam Narrative: extubated, minimal UOP vs noted BP elevated heent- nc/at, +icteric neck supple lungs -scattered dull areas b/l heart regular ext + 1+ b/l leg edema rt IJ PC w/ bleeding neuro- responsive to pain, moves, talks a little Urinary Catheter Management: Swain: Cath Placed During This Visit: yes Reason for Continuing Indwelling Catheter: Accurate Measurement of Urinary Output in Critically Ill Patients Urinary Catheter Date of Insertion: 01/12/25 Urinary Catheter Time of Insertion: 21:00 Data 01/23/25 04:25 01/23/25 04:25 A&P Assessment and plan (1) Acute kidney injury: 74 year old male, with a history of gastric resection, history of bilateral LE DVT, PE, who initially presented to the ER on 01/12/2025 complaining og generalized weakness, falls, myalgias. he was previously on Eliquis; however, he has had difficulty obtaining Eliquis and had not taken Eliquis for 2 weeks prior to presentation. On presentation, he was found to be Influenza A positive and was hypotensive, requirin Levophed. CT chest PE protocol revealed a PE and his TTE revealed right ventricular strain. Patient subsequently developed respiratory failure and was intubated. He was weaned off LEvophed, but has been requiring dobutamine. He became anuric with a rising creatinine, prompting a nephrology consult. cr on admission was 1.4 mg/dl 1. [place] -presumed ATN versus renal vein thrombosis -no signs of renal recovery -did not urinate w/ diuretic s/p HD yesterday 2. anemia- hgb slowly dropping- give epo, iron studies has target cells as per hospitalist -bleeding from PC. can not stoping a/c as he has a large PE 3. met acidosis-repeat abg w/ metabolic acidosis and resp compensation 4. encephalopathic - hypercalcemia- low ca bath. no vit d binders lower steroids as possible calcitonin x doses 5. Suspected aspiration vs viral/bacterial pneumonia.- Continue Zosyn 3.375 grams IV q12h. per hospitalist s/p tamiflu 6. inc bilirubin- RUQ abd us seen and examined w/ AIDE of RN- usinf A/V equipment Plan as above PDMP PDMP Reviewed: Not Reviewed Attestations Medical Necessity Statement*: ams, pe, bleeding, hypercalcemia, [place] Time Spent in Patient Care: Greater than 35 minutes (>than 50% of time spent in counselling and/or direct pt care on unit). Coding Level of Care Code Acute Code for [facility] Diagnoses Acute kidney injury N17.9
--- NOTE | 2025-01-23 10:48 | USR_ITS ---
PROCEDURE INFORMATION: Exam: US Abdomen, Limited; Right Upper Quadrant Exam date and time: 01/23/2025 4:58 PM Age: 74 years old Clinical indication: Other: Elevated lfts; Additional info: Increase bili and lft. Need a ruq abdominal US TECHNIQUE: Imaging protocol: Real time ultrasound of the abdomen with image documentation. Limited exam focused on the right upper quadrant. COMPARISON: US gall bladder [id number] 01/12/2025 5:33 PM FINDINGS: Liver: Normal. No masses. Gallbladder: Per technologist patient is sedated and ultrasonographic Cohn's sign was not assessed. Gallbladder wall is significantly thickened measuring up to 11 mm. Pericholecystic fluid is present. Multiple small layering gallstones and gallbladder sludge. Biliary ducts: Liver demonstrates mild intrahepatic biliary ductal dilatation. Two simple hepatic cysts are noted on provided images and measure up to 1.0 cm. Pancreas: Pancreas is not visualized. Right kidney: Right kidney measures approximately 5.0 x 4.9 x 7.9 cm. 2.0 cm simple cyst is present. Portal venous: Main portal vein is patent. Intraperitoneal space: Moderate ascites. US/US abdomen limited [id number] IMPRESSION: 1. Severely thickened gallbladder with pericholecystic fluid, small stones and sludge. Constellation of findings consistent with acute cholecystitis, reactive changes due to ascites would be less likely. 2. Mild intrahepatic biliary ductal dilatation. 3. Moderate ascites. 4. 2.0 cm simple right renal cyst. No further imaging follow-up is required.
[2025-01-23] MEDS: metoprolol tartrate 1 mg/1 mL SDV 5 mL 2.5 MG IVP ×2 (11:40→23:18)
[2025-01-23] MEDS: calcitonin,salmon 200 unit/mL SDV 2mL 100 UNIT SUBCUT ×2 (11:45→18:20)
[2025-01-23 12:23] LABS: Parathyroid Hormone 73.3 pg/mL (15-65)
[2025-01-23 12:47] LABS: Calcium 11.4 mg/dL (8.5-10.5)
--- NOTE | 2025-01-23 12:59 | PM.PN ---
Subjective Subjective: continues to be encephalopathic, lethargic, speaks yes or no, follows commands to squeeze fingers but not much else. Medications: Reviewed: Yes Medication Review Details: Current Medications Acetaminophen (Acetaminophen 325 Mg Tablet) 650 mg PO Q6H PRN PRN Reason: Mild/Mod Pain Or Temp >/= 101 Albuterol/Ipratropium (Ipratropium-Albuterol 3 Ml Neb) 3 ml INHALATION Q6H.RESP JOANNA Last Admin: 01/23/25 09:07 Dose: 3 ml Alteplase, Recombinant (Alteplase 1 Mg/Ml Sdv 2 Ml) 2 mg INTRACATH PRN PRN PRN Reason: DIALYSIS USE ONLY Budesonide (Budesonide 0.5 Mg/2 Ml Neb) 0.5 mg INHALATION BID.RESPIRATORY JOANNA Last Admin: 01/23/25 09:07 Dose: 0.5 mg Bumetanide (Bumetanide 0.25 Mg/Ml Sdv 10 Ml) 2 mg IVP Q12H JOANNA Last Admin: 01/23/25 08:37 Dose: 2 mg Chlorhexidine Gluconate (Chlorhexidine Gluconate 4% Btl 118 Ml) 1 applic TOPICAL DAILY PRN PRN Reason: Intubated patient bathing Last Admin: 01/20/25 01:47 Dose: 1 applic Haloperidol Lactate (Haloperidol Inj 5 Mg/Ml Inj 1 Ml) 1 mg IM Q4H PRN PRN Reason: AGITATION Last Admin: 01/14/25 12:08 Dose: 1 mg Heparin Sodium (Porcine) (Heparin 5,000 Unit/Ml Inj 1 Ml) 0 unit IVP PRN PRN; Protocol PRN Reason: Heparin Weight Based Protocol -Subsequent Bolus Last Admin: 01/22/25 02:01 Dose: 1,400 unit Heparin Sodium (Porcine) (Heparin, Porcine 1,000 Unit/Ml Inj 10 Ml) 1,000 unit IV PRN PRN PRN Reason: clotting Heparin Sodium/Sodium Chloride (Heparin Drip) 25,000 unit in 500 mls @ 0 mls/hr IV CONT JOANNA; Protocol Last Titration: 01/22/25 10:38 Dose: 0 unit/kg/hr, 0 mls/hr Albumin Human (Albumin) 25 g in 100 mls @ 60 mls/hr IV Q8H JOANNA Last Admin: 01/23/25 01:10 Dose: 60 mls/hr Piperacillin Sod/Tazobactam (Sod 3.375 gm/ Sodium Chloride) 50 mls @ 12.5 mls/hr IV Q12H [facility]; Protocol Last Admin: 01/23/25 05:21 Dose: 12.5 mls/hr Dexmedetomidine/Sodium Chloride (Precedex) 400 mcg in 100 mls @ 0 mls/hr IV .Q0M JOANNA; Protocol Last Titration: 01/21/25 08:12 Dose: Infused Sodium Chloride (Sodium Chloride 0.9%) 1,000 mls @ 0 mls/hr IV .Q0M PRN PRN Reason: hypotension or symptomatic Albumin Human (Albumin) 12.5 gm in 50 mls @ 60 mls/hr IV PRN PRN PRN Reason: Hypotension and/or symptomatic Amino Acids/Electrolytes/Dextrose (Clinimix E 4.25%-5%) 1,000 mls @ 42 mls/hr IV .[id number] [facility] Last Infusion: 01/23/25 01:16 Dose: 30 mls/hr Lanolin (Lanolin Oint 7 Gm) 1 applic TOPICAL PRN PRN PRN Reason: DRYNESS Last Admin: 01/20/25 01:47 Dose: 1 applic Lorazepam (Lorazepam 2 Mg/Ml Inj 1 Ml) 2 mg IM Q4H PRN; Protocol PRN Reason: ALCOHOL WITHDRAWAL Lorazepam (Lorazepam 2 Mg/Ml Inj 1 Ml) 2 mg IVP PRN PRN; Protocol PRN Reason: WITHDRAWAL Last Admin: 01/12/25 22:24 Dose: 2 mg Methylprednisolone Sodium Succinate (Methylprednisolone Sod Succ 40 Mg/Ml Inj) 40 mg IVP BID [facility] Last Admin: 01/23/25 08:37 Dose: 40 mg Metoprolol Tartrate (Metoprolol Tartrate 1 Mg/1 Ml Sdv 5 Ml) 2.5 mg IVP Q12H [facility] Last Admin: 01/22/25 23:17 Dose: 2.5 mg Ondansetron HCl (Ondansetron 2 Mg/Ml Sdv 2 Ml) 4 mg IVP Q8H PRN PRN Reason: vomiting, or N/V if npo Pantoprazole Sodium (Pantoprazole 40 Mg Sdv) 40 mg IVP DAILY [facility] Last Admin: 01/23/25 08:37 Dose: 40 mg Vitals/I&O/Wt Last Vital Signs Temp 98.2 F 01/23/25 07:00 Pulse 93 01/23/25 09:21 Resp 18 01/23/25 09:05 BP 151/119 01/23/25 09:00 Pulse Ox 94 01/23/25 09:05 O2 Del Method High Flow Nasal Cannula 01/23/25 09:05 O2 Flow Rate 9 01/23/25 09:05 FiO2 35 01/20/25 12:00 01/22/25 01/23/25 01/23/25 22:59 06:59 14:59 Intake Total 600 / 828.6 311.333 / 1139.933 Output Total 8 / 2078 200 / 2278 Balance -1478 / -1249.4 111.333 / -1138.067 Weight last 48 hrs Weight 62 kg Weight 66.5 kg Weight 66 kg Physical Exam Narrative: General: lethargic, opens eyes to calling name and holds fingers but not much else. HEENT: PERRLA, pupils bilaterally equal and reactive, pallors not present Chest: scattered crackles B/L CVS: S1-S2 regular, no murmurs, no tachycardia, no gallops, no rubs Abdomen: Soft, nontender, non distended Neuro: lethargic, obtunded, follows some commands but inconsistent. Answers yes or no Urinary Catheter Management: Swain: Cath Placed During This Visit: yes Reason for Continuing Indwelling Catheter: Accurate Measurement of Urinary Output in Critically Ill Patients Urinary Catheter Date of Insertion: 01/12/25 Urinary Catheter Time of Insertion: 21:00 Data 01/23/25 04:25 01/23/25 04:25 A&P Assessment and plan (1) Obstructive cardiovascular shock: (2) Hypoxic respiratory failure: (3) Pulmonary embolus: (4) Influenza A: (5) Pneumonia: (6) Acute kidney injury: (7) Liver dysfunction: (8) Lymphadenopathy: (9) Elevated lactic acid level: (10) Acute on chronic right-sided heart failure: (11) Pulmonary HTN: (12) Encephalopathy: Plan Acute Hypoxemic Respiratory Failure- etiology is multi-factorial -Secondary to pneumonia, pulmonary emboli, fluid overload in setting of renal failure. Patient was on mechanical ventilation until he was Extubated on 01/20.Currently on 8L via NC. Does not appear to be in any respiratory distress - Fluid management with HD Plan: - Continue to wean oxygen as tolerated - Keep head of bed > 30 degrees, high risk for aspiration - Made NPO again - ST consult in am - Repeat Chest xray and ABG if again worsening respiratory status - Has been on solu-medrol as well - decreased to BID - Will maintain for now and once oxygen requirement improve de-escalate to daily and or oral taper Acute Pulmonary Emboli with Cor Pulmonale Secondary to acute right heart failure in the setting of multiple pulmonary emboli and pulmonary HTN. - Off pressors since 01/15/2025. TTE showed dilated RV/RA, RVSP 40-45 mmHg. Plan: - Maintain euvolemia, avoid fluid overload. - Optimize RV afterload reduction. - On heparin drip once able to take PO can consider change to Eliquis Sepsis due to Pneumonia - Suspected aspiration vs viral/bacterial pneumonia. On broad-spectrum antibiotics. Procalcitonin >100 on admission. Patient has been on a prolonged course of antibiotics. Currently noted to have increasing leukocytosis which is likely due to steroids. Culture remained negative. No longer hypothermic. Off bear hugger. Plan: - Continue Zosyn 3.375 grams IV q12h. Plan to de-escalate in next few days - Repeat cultures if febrile - Will consider de-escalation of abx Acute Kidney Injury/Failure now progressed to ESRD requiring HD - Likely secondary to multi-organ failure and cardiogenic shock. Required initiation of dialysis. Remained aneuric. Not likely to recover - Currently has a temp HD catheter - Per nephrology patient will likley be HD dependent Plan: - Continue dialysis per nephrology recommendations. - Will need surgery consult for PermCath placement however no surgery coverage available today - Please consult Sx in am for line placement Influenza A Infection - Positive influenza A testing on admission. - Plan: DC tamiflu Encephalopathy - Multi-factorial - likely components of toxic/metabolic encephalopathy and hypoxemia. - Slowing improving, wax and waning Plan: - Haldol IM PRN for agitation - Avoid benzodiazepines if possible. Gastric Cancer - History of gastric cancer with prior resection. No evidence of acute issues on imaging. Plan: - No further work up inpatient FEN - Made NPO again due to risk of aspiration Plan: - ST consult in am Deconditioning - PT/OT consult in am DVT Prophylaxis - Currently on heparin drip for treatment of pulmonary emboli. Code Status - Full code January 22, 2025 Patient is planned for placement of a tunneled HD cath today. Currently he has a right jugular CVC in place. This has been in for over 10 days at this point. Will remove jugular CVC today. Alternate IV access to be obtained by placement of a PICC line. Patient has had waxing and waning mentation. Failed a swallow evaluation yesterday. He is again very lethargic today. Will start TPN for nutrition. If mentation remains poor and patient is unable to swallow, may need PEG. Head CT on admission was without any acute intracranial findings. There was noted chronic small vessel disease. Noted to have target cells schistocytes on CBC on January 20, 2025. Elevated T. bili 7.0. Low hemoglobin ranging between 8.2-9. Concern for potential hemolysis as contributing. Check peripheral smear. Check indirect bili, haptoglobin LDH reticulocyte count. Unlikely to have sickle cell disease given no prior history of the same. Brother Mateo denies any known history of sickle cell anemia. Unlikely to be a sickling crisis currently. Continue steroids methylprednisolone 40 mg IV every 12 hours until results of hemolysis labs are available. Continue dialysis per nephrology. Appreciate recommendations. February 02, 2025 Patient underwent placement of tunneled HD catheter yesterday into the right chest wall. Right jugular central line has since been removed. Patient noted to have bleeding around the insertion site therefore heparin drip has remained on hold. Hemoglobin noted to be at 8.6 today. Similar range previously. PICC line planned today. Patient is on peripheral nutrition currently, we will change to TPN once PICC line is placed. If patient remains encephalopathic as he is today with no improvement over the next 24 to 48 hours, will likely need PEG for oral nutrition. Cause of persisting encephalopathy not entirely clear. Since extubation patient has remained persistently encephalopathic. He opens eyes to calling name, will squeeze fingers, today he was able to reply yes or no. However is not alert enough to try to orally feed him. Differentials for persisting encephalopathy include possible CVA. CT head from admission was unremarkable. Will check MRI of the brain today. During initial course appeared that patient may have multifactorial encephalopathy related to uremia, acute influenza infection, possibly viral encephalitis however continues to be persistently encephalopathy. Given history of long-term alcohol use, consideration for Wernicke's. Add thiamine to TPN. Additionally continues to have persistently elevated T. bili of 7 range. Mostly direct fraction. LDH mildly elevated. Haptoglobin low. Schistocytes target cells noted on manual differential. Peripheral smear ordered yesterday is currently pending. Possibility of hemolysis considered, however with direct fraction elevated consider this to be less likely. Low haptoglobin may be related to liver dysfunction. However continues to have persistent AST ALT are downtrending today elevated T. bili. Currently on steroids for possibility of autoimmune hemolysis. Reduce methylprednisolone 40 mg every 24 hours today Patient has had persisting leukocytosis during course of admission and spite of being on empiric antibiotics. Broadening of antibiotics does not appear to have made much difference. Discontinue antibiotics today and closely monitor. He is afebrile currently. Noted to have bilateral mediastinal lymphadenopathy of unclear significance. Soft tissue swelling is encasing the pulmonary arteries on CT from admission. Patient has a history of gastric malignancy. Ideally would need to have a biopsy to determine the nature of lymphadenopathy, However we do not have pulmonology services available to perform bronchoscopic guided ultrasound biopsy. Will defer this to outpatient. In the interim, noninvasive infectious evaluation to include histoplasma urine antigen, histoplasma antibody, Coccidioides antibody, QuantiFERON screen. HIV sero status is negative. Heparin drip to resume when okay per surgery for PE. Continues to be on 9 L/min supplemental O2. Likely hypoxia is related to PE and right heart strain. PDMP PDMP Reviewed: Not Reviewed Attestations Medical Necessity Statement*: TPN, PICC line, consideration for PEG, iv steroids, D/c abx, MRI head for persisting encephalopathy, add thiamine Coding Level of Care Code Acute Code for Chg Fwd High MDM includes number and complexity of problems actively addressed during encounter, amount and/or complexity of data reviewed/ordered and described risk of complication, morbidity or mortality of management as documented Diagnoses Obstructive cardiovascular shock R57.8 Hypoxic respiratory failure J96.91 Pulmonary embolus I26.99 Influenza A J10.1 Pneumonia J18.9 Acute kidney injury N17.9 Liver dysfunction K76.89 Lymphadenopathy R59.1 Elevated lactic acid level R79.89 Acute on chronic right-sided heart failure I50.813 Pulmonary HTN I27.20 Encephalopathy G93.40
[2025-01-23] MEDS: glycerin adult supp 1 EACH PR (13:05)
--- NOTE | 2025-01-23 13:23 | XR_ITS ---
WS: [id number] PORTABLE CHEST HISTORY: post PICC insertion COMPARISON: None available. Left-sided PICC line is attempted. LEFT PICC line extends along the LEFT lateral mediastinum before attempting to cross the midline. This may be within a left- sided SVC or cardinal vein. Venous line is not extending across the midline to the SVC. Bilateral hazy opacifications from pneumonia. LEFT apical soft tissue capping, unchanged. Right-sided dialysis catheter. Cardiac size: Mildly enlarged cardiac silhouette. Mediastinum/Aorta: Mild atherosclerosis aorta. No osseous abnormality seen. XR/XR chest 1V portable [id number] IMPRESSION: Unsuccessful attempt at left-sided PICC line. PICC line does not cross the midl ine to the SVC. PICC line was removed.
[2025-01-23 15:02] LABS: Ammonia 27 umol/L (16-60)
--- NOTE | 2025-01-23 16:02 | PICC.NOTE ---
Attempted PICC insertion to left arm. Upon xray, LEFT PICC line extends along the LEFT lateral mediastinum before attempting to cross the midline. This may be within a left-sided SVC or cardinal vein. Venous line is not extending across the midline to the SVC. Failed attempt. Line removed. Attempted PICC to right arm. Line unable to pass right shoulder. Line removed. Dr. Dang notified of failed PICC insertion.
--- NOTE | 2025-01-23 20:46 | PM.CONSULT ---
Providers/Reason For Consult Consulting Physician/Specialty*: Dr. Rodarte general surgery Reason for Consult*: Cholecystitis and PEG tube Attending Physician: Opal Dang MD History of Present Illness History of Present Illness Edgard Slater is a 74 year old male in multiple organ failure most likely secondary to infectious source. Patient has had a complicated hospital course. Surgery consulted for acute cholecystitis and to consider PEG placement. Patient is in renal failure. LFTs have deteriorated with T. bili of 7. Too sick to perform MRCP. Not an operative candidate at this point. Medications/Allergies Home Medications ?Medication ?Instructions ?Recorded ?Confirmed ?Last Taken ?Type albuterol sulfate 90 mcg/actuation 2 puff inhalation QID PRN 01/12/25 01/12/25 Unknown History aerosol inhaler Shortness Of Breath Or Wheezing amlodipine 5 mg-benazepril 10 mg 1 cap PO DAILY 01/12/25 01/12/25 Unknown History capsule apixaban 5 mg tablet (Eliquis) 5 mg PO BID 01/12/25 01/12/25 Unknown History cholecalciferol (vitamin D3) 125 125 mcg PO DAILY 01/12/25 01/12/25 Unknown History mcg (5,000 unit) tablet (Vitamin D3) cyanocobalamin (vitamin B-12) 1,000 mcg SUBCUT Q30D 01/12/25 01/12/25 10/14/24 History 1,000 mcg/mL injection solution furosemide 20 mg tablet 20 mg PO DAILY 01/12/25 01/12/25 Unknown History omeprazole 40 mg capsule,delayed 40 mg PO DAILY 01/12/25 01/12/25 Unknown History release potassium chloride 8 mEq 8 meq PO DAILY 01/12/25 01/12/25 Unknown History capsule,extended release Allergies Allergy/AdvReac Type Severity Reaction Status Date / Time No Known Allergies Allergy Verified 01/12/25 09:38 Current Medications Generic Name Dose Route Start Last Admin Trade Name Freq PRN Reason Stop Dose Admin Albuterol/Ipratropium 3 ml 01/13/25 14:00 01/23/25 20:40 Ipratropium-Albuterol 3 Ml Neb INHALATION 3 ml Q6H.RESP JOANNA Administration Budesonide 0.5 mg 01/13/25 20:00 01/23/25 20:40 Budesonide 0.5 Mg/2 Ml Neb INHALATION 0.5 mg BID.RESPIRATORY JOANNA Administration Bumetanide 2 mg 01/18/25 08:00 01/23/25 19:38 Bumetanide 0.25 Mg/Ml Sdv 10 Ml IVP 2 mg Q12H JOANNA Administration Calcitonin [place] 100 unit 01/23/25 10:50 01/23/25 18:20 Calcitonin,[place] 200 Unit/Ml Sdv 2ml SUBCUT 01/24/25 18:01 100 unit BID JOANNA Administration Chlorhexidine Gluconate 1 applic 01/15/25 02:07 01/20/25 01:47 Chlorhexidine Gluconate 4% Btl 118 Ml TOPICAL 1 applic DAILY PRN Administration Intubated patient bathing Glycerin 1 each 01/23/25 12:45 01/23/25 13:05 Glycerin Adult Supp [place] 1 each DAILY JOANNA Administration Haloperidol Lactate 1 mg 01/13/25 12:18 01/14/25 12:08 Haloperidol Inj 5 Mg/Ml Inj 1 Ml IM 1 mg Q4H PRN Administration AGITATION Heparin Sodium (Porcine) 0 unit 01/12/25 09:00 01/22/25 02:01 Heparin 5,000 Unit/Ml Inj 1 Ml IVP 1,400 unit PRN PRN Administration Heparin Weight Based Protocol -Subsequent Bolus Protocol Heparin Sodium/Sodium Chloride 25,000 unit in 500 mls @ 0 mls/hr 01/12/25 09:00 01/22/25 10:38 Heparin Drip IV 0 unit/kg/hr CONT JOANNA 0 mls/hr Titration Protocol Per Protocol Amino Acids/Electrolytes/Dextrose 1,000 mls @ 42 mls/hr 01/22/25 17:00 01/23/25 01:16 Clinimix E 4.25%-5% IV 30 mls/hr .[id number] JOANNA Infusion Lanolin 1 applic 01/18/25 17:30 01/20/25 01:47 Lanolin Oint 7 Gm TOPICAL 1 applic PRN PRN Administration DRYNESS Metoprolol Tartrate 2.5 mg 01/21/25 23:35 01/23/25 11:40 Metoprolol Tartrate 1 Mg/1 Ml Sdv 5 Ml IVP 2.5 mg Q12H JOANNA Administration Pantoprazole Sodium 40 mg 01/14/25 17:35 01/23/25 08:37 Pantoprazole 40 Mg Sdv IVP 40 mg DAILY JOANNA Administration PFSH Acute PFSH: Medical History HTN (hypertension) PE (pulmonary thromboembolism) DVT (deep venous thrombosis) Gastric cancer Surgical History H/O resection of stomach Social History (Updated 01/12/25 @ 14:25 by Sea Shepherd MD) Smoking and tobacco/nicotine status: former use of tobacco/nicotine Alcohol intake: current Alcohol use comment: States has been trying to quit, has not drank in 2 months Substance/Drug Use: never Household members: significant other Vitals/I&O/Wt Last Vital Signs Temp 98.2 F 01/23/25 07:00 Pulse 89 01/23/25 20:40 Resp 20 H 01/23/25 20:40 BP 134/86 01/23/25 18:00 Pulse Ox 95 01/23/25 20:40 O2 Del Method High Flow Nasal Cannula 01/23/25 20:40 O2 Flow Rate 8 01/23/25 20:40 FiO2 35 01/20/25 12:00 01/23/25 01/23/25 01/23/25 06:59 14:59 22:59 Intake Total 311.333 / 1139.933 Output Total 200 / 2278 50 / 50 Balance 111.333 / -1138.067 -50 / -50 Weight last 48 hrs Weight 136 lb 10.986 oz Weight 146 lb 9.718 oz Weight 145 lb 8.081 oz Physical Exam Narrative: Encephalopathic Chest: Tachypneic on nasal cannula. Heart: Regular rate and rhythm. Abdomen: Soft, nontender, nondistended. Urinary Catheter Management: Swain: Cath Placed During This Visit: yes Reason for Continuing Indwelling Catheter: Accurate Measurement of Urinary Output in Critically Ill Patients Urinary Catheter Date of Insertion: 01/12/25 Urinary Catheter Time of Insertion: 21:00 Data 01/23/25 04:25 01/24/25 04:25 A&P Assessment and plan (1) Liver dysfunction: (2) Acute cholecystitis: (3) Malnutrition: Plan 74-year-old male with a complicated hospital course. Now multiorgan failure. Worsening liver function. Ultrasound findings consistent with acute cholecystitis. Not a surgical candidate. Recommend proceeding with IR percutaneous cholecystostomy tube. This could also provide biliary decompression in case patient has choledocholithiasis. With regards to feeding access he is currently not a good surgical candidate to perform a PEG tube. Once he stabilizes we can consider a PEG tube. PDMP PDMP Reviewed: Not Reviewed Coding Level of Care Code 85102 Diagnoses Liver dysfunction K76.89 Acute cholecystitis K81.0 Malnutrition E46 Time Spent (min) 30
[2025-01-23] MEDS: AA-Dex 4.25%-5% w/Lytes 1,000 ML 30 ML IV (23:33)
[2025-01-24] VITALS (38 sets, daily range): BP systolic 103–149; BP diastolic 78–112; PULSE 74–100; RESP 15–29; TEMP 35.8–36.8; O2SAT 86–100
[2025-01-24] MEDS: ipratropium-albuterol 3 mL Neb INHALATION ×4 (02:35→20:01)
--- NOTE | 2025-01-24 03:36 | XRR_ITS ---
PROCEDURE INFORMATION: Exam: XR Chest Exam date and time: 01/24/2025 4:02 AM Age: 74 years old Clinical indication: Cough and dyspnea; Additional info: Dyspnea/cough TECHNIQUE: Imaging protocol: Radiologic exam of the chest. Views: 1 view. COMPARISON: CR XR chest 1V portable [id number] 01/23/2025 1:02 PM FINDINGS: Tubes, catheters and devices: Right IJ central line is unchanged, and left upper extremity PICC line has been removed. Lungs: Patchy bilateral lower lung zone airspace disease, decreased on the right. Stable postoperative changes in the left upper lung. There are centrilobular emphysematous changes in the lung apices. Pleural spaces: Unremarkable. No pleural effusion. No pneumothorax. Heart/Mediastinum: Mild cardiomegaly. Bones/joints: Unremarkable. XR/XR chest 1V portable [id number] IMPRESSION: 1. Patchy bilateral lower lung zone airspace disease, decreased on the right. 2. Mild cardiomegaly. 3. Emphysema.
[2025-01-24] MEDS: lanolin oint 7 gm 1 APPLIC TOPICAL (03:40)
[2025-01-24 03:43] LABS: ABG PCO2 28.7 mmHg (35-45); ABG PH Result 7.44 (7.35-7.45); Alveolar-Arterial Oxygen Gradi 7.7 mmHg (5-10); Arterial Blood Gas Hematocrit 26.7 % (42-52); Base Excess ABG -4.1 mmol/L (-2.0-2.0); Blood Gas Allen Test Pos; Blood Gas Sample Site Radial, right; Blood Gas Sample Type Arterial; Carboxyhemoglobin 1.5 %THgb (0.4-20.1); HCO3 ABG 19.4 mmol/L (22-26); HGB O2 Sat 81.4 % (95-100); Ionized Calcium Level - ABG 1.3 mmol/L (1.1-1.4); Methemoglobin 1.7 % (0.4-1.5); Oxygen Device NC; Oxygen Saturation ABG 84.1; PO2 ABG 51.8 mmHg (80.0-100.0); Total Hemoglobin 8.7 g/dL (14-18)
[2025-01-24 04:31] LABS: Glucose Point of Care 419 mg/dL (70-110)
[2025-01-24 05:09] LABS: Alanine Aminotransferase 53 U/L (0-41); Albumin Level 5.9 g/dL (3.5-5.2); Alkaline Phosphatase 63 U/L (40-130); Anion Gap 32.1 (5-19); Aspartate Amino Transferase 31 U/L (0-40); Calcium 11.2 mg/dL (8.5-10.5); Carbon Dioxide 18 mmol/L (22-29); Chloride 97 mmol/L (98-107); Globulin 1.7 g/dL (1.3-4.6); Glucose 393 mg/dL (65-115); Magnesium 2.2 mg/dL (1.7-2.3); Osmolality Calculated 346 mOsm/kg (285-295); Potassium 4.1 mmol/L (3.5-5.1); Sodium 143 mmol/L (136-145); Total Protein 7.6 g/dL (6.6-8.7)
[2025-01-24 05:29] LABS: Blood Urea Nitrogen 106 mg/dL (8-23)
[2025-01-24 05:30] LABS: Total Bilirubin 7.7 mg/dL (0.15-1.2)
--- NOTE | 2025-01-24 07:21 | PC.NURSE ---
330- Patient oxygen requirement increasing. Dr bertrand notified, orders for chest xray and abg given.
[2025-01-24] MEDS: budesonide 0.5 mg/2 mL Neb INHALATION ×2 (08:24→20:01)
[2025-01-24 08:25] LABS: Glucose Point of Care 443 mg/dL (70-110)
[2025-01-24] MEDS: pantoprazole 40 mg SDV IVP (08:56)
[2025-01-24] MEDS: bumetanide 0.25 mg/mL SDV 10 mL 2 MG IVP (08:56)
[2025-01-24] MEDS: methylPREDNISolone sod succ 40 mg/mL INJ IVP (08:56)
[2025-01-24] MEDS: glycerin adult supp 1 EACH PR (08:57)
[2025-01-24 09:35] LABS: Ketone (Acetest) Serum Negative (Negative)
[2025-01-24] MEDS: insulin regular-human 100 units/1 mL 10 UNIT IVP (09:58)
[2025-01-24] MEDS: calcitonin,salmon 200 unit/mL SDV 2mL 100 UNIT SUBCUT ×2 (09:59→19:22)
[2025-01-24] MEDS: meropenem 500 mg SDV IVP (10:04)
[2025-01-24] MEDS: vancomycin 1,500 MG/300 ML PIGGYBACK 200 MG IV (10:42)
--- NOTE | 2025-01-24 10:48 | PM.PN ---
Subjective Subjective: The patient is on high flow oxygen has a right dialysis catheter in the left groin dialysis catheter. He is lethargic and minimally responsive to pain not verbal Medications: Reviewed: Yes Medication Review Details: Current Medications Albuterol/Ipratropium (Ipratropium-Albuterol 3 Ml Neb) 3 ml INHALATION Q6H.RESP JOANNA Last Admin: 01/24/25 08:24 Dose: 3 ml Alteplase, Recombinant (Alteplase 1 Mg/Ml Sdv 2 Ml) 2 mg INTRACATH PRN PRN PRN Reason: DIALYSIS USE ONLY Budesonide (Budesonide 0.5 Mg/2 Ml Neb) 0.5 mg INHALATION BID.RESPIRATORY JOANNA Last Admin: 01/24/25 08:24 Dose: 0.5 mg Bumetanide (Bumetanide 0.25 Mg/Ml Sdv 10 Ml) 2 mg IVP Q12H JOANNA Last Admin: 01/24/25 08:56 Dose: 2 mg Calcitonin [place] (Calcitonin,[place] 200 Unit/Ml Sdv 2ml) 100 unit SUBCUT BID JOANNA Stop: 01/24/25 18:01 Last Admin: 01/24/25 09:59 Dose: 100 unit Chlorhexidine Gluconate (Chlorhexidine Gluconate 4% Btl 118 Ml) 1 applic TOPICAL DAILY PRN PRN Reason: Intubated patient bathing Last Admin: 01/20/25 01:47 Dose: 1 applic Glycerin (Glycerin Adult Supp) 1 each [place] DAILY JOANNA Last Admin: 01/24/25 08:57 Dose: 1 each Haloperidol Lactate (Haloperidol Inj 5 Mg/Ml Inj 1 Ml) 1 mg IM Q4H PRN PRN Reason: AGITATION Last Admin: 01/14/25 12:08 Dose: 1 mg Heparin Sodium (Porcine) (Heparin 5,000 Unit/Ml Inj 1 Ml) 0 unit IVP PRN PRN; Protocol PRN Reason: Heparin Weight Based Protocol -Subsequent Bolus Last Admin: 01/22/25 02:01 Dose: 1,400 unit Heparin Sodium (Porcine) (Heparin, Porcine 1,000 Unit/Ml Inj 10 Ml) 1,000 unit IV PRN PRN PRN Reason: clotting Heparin Sodium/Sodium Chloride (Heparin Drip) 25,000 unit in 500 mls @ 0 mls/hr IV CONT JOANNA; Protocol Last Titration: 01/22/25 10:38 Dose: 0 unit/kg/hr, 0 mls/hr Sodium Chloride (Sodium Chloride 0.9%) 1,000 mls @ 0 mls/hr IV .Q0M PRN PRN Reason: hypotension or symptomatic Amino Acids/Electrolytes/Dextrose (Clinimix E 4.25%-5%) 1,000 mls @ 42 mls/hr IV .[id number] [facility] Last Admin: 01/23/25 23:33 Dose: 30 mls/hr Albumin Human (Albumin) 12.5 gm in 50 mls @ 60 mls/hr IV PRN PRN PRN Reason: Hypotension and/or symptomatic Vancomycin HCl (Vancocin) 1,500 mg in 300 mls @ 200 mls/hr IV ONCE ONE Stop: 01/24/25 11:14 Last Admin: 01/24/25 10:42 Dose: 200 mls/hr Lanolin (Lanolin Oint 7 Gm) 1 applic TOPICAL PRN PRN PRN Reason: DRYNESS Last Admin: 01/24/25 03:40 Dose: 1 applic Lanolin (Lanolin Oint 7 Gm) 1 applic TOPICAL PRN PRN PRN Reason: DRYNESS Meropenem (Meropenem 500 Mg Sdv) 500 mg IVP Q24H [facility]; Protocol Last Admin: 01/24/25 10:04 Dose: 500 mg Methylprednisolone Sodium Succinate (Methylprednisolone Sod Succ 40 Mg/Ml Inj) 40 mg IVP Q24H [facility] Last Admin: 01/24/25 08:56 Dose: 40 mg Metoprolol Tartrate (Metoprolol Tartrate 1 Mg/1 Ml Sdv 5 Ml) 2.5 mg IVP Q12H [facility] Last Admin: 01/23/25 23:18 Dose: 2.5 mg Ondansetron HCl (Ondansetron 2 Mg/Ml Sdv 2 Ml) 4 mg IVP Q8H PRN PRN Reason: vomiting, or N/V if npo Pantoprazole Sodium (Pantoprazole 40 Mg Sdv) 40 mg IVP DAILY [facility] Last Admin: 01/24/25 08:56 Dose: 40 mg Vancomycin HCl (Vancomycin 1,000 Mg Sdv (Pharmacy Mix)) 0 mg XX PRN PRN PRN Reason: Pharmacy to Dose Vitals/I&O/Wt Last Vital Signs Temp 97.8 F 01/24/25 08:20 Pulse 97 01/24/25 10:11 Resp 22 H 01/24/25 10:11 BP 145/106 01/24/25 10:11 Pulse Ox 95 01/24/25 10:11 O2 Del Method Heated High Flow 01/24/25 08:24 O2 Flow Rate 45 01/24/25 08:24 FiO2 50 01/24/25 08:24 01/23/25 01/24/25 01/24/25 22:59 06:59 14:59 Intake Total 0 / 0 668.5 / 668.5 Output Total 50 / 50 0 / 50 Balance -50 / -50 668.5 / 618.5 Weight last 48 hrs Weight 60 kg Weight 59.5 g Weight 62 kg Weight 66.5 kg Physical Exam Narrative: high flow 02, minimal UOP vs noted BP elevated heent- nc/at, +icteric neck supple lungs -scattered dull areas b/l heart regular, +s1, s2 ext + 1+ b/l leg edema rt IJ PC and left femoral dialysis catheter neuro- minimally responsive to pain, lethargic Urinary Catheter Management: Swain: Cath Placed During This Visit: yes Reason for Continuing Indwelling Catheter: Accurate Measurement of Urinary Output in Critically Ill Patients Urinary Catheter Date of Insertion: 01/12/25 Urinary Catheter Time of Insertion: 21:00 Data 01/23/25 04:25 01/24/25 04:25 A&P Assessment and plan (1) Acute kidney injury: 74 year old male, with a history of gastric resection, history of bilateral LE DVT, PE, who initially presented to the ER on 01/12/2025 complaining og generalized weakness, falls, myalgias. he was previously on Eliquis; however, he has had difficulty obtaining Eliquis and had not taken Eliquis for 2 weeks prior to presentation. On presentation, he was found to be Influenza A positive and was hypotensive, requirin Levophed. CT chest PE protocol revealed a PE and his TTE revealed right ventricular strain. Patient subsequently developed respiratory failure and was intubated. He was weaned off LEvophed, but has been requiring dobutamine. He became anuric with a rising creatinine, prompting a nephrology consult. cr on admission was 1.4 mg/dl 1. [place] -presumed ATN versus renal vein thrombosis -no signs of renal recovery -did not urinate w/ diuretic can this be TTP/ HUS or atypical TMA- will send [id number] activity -most likely from liver disease. however would have heme see pt and review smear if no improvement repeat hd today and attempt tp remove fluids -will send Lupus labs Q if we should give eculizumab 2. anemia- hgb dropping- give epo, iron studies has target cells and low haptoglobon w/ high bili- c/w hemolyzing -bleeding from PC. can not stop a/c as he has a large PE -plts are dropping Q DIC 3. met acidosis-repeat abg w/ resp alkalosis from PE/ pna and metabolic acidosis from sepsis and [place]- check lactic acid -check urine for beta hydroxybuterate 4. encephalopathic - hypercalcemia- low ca bath. no vit d binders lower steroids as possible calcitonin x doses 5. Suspected aspiration vs viral/bacterial pneumonia.- Continue Zosyn 3.375 grams IV q12h. per hospitalist s/p tamiflu 6. xray noted- consider thoracentesis 6. inc bilirubin- RUQ abd us- 1. Severely thickened gallbladder with pericholecystic fluid, small stones and sludge. Constellation of findings consistent with acute cholecystitis, reactive changes due to ascites would be less likely. 2. Mild intrahepatic biliary ductal dilatation. 3. Moderate ascites. 4. 2.0 cm simple right renal cyst. No further imaging follow-up is required. seen and examined w/ AIDE of RN- usinf A/V equipment Plan as above PDMP PDMP Reviewed: Not Reviewed Attestations Medical Necessity Statement*: multiorgan failure Time Spent in Patient Care: Greater than 35 minutes Coding Level of Care Code Acute Code for Chg Fwd Diagnoses Acute kidney injury N17.9
--- NOTE | 2025-01-24 11:12 | PC.NURSE ---
Paused patients Vancomycin per dialysis nurse as it will dialyze off during dialysis
--- NOTE | 2025-01-24 11:27 | PC.HD ---
01/24/2025: Heparin-free dialysis treatment. Dr. Singh ordered a UF goal of 1500 mL. Prior to treatment initiation, he requested this RN attempt to remove more fluid as tolerated by patient. Currently attempting 2500 mL fluid removal. Will adjust as necessary to maintain appropriate blood pressures.
--- NOTE | 2025-01-24 12:19 | PC.NURSE ---
Held per verbal orders by Dr Dang while patient is receiving dialysis.
[2025-01-24 12:27] LABS: Reflex FDPQ test REFLEX FDP QUEST TES
[2025-01-24 12:31] LABS: Mean Corpuscular HGB Conc 34.1 g/dL (30-55); Mean Corpuscular Hemoglobin 33.7 pg (27-33); Mean Corpuscular Volume 98.9 fl (82-101); Platelet Count 76 10^3/cmm (157-399); Red Blood Count 2.73 10^6/uL (3.85-5.65); Red Cell Distribution Width 26.3 % (12.1-15.1); White Blood Count 26.46 10^3/uL (3.29-11.43)
--- NOTE | 2025-01-24 12:33 | PHA.VACGOAL ---
Vancomycin Goal - Goal Vancomycin Goal:: 15-20 mg/L Vancomycin Indication:: Pneumonia - Therapy Day of therpy:: Day []of [] . Actual body weight (kg): 60 kg - Data Labs: WBC 17.88 10^3/uL (3.29-11.43) H 01/23/25 04:25 Corrected WBC 13.1 10^3/cmm (4.8-10.8) H 01/23/25 04:25 RBC 2.44 10^6/uL (3.85-5.65) L 01/23/25 04:25 Hgb 8.30 g/dL (11.27-16.99) L 01/23/25 04:25 Hct 25.8 % (37-53) L 01/23/25 04:25 MCV 105.7 fl (82-101) H 01/23/25 04:25 MCH 34.0 pg (27-33) H 01/23/25 04:25 MCHC 32.2 g/dL (30-55) 01/23/25 04:25 RDW 26.6 % (12.1-15.1) H 01/23/25 04:25 Sodium 143 mmol/L (136-145) 01/24/25 04:25 Potassium 4.1 mmol/L (3.5-5.1) 01/24/25 04:25 Chloride 97 mmol/L (98-107) L 01/24/25 04:25 Carbon Dioxide 18 mmol/L (22-29) L 01/24/25 04:25 Anion Gap 32.1 (5-19) H 01/24/25 04:25 BUN 106 mg/dL (8-23) H* D 01/24/25 04:25 Creatinine 5.8 mg/dL (0.7-1.2) H* 01/24/25 04:25 GFR Calculation Not Reportable 01/24/25 04:25 Treatment plan:: new consult Regimen:: New start vancomycin for Pneumonia. No prior history of vancomycin found. Loading dose of 1500 mg ordered. Vancomycin level ordered for 01/25/25 @0930.
[2025-01-24 12:40] LABS: Glucose Point of Care 194 mg/dL (70-110)
[2025-01-24 12:43] LABS: INR 1.31 (0.8-1.2)
[2025-01-24 12:44] LABS: Partial Thromboplastin Time 37.7 SECONDS (23.9-36.7)
[2025-01-24 12:49] LABS: Lactate (Lactic Acid level) 2.6 mmol/L (0.5-2.2)
[2025-01-24 12:50] LABS: Complement C3 83 mg/dL (90-180)
[2025-01-24 12:56] LABS: D Dimer 8.91 ug/mLFEU (0-0.59)
[2025-01-24 13:03] LABS: Fibrinogen 77 mg/dL (174-498)
--- NOTE | 2025-01-24 13:40 | CTR_ITS ---
PROCEDURE INFORMATION: Exam: CTA Head Without And With Contrast, Arteriography Exam date and time: 01/24/2025 3:32 PM Age: 74 years old Clinical indication: Weakness; Additional info: Stroke, persistent encephalopathy, unable to get mri brain, concern TECHNIQUE: Imaging protocol: Computed tomographic angiography of the head without and with contrast. Exam focused on the arteries. 3D rendering (Not supervised by radiologist): MIP and/or 3D reconstructed images were created by the technologist. Radiation optimization: All CT scans at this facility use at least one of these dose optimization techniques: automated exposure control; mA and/or kV adjustment per patient size (includes targeted exams where dose is matched to clinical indication); or iterative reconstruction. Contrast material: OMNIPAQUE 350; Contrast volume: 100 ml; Contrast route: INTRAVENOUS (IV); COMPARISON: CT head wo con* [id number] 01/14/2025 3:06 PM RADIATION DOSE METRICS: Total DLP (mGy-cm): 956.66 FINDINGS: ANTERIOR CIRCULATION: Right internal carotid artery: Intracranial segment is patent with no significant stenosis or occlusion. No aneurysm. Right middle cerebral artery: No occlusion or significant stenosis. No aneurysm. Right anterior cerebral artery: No occlusion or significant stenosis. No aneurysm. Left internal carotid artery: Intracranial segment is patent with no significant stenosis. No aneurysm. Left middle cerebral artery: No occlusion or significant stenosis. No aneurysm. Left anterior cerebral artery: The left A1 segment of the DEBBI is not visualized. 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 POSTERIOR CIRCULATION: Right vertebral artery: No occlusion or significant stenosis. No aneurysm. Left vertebral artery: No occlusion or significant stenosis. No aneurysm. Basilar artery: No occlusion or significant stenosis. No aneurysm. Right posterior cerebral artery: No occlusion or significant stenosis. No aneurysm. Left posterior cerebral artery: No occlusion or significant stenosis. No aneurysm. HEAD: Brain: Involutional changes of the brain are stable with the comparison prior noncontrast CT. There is no midline shift or mass effect. No acute infarcts seen on CT. No acute hemorrhage. Cerebral ventricles: No ventriculomegaly. Bones: Unremarkable. No acute fracture. Paranasal sinuses: There is mild mucosal thickening in the paranasal sinuses with right maxillary and bilateral sphenoid sinus air-fluid levels. Mastoid air cells: No significant mastoid effusion. Soft tissues: Unremarkable. PROCEDURE INFORMATION: Exam: CTA Neck With Contrast Exam date and time: 01/24/2025 3:32 PM Age: 74 years old Clinical indication: Weakness; Additional info: Stroke, persistent encephalopathy, unable to get mri brain, concern TECHNIQUE: Imaging protocol: Computed tomographic angiography of the neck with contrast. Exam focused on the cervical segments of the vasculature. 3D rendering (Not supervised by radiologist): MIP and/or 3D reconstructed images were created by the technologist. Radiation optimization: All CT scans at this facility use at least one of these dose optimization techniques: automated exposure control; mA and/or kV adjustment per patient size (includes targeted exams where dose is matched to clinical indication); or iterative reconstruction. Contrast material: OMNIPAQUE 350; Contrast volume: 100 ml; Contrast route: INTRAVENOUS (IV); COMPARISON: CT angio chest w abd pel w con 01/12/2025 8:28 AM RADIATION DOSE METRICS: Total DLP (mGy-cm): 956.66 FINDINGS: Tubes, catheters and devices: There is a right-sided venous catheter in place. Right common carotid artery: No stenosis. No dissection or occlusion. Right internal carotid artery: No stenosis of the extracranial segment. No dissection or occlusion. Right external carotid artery: No visible occlusion. Left common carotid artery: No stenosis. No dissection or occlusion. Left internal carotid artery: The study is degraded by motion at the level of the carotid bifurcation. There are apparent intraluminal filling defects in the proximal left ICA for example on series 11, image 138 without significant stenosis suspicious for thrombus. No occlusion is seen. Left external carotid artery: No visible occlusion. Right vertebral artery: No stenosis. No dissection or occlusion. Left vertebral artery: No stenosis. No dissection or occlusion. Pulmonary arteries: Subsegmental left upper lobe pulmonary embolus on series 11, image 8 unchanged with comparison prior CT chest 01/12/2025. Soft tissues: No significant soft tissue swelling. Bones/joints: Previous anterior cervical spinal fusion changes C3-C6. Lungs: Emphysema in the lungs with apical bullous changes. Pleural spaces: Left apical calcified pleural plaque. CT/CT angio headneck* [id number] IMPRESSION: 1. No acute large vessel occlusion identified. 2. Possible acute maxillary and sphenoid sinusitis changes. IMPRESSION: There apparent intraluminal filling defects in the proximal left ICA suspicious for nonocclusive thrombus. The study is degraded by motion at this level in the differential diagnosis is mixing artifact. REFERENCES: NASCET CRITERIA. The degree of stenosis in the cervical segment of the internal carotid artery is based on NASCET criteria. Normal is no stenosis. Mild is less than 50% stenosis. Moderate is 50-69% stenosis. Severe is 70% to 99% stenosis. Total occlusion is no detectable patent lumen.
[2025-01-24 13:57] LABS: Slide Review Slide Review Perform
[2025-01-24 13:58] LABS: Absolute Segmented Neutrophil 22.5 10/cmm (1.6-7.1); Band Neutrophils Absolute 1.1 10^3/cmm (0.0-1.2); Eosinophils 0 %; Lymphocytes 2 %; Lymphocytes Absolute 0.5 10^3/cmm (1.2-3.4); Monocytes Absolute 1.3 10^3/cmm (0.1-0.6); Segmented Neutrophils 85 %; Total Cells Counted 100 (0-100)
[2025-01-24 13:59] LABS: Absolute Neutrophil 23.5 10^3/cmm (1.4-6.5); Anisocytosis 2+; Corrected White Blood Count 17.2 10^3/cmm (4.8-10.8); Giant Platelets 1+; Platelet Estimate Decreased (Normal); Poikilocytosis 1+; Polychromasia 1+; Target Cells 1+
[2025-01-24] MEDS: insulin lispro 100 unit/1 mL SUBCUT ×3 (14:18→22:37)
--- NOTE | 2025-01-24 14:33 | PC.SOCIAL ---
IMM Updated Provided pt a copy. Initialed, dated, & timed copy in chart.
[2025-01-24] MEDS: iohexol 350 mg/mL 500 mL Btl (per mL) IV (15:45)
[2025-01-24] MEDS: bivalirudin 250 MG in sodium chloride 0.9% 500 ML 30 MG IV (16:32)
--- NOTE | 2025-01-24 16:34 | PC.NURSE ---
Patient Bivalirudin started on IV pump. No IV pump settings for medication. Pump set in basic mode. All settings confirmed with charge nurse, who also notified pharmacy that particular dosing option is not available in IV pump settings. Pump set per orders and matched the MAR.
--- NOTE | 2025-01-24 16:37 | PC.HD ---
During dialysis, patient unable to maintain acceptable BPs despite interventions. Per Dr. Singh, 500 mL bolus administered. UF goal was 1500; 1000 mL removed.
[2025-01-24] MEDS: AA-Dex 8%-10% w/ lytes 1,000 ML with multivitamin inj 10 ML 42 ML IV (17:01)
[2025-01-24 17:25] LABS: Glucose Point of Care 216 mg/dL (70-110)
--- NOTE | 2025-01-24 17:39 | PM.ACPR ---
Procedure/Consent Time out: Time Out Performed: Yes Consent: Additional Consent Information: from brother Mateo Slater Acute Procedures Central Line Placement: Left Femoral: Time out performed: Yes Patient placed on monitor/pulse ox: Yes MD prep: mask, gown and gloves Central line prep: Povidone-Iodine 1%, Chlorhexidine scrub and sterile drapes applied Local anesthesia used: lidocaine 1% Amount of anesthesia used (ml): 5 Ultrasound used for placement: Yes Central line lumen inserted: triple Post procedure: sutured in place, good blood return, all ports aspirated, flushed, capped and sterile dressing applied Post procedure x-ray: other (not indicated) Patient tolerated procedure: well and no complications Complications: none Additional comments: intially attempted to place right CVC central line however unsuccessful as was unable to thread guidewire/guidewire and CVC catheter kinking. CVC eventually placed on the left femoral site. Epistaxis Control: Time out performed: Yes
--- NOTE | 2025-01-24 17:47 | P.PN_ITS ---
Subjective 2 Subjective: Clinically worsening today. Medications: Reviewed: Yes Medication Review Details: Current Medications Albuterol/Ipratropium (Ipratropium-Albuterol 3 Ml Neb) 3 ml INHALATION Q6H.RESP JOANNA Last Admin: 01/24/25 08:24 Dose: 3 ml Alteplase, Recombinant (Alteplase 1 Mg/Ml Sdv 2 Ml) 2 mg INTRACATH PRN PRN PRN Reason: DIALYSIS USE ONLY Budesonide (Budesonide 0.5 Mg/2 Ml Neb) 0.5 mg INHALATION BID.RESPIRATORY JOANNA Last Admin: 01/24/25 08:24 Dose: 0.5 mg Bumetanide (Bumetanide 0.25 Mg/Ml Sdv 10 Ml) 2 mg IVP Q12H JOANNA Last Admin: 01/24/25 08:56 Dose: 2 mg Calcitonin [place] (Calcitonin,Corinth 200 Unit/Ml Sdv 2ml) 100 unit SUBCUT BID JOANNA Stop: 01/24/25 18:01 Last Admin: 01/24/25 09:59 Dose: 100 unit Chlorhexidine Gluconate (Chlorhexidine Gluconate 4% Btl 118 Ml) 1 applic TOPICAL DAILY PRN PRN Reason: Intubated patient bathing Last Admin: 01/20/25 01:47 Dose: 1 applic Glycerin (Glycerin Adult Supp) 1 each HI DAILY JOANNA Last Admin: 01/24/25 08:57 Dose: 1 each Haloperidol Lactate (Haloperidol Inj 5 Mg/Ml Inj 1 Ml) 1 mg IM Q4H PRN PRN Reason: AGITATION Last Admin: 01/14/25 12:08 Dose: 1 mg Heparin Sodium (Porcine) (Heparin 5,000 Unit/Ml Inj 1 Ml) 0 unit IVP PRN PRN; Protocol PRN Reason: Heparin Weight Based Protocol -Subsequent Bolus Last Admin: 01/22/25 02:01 Dose: 1,400 unit Heparin Sodium (Porcine) (Heparin, Porcine 1,000 Unit/Ml Inj 10 Ml) 1,000 unit IV PRN PRN PRN Reason: clotting Heparin Sodium/Sodium Chloride (Heparin Drip) 25,000 unit in 500 mls @ 0 mls/hr IV CONT JOANNA; Protocol Last Titration: 01/22/25 10:38 Dose: 0 unit/kg/hr, 0 mls/hr Sodium Chloride (Sodium Chloride 0.9%) 1,000 mls @ 0 mls/hr IV .Q0M PRN PRN Reason: hypotension or symptomatic Amino Acids/Electrolytes/Dextrose (Clinimix E 4.25%-5%) 1,000 mls @ 42 mls/hr IV .[id number] [facility] Last Admin: 01/23/25 23:33 Dose: 30 mls/hr Albumin Human (Albumin) 12.5 gm in 50 mls @ 60 mls/hr IV PRN PRN PRN Reason: Hypotension and/or symptomatic Vancomycin HCl (Vancocin) 1,500 mg in 300 mls @ 200 mls/hr IV ONCE ONE Stop: 01/24/25 11:14 Last Admin: 01/24/25 10:42 Dose: 200 mls/hr Lanolin (Lanolin Oint 7 Gm) 1 applic TOPICAL PRN PRN PRN Reason: DRYNESS Last Admin: 01/24/25 03:40 Dose: 1 applic Lanolin (Lanolin Oint 7 Gm) 1 applic TOPICAL PRN PRN PRN Reason: DRYNESS Meropenem (Meropenem 500 Mg Sdv) 500 mg IVP Q24H [facility]; Protocol Last Admin: 01/24/25 10:04 Dose: 500 mg Methylprednisolone Sodium Succinate (Methylprednisolone Sod Succ 40 Mg/Ml Inj) 40 mg IVP Q24H [facility] Last Admin: 01/24/25 08:56 Dose: 40 mg Metoprolol Tartrate (Metoprolol Tartrate 1 Mg/1 Ml Sdv 5 Ml) 2.5 mg IVP Q12H [facility] Last Admin: 01/23/25 23:18 Dose: 2.5 mg Ondansetron HCl (Ondansetron 2 Mg/Ml Sdv 2 Ml) 4 mg IVP Q8H PRN PRN Reason: vomiting, or N/V if npo Pantoprazole Sodium (Pantoprazole 40 Mg Sdv) 40 mg IVP DAILY [facility] Last Admin: 01/24/25 08:56 Dose: 40 mg Vancomycin HCl (Vancomycin 1,000 Mg Sdv (Pharmacy Mix)) 0 mg XX PRN PRN PRN Reason: Pharmacy to Dose Vitals/I&O/Wt Last Vital Signs Temp 96.4 F L 01/24/25 16:34 Pulse 83 01/24/25 17:45 Resp 18 01/24/25 17:45 BP 123/96 01/24/25 16:34 Pulse Ox 96 01/24/25 17:45 O2 Del Method Heated High Flow 01/24/25 14:09 O2 Flow Rate 40 01/24/25 17:45 FiO2 50 01/24/25 17:45 01/24/25 01/24/25 01/24/25 06:59 14:59 22:59 Intake Total 668.5 / 668.5 96.667 / 96.667 1520 / 1616.667 Output Total 0 / 50 1999 Balance 668.5 / 618.5 96.667 / 96.667 -480 / -383.333 Weight last 48 hrs Weight 58.5 kg Weight 60 kg Weight 59.5 g Weight 62 kg Weight 66.5 kg Physical Exam 2 Narrative: General: Somnolent, obtunded, does not respond to commands. HEENT: PERRLA, pupils bilaterally equal and reactive, pallors not present Chest: scattered crackles B/L CVS: S1-S2 regular, no murmurs, no tachycardia, no gallops, no rubs Abdomen: Soft, nontender, non distended Neuro: Obtunded and somnolent. Urinary Catheter Management: Swain: Cath Placed During This Visit: yes Reason for Continuing Indwelling Catheter: Accurate Measurement of Urinary Output in Critically Ill Patients Urinary Catheter Date of Insertion: 01/12/25 Urinary Catheter Time of Insertion: 21:00 Data 01/24/25 12:10 01/24/25 04:25 Micro: Microbiology 01/24/25 14:55 Blood Culture - Preliminary Blood SPECIMEN COLLECTED 01/24/25 12:05 Blood Culture - Preliminary Blood SPECIMEN COLLECTED 01/24/25 12:10 Blood Culture - Preliminary Blood SPECIMEN COLLECTED A&P Assessment and plan (1) Obstructive cardiovascular shock: (2) Hypoxic respiratory failure: (3) Pulmonary embolus: (4) Influenza A: (5) Pneumonia: (6) Acute kidney injury: (7) Liver dysfunction: (8) Lymphadenopathy: (9) Elevated lactic acid level: (10) Acute on chronic right-sided heart failure: (11) Pulmonary HTN: (12) Encephalopathy: Plan Acute Hypoxemic Respiratory Failure- etiology is multi-factorial -Secondary to pneumonia, pulmonary emboli, fluid overload in setting of renal failure. Patient was on mechanical ventilation until he was Extubated on 01/20.Currently on 8L via NC. Does not appear to be in any respiratory distress - Fluid management with HD Plan: - Continue to wean oxygen as tolerated - Keep head of bed > 30 degrees, high risk for aspiration - Made NPO again - ST consult in am - Repeat Chest xray and ABG if again worsening respiratory status - Has been on solu-medrol as well - decreased to BID - Will maintain for now and once oxygen requirement improve de-escalate to daily and or oral taper Acute Pulmonary Emboli with Cor Pulmonale Secondary to acute right heart failure in the setting of multiple pulmonary emboli and pulmonary HTN. - Off pressors since 01/15/2025. TTE showed dilated RV/RA, RVSP 40-45 mmHg. Plan: - Maintain euvolemia, avoid fluid overload. - Optimize RV afterload reduction. - On heparin drip once able to take PO can consider change to Eliquis Sepsis due to Pneumonia - Suspected aspiration vs viral/bacterial pneumonia. On broad-spectrum antibiotics. Procalcitonin >100 on admission. Patient has been on a prolonged course of antibiotics. Currently noted to have increasing leukocytosis which is likely due to steroids. Culture remained negative. No longer hypothermic. Off bear hugger. Plan: - Continue Zosyn 3.375 grams IV q12h. Plan to de-escalate in next few days - Repeat cultures if febrile - Will consider de-escalation of abx Acute Kidney Injury/Failure now progressed to ESRD requiring HD - Likely secondary to multi-organ failure and cardiogenic shock. Required initiation of dialysis. Remained aneuric. Not likely to recover - Currently has a temp HD catheter - Per nephrology patient will likley be HD dependent Plan: - Continue dialysis per nephrology recommendations. - Will need surgery consult for PermCath placement however no surgery coverage available today - Please consult Sx in am for line placement Influenza A Infection - Positive influenza A testing on admission. - Plan: DC tamiflu Encephalopathy - Multi-factorial - likely components of toxic/metabolic encephalopathy and hypoxemia. - Slowing improving, wax and waning Plan: - Haldol IM PRN for agitation - Avoid benzodiazepines if possible. Gastric Cancer - History of gastric cancer with prior resection. No evidence of acute issues on imaging. Plan: - No further work up inpatient FEN - Made NPO again due to risk of aspiration Plan: - ST consult in am Deconditioning - PT/OT consult in am DVT Prophylaxis - Currently on heparin drip for treatment of pulmonary emboli. Code Status - Full code January 22, 2025 Patient is planned for placement of a tunneled HD cath today. Currently he has a right jugular CVC in place. This has been in for over 10 days at this point. Will remove jugular CVC today. Alternate IV access to be obtained by placement of a PICC line. Patient has had waxing and waning mentation. Failed a swallow evaluation yesterday. He is again very lethargic today. Will start TPN for nutrition. If mentation remains poor and patient is unable to swallow, may need PEG. Head CT on admission was without any acute intracranial findings. There was noted chronic small vessel disease. Noted to have target cells schistocytes on CBC on January 20, 2025. Elevated T. bili 7.0. Low hemoglobin ranging between 8.2-9. Concern for potential hemolysis as contributing. Check peripheral smear. Check indirect bili, haptoglobin LDH reticulocyte count. Unlikely to have sickle cell disease given no prior history of the same. Brother Bal denies any known history of sickle cell anemia. Unlikely to be a sickling crisis currently. Continue steroids methylprednisolone 40 mg IV every 12 hours until results of hemolysis labs are available. Continue dialysis per nephrology. Appreciate recommendations. January 23, 2025 Patient underwent placement of tunneled HD catheter yesterday into the right chest wall. Right jugular central line has since been removed. Patient noted to have bleeding around the insertion site therefore heparin drip has remained on hold. Hemoglobin noted to be at 8.6 today. Similar range previously. PICC line planned today. Patient is on peripheral nutrition currently, we will change to TPN once PICC line is placed. If patient remains encephalopathic as he is today with no improvement over the next 24 to 48 hours, will likely need PEG for oral nutrition. Cause of persisting encephalopathy not entirely clear. Since extubation patient has remained persistently encephalopathic. He opens eyes to calling name, will squeeze fingers, today he was able to reply yes or no. However is not alert enough to try to orally feed him. Differentials for persisting encephalopathy include possible CVA. CT head from admission was unremarkable. Will check MRI of the brain today. During initial course appeared that patient may have multifactorial encephalopathy related to uremia, acute influenza infection, possibly viral encephalitis however continues to be persistently encephalopathy. Given history of long-term alcohol use, consideration for Wernicke's. Add thiamine to TPN. Additionally continues to have persistently elevated T. bili of 7 range. Mostly direct fraction. LDH mildly elevated. Haptoglobin low. Schistocytes target cells noted on manual differential. Peripheral smear ordered yesterday is currently pending. Possibility of hemolysis considered, however with direct fraction elevated consider this to be less likely. Low haptoglobin may be related to liver dysfunction. However continues to have persistent AST ALT are downtrending today elevated T. bili. Currently on steroids for possibility of autoimmune hemolysis. Reduce methylprednisolone 40 mg every 24 hours today Patient has had persisting leukocytosis during course of admission and spite of being on empiric antibiotics. Broadening of antibiotics does not appear to have made much difference. Discontinue antibiotics today and closely monitor. He is afebrile currently. Noted to have bilateral mediastinal lymphadenopathy of unclear significance. Soft tissue swelling is encasing the pulmonary arteries on CT from admission. Patient has a history of gastric malignancy. Ideally would need to have a biopsy to determine the nature of lymphadenopathy, However we do not have pulmonology services available to perform bronchoscopic guided ultrasound biopsy. Will defer this to outpatient. In the interim, noninvasive infectious evaluation to include histoplasma urine antigen, histoplasma antibody, Coccidioides antibody, QuantiFERON screen. HIV sero status is negative. Heparin drip to resume when okay per surgery for PE. Continues to be on 9 L/min supplemental O2. Likely hypoxia is related to PE and right heart strain. January 24, 2025 Clinically worsening today. He remains lethargic, somnolent. Does not wake up today or follow any commands. Minimal response to painful stimuli. MRI of the head was planned for today however patient required increased oxygen requirement and is currently on a heated high flow. Per MRI, heated high flow will not be compatible with MRI at this time. He received dialysis today. Following dialysis he had was taken for CTA of the head and neck since MRI was unable to be performed. Results are currently awaited at this time. Additionally noted to have increasing leukocytosis now at 26,000. Following platelet count at 76,000 today. Peripheral smear made available this afternoon showed moderate normocytic normochromic anemia with marked anisopoikilocytosis and polychromasia. Minimal thrombocytopenia with no platelet clumping. Impression on peripheral smear that of underlying bone marrow stress response. No circulating blasts or atypical lymphocytes were seen. Possibilities at this time include sepsis, DIC, TTP versus XANDER. DIC panel sent. Jony 13 pending, results expected within the next 5 to 7 days. HIT antibody requested, again results not expected back for at least 5 to 7 days. In the interim heparin has been discontinued. Switch to bivalirudin 0.25 mg/kg/h per dialysis dosing. Sepsis may be related to acute cholecystitis as noted on ultrasound of the abdomen yesterday. Previously ultrasound of the abdomen and appendage admission was unremarkable. While his AST and ALT alkaline phosphatase are normal, his T. bili continues to be persistently elevated at 7.7. General surgery was consulted. He is not currently a candidate for cholecystectomy. Findings discussed with radiology, US currently incolclusive for acute cholecystitis, may be related to GB wall edema. Planned HIDA scan tomorrow. PIcc line unable to be placed yesterday in spite of multiple attempts, left fem CVC placed today. Started TPN. Hyperglycemia today since starting parenteral nutrition. negative ketones, less likely DKA, added sliding scale insulin QID. Abx changed to meropenem and vancomycin. All updates discussed with brother bal (next of kin) and life partner. Guarded prognosis explained. They would like to continue all agressive measures incl CPR, intubation, surgica interventions if needed PDMP PDMP Reviewed: Not Reviewed Attestations 2 Medical Necessity Statement*: multiple reasons as outlined above Coding Level of Care Code Acute Code for Chg Fwd High MDM includes number and complexity of problems actively addressed during encounter, amount and/or complexity of data reviewed/ordered and described risk of complication, morbidity or mortality of management as documented Diagnoses Obstructive cardiovascular shock R57.8 Hypoxic respiratory failure J96.91 Pulmonary embolus I26.99 Influenza A J10.1 Pneumonia J18.9 Acute kidney injury N17.9 Liver dysfunction K76.89 Lymphadenopathy R59.1 Elevated lactic acid level R79.89 Acute on chronic right-sided heart failure I50.813 Pulmonary HTN I27.20 Encephalopathy G93.40
[2025-01-24 22:22] LABS: Glucose Point of Care 287 mg/dL (70-110)
[2025-01-24 23:08] LABS: INR 8.25 (0.8-1.2)
--- NOTE | 2025-01-24 23:21 | PC.NURSE ---
INR critical at 8.25. Dr. Bauman notified and verbal order to turn off Angiomax until morning labs result given
[2025-01-25] VITALS (30 sets, daily range): BP systolic 69–127; BP diastolic 53–94; PULSE 78–114; RESP 12–25; TEMP 35.9–36.2; O2SAT 88–100; BMI 19.2
[2025-01-25] MEDS: metoprolol tartrate 1 mg/1 mL SDV 5 mL 2.5 MG IVP (00:19)
--- NOTE | 2025-01-25 01:48 | XRR_ITS ---
PROCEDURE INFORMATION: Exam: XR Chest Exam date and time: 01/25/2025 1:59 AM Age: 74 years old Clinical indication: Device placement; Ng tube; Additional info: Ng tube placement TECHNIQUE: Imaging protocol: Radiologic exam of the chest. Views: 1 view. COMPARISON: CR (CHEST, ) 01/24/2025 4:02 AM FINDINGS: Tubes, catheters and devices: Esophagogastric tube has been placed with the tip just barely below the diaphragm, likely in the proximal stomach. Proximal side port is at the expected level of the esophagogastric junction. Right IJ central line unchanged. Lungs: Bibasilar airspace disease, unchanged. Apical predominant emphysematous changes, [id number]. Pleural spaces: Unremarkable. No pleural effusion. No pneumothorax. Heart/Mediastinum: Unremarkable. No cardiomegaly. Bones/joints: Unremarkable. XR/XR chest 1V portable [id number] IMPRESSION: 1. Esophagogastric tube has been placed with the tip just barely below the diaphragm, likely in the proximal stomach. Proximal side port is at the expected level of the esophagogastric junction. 2. Bibasilar airspace disease, unchanged.
[2025-01-25] MEDS: ipratropium-albuterol 3 mL Neb INHALATION ×4 (02:13→20:42)
[2025-01-25 04:17] LABS: Basophils # 0.2 10^3/uL (0.0-0.1); Basophils % 0.7 %; Hematocrit 25.3 % (37-53); Lymphocytes # 0.5 10^3/uL (0.8-4.8); Lymphocytes % 1.9 %; Mean Corpuscular HGB Conc 33.6 g/dL (30-55); Mean Corpuscular Hemoglobin 33.5 pg (27-33); Mean Corpuscular Volume 99.6 fl (82-101); Monocytes # 2.4 10^3/uL (0.2-0.9); Monocytes % 8.7 %; Neutrophils # 23.17 10^3/uL (1.8-7.7); Neutrophils % 85.3 %; Nucleated Red Blood Cells % 36.9 %; Platelet Count 72 10^3/cmm (157-399); Red Blood Count 2.54 10^6/uL (3.85-5.65); Red Cell Distribution Width 26.5 % (12.1-15.1); White Blood Count 27.17 10^3/uL (3.29-11.43)
[2025-01-25 04:29] LABS: INR 2.68 (0.8-1.2)
[2025-01-25 04:48] LABS: Alanine Aminotransferase 48 U/L (0-41); Albumin Level 5.4 g/dL (3.5-5.2); Alkaline Phosphatase 66 U/L (40-130); Aspartate Amino Transferase 32 U/L (0-40); Blood Urea Nitrogen 64 mg/dL (8-23); Calcium 10.6 mg/dL (8.5-10.5); Carbon Dioxide 17 mmol/L (22-29); Chloride 96 mmol/L (98-107); Globulin 1.8 g/dL (1.3-4.6); Glucose 279 mg/dL (65-115); Osmolality Calculated 312 mOsm/kg (285-295); Sodium 137 mmol/L (136-145); Total Protein 7.2 g/dL (6.6-8.7)
[2025-01-25 04:58] LABS: Slide Review Slide Review Perform
[2025-01-25 05:00] LABS: Anion Gap 28.2 (5-19); Potassium 4.2 mmol/L (3.5-5.1)
[2025-01-25 05:02] LABS: Total Bilirubin 7.7 mg/dL (0.15-1.2)
[2025-01-25 06:13] LABS: Reflex FDPQ test REFLEX FDP QUEST TES
[2025-01-25 06:34] LABS: INR 2.27 (0.8-1.2)
[2025-01-25 06:54] LABS: Partial Thromboplastin Time 74.8 SECONDS (23.9-36.7)
[2025-01-25 07:02] LABS: D Dimer 6.84 ug/mLFEU (0-0.59)
[2025-01-25 07:43] LABS: Fibrinogen 73 mg/dL (174-498)
[2025-01-25] MEDS: budesonide 0.5 mg/2 mL Neb INHALATION ×2 (08:38→20:42)
[2025-01-25 09:00] LABS: Glucose Point of Care 385 mg/dL (70-110)
--- NOTE | 2025-01-25 09:02 | PC.NURSE ---
this nurse was notifed at shift change that nuc med informed night nurse that patient is moving too much for the ordered scan and night nurse notifed nuc med due to staffing nursing can't stay with patient for 2 hours during scan and nuc med wanted the need for the scan re evaulated when hospitalist rounded. Nuc med called this nurse approximately 0800 wondering where the patient was because we missed the time slot and couldn't do the scan until tomorrow since the slot was missed. Dr. Dang was notifed, HCP spoke with nuc med, if a outpatient scheduled for 1000 today cancels the patient can be done at that time. nuc med will notify staff at 1030
[2025-01-25] MEDS: dexmedeTOMIDine 0.9 % NaCL 400 MCG/100 ML PREMIX IV (09:22)
[2025-01-25] MEDS: bivalirudin 250 MG in sodium chloride 0.9% 500 ML 30 MG IV (09:29)
--- NOTE | 2025-01-25 09:41 | PC.NURSE ---
Angiomax on pump showing 3 ml/hr MAr shows rate should be 30 ml/hr pharmacy confirmed rate should be 30 ml/hr, warehouse unloader confirmed pump is programed correctly but still shows 3 ml/hr instead of 30. pharmacy to call back
--- NOTE | 2025-01-25 10:03 | PC.NURSE ---
Pharmacy came to bedside and advised this nurse to put pump in basic mode
[2025-01-25 10:08] LABS: Partial Thromboplastin Time 64.3 SECONDS (23.9-36.7)
[2025-01-25] MEDS: insulin lispro 100 unit/1 mL SUBCUT ×4 (10:10→21:32)
[2025-01-25] MEDS: methylPREDNISolone sod succ 40 mg/mL INJ IVP (10:10)
[2025-01-25] MEDS: pantoprazole 40 mg SDV IVP (10:11)
[2025-01-25] MEDS: meropenem 500 mg SDV IVP (10:11)
--- NOTE | 2025-01-25 10:16 | PM.PN ---
Subjective Subjective: lethargic, responsive, but confused. weak, on hi-flow 02 Medications: Reviewed: Yes Medication Review Details: Current Medications Albuterol/Ipratropium (Ipratropium-Albuterol 3 Ml Neb) 3 ml INHALATION Q6H.RESP [facility] Last Admin: 01/25/25 08:38 Dose: 3 ml Alteplase, Recombinant (Alteplase 1 Mg/Ml Sdv 2 Ml) 2 mg INTRACATH PRN PRN PRN Reason: DIALYSIS USE ONLY Budesonide (Budesonide 0.5 Mg/2 Ml Neb) 0.5 mg INHALATION BID.RESPIRATORY [facility] Last Admin: 01/25/25 08:38 Dose: 0.5 mg Chlorhexidine Gluconate (Chlorhexidine Gluconate 4% Btl 118 Ml) 1 applic TOPICAL DAILY PRN PRN Reason: Intubated patient bathing Last Admin: 01/20/25 01:47 Dose: 1 applic Glucagon (Glucagon 1 Mg/Ml Kit 1 Ml) 1 mg IM ONCE PRN; Protocol PRN Reason: Adult Acute Hypoglycemia Nursing Prot. Glycerin (Glycerin Adult Supp) 1 each ME DAILY [facility] Last Admin: 01/24/25 08:57 Dose: 1 each Haloperidol Lactate (Haloperidol Inj 5 Mg/Ml Inj 1 Ml) 1 mg IM Q4H PRN PRN Reason: AGITATION Last Admin: 01/14/25 12:08 Dose: 1 mg Heparin Sodium (Porcine) (Heparin, Porcine 1,000 Unit/Ml Inj 10 Ml) 1,000 unit IV PRN PRN PRN Reason: clotting Sodium Chloride (Sodium Chloride 0.9%) 1,000 mls @ 0 mls/hr IV .Q0M PRN PRN Reason: hypotension or symptomatic Dextrose (D5w) 500 mls @ 0 mls/hr IV ONCE PRN; Protocol PRN Reason: Adult Acute Hypoglycemia Prot Dextrose (D10w) 125 mls @ 750 mls/hr IV PRN PRN; Protocol PRN Reason: Adult Acute Hypoglycemia Nursing Protocol Dextrose (D10w) 250 mls @ 1,000 mls/hr IV PRN PRN; Protocol PRN Reason: Adult Acute Hypoglycemia Nursing Protocol Bivalirudin 250 mg/ Sodium (Chloride) 500 mls @ 30 mls/hr IV .[id number] [facility] Last Admin: 01/25/25 09:29 Dose: 0.25 mg/kg/hr, 30 mls/hr Multivitamins 10 ml/ Amino (Acids/Electrolytes/Dextrose) 1,010 mls @ 42 mls/hr IV .Q24H [facility] Last Admin: 01/24/25 17:01 Dose: 42 mls/hr Dexmedetomidine/Sodium Chloride (Precedex) 400 mcg in 100 mls @ 0 mls/hr IV .Q0M [facility]; Protocol Last Admin: 01/25/25 09:22 Dose: 0.1 mcg/kg/hr, 1.39 mls/hr Insulin Human Lispro (Insulin Lispro 100 Unit/1 Ml) 0 unit SUBCUT QID [facility]; Protocol Last Admin: 01/25/25 10:10 Dose: 14 unit Lanolin (Lanolin Oint 7 Gm) 1 applic TOPICAL PRN PRN PRN Reason: DRYNESS Last Admin: 01/24/25 03:40 Dose: 1 applic Lanolin (Lanolin Oint 7 Gm) 1 applic TOPICAL PRN PRN PRN Reason: DRYNESS Lorazepam (Lorazepam 2 Mg/Ml Inj 1 Ml) 2 mg IVP ONCE ONE Stop: 01/25/25 10:31 Meropenem (Meropenem 500 Mg Sdv) 500 mg IVP Q24H [facility]; Protocol Last Admin: 01/25/25 10:11 Dose: 500 mg Methylprednisolone Sodium Succinate (Methylprednisolone Sod Succ 40 Mg/Ml Inj) 40 mg IVP Q24H [facility] Last Admin: 01/25/25 10:10 Dose: 40 mg Metoprolol Tartrate (Metoprolol Tartrate 1 Mg/1 Ml Sdv 5 Ml) 2.5 mg IVP Q12H [facility] Last Admin: 01/25/25 00:19 Dose: 2.5 mg Ondansetron HCl (Ondansetron 2 Mg/Ml Sdv 2 Ml) 4 mg IVP Q8H PRN PRN Reason: vomiting, or N/V if npo Pantoprazole Sodium (Pantoprazole 40 Mg Sdv) 40 mg IVP DAILY [facility] Last Admin: 01/25/25 10:11 Dose: 40 mg Vancomycin HCl (Vancomycin 1,000 Mg Sdv (Pharmacy Mix)) 0 mg XX PRN PRN PRN Reason: Pharmacy to Dose Vitals/I&O/Wt Last Vital Signs Temp 97.1 F L 01/25/25 04:13 Pulse 91 01/25/25 10:10 Resp 16 01/25/25 10:10 BP 106/77 01/25/25 10:10 Pulse Ox 100 01/25/25 10:10 O2 Del Method Heated High Flow 01/25/25 08:25 O2 Flow Rate 40 01/25/25 08:41 FiO2 40 01/25/25 08:41 01/24/25 01/25/25 01/25/25 22:59 06:59 14:59 Intake Total 1520 / 1616.667 500 / 500 Output Total 1999 Balance -480 / -383.333 500 / 500 Weight last 48 hrs Weight 60 kg Weight 55.6 kg Weight 58.5 kg Weight 60 kg Weight 59.5 g Physical Exam Narrative: high flow 02, minimal UOP vs noted BP elevated heent- nc/at, +icteric neck supple lungs -scattered dull areas b/l heart regular, +s1, s2 ext + 1+ b/l leg edema rt IJ tunneled dialysis catheter neuro- more awkae, but still confused, moving, verbal. follows some simple commands Urinary Catheter Management: Swain: Cath Placed During This Visit: yes Reason for Continuing Indwelling Catheter: Accurate Measurement of Urinary Output in Critically Ill Patients Urinary Catheter Date of Insertion: 01/12/25 Urinary Catheter Time of Insertion: 21:00 Data 01/25/25 04:05 01/25/25 04:05 Micro: Microbiology 01/24/25 14:55 Blood Culture - Preliminary Blood SPECIMEN COLLECTED 01/24/25 12:05 Blood Culture - Preliminary Blood SPECIMEN COLLECTED 01/24/25 12:10 Blood Culture - Preliminary Blood SPECIMEN COLLECTED A&P Assessment and plan (1) Acute kidney injury: 74 year old male, with a history of gastric resection, history of bilateral LE DVT, PE, who initially presented to the ER on 01/12/2025 complaining og generalized weakness, falls, myalgias. he was previously on Eliquis; however, he has had difficulty obtaining Eliquis and had not taken Eliquis for 2 weeks prior to presentation. On presentation, he was found to be Influenza A positive and was hypotensive, requirin Levophed. CT chest PE protocol revealed a PE and his TTE revealed right ventricular strain. Patient subsequently developed respiratory failure and was intubated. He was weaned off LEvophed, but has been requiring dobutamine. He became anuric with a rising creatinine, prompting a nephrology consult. cr on admission was 1.4 mg/dl 1. yesi -presumed ATN versus renal vein thrombosis -no signs of renal recovery -did not urinate w/ diuretic can this be TTP/ HUS or atypical TMA- await [id number] activity -most likely from liver disease. Per discussion w/ Dr Dang - she spoke w/ heme and they did not feel that this was aTMA or TTP/ HUS. more concerned for DIC od HIT sent HIT Ab -follow up APLA and Lupus labs - low c3, minally at 83. normal c4 -per heme no need to give eculizumab 2. anemia- hgb dropping- give epo, iron studies has target cells and low haptoglobon w/ high bili- c/w hemolyzing -thrombocytopenia -per heme concerned for HIT vs DIC -low dose EPO w/ PE and clotting 3. leukocytosis- Q cholecystitits 4. resp alkalosis and met acidosis-repeat from pna, PE. met acidosis from YESI- ph 7.44- well compensated 5. encephalopathic - proximal Left ICA occlusion 6. Suspected aspiration vs viral/bacterial pneumonia.- abx per hospitalist s/p tamiflu 7 . inc bilirubin- RUQ abd us- 1. Severely thickened gallbladder with pericholecystic fluid, small stones and sludge. Constellation of findings consistent with acute cholecystitis, reactive changes due to ascites would be less likely. 2. Mild intrahepatic biliary ductal dilatation. 3. Moderate ascites. 4. 2.0 cm simple right renal cyst. No further imaging follow-up is required. -for HIDA scan today 8. calcium starting to improve. monitor await SPEP seen and examined w/ AIDE of RN- usinf A/V equipment Plan as above PDMP PDMP Reviewed: Not Reviewed Attestations Medical Necessity Statement*: AMS, YESI, CVA, PE, inc bili, anemia, thrombocytopenia Time Spent in Patient Care: Greater than 35 minutes Coding Level of Care Code Acute Code for g Fwd Diagnoses Acute kidney injury N17.9
[2025-01-25] MEDS: glycerin adult supp 1 EACH PR (10:17)
--- NOTE | 2025-01-25 10:20 | PC.NURSE ---
To Nuclear med via bed with nurse at bedside.
[2025-01-25 10:27] LABS: Vancomycin Trough < 4.0 ug/mL (10-15)
--- NOTE | 2025-01-25 11:21 | P.PN_ITS ---
Subjective 2 Subjective: HIDA pending Radiology not convinced of acute cholecystitis LFTs worsening Transfer pending Vitals/I&O/Wt Last Vital Signs Temp 97.1 F L 01/25/25 04:13 Pulse 91 01/25/25 10:10 Resp 16 01/25/25 10:10 BP 106/77 01/25/25 10:10 Pulse Ox 100 01/25/25 10:10 O2 Del Method Heated High Flow 01/25/25 08:25 O2 Flow Rate 40 01/25/25 08:41 FiO2 40 01/25/25 08:41 01/24/25 01/25/25 01/25/25 22:59 06:59 14:59 Intake Total 1520 / 1616.667 500 / 500 Output Total 1999 Balance -480 / -383.333 500 / 500 Weight last 48 hrs Weight 132 lb 4.438 oz Weight 122 lb 9.232 oz Weight 128 lb 15.527 oz Weight 132 lb 4.438 oz Weight 2.099 oz Physical Exam 2 Narrative: Tachypneic on nasal cannula RRR Abdomen soft Urinary Catheter Management: Swain: Cath Placed During This Visit: yes Reason for Continuing Indwelling Catheter: Accurate Measurement of Urinary Output in Critically Ill Patients Urinary Catheter Date of Insertion: 01/12/25 Urinary Catheter Time of Insertion: 21:00 Data 01/25/25 04:05 01/25/25 04:05 Micro: Microbiology 01/24/25 14:55 Blood Culture - Preliminary Blood SPECIMEN COLLECTED 01/24/25 12:05 Blood Culture - Preliminary Blood SPECIMEN COLLECTED 01/24/25 12:10 Blood Culture - Preliminary Blood SPECIMEN COLLECTED A&P Assessment and plan (1) Acute cholecystitis: Plan 74-year-old male consulted for acute cholecystitis. Not a surgical candidate. Agree with HIDA and IR cholecystostomy tube placement if consistent with cholecystitis. PDMP PDMP Reviewed: Not Reviewed Attestations 2 Medical Necessity Statement*: N/A Coding Level of Care Code Acute Code for [facility] Fw Diagnoses Acute cholecystitis K81.0
[2025-01-25] MEDS: vancomycin 1,500 MG/300 ML PIGGYBACK 200 MG IV (12:50)
--- NOTE | 2025-01-25 12:50 | PC.NURSE ---
back drom nuc med scan
[2025-01-25 13:01] LABS: Glucose Point of Care 307 mg/dL (70-110)
--- NOTE | 2025-01-25 13:09 | PC.NURSE ---
bp 69/53 received t.o. to start levophed now from dr. Dang
[2025-01-25] MEDS: norepinephrine 4 MG/250 ML BAG 7.5 MG IV (13:12)
--- NOTE | 2025-01-25 13:40 | NM_ITS ---
WS: [id number] NUCLEAR MEDICINE HIDA SCAN CLINICAL INFORMATION: assess for cholecystitis TECHNIQUE: Following intravenous administration of 7.6 mCi of technetium 99m mebrofenin, images of the abdomen were obtained over the course of 60 minutes. Next, gallbladder ejection fraction was determined by obtaining preprandial and one-hour postprandial images of the gallbladder following oral ingestion of Ensure. FINDINGS: Liver is visualized by 5 minutes. Retained cardiac activity. Common hepatic duct and common bile duct visualized by 40 to 50 minutes. Persistent retained hepatic activity. Additional delayed imaging will be obtained to assess gallbladder filling. Delayed imaging demonstrates normal gallbladder filling. After administration of Ensure through the enteric tube normal gallbladder ejection fraction of 73% is calculated with visualized common bile duct and small bowel activity. NM/NM hepatobiliary wo phar [id number] IMPRESSION: 1. No evidence of acute or chronic cholecystitis. 2. Normal gallbladder ejection fraction of 73%
--- NOTE | 2025-01-25 15:31 | PM.PN ---
Subjective Subjective: continues to be lethargic, underwent HIDA scan today which was not completed today, needs additional images tomorrow morning Medications: Reviewed: Yes Medication Review Details: Current Medications Albuterol/Ipratropium (Ipratropium-Albuterol 3 Ml Neb) 3 ml INHALATION Q6H.RESP [facility] Last Admin: 01/26/25 08:16 Dose: 3 ml Alteplase, Recombinant (Alteplase 1 Mg/Ml Sdv 2 Ml) 2 mg INTRACATH PRN PRN PRN Reason: DIALYSIS USE ONLY Budesonide (Budesonide 0.5 Mg/2 Ml Neb) 0.5 mg INHALATION BID.RESPIRATORY [facility] Last Admin: 01/26/25 08:16 Dose: 0.5 mg Chlorhexidine Gluconate (Chlorhexidine Gluconate 4% Btl 118 Ml) 1 applic TOPICAL DAILY PRN PRN Reason: Intubated patient bathing Last Admin: 01/20/25 01:47 Dose: 1 applic Glucagon (Glucagon 1 Mg/Ml Kit 1 Ml) 1 mg IM ONCE PRN; Protocol PRN Reason: Adult Acute Hypoglycemia Nursing Prot. Glycerin (Glycerin Adult Supp) 1 each NM DAILY [facility] Last Admin: 01/25/25 10:17 Dose: 1 each Haloperidol Lactate (Haloperidol Inj 5 Mg/Ml Inj 1 Ml) 1 mg IM Q4H PRN PRN Reason: AGITATION Last Admin: 01/14/25 12:08 Dose: 1 mg Heparin Sodium (Porcine) (Heparin, Porcine 1,000 Unit/Ml Inj 10 Ml) 1,000 unit IV PRN PRN PRN Reason: clotting Sodium Chloride (Sodium Chloride 0.9%) 1,000 mls @ 0 mls/hr IV .Q0M PRN PRN Reason: hypotension or symptomatic Dextrose (D5w) 500 mls @ 0 mls/hr IV ONCE PRN; Protocol PRN Reason: Adult Acute Hypoglycemia Prot Dextrose (D10w) 125 mls @ 750 mls/hr IV PRN PRN; Protocol PRN Reason: Adult Acute Hypoglycemia Nursing Protocol Dextrose (D10w) 250 mls @ 1,000 mls/hr IV PRN PRN; Protocol PRN Reason: Adult Acute Hypoglycemia Nursing Protocol Bivalirudin 250 mg/ Sodium (Chloride) 500 mls @ 30 mls/hr IV .[id number] [facility] Last Admin: 01/26/25 01:48 Dose: 0.25 mg/kg/hr, 30 mls/hr Multivitamins 10 ml/ Amino (Acids/Electrolytes/Dextrose) 1,010 mls @ 42 mls/hr IV .Q24H [facility] Last Admin: 01/25/25 17:57 Dose: 42 mls/hr Dexmedetomidine/Sodium Chloride (Precedex) 400 mcg in 100 mls @ 0 mls/hr IV .Q0M JOANNA; Protocol Last Titration: 01/26/25 07:56 Dose: 0.2 mcg/kg/hr, 2.78 mls/hr Albumin Human (Albumin) 12.5 gm in 50 mls @ 60 mls/hr IV PRN PRN PRN Reason: Hypotension and/or symptomatic Norepinephrine Bitartrate (Levophed) 4 mg in 250 mls @ 0 mls/hr IV .Q0M JOANNA; Protocol Last Titration: 01/25/25 19:00 Dose: 0 mcg/min, 0 mls/hr Micafungin Sodium 100 mg/ (Sodium Chloride) 100 mls @ 100 mls/hr IV Q24H [facility] Last Infusion: 01/25/25 19:00 Dose: Infused Acyclovir 500 mg/ Sodium (Chloride) 260 mls @ 110 mls/hr IV Q24H [facility] Last Infusion: 01/25/25 19:00 Dose: Infused Insulin Human Lispro (Insulin Lispro 100 Unit/1 Ml) 0 unit SUBCUT QID [facility]; Protocol Last Admin: 01/25/25 21:32 Dose: 4 unit Lanolin (Lanolin Oint 7 Gm) 1 applic TOPICAL PRN PRN PRN Reason: DRYNESS Last Admin: 01/24/25 03:40 Dose: 1 applic Lanolin (Lanolin Oint 7 Gm) 1 applic TOPICAL PRN PRN PRN Reason: DRYNESS Meropenem (Meropenem 500 Mg Sdv) 500 mg IVP Q24H JOANNA; Protocol Last Admin: 01/25/25 10:11 Dose: 500 mg Methylprednisolone Sodium Succinate (Methylprednisolone Sod Succ 40 Mg/Ml Inj) 40 mg IVP Q24H JOANNA Last Admin: 01/25/25 10:10 Dose: 40 mg Ondansetron HCl (Ondansetron 2 Mg/Ml Sdv 2 Ml) 4 mg IVP Q8H PRN PRN Reason: vomiting, or N/V if npo Pantoprazole Sodium (Pantoprazole 40 Mg Sdv) 40 mg IVP DAILY JOANNA Last Admin: 01/25/25 10:11 Dose: 40 mg Vancomycin HCl (Vancomycin 1,000 Mg Sdv (Pharmacy Mix)) 0 mg XX PRN PRN PRN Reason: Pharmacy to Dose Vitals/I&O/Wt Last Vital Signs Temp 97.1 F L 01/25/25 04:13 Pulse 84 01/25/25 14:35 Resp 12 01/25/25 14:35 BP 107/80 01/25/25 14:35 Pulse Ox 100 01/25/25 14:35 O2 Del Method Nasal Cannula 01/25/25 13:35 O2 Flow Rate 7 01/25/25 13:35 FiO2 40 01/25/25 08:41 01/25/25 01/25/25 01/25/25 06:59 14:59 22:59 Intake Total 501.25 / 501.25 Balance 501.25 / 501.25 Weight last 48 hrs Weight 60 kg Weight 55.6 kg Weight 58.5 kg Weight 60 kg Weight 59.5 g Physical Exam Narrative: General: Somnolent, obtunded, does not respond to commands. HEENT: PERRLA, pupils bilaterally equal and reactive, pallors not present Chest: scattered crackles B/L CVS: S1-S2 regular, no murmurs, no tachycardia, no gallops, no rubs Abdomen: Soft, nontender, non distended Neuro: Obtunded and somnolent. Urinary Catheter Management: Fallon: Cath Placed During This Visit: yes Reason for Continuing Indwelling Catheter: Accurate Measurement of Urinary Output in Critically Ill Patients Urinary Catheter Date of Insertion: 01/12/25 Urinary Catheter Time of Insertion: 21:00 Data 01/26/25 03:46 01/26/25 03:46 Micro: Microbiology 01/24/25 12:10 Blood Culture - Preliminary Blood NEGATIVE TO DATE 01/24/25 12:05 Blood Culture - Preliminary Blood NEGATIVE TO DATE 01/24/25 14:55 Blood Culture - Preliminary Blood SPECIMEN COLLECTED A&P Assessment and plan (1) Obstructive cardiovascular shock: (2) Hypoxic respiratory failure: (3) Pulmonary embolus: (4) Influenza A: (5) Pneumonia: (6) Acute kidney injury: (7) Liver dysfunction: (8) Lymphadenopathy: (9) Elevated lactic acid level: (10) Acute on chronic right-sided heart failure: (11) Pulmonary HTN: (12) Encephalopathy: Plan Acute Hypoxemic Respiratory Failure- etiology is multi-factorial -Secondary to pneumonia, pulmonary emboli, fluid overload in setting of renal failure. Patient was on mechanical ventilation until he was Extubated on 01/20.Currently on 8L via NC. Does not appear to be in any respiratory distress - Fluid management with HD Plan: - Continue to wean oxygen as tolerated - Keep head of bed > 30 degrees, high risk for aspiration - Made NPO again - ST consult in am - Repeat Chest xray and ABG if again worsening respiratory status - Has been on solu-medrol as well - decreased to BID - Will maintain for now and once oxygen requirement improve de-escalate to daily and or oral taper Acute Pulmonary Emboli with Cor Pulmonale Secondary to acute right heart failure in the setting of multiple pulmonary emboli and pulmonary HTN. - Off pressors since 01/15/2025. TTE showed dilated RV/RA, RVSP 40-45 mmHg. Plan: - Maintain euvolemia, avoid fluid overload. - Optimize RV afterload reduction. - On heparin drip once able to take PO can consider change to Eliquis Sepsis due to Pneumonia - Suspected aspiration vs viral/bacterial pneumonia. On broad-spectrum antibiotics. Procalcitonin >100 on admission. Patient has been on a prolonged course of antibiotics. Currently noted to have increasing leukocytosis which is likely due to steroids. Culture remained negative. No longer hypothermic. Off bear hugger. Plan: - Continue Zosyn 3.375 grams IV q12h. Plan to de-escalate in next few days - Repeat cultures if febrile - Will consider de-escalation of abx Acute Kidney Injury/Failure now progressed to ESRD requiring HD - Likely secondary to multi-organ failure and cardiogenic shock. Required initiation of dialysis. Remained aneuric. Not likely to recover - Currently has a temp HD catheter - Per nephrology patient will likley be HD dependent Plan: - Continue dialysis per nephrology recommendations. - Will need surgery consult for PermCath placement however no surgery coverage available today - Please consult Sx in am for line placement Influenza A Infection - Positive influenza A testing on admission. - Plan: DC tamiflu Encephalopathy - Multi-factorial - likely components of toxic/metabolic encephalopathy and hypoxemia. - Slowing improving, wax and waning Plan: - Haldol IM PRN for agitation - Avoid benzodiazepines if possible. Gastric Cancer - History of gastric cancer with prior resection. No evidence of acute issues on imaging. Plan: - No further work up inpatient FEN - Made NPO again due to risk of aspiration Plan: - ST consult in am Deconditioning - PT/OT consult in am DVT Prophylaxis - Currently on heparin drip for treatment of pulmonary emboli. Code Status - Full code January 22, 2025 Patient is planned for placement of a tunneled HD cath today. Currently he has a right jugular CVC in place. This has been in for over 10 days at this point. Will remove jugular CVC today. Alternate IV access to be obtained by placement of a PICC line. Patient has had waxing and waning mentation. Failed a swallow evaluation yesterday. He is again very lethargic today. Will start TPN for nutrition. If mentation remains poor and patient is unable to swallow, may need PEG. Head CT on admission was without any acute intracranial findings. There was noted chronic small vessel disease. Noted to have target cells schistocytes on CBC on January 20, 2025. Elevated T. bili 7.0. Low hemoglobin ranging between 8.2-9. Concern for potential hemolysis as contributing. Check peripheral smear. Check indirect bili, haptoglobin LDH reticulocyte count. Unlikely to have sickle cell disease given no prior history of the same. Brother Bal denies any known history of sickle cell anemia. Unlikely to be a sickling crisis currently. Continue steroids methylprednisolone 40 mg IV every 12 hours until results of hemolysis labs are available. Continue dialysis per nephrology. Appreciate recommendations. January 23, 2025 Patient underwent placement of tunneled HD catheter yesterday into the right chest wall. Right jugular central line has since been removed. Patient noted to have bleeding around the insertion site therefore heparin drip has remained on hold. Hemoglobin noted to be at 8.6 today. Similar range previously. PICC line planned today. Patient is on peripheral nutrition currently, we will change to TPN once PICC line is placed. If patient remains encephalopathic as he is today with no improvement over the next 24 to 48 hours, will likely need PEG for oral nutrition. Cause of persisting encephalopathy not entirely clear. Since extubation patient has remained persistently encephalopathic. He opens eyes to calling name, will squeeze fingers, today he was able to reply yes or no. However is not alert enough to try to orally feed him. Differentials for persisting encephalopathy include possible CVA. CT head from admission was unremarkable. Will check MRI of the brain today. During initial course appeared that patient may have multifactorial encephalopathy related to uremia, acute influenza infection, possibly viral encephalitis however continues to be persistently encephalopathy. Given history of long-term alcohol use, consideration for Wernicke's. Add thiamine to TPN. Additionally continues to have persistently elevated T. bili of 7 range. Mostly direct fraction. LDH mildly elevated. Haptoglobin low. Schistocytes target cells noted on manual differential. Peripheral smear ordered yesterday is currently pending. Possibility of hemolysis considered, however with direct fraction elevated consider this to be less likely. Low haptoglobin may be related to liver dysfunction. However continues to have persistent AST ALT are downtrending today elevated T. bili. Currently on steroids for possibility of autoimmune hemolysis. Reduce methylprednisolone 40 mg every 24 hours today Patient has had persisting leukocytosis during course of admission and spite of being on empiric antibiotics. Broadening of antibiotics does not appear to have made much difference. Discontinue antibiotics today and closely monitor. He is afebrile currently. Noted to have bilateral mediastinal lymphadenopathy of unclear significance. Soft tissue swelling is encasing the pulmonary arteries on CT from admission. Patient has a history of gastric malignancy. Ideally would need to have a biopsy to determine the nature of lymphadenopathy, However we do not have pulmonology services available to perform bronchoscopic guided ultrasound biopsy. Will defer this to outpatient. In the interim, noninvasive infectious evaluation to include histoplasma urine antigen, histoplasma antibody, Coccidioides antibody, QuantiFERON screen. HIV sero status is negative. Heparin drip to resume when okay per surgery for PE. Continues to be on 9 L/min supplemental O2. Likely hypoxia is related to PE and right heart strain. January 24, 2025 Clinically worsening today. He remains lethargic, somnolent. Does not wake up today or follow any commands. Minimal response to painful stimuli. MRI of the head was planned for today however patient required increased oxygen requirement and is currently on a heated high flow. Per MRI, heated high flow will not be compatible with MRI at this time. He received dialysis today. Following dialysis he had was taken for CTA of the head and neck since MRI was unable to be performed. Results are currently awaited at this time. Additionally noted to have increasing leukocytosis now at 26,000. Following platelet count at 76,000 today. Peripheral smear made available this afternoon showed moderate normocytic normochromic anemia with marked anisopoikilocytosis and polychromasia. Minimal thrombocytopenia with no platelet clumping. Impression on peripheral smear that of underlying bone marrow stress response. No circulating blasts or atypical lymphocytes were seen. Possibilities at this time include sepsis, DIC, TTP versus XANDER. DIC panel sent. Borges 13 pending, results expected within the next 5 to 7 days. HIT antibody requested, again results not expected back for at least 5 to 7 days. In the interim heparin has been discontinued. Switch to bivalirudin 0.25 mg/kg/h per dialysis dosing. Sepsis may be related to acute cholecystitis as noted on ultrasound of the abdomen yesterday. Previously ultrasound of the abdomen and appendage admission was unremarkable. While his AST and ALT alkaline phosphatase are normal, his T. bili continues to be persistently elevated at 7.7. General surgery was consulted. He is not currently a candidate for cholecystectomy. Findings discussed with radiology, US currently incolclusive for acute cholecystitis, may be related to GB wall edema. Planned HIDA scan tomorrow. PIcc line unable to be placed yesterday in spite of multiple attempts, left fem CVC placed today. Started TPN. Hyperglycemia today since starting parenteral nutrition. negative ketones, less likely DKA, added sliding scale insulin QID. Abx changed to meropenem and vancomycin. All updates discussed with brother bal (next of kin) and life partner. Guarded prognosis explained. They would like to continue all agressive measures incl CPR, intubation, surgica interventions if needed January 25, 2025: [place] [id number] today. WBC increasing. Continues to be confused and obtunded. Case was discussed with hematology at [facility] and discuss potential transfer to [facility] for hematology however after review all labs and data presented to hematology, they agreed with current line of management with no additional interventions or change in medications at the time. Based on peripheral smear with no schistocytes, elevated DIRECT bili fraction in spite of low haptoglobin, low fibrinogen, TTP is considered less likely. Possible DIC vs HIT seems more likely. FDP pending. 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 Continue with angiomax gtt, will plan to transition to Eliquis VIA NGT once HDA results are available and no procedures are planned. Cause of increasing leukocytosis not readily evident. Blood cx taken and pending. CXR with stable PNA. Cholecytsitis under evalutaion with HIDA scan. Contineu meropenem, vancomycin empirically, add micafungin since patient has been in ICU for 10 days, has had multiple lines placed. Previosuly placed Right jugular CVC, left temp HD catheter and fallon catheter have been removed. Currently has new left fem CVC in place.New tunneled HD right chest. Possibility of meninigitis considered less likely as he has been inpatient for 10 days, unable to obtain an LP due to thrombocytopenia and limoited utility after being on abx for many days. Will presumptively add ACV renally dosed. Patient needed to be started on levophed GTT this afternoon after returning from HIDA scan. Overall clinically worse, guarded prognosis discussed with family. PDMP PDMP Reviewed: Not Reviewed Attestations Medical Necessity Statement*: iv abx, anti fungals and antivirals, HIDA scan pending, HIT, levophed infusion Critical Care Time: The high probability of a clinically significant, sudden or life threatening deterioration of the patient's [pulmonary, GI, neuro, heme, ID, renal] system(s) required my full and direct attention, intervention and personal management. The critical care time is as shown. This time is in addition to time spent performing any reported procedures but includes the following: [x] Data and vital sign review and interpretation [x] Patient assessment, examination and intervention [x] Documentation [x] Medication orders and management Critical Care Time (min): 70 Coding Level of Care Code Critical Care >/= 30 minutes Diagnoses Obstructive cardiovascular shock R57.8 Hypoxic respiratory failure J96.91 Pulmonary embolus I26.99 Influenza A J10.1 Pneumonia J18.9 Acute kidney injury N17.9 Liver dysfunction K76.89 Lymphadenopathy R59.1 Elevated lactic acid level R79.89 Acute on chronic right-sided heart failure I50.813 Pulmonary HTN I27.20 Encephalopathy G93.40
[2025-01-25 15:55] LABS: Partial Thromboplastin Time 142.2 SECONDS (23.9-36.7)
[2025-01-25 16:13] LABS: Glucose Point of Care 270 mg/dL (70-110)
[2025-01-25] MEDS: albumin 12.5 GM/250 ML VIAL IV (16:24)
[2025-01-25] MEDS: micafungin 100 MG in sodium chloride 0.9% (plus) 100 ML IV (17:27)
[2025-01-25] MEDS: AA-Dex 8%-10% w/ lytes 1,000 ML with multivitamin inj 10 ML 42 ML IV ×2 (17:45→17:57)
[2025-01-25 21:11] LABS: Glucose Point of Care 162 mg/dL (70-110)
[2025-01-25 21:34] LABS: Partial Thromboplastin Time 144.6 SECONDS (23.9-36.7)
[2025-01-26] VITALS (51 sets, daily range): BP systolic 86–136; BP diastolic 54–101; PULSE 80–110; RESP 14–33; TEMP 35.8–36.2; O2SAT 81–100
[2025-01-26] MEDS: bivalirudin 250 MG in sodium chloride 0.9% 500 ML 30 MG IV ×2 (01:48→22:19)
[2025-01-26] MEDS: ipratropium-albuterol 3 mL Neb INHALATION ×4 (02:12→20:18)
[2025-01-26 04:09] LABS: Anti-Double Strand DNA AB <1 IU/mL
[2025-01-26 04:35] LABS: Hematocrit 24.3 % (37-53); Mean Corpuscular HGB Conc 33.3 g/dL (30-55); Mean Corpuscular Hemoglobin 34.3 pg (27-33); Platelet Count 91 10^3/cmm (157-399); Red Blood Count 2.36 10^6/uL (3.85-5.65); Red Cell Distribution Width 26.7 % (12.1-15.1); White Blood Count 29.81 10^3/uL (3.29-11.43)
[2025-01-26 04:59] LABS: Partial Thromboplastin Time 130.9 SECONDS (23.9-36.7)
[2025-01-26 05:03] LABS: Alanine Aminotransferase 51 U/L (0-41); Albumin Level 5.2 g/dL (3.5-5.2); Alkaline Phosphatase 88 U/L (40-130); Anion Gap 26.1 (5-19); Aspartate Amino Transferase 50 U/L (0-40); Calcium 10.5 mg/dL (8.5-10.5); Carbon Dioxide 19 mmol/L (22-29); Chloride 99 mmol/L (98-107); Globulin 1.6 g/dL (1.3-4.6); Glucose 207 mg/dL (65-115); Osmolality Calculated 328 mOsm/kg (285-295); Phosphorus 2.9 mg/dL (2.5-4.5); Potassium 4.1 mmol/L (3.5-5.1); Sodium 140 mmol/L (136-145); Total Protein 6.8 g/dL (6.6-8.7)
[2025-01-26 05:15] LABS: Blood Urea Nitrogen 102 mg/dL (8-23); Total Bilirubin 7.9 mg/dL (0.15-1.2)
[2025-01-26 05:36] LABS: Slide Review Slide Review Perform; Total Cells Counted 100 (0-100)
[2025-01-26 05:37] LABS: Absolute Segmented Neutrophil 21.5 10/cmm (1.6-7.1); Anisocytosis 2+; Corrected White Blood Count 24.6 10^3/cmm (4.8-10.8); Eosinophils 0 %; Hypochromasia 1+; Lymphocytes 2 %; Macrocytosis 2+; Microcytosis 1+; Monocytes Absolute 1.5 10^3/cmm (0.1-0.6); Platelet Estimate Decreased (Normal); Polychromasia Trace; Schistocytes 1+; Segmented Neutrophils 72 %; Target Cells 2+
[2025-01-26 07:25] LABS: PROTEIN, TOTAL 7.2 g/dL (6.1-8.1)
--- NOTE | 2025-01-26 08:03 | PC.SOCIAL ---
IMM Update Pg. 2 of IMM updated. Initialed, dated, and timed. Copy provided at bedside.
[2025-01-26] MEDS: budesonide 0.5 mg/2 mL Neb INHALATION ×2 (08:16→20:18)
--- NOTE | 2025-01-26 08:46 | P.PN_ITS ---
Subjective 2 Subjective: He pulled his NG tube out. remains on NC02. s/p HIDA scan. comfortable, less verbal. not following commands or answering questions Medications: Reviewed: Yes Medication Review Details: Current Medications Albuterol/Ipratropium (Ipratropium-Albuterol 3 Ml Neb) 3 ml INHALATION Q6H.RESP JOANNA Last Admin: 01/26/25 08:16 Dose: 3 ml Alteplase, Recombinant (Alteplase 1 Mg/Ml Sdv 2 Ml) 2 mg INTRACATH PRN PRN PRN Reason: DIALYSIS USE ONLY Budesonide (Budesonide 0.5 Mg/2 Ml Neb) 0.5 mg INHALATION BID.RESPIRATORY JOANNA Last Admin: 01/26/25 08:16 Dose: 0.5 mg Chlorhexidine Gluconate (Chlorhexidine Gluconate 4% Btl 118 Ml) 1 applic TOPICAL DAILY PRN PRN Reason: Intubated patient bathing Last Admin: 01/20/25 01:47 Dose: 1 applic Glucagon (Glucagon 1 Mg/Ml Kit 1 Ml) 1 mg IM ONCE PRN; Protocol PRN Reason: Adult Acute Hypoglycemia Nursing Prot. Glycerin (Glycerin Adult Supp) 1 each [place] DAILY JOANNA Last Admin: 01/25/25 10:17 Dose: 1 each Haloperidol Lactate (Haloperidol Inj 5 Mg/Ml Inj 1 Ml) 1 mg IM Q4H PRN PRN Reason: AGITATION Last Admin: 01/14/25 12:08 Dose: 1 mg Heparin Sodium (Porcine) (Heparin, Porcine 1,000 Unit/Ml Inj 10 Ml) 1,000 unit IV PRN PRN PRN Reason: clotting Sodium Chloride (Sodium Chloride 0.9%) 1,000 mls @ 0 mls/hr IV .Q0M PRN PRN Reason: hypotension or symptomatic Dextrose (D5w) 500 mls @ 0 mls/hr IV ONCE PRN; Protocol PRN Reason: Adult Acute Hypoglycemia Prot Dextrose (D10w) 125 mls @ 750 mls/hr IV PRN PRN; Protocol PRN Reason: Adult Acute Hypoglycemia Nursing Protocol Dextrose (D10w) 250 mls @ 1,000 mls/hr IV PRN PRN; Protocol PRN Reason: Adult Acute Hypoglycemia Nursing Protocol Bivalirudin 250 mg/ Sodium (Chloride) 500 mls @ 30 mls/hr IV .[id number] [facility] Last Admin: 01/26/25 01:48 Dose: 0.25 mg/kg/hr, 30 mls/hr Multivitamins 10 ml/ Amino (Acids/Electrolytes/Dextrose) 1,010 mls @ 42 mls/hr IV .Q24H [facility] Last Admin: 01/25/25 17:57 Dose: 42 mls/hr Dexmedetomidine/Sodium Chloride (Precedex) 400 mcg in 100 mls @ 0 mls/hr IV .Q0M [facility]; Protocol Last Titration: 01/26/25 07:56 Dose: 0.2 mcg/kg/hr, 2.78 mls/hr Albumin Human (Albumin) 12.5 gm in 50 mls @ 60 mls/hr IV PRN PRN PRN Reason: Hypotension and/or symptomatic Norepinephrine Bitartrate (Levophed) 4 mg in 250 mls @ 0 mls/hr IV .Q0M [facility]; Protocol Last Titration: 01/25/25 19:00 Dose: 0 mcg/min, 0 mls/hr Micafungin Sodium 100 mg/ (Sodium Chloride) 100 mls @ 100 mls/hr IV Q24H [facility] Last Infusion: 01/25/25 19:00 Dose: Infused Acyclovir 500 mg/ Sodium (Chloride) 260 mls @ 110 mls/hr IV Q24H [facility] Last Infusion: 01/25/25 19:00 Dose: Infused Insulin Human Lispro (Insulin Lispro 100 Unit/1 Ml) 0 unit SUBCUT QID [facility]; Protocol Last Admin: 01/25/25 21:32 Dose: 4 unit Lanolin (Lanolin Oint 7 Gm) 1 applic TOPICAL PRN PRN PRN Reason: DRYNESS Last Admin: 01/24/25 03:40 Dose: 1 applic Lanolin (Lanolin Oint 7 Gm) 1 applic TOPICAL PRN PRN PRN Reason: DRYNESS Meropenem (Meropenem 500 Mg Sdv) 500 mg IVP Q24H [facility]; Protocol Last Admin: 01/25/25 10:11 Dose: 500 mg Methylprednisolone Sodium Succinate (Methylprednisolone Sod Succ 40 Mg/Ml Inj) 40 mg IVP Q24H [facility] Last Admin: 01/25/25 10:10 Dose: 40 mg Ondansetron HCl (Ondansetron 2 Mg/Ml Sdv 2 Ml) 4 mg IVP Q8H PRN PRN Reason: vomiting, or N/V if npo Pantoprazole Sodium (Pantoprazole 40 Mg Sdv) 40 mg IVP DAILY JOANNA Last Admin: 01/25/25 10:11 Dose: 40 mg Vancomycin HCl (Vancomycin 1,000 Mg Sdv (Pharmacy Mix)) 0 mg XX PRN PRN PRN Reason: Pharmacy to Dose Vitals/I&O/Wt Last Vital Signs Temp 97.0 F L 01/26/25 04:00 Pulse 94 01/26/25 08:00 Resp 16 01/26/25 08:00 BP 89/54 01/26/25 07:00 Pulse Ox 96 01/26/25 08:00 O2 Del Method Nasal Cannula 01/26/25 08:00 O2 Flow Rate 4 01/26/25 08:00 FiO2 40 01/25/25 08:41 01/25/25 01/26/25 01/26/25 22:59 06:59 14:59 Intake Total 1915.9 / 2454.289 4.495 / 2458.784 14.317 / 14.317 Balance 1915.9 / 2454.289 4.495 / 2458.784 14.317 / 14.317 Weight last 48 hrs Weight 64.186 kg Weight 60 kg Weight 55.6 kg Weight 58.5 kg Weight 60 kg Physical Exam 2 Narrative: NC 02, minimal UOP TPN @ 42 vs noted BP now low heent- nc/at, +icteric neck supple lungs -scattered dull areas b/l heart regular, +s1, s2 ext + 1+ b/l leg edema rt IJ tunneled dialysis catheter neuro- lethargic and confused, moves Urinary Catheter Management: Swain: Cath Placed During This Visit: yes Reason for Continuing Indwelling Catheter: Accurate Measurement of Urinary Output in Critically Ill Patients Urinary Catheter Date of Insertion: 01/12/25 Urinary Catheter Time of Insertion: 21:00 Data 01/26/25 03:46 01/26/25 03:46 Micro: Microbiology 01/24/25 14:55 Blood Culture - Preliminary Blood NEGATIVE TO DATE 01/24/25 12:10 Blood Culture - Preliminary Blood NEGATIVE TO DATE 01/24/25 12:05 Blood Culture - Preliminary Blood NEGATIVE TO DATE A&P Assessment and plan (1) Acute kidney injury: 74 year old male, with a history of gastric resection, history of bilateral LE DVT, PE, who initially presented to the ER on 01/12/2025 complaining og generalized weakness, falls, myalgias. he was previously on Eliquis; however, he has had difficulty obtaining Eliquis and had not taken Eliquis for 2 weeks prior to presentation. On presentation, he was found to be Influenza A positive and was hypotensive, requirin Levophed. CT chest PE protocol revealed a PE and his TTE revealed right ventricular strain. Patient subsequently developed respiratory failure and was intubated. He was weaned off LEvophed, but has been requiring dobutamine. He became anuric with a rising creatinine, prompting a nephrology consult. cr on admission was 1.4 mg/dl 1. yesi -presumed ATN versus renal vein thrombosis -no signs of renal recovery -did not urinate w/ diuretic can this be TTP/ HUS or atypical TMA- await [id number] activity -most likely from liver disease. Per discussion w/ Dr Dang - she spoke w/ heme and they did not feel that this was aTMA or TTP/ HUS. more concerned for DIC od HIT sent HIT Ab -follow up APLA and Lupus labs - low c3, minimally at 83. normal c4 -per heme no need to give eculizumab HD today 2. anemia- hgb dropping- give epo, iron studies has target cells and low haptoglobon w/ high bili- c/w hemolyzing -thrombocytopenia -per heme concerned for HIT vs DIC -low dose EPO w/ PE and clotting 3. leukocytosis- Q cholecystitits vs other infection source 4. resp alkalosis and met acidosis- from pna, PE. met acidosis from YESI- ph 7.44- well compensated 5. encephalopathic - proximal Left ICA occlusion 6. Suspected aspiration vs viral/bacterial pneumonia.- abx per hospitalist s/p tamiflu 7 . inc bilirubin- RUQ abd us- 1. Severely thickened gallbladder with pericholecystic fluid, small stones and sludge. Constellation of findings consistent with acute cholecystitis, reactive changes due to ascites would be less likely. 2. Mild intrahepatic biliary ductal dilatation. 3. Moderate ascites. 4. 2.0 cm simple right renal cyst. No further imaging follow-up is required. -await HIDA scan results 8. calcium stable at 10.5 await SPEP seen and examined w/ AIDE of RN- usinf A/V equipment Plan as above PDMP PDMP Reviewed: Not Reviewed Attestations 2 Medical Necessity Statement*: yesi, anemia, aMS, thrombocytopenia, inc bili, leukocytosis, PE Time Spent in Patient Care: Greater than 35 minutes (>than 50% of time spent in counselling and/or direct pt care on unit) . Coding Level of Care Code Acute Code for Chg Fwd Diagnoses Acute kidney injury N17.9
[2025-01-26 09:33] LABS: Partial Thromboplastin Time 120.9 SECONDS (23.9-36.7)
--- NOTE | 2025-01-26 09:51 | PM.PN ---
Subjective Subjective: HIDA negative for cholecystitis HD appropriate Getting HD Bival gtt held Vitals/I&O/Wt Last Vital Signs Temp 97.2 F L 01/26/25 09:18 Pulse 90 01/26/25 09:18 Resp 18 01/26/25 09:18 BP 105/72 01/26/25 09:18 Pulse Ox 96 01/26/25 08:00 O2 Del Method Nasal Cannula 01/26/25 08:00 O2 Flow Rate 4 01/26/25 08:00 FiO2 40 01/25/25 08:41 01/25/25 01/26/25 01/26/25 22:59 06:59 14:59 Intake Total 1915.9 / 2454.289 4.495 / 2458.784 14.317 / 14.317 Balance 1915.9 / 2454.289 4.495 / 2458.784 14.317 / 14.317 Weight last 48 hrs Weight 141 lb 8.081 oz Weight 132 lb 4.438 oz Weight 122 lb 9.232 oz Weight 128 lb 15.527 oz Physical Exam Narrative: 4L NC tachypeneic RRR Abdomen soft, nt, nd. Midling scar from prior laparotomy Urinary Catheter Management: Swain: Cath Placed During This Visit: yes Reason for Continuing Indwelling Catheter: Accurate Measurement of Urinary Output in Critically Ill Patients Urinary Catheter Date of Insertion: 01/12/25 Urinary Catheter Time of Insertion: 21:00 Data 01/26/25 03:46 01/26/25 03:46 Micro: Microbiology 01/24/25 14:55 Blood Culture - Preliminary Blood NEGATIVE TO DATE 01/24/25 12:10 Blood Culture - Preliminary Blood NEGATIVE TO DATE 01/24/25 12:05 Blood Culture - Preliminary Blood NEGATIVE TO DATE A&P Assessment and plan (1) Malnutrition: Plan 74 yo male whom surgery was consulted for PEG placement. Per hospitalist cleared for PEG placement. HIDA negative for cholecystitis. High risk for perioperative complications. Discussed risk and benefits with POA (Carlos Bryon alaniz) and he agrees to proceed with PEG placement. PDMP PDMP Reviewed: Not Reviewed Attestations Medical Necessity Statement*: NA Coding Level of Care Code 93138 Diagnoses Malnutrition E46 Time Spent (min) 30
[2025-01-26 10:14] LABS: Glucose Point of Care 212 mg/dL (70-110)
[2025-01-26] MEDS: insulin lispro 100 unit/1 mL SUBCUT ×4 (10:36→21:12)
[2025-01-26] MEDS: pantoprazole 40 mg SDV IVP (10:37)
[2025-01-26] MEDS: methylPREDNISolone sod succ 40 mg/mL INJ IVP (10:37)
[2025-01-26] MEDS: meropenem 500 mg SDV IVP (10:37)
[2025-01-26 11:26] LABS: Quantiferon Mitogen 6.67 IU/mL; Quantiferon Nil 0.01 IU/mL; Quantiferon TB Gold NEGATIVE (NEGATIVE)
[2025-01-26 12:32] LABS: Vancomycin Trough 13.4 ug/mL (10-15)
--- NOTE | 2025-01-26 12:53 | XRR_ITS ---
PROCEDURE INFORMATION: Exam: XR Chest Exam date and time: 01/26/2025 1:27 PM Age: 74 years old Clinical indication: Device placement; Other: Dobhoff placment TECHNIQUE: Imaging protocol: Radiologic exam of the chest. Views: 1 view. COMPARISON: CR (CHEST, ) 01/25/2025 1:59 AM FINDINGS: Tubes, catheters and devices: Left chest wall port is in satisfactory location with tip overlying the superior vena cava. No enteric tube is visualized. Lungs: No consolidation. Pleural spaces: No sizable pleural effusion or pneumothorax. Heart/Mediastinum: No cardiomegaly. Bones/joints: Status post ACDF.
[2025-01-26 13:36] LABS: Glucose Point of Care 190 mg/dL (70-110)
--- NOTE | 2025-01-26 13:58 | XR_ITS ---
WS: [id number] Portable AP supine chest, 01/26/2025 Clinical Data: DOBHOFF PLACEMENT Comparison: Portable chest, 01/25/2025 Findings: The feeding tube deviates to the right and ends at the junction of the right lung and right diaphragm. The feeding tube may be within the trachea and extends into the right lower lobe bronchus. The remainder of the chest shows no change. XR/XR chest 1V portable [id number] Impression: Possible insertion of feeding tube into the trachea and ending in the right low er lobe.
--- NOTE | 2025-01-26 14:05 | PC.SLP ---
[employer] treatment/follow up not completed today due to alertness level.
[2025-01-26 14:40] LABS: Anti-Nuclear Antibody Screen NEGATIVE (NEGATIVE)
--- NOTE | 2025-01-26 15:12 | XRR_ITS ---
NOTE: Report was unsigned for reason: Ordering provider was edited. Original Signature date and time was: 01/26/25 @ 1416 PROCEDURE INFORMATION: Exam: XR Chest Exam date and time: 01/26/2025 2:16 PM Age: 74 years old Clinical indication: Device placement; Ng tube TECHNIQUE: Imaging protocol: Radiologic exam of the chest. Views: 1 view. COMPARISON: CR XR chest 1V portable [id number] 01/26/2025 12:59 PM FINDINGS: Tubes, catheters and devices: Stable large caliber double lumen right central line. Enteric tube tip is over the gastroesophageal junction this could be advanced.. Lungs: Grossly unchanged lung avalos. Pleural spaces: Unremarkable. No pleural effusion. No pneumothorax. Heart/Mediastinum: Borderline cardiomegaly. Bones/joints: Stable postoperative metallic fixation of the cervical spine with or without metallic artifact. [facility] XR/XR chest 1V portable [id number] IMPRESSION: 1. Stable large caliber double lumen right central line. 2. Enteric tube tip is over the gastroesophageal junction this could be advanced.. 3. Borderline cardiomegaly. 4. Grossly unchanged lung avalos.
[2025-01-26] MEDS: vancomycin 500 MG in sodium chloride 0.9% (plus) 100 ML 200 MG IV (15:50)
[2025-01-26 17:19] LABS: Glucose Point of Care 225 mg/dL (70-110)
--- NOTE | 2025-01-26 17:20 | PM.CONSULT ---
Providers/Reason For Consult Consulting Physician/Specialty*: Dr. Kamara, neuro Reason for Consult*: altered mental status Requesting Physician: Dr. Dang Attending Physician: Opal Dang MD History of Present Illness History of Present Illness Edgard Slater is a 74 year old man with multiple profound medical and surgical problems. He has been in the hospital since 01/12/25 when he presented with flulike symptoms, weakness and had taken a fall. He could not get up. He was already oxygen dependent at home and on Eliquis chronically for DVTs. He was in septic shock on arrival and found to have influenza. He had been off of his anticoagulants and he had a massive pulmonary embolus with right ventricular strain. He was confused. He continued to deteriorate despite aggressive treatment and had to be intubated by Dr. Aburto on 01/14/2025. He was in multiorgan failure with acute kidney injury and anuria and was started on dialysis. He has been followed by nephrology. He remained in shock and required multiple antibiotics. He was found to have right lower lobe pneumonia. He has a history of gastric cancer with prior gastric resection. Chronic respiratory failure, oxygen dependent. Chronic right heart failure secondary to multiple pulmonary emboli in the past treated at [facility]. He was extubated on 01/20. He has had no meaningful neurologic recovery and although he moves about he does not answer questions or acknowledge staff. He has been lethargic. Speech therapy has been involved but the patient has been to lethargic to participate. His life partner Mohit and brother Mateo have been concerned about his lack of neurologic recovery. CT angiogram of the head and neck showed no signs of any vessel occlusion. CT scan of the head showed no acute changes, chronic small vessel disease on 01/12 and 01/14 and again during CTA 01/24/2025. His most recent disaster was development of heparin-induced thrombocytopenia for which he is now starting to recover. Medications/Allergies Home Medications ?Medication ?Instructions ?Recorded ?Confirmed ?Last Taken ?Type albuterol sulfate 90 mcg/actuation 2 puff inhalation QID PRN 01/12/25 01/12/25 Unknown History aerosol inhaler Shortness Of Breath Or Wheezing amlodipine 5 mg-benazepril 10 mg 1 cap PO DAILY 01/12/25 01/12/25 Unknown History capsule apixaban 5 mg tablet (Eliquis) 5 mg PO BID 01/12/25 01/12/25 Unknown History cholecalciferol (vitamin D3) 125 125 mcg PO DAILY 01/12/25 01/12/25 Unknown History mcg (5,000 unit) tablet (Vitamin D3) cyanocobalamin (vitamin B-12) 1,000 mcg SUBCUT Q30D 01/12/25 01/12/25 10/14/24 History 1,000 mcg/mL injection solution furosemide 20 mg tablet 20 mg PO DAILY 01/12/25 01/12/25 Unknown History omeprazole 40 mg capsule,delayed 40 mg PO DAILY 01/12/25 01/12/25 Unknown History release potassium chloride 8 mEq 8 meq PO DAILY 01/12/25 01/12/25 Unknown History capsule,extended release Allergies Allergy/AdvReac Type Severity Reaction Status Date / Time heparin (porcine) Allergy XANDER Verified 01/25/25 15:34 Current Medications Generic Name Dose Route Start Last Admin Trade Name Freq PRN Reason Stop Dose Admin Albuterol/Ipratropium 3 ml 01/13/25 14:00 01/26/25 13:16 Ipratropium-Albuterol 3 Ml Neb INHALATION 3 ml Q6H.RESP JOANNA Administration Budesonide 0.5 mg 01/13/25 20:00 01/26/25 08:16 Budesonide 0.5 Mg/2 Ml Neb INHALATION 0.5 mg BID.RESPIRATORY JOANNA Administration Chlorhexidine Gluconate 1 applic 01/15/25 02:07 01/20/25 01:47 Chlorhexidine Gluconate 4% Btl 118 Ml TOPICAL 1 applic DAILY PRN Administration Intubated patient bathing Glycerin 1 each 01/23/25 12:45 01/26/25 10:55 Glycerin Adult Supp ND Not Given DAILY JOANNA Haloperidol Lactate 1 mg 01/13/25 12:18 01/14/25 12:08 Haloperidol Inj 5 Mg/Ml Inj 1 Ml IM 1 mg Q4H PRN Administration AGITATION Bivalirudin 250 mg/ Sodium 500 mls @ 30 mls/hr 01/24/25 16:00 01/26/25 12:05 Chloride IV 0.25 mg/kg/hr .[id number] JOANNA 30 mls/hr Infusion 0.25 MG/KG/HR Multivitamins 10 ml/ Amino 1,010 mls @ 42 mls/hr 01/24/25 16:45 01/25/25 17:57 Acids/Electrolytes/Dextrose IV 42 mls/hr .Q24H JOANNA Administration Dexmedetomidine/Sodium Chloride 400 mcg in 100 mls @ 0 mls/hr 01/25/25 09:00 01/26/25 08:15 Precedex IV 0 mcg/kg/hr .Q0M JOANNA 0 mls/hr Titration Protocol Per Protocol Norepinephrine Bitartrate 4 mg in 250 mls @ 0 mls/hr 01/25/25 13:15 01/26/25 15:55 Levophed IV 2 mcg/min .Q0M JOANNA 7.5 mls/hr Titration Protocol Per Protocol Micafungin Sodium 100 mg/ 100 mls @ 100 mls/hr 01/25/25 16:00 01/25/25 19:00 Sodium Chloride IV Infused Q24H JOANNA Infusion Acyclovir 500 mg/ Sodium 260 mls @ 110 mls/hr 01/25/25 16:00 01/25/25 19:00 Chloride IV Infused Q24H JOANNA Infusion Insulin Human Lispro 0 unit 01/24/25 13:00 01/26/25 13:41 Insulin Lispro 100 Unit/1 Ml SUBCUT 6 unit QID JOANNA Administration Protocol Lanolin 1 applic 01/18/25 17:30 01/24/25 03:40 Lanolin Oint 7 Gm TOPICAL 1 applic PRN PRN Administration DRYNESS Meropenem 500 mg 01/24/25 09:30 01/26/25 10:37 Meropenem 500 Mg Sdv IVP 500 mg Q24H JOANNA Administration Protocol Pantoprazole Sodium 40 mg 01/14/25 17:35 01/26/25 10:37 Pantoprazole 40 Mg Sdv IVP 40 mg DAILY JOANNA Administration PFSH Acute PFSH: Medical History HTN (hypertension) PE (pulmonary thromboembolism) DVT (deep venous thrombosis) Gastric cancer Surgical History H/O resection of stomach Social History (Updated 01/12/25 @ 14:25 by Sea Shepherd MD) Smoking and tobacco/nicotine status: former use of tobacco/nicotine Alcohol intake: current Alcohol use comment: States has been trying to quit, has not drank in 2 months Substance/Drug Use: never Household members: significant other Vitals/I&O/Wt Last Vital Signs Temp 97.2 F L 01/26/25 09:18 Pulse 90 01/26/25 13:20 Resp 16 01/26/25 13:18 BP 105/72 01/26/25 09:18 Pulse Ox 95 01/26/25 13:18 O2 Del Method Nasal Cannula 01/26/25 13:18 O2 Flow Rate 4 01/26/25 13:18 FiO2 40 01/25/25 08:41 01/26/25 01/26/25 01/26/25 06:59 14:59 22:59 Intake Total 4.495 / 2458.784 700.885 / 700.885 275.5 / 976.385 Balance 4.495 / 2458.784 700.885 / 700.885 275.5 / 976.385 Weight last 48 hrs Weight 141 lb 8.081 oz Weight 132 lb 4.438 oz Weight 122 lb 9.232 oz Physical Exam Narrative: General: Profoundly ill 74-year-old man supine in the ICU bed with his head turned to the right. Feeding tube in place in the nasogastric region. Mental status exam: He was able to say his name. He looked at the examiner on command and showed me 2 fingers on his left hand. Although he is diffusely weak he followed multiple commands. He appears lethargic. He shakes his head yes to the question are you sad? He appears depressed. Cranial nerves: I cannot appreciate visual avalos. He tends to turn his head away from the. Facial movements symmetric. Motor: His lead front end developer is stronger in the right hand than the left. He moves the right foot more briskly than the left but he moved all 4 extremities to command. His strength was demonstrated to be less than antigravity but he appears somewhat lethargic and less than fully cooperative. Deep tendon reflexes hypoactive throughout. Sensation: He acknowledges touch in all 4 extremities. HEENT: NG tube is in place. Neck was supple. Chest: Clear to auscultation. Cardiovascular: S1 and S2 regular without murmur. Extremities: No edema. No rash Urinary Catheter Management: Swain: Cath Placed During This Visit: yes Reason for Continuing Indwelling Catheter: Accurate Measurement of Urinary Output in Critically Ill Patients Urinary Catheter Date of Insertion: 01/12/25 Urinary Catheter Time of Insertion: 21:00 Data 01/26/25 03:46 01/26/25 03:46 Micro: Microbiology 01/26/25 12:19 Occult Blood (FIT) - Final Stool - Stool Aspirate 01/24/25 14:55 Blood Culture - Preliminary Blood NEGATIVE TO DATE 01/24/25 12:10 Blood Culture - Preliminary Blood NEGATIVE TO DATE 01/24/25 12:05 Blood Culture - Preliminary Blood NEGATIVE TO DATE A&P Assessment and plan (1) Metabolic encephalopathy: This is a profoundly ill 74-year-old man with multisystem failure and most recently heparin induced thrombocytopenia, with altered mental status that has been slow to recover. By this morning he was not following commands or answering when spoken to. On my examination this afternoon he followed commands including the complex command of show me 2 fingers on your left hand, indicating comprehension. He would not meet my gaze for more than a brief second when I said look at me and then he turned away and deliberately looked away. He acknowledged that he was feeling sad. He attempted to say his name but seems to have some vocal cord dysfunction and his speech is breathy and difficult to understand. Prognosis for this gentleman for meaningful survival is very poor owing to his multisystem failure. It was my opinion following this brief neurologic exam that he is capable of making decisions but I would have to have a more thorough exam when he is feeling better. 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 This will complicate rehabilitation. (3) Reactive depression: He indicated that he is feeling sad and he turned away from me deliberately in a way that suggested that he is feeling sad and depressed. It would be reasonable to treat him with 20 mg of citalopram if that is not contraindicated by any of his other medications. 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): (7) Acute on chronic right-sided heart failure: (8) Malnutrition: (9) Acute kidney injury: (10) Hypoxic respiratory failure: (11) Pneumonia: PDMP PDMP Reviewed: Not Reviewed Consult Attestations Medical Necessity Statement: Profound multiorgan failure Coding Level of Care Code 89974 Diagnoses Metabolic encephalopathy G93.41 Critical illness myopathy G72.81 Reactive depression F32.9 Pulmonary embolus I26.99 Personal history of DVT (deep vein thrombosis) Z86.718 HIT (heparin-induced thrombocytopenia) D75.829 Acute on chronic right-sided heart failure I50.813 Malnutrition E46 Acute kidney injury N17.9 Hypoxic respiratory failure J96.91 Pneumonia J18.9
--- NOTE | 2025-01-26 17:31 | PM.PN ---
Subjective Subjective: comepletd HIDA scan today, no cholecysttitis off levophed oxygen requirement down to 4lpm plat better at 91K remains obtunded. able to open eyes but not much else. Earlier after HIDA scan, was able to move his arms to pull NG out Medications: Reviewed: Yes Medication Review Details: Current Medications Albuterol/Ipratropium (Ipratropium-Albuterol 3 Ml Neb) 3 ml INHALATION Q6H.RESP JOANNA Last Admin: 01/26/25 08:16 Dose: 3 ml Alteplase, Recombinant (Alteplase 1 Mg/Ml Sdv 2 Ml) 2 mg INTRACATH PRN PRN PRN Reason: DIALYSIS USE ONLY Budesonide (Budesonide 0.5 Mg/2 Ml Neb) 0.5 mg INHALATION BID.RESPIRATORY JOANNA Last Admin: 01/26/25 08:16 Dose: 0.5 mg Chlorhexidine Gluconate (Chlorhexidine Gluconate 4% Btl 118 Ml) 1 applic TOPICAL DAILY PRN PRN Reason: Intubated patient bathing Last Admin: 01/20/25 01:47 Dose: 1 applic Glucagon (Glucagon 1 Mg/Ml Kit 1 Ml) 1 mg IM ONCE PRN; Protocol PRN Reason: Adult Acute Hypoglycemia Nursing Prot. Glycerin (Glycerin Adult Supp) 1 each OH DAILY JOANNA Last Admin: 01/25/25 10:17 Dose: 1 each Haloperidol Lactate (Haloperidol Inj 5 Mg/Ml Inj 1 Ml) 1 mg IM Q4H PRN PRN Reason: AGITATION Last Admin: 01/14/25 12:08 Dose: 1 mg Heparin Sodium (Porcine) (Heparin, Porcine 1,000 Unit/Ml Inj 10 Ml) 1,000 unit IV PRN PRN PRN Reason: clotting Sodium Chloride (Sodium Chloride 0.9%) 1,000 mls @ 0 mls/hr IV .Q0M PRN PRN Reason: hypotension or symptomatic Dextrose (D5w) 500 mls @ 0 mls/hr IV ONCE PRN; Protocol PRN Reason: Adult Acute Hypoglycemia Prot Dextrose (D10w) 125 mls @ 750 mls/hr IV PRN PRN; Protocol PRN Reason: Adult Acute Hypoglycemia Nursing Protocol Dextrose (D10w) 250 mls @ 1,000 mls/hr IV PRN PRN; Protocol PRN Reason: Adult Acute Hypoglycemia Nursing Protocol Bivalirudin 250 mg/ Sodium (Chloride) 500 mls @ 30 mls/hr IV .[id number] [facility] Last Admin: 01/26/25 01:48 Dose: 0.25 mg/kg/hr, 30 mls/hr Multivitamins 10 ml/ Amino (Acids/Electrolytes/Dextrose) 1,010 mls @ 42 mls/hr IV .Q24H [facility] Last Admin: 01/25/25 17:57 Dose: 42 mls/hr Dexmedetomidine/Sodium Chloride (Precedex) 400 mcg in 100 mls @ 0 mls/hr IV .Q0M [facility]; Protocol Last Titration: 01/26/25 07:56 Dose: 0.2 mcg/kg/hr, 2.78 mls/hr Albumin Human (Albumin) 12.5 gm in 50 mls @ 60 mls/hr IV PRN PRN PRN Reason: Hypotension and/or symptomatic Norepinephrine Bitartrate (Levophed) 4 mg in 250 mls @ 0 mls/hr IV .Q0M [facility]; Protocol Last Titration: 01/25/25 19:00 Dose: 0 mcg/min, 0 mls/hr Micafungin Sodium 100 mg/ (Sodium Chloride) 100 mls @ 100 mls/hr IV Q24H [facility] Last Infusion: 01/25/25 19:00 Dose: Infused Acyclovir 500 mg/ Sodium (Chloride) 260 mls @ 110 mls/hr IV Q24H [facility] Last Infusion: 01/25/25 19:00 Dose: Infused Insulin Human Lispro (Insulin Lispro 100 Unit/1 Ml) 0 unit SUBCUT QID [facility]; Protocol Last Admin: 01/25/25 21:32 Dose: 4 unit Lanolin (Lanolin Oint 7 Gm) 1 applic TOPICAL PRN PRN PRN Reason: DRYNESS Last Admin: 01/24/25 03:40 Dose: 1 applic Lanolin (Lanolin Oint 7 Gm) 1 applic TOPICAL PRN PRN PRN Reason: DRYNESS Meropenem (Meropenem 500 Mg Sdv) 500 mg IVP Q24H [facility]; Protocol Last Admin: 01/25/25 10:11 Dose: 500 mg Methylprednisolone Sodium Succinate (Methylprednisolone Sod Succ 40 Mg/Ml Inj) 40 mg IVP Q24H [facility] Last Admin: 01/25/25 10:10 Dose: 40 mg Ondansetron HCl (Ondansetron 2 Mg/Ml Sdv 2 Ml) 4 mg IVP Q8H PRN PRN Reason: vomiting, or N/V if npo Pantoprazole Sodium (Pantoprazole 40 Mg Sdv) 40 mg IVP DAILY JOANNA Last Admin: 01/25/25 10:11 Dose: 40 mg Vancomycin HCl (Vancomycin 1,000 Mg Sdv (Pharmacy Mix)) 0 mg XX PRN PRN PRN Reason: Pharmacy to Dose Vitals/I&O/Wt Last Vital Signs Temp 97.2 F L 01/26/25 09:18 Pulse 90 01/26/25 13:20 Resp 16 01/26/25 13:18 BP 105/72 01/26/25 09:18 Pulse Ox 95 01/26/25 13:18 O2 Del Method Nasal Cannula 01/26/25 13:18 O2 Flow Rate 4 01/26/25 13:18 FiO2 40 01/25/25 08:41 01/26/25 01/26/25 01/26/25 06:59 14:59 22:59 Intake Total 4.495 / 2458.784 700.885 / 700.885 275.5 / 976.385 Balance 4.495 / 2458.784 700.885 / 700.885 275.5 / 976.385 Weight last 48 hrs Weight 64.186 kg Weight 60 kg Weight 55.6 kg Physical Exam Narrative: General: Somnolent, obtunded, does not respond to commands. HEENT: PERRLA, pupils bilaterally equal and reactive, pallors not present Chest: scattered crackles B/L CVS: S1-S2 regular, no murmurs, no tachycardia, no gallops, no rubs Abdomen: Soft, nontender, non distended Neuro: Obtunded and somnolent. Urinary Catheter Management: Fallon: Cath Placed During This Visit: yes Reason for Continuing Indwelling Catheter: Accurate Measurement of Urinary Output in Critically Ill Patients Urinary Catheter Date of Insertion: 01/12/25 Urinary Catheter Time of Insertion: 21:00 Data 01/26/25 03:46 01/26/25 03:46 Micro: Microbiology 01/26/25 12:19 Occult Blood (FIT) - Final Stool - Stool Aspirate 01/24/25 14:55 Blood Culture - Preliminary Blood NEGATIVE TO DATE A&P Assessment and plan (1) Obstructive cardiovascular shock: (2) Hypoxic respiratory failure: (3) Pulmonary embolus: (4) Influenza A: (5) Pneumonia: (6) Acute kidney injury: (7) Liver dysfunction: (8) Lymphadenopathy: (9) Elevated lactic acid level: (10) Acute on chronic right-sided heart failure: (11) Pulmonary HTN: (12) Encephalopathy: (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 Patient was on mechanical ventilation until he was Extubated on 01/20.Currently on 8L via NC. Does not appear to be in any respiratory distress - Fluid management with HD Plan: - Continue to wean oxygen as tolerated - Keep head of bed > 30 degrees, high risk for aspiration - Made NPO again - ST consult in am - Repeat Chest xray and ABG if again worsening respiratory status - Has been on solu-medrol as well - decreased to BID - Will maintain for now and once oxygen requirement improve de-escalate to daily and or oral taper Acute Pulmonary Emboli with Cor Pulmonale Secondary to acute right heart failure in the setting of multiple pulmonary emboli and pulmonary HTN. - Off pressors since 01/15/2025. TTE showed dilated RV/RA, RVSP 40-45 mmHg. Plan: - Maintain euvolemia, avoid fluid overload. - Optimize RV afterload reduction. - On heparin drip once able to take PO can consider change to Eliquis Sepsis due to Pneumonia - Suspected aspiration vs viral/bacterial pneumonia. On broad-spectrum antibiotics. Procalcitonin >100 on admission. Patient has been on a prolonged course of antibiotics. Currently noted to have increasing leukocytosis which is likely due to steroids. Culture remained negative. No longer hypothermic. Off bear hugger. Plan: - Continue Zosyn 3.375 grams IV q12h. Plan to de-escalate in next few days - Repeat cultures if febrile - Will consider de-escalation of abx Acute Kidney Injury/Failure now progressed to ESRD requiring HD - Likely secondary to multi-organ failure and cardiogenic shock. Required initiation of dialysis. Remained aneuric. Not likely to recover - Currently has a temp HD catheter - Per nephrology patient will likley be HD dependent Plan: - Continue dialysis per nephrology recommendations. - Will need surgery consult for PermCath placement however no surgery coverage available today - Please consult Sx in am for line placement Influenza A Infection - Positive influenza A testing on admission. - Plan: DC tamiflu Encephalopathy - Multi-factorial - likely components of toxic/metabolic encephalopathy and hypoxemia. - Slowing improving, wax and waning Plan: - Haldol IM PRN for agitation - Avoid benzodiazepines if possible. Gastric Cancer - History of gastric cancer with prior resection. No evidence of acute issues on imaging. Plan: - No further work up inpatient FEN - Made NPO again due to risk of aspiration Plan: - ST consult in am Deconditioning - PT/OT consult in am DVT Prophylaxis - Currently on heparin drip for treatment of pulmonary emboli. Code Status - Full code January 22, 2025 Patient is planned for placement of a tunneled HD cath today. Currently he has a right jugular CVC in place. This has been in for over 10 days at this point. Will remove jugular CVC today. Alternate IV access to be obtained by placement of a PICC line. Patient has had waxing and waning mentation. Failed a swallow evaluation yesterday. He is again very lethargic today. Will start TPN for nutrition. If mentation remains poor and patient is unable to swallow, may need PEG. Head CT on admission was without any acute intracranial findings. There was noted chronic small vessel disease. Noted to have target cells schistocytes on CBC on January 20, 2025. Elevated T. bili 7.0. Low hemoglobin ranging between 8.2-9. Concern for potential hemolysis as contributing. Check peripheral smear. Check indirect bili, haptoglobin LDH reticulocyte count. Unlikely to have sickle cell disease given no prior history of the same. Brother Bal denies any known history of sickle cell anemia. Unlikely to be a sickling crisis currently. Continue steroids methylprednisolone 40 mg IV every 12 hours until results of hemolysis labs are available. Continue dialysis per nephrology. Appreciate recommendations. January 23, 2025 Patient underwent placement of tunneled HD catheter yesterday into the right chest wall. Right jugular central line has since been removed. Patient noted to have bleeding around the insertion site therefore heparin drip has remained on hold. Hemoglobin noted to be at 8.6 today. Similar range previously. PICC line planned today. Patient is on peripheral nutrition currently, we will change to TPN once PICC line is placed. If patient remains encephalopathic as he is today with no improvement over the next 24 to 48 hours, will likely need PEG for oral nutrition. Cause of persisting encephalopathy not entirely clear. Since extubation patient has remained persistently encephalopathic. He opens eyes to calling name, will squeeze fingers, today he was able to reply yes or no. However is not alert enough to try to orally feed him. Differentials for persisting encephalopathy include possible CVA. CT head from admission was unremarkable. Will check MRI of the brain today. During initial course appeared that patient may have multifactorial encephalopathy related to uremia, acute influenza infection, possibly viral encephalitis however continues to be persistently encephalopathy. Given history of long-term alcohol use, consideration for Wernicke's. Add thiamine to TPN. Additionally continues to have persistently elevated T. bili of 7 range. Mostly direct fraction. LDH mildly elevated. Haptoglobin low. Schistocytes target cells noted on manual differential. Peripheral smear ordered yesterday is currently pending. Possibility of hemolysis considered, however with direct fraction elevated consider this to be less likely. Low haptoglobin may be related to liver dysfunction. However continues to have persistent AST ALT are downtrending today elevated T. bili. Currently on steroids for possibility of autoimmune hemolysis. Reduce methylprednisolone 40 mg every 24 hours today Patient has had persisting leukocytosis during course of admission and spite of being on empiric antibiotics. Broadening of antibiotics does not appear to have made much difference. Discontinue antibiotics today and closely monitor. He is afebrile currently. Noted to have bilateral mediastinal lymphadenopathy of unclear significance. Soft tissue swelling is encasing the pulmonary arteries on CT from admission. Patient has a history of gastric malignancy. Ideally would need to have a biopsy to determine the nature of lymphadenopathy, However we do not have pulmonology services available to perform bronchoscopic guided ultrasound biopsy. Will defer this to outpatient. In the interim, noninvasive infectious evaluation to include histoplasma urine antigen, histoplasma antibody, Coccidioides antibody, QuantiFERON screen. HIV sero status is negative. Heparin drip to resume when okay per surgery for PE. Continues to be on 9 L/min supplemental O2. Likely hypoxia is related to PE and right heart strain. January 24, 2025 Clinically worsening today. He remains lethargic, somnolent. Does not wake up today or follow any commands. Minimal response to painful stimuli. MRI of the head was planned for today however patient required increased oxygen requirement and is currently on a heated high flow. Per MRI, heated high flow will not be compatible with MRI at this time. He received dialysis today. Following dialysis he had was taken for CTA of the head and neck since MRI was unable to be performed. Results are currently awaited at this time. Additionally noted to have increasing leukocytosis now at 26,000. Following platelet count at 76,000 today. Peripheral smear made available this afternoon showed moderate normocytic normochromic anemia with marked anisopoikilocytosis and polychromasia. Minimal thrombocytopenia with no platelet clumping. Impression on peripheral smear that of underlying bone marrow stress response. No circulating blasts or atypical lymphocytes were seen. Possibilities at this time include sepsis, DIC, TTP versus XANDER. DIC panel sent. Borges 13 pending, results expected within the next 5 to 7 days. HIT antibody requested, again results not expected back for at least 5 to 7 days. In the interim heparin has been discontinued. Switch to bivalirudin 0.25 mg/kg/h per dialysis dosing. Sepsis may be related to acute cholecystitis as noted on ultrasound of the abdomen yesterday. Previously ultrasound of the abdomen and appendage admission was unremarkable. While his AST and ALT alkaline phosphatase are normal, his T. bili continues to be persistently elevated at 7.7. General surgery was consulted. He is not currently a candidate for cholecystectomy. Findings discussed with radiology, US currently incolclusive for acute cholecystitis, may be related to GB wall edema. Planned HIDA scan tomorrow. PIcc line unable to be placed yesterday in spite of multiple attempts, left fem CVC placed today. Started TPN. Hyperglycemia today since starting parenteral nutrition. negative ketones, less likely DKA, added sliding scale insulin QID. Abx changed to meropenem and vancomycin. All updates discussed with brother bal (next of kin) and life partner. Guarded prognosis explained. They would like to continue all agressive measures incl CPR, intubation, surgica interventions if needed January 25, 2025: [place] [id number] today. WBC increasing. Continues to be confused and obtunded. Case was discussed with hematology at [facility] and discuss potential transfer to [facility] for hematology however after review all labs and data presented to hematology, they agreed with current line of management with no additional interventions or change in medications at the time. Based on peripheral smear with no schistocytes, elevated DIRECT bili fraction in spite of low haptoglobin, low fibrinogen, TTP is considered less likely. Possible DIC vs HIT seems more likely. FDP pending. 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 Continue with angiomax gtt, will plan to transition to Eliquis VIA NGT once HDA results are available and no procedures are planned. Cause of increasing leukocytosis not readily evident. Blood cx taken and pending. CXR with stable PNA. Cholecytsitis under evalutaion with HIDA scan. Contineu meropenem, vancomycin empirically, add micafungin since patient has been in ICU for 10 days, has had multiple lines placed. Previosuly placed Right jugular CVC, left temp HD catheter and fallon catheter have been removed. Currently has new left fem CVC in place.New tunneled HD right chest. Possibility of meninigitis considered less likely as he has been inpatient for 10 days, unable to obtain an LP due to thrombocytopenia and limoited utility after being on abx for many days. Will presumptively add ACV renally dosed. Patient needed to be started on levophed GTT this afternoon after returning from HIDA scan. Overall clinically worse, guarded prognosis discussed with family. January 26, 2025 HIDA negative for cholecystistis. No cholecystostomy indicated based on these results. No surgical intervntion inidcated. Will place Dobhoff today with aim to start enteral nutriton next 24 hrs and also start Eliquis if plat continues to trend up For now continue angiomax WBC increasing ? cause: on broad spectrum coverage with MEropenem, vancomycin, micafungin and ACV currently mental status has not improved. persistenly encephalopathic. ? metabolic vs CVA?? ? paraneoplastic ? neurology consult for persisting AMS CTA as noted above, ammonia WNL in spite of deranged LFTs, MV added to TPN, check TSH t3 t4. Platelets improving with change in a/c Off levophed today Received HD today PDMP PDMP Reviewed: Not Reviewed Attestations Medical Necessity Statement*: continued need for angiomax a/c, monitor aptt, Dobhoff, transition to enteral feeds, iv abx Coding Level of Care Code Acute Code for Chg Fwd Diagnoses Obstructive cardiovascular shock R57.8 Hypoxic respiratory failure J96.91 Pulmonary embolus I26.99 Influenza A J10.1 Pneumonia J18.9 Acute kidney injury N17.9 Liver dysfunction K76.89 Lymphadenopathy R59.1 Elevated lactic acid level R79.89 Acute on chronic right-sided heart failure I50.813 Pulmonary HTN I27.20 Encephalopathy G93.40 HIT (heparin-induced thrombocytopenia) D75.829
[2025-01-26] MEDS: micafungin 100 MG in sodium chloride 0.9% (plus) 100 ML IV (18:05)
[2025-01-26] MEDS: AA-Dex 8%-10% w/ lytes 1,000 ML with multivitamin inj 10 ML 42 ML IV (18:07)
--- NOTE | 2025-01-26 19:12 | PC.NURSE ---
Addendum entered by Carol Dominguez RN 01/27/25 08:25: Noted yellow sclera bilat Original Note: Shift summary: Pt completed Hita scan at shift changed. He pulled out his NG tube. It was decided he was not a candidate for PEG tube. Dobhoff feeding tube inserted early this afternoon, still awaiting confirmation of placement from xray. Positive placement noted with air. VSS. His temps run on the low side: 96.6 to 97.4 F. He denies being cold this shift by shaking his head no to the question. His significant other stated they had a conversation this afternoon while she was at bedside. and he answered her, he wanted to speak to his brother on the phone. Staff can barely get a yes/no head nod out of him for an answer. TPN and Angiomax remain infusing into the left groin CVL. He had Precedex infusing this am for the scan, it was stopped shortly thereafter. He had Dialysis today, he required Levophed for BP maintenance during HD. Per his lack.minimal response no pain noted this shift. He was incontinent of urine at end of shift. He was incontinent of Bm once this shift. Bathing completed this shift. HD, CVL and right forearm IV have been oozy this shift. CVL dressing, bio patch, and end caps changed.
--- NOTE | 2025-01-26 19:35 | PC.NURSE ---
Dobhoff: initial insertion at 52. Per Xray could be advanced. Dobhoff advanced to 55.
[2025-01-26 21:12] LABS: Glucose Point of Care 251 mg/dL (70-110)
[2025-01-26] MEDS: morphine 4 mg/mL SDV 1 mL 2 MG IVP (23:31)
[2025-01-27] VITALS (38 sets, daily range): BP systolic 70–135; BP diastolic 54–90; PULSE 90–118; RESP 15–28; TEMP 35.6–36.6; O2SAT 82–100
[2025-01-27 01:14] LABS: CARDIOLIPIN AB (IGG) <2.0 GPL-U/mL; CARDIOLIPIN AB (IGM) 5.1 MPL-U/mL
[2025-01-27] MEDS: ipratropium-albuterol 3 mL Neb INHALATION ×4 (02:51→20:39)
[2025-01-27 04:55] LABS: Basophils # 0.1 10^3/uL (0.0-0.1); Basophils % 0.4 %; Hematocrit 22.9 % (37-53); Lymphocytes # 0.5 10^3/uL (0.8-4.8); Lymphocytes % 1.7 %; Mean Corpuscular HGB Conc 34.1 g/dL (30-55); Mean Corpuscular Hemoglobin 34.2 pg (27-33); Mean Corpuscular Volume 100.4 fl (82-101); Monocytes # 2.1 10^3/uL (0.2-0.9); Neutrophils # 26.17 10^3/uL (1.8-7.7); Neutrophils % 88.1 %; Nucleated Red Blood Cells # 7.4 /100WBC; Platelet Count 70 10^3/cmm (157-399); Red Blood Count 2.28 10^6/uL (3.85-5.65); Red Cell Distribution Width 28.2 % (12.1-15.1); White Blood Count 29.73 10^3/uL (3.29-11.43)
[2025-01-27 05:14] LABS: Vancomycin Trough 18.8 ug/mL (10-15)
[2025-01-27 05:17] LABS: Thyroid Stimulating Hormone 3.99 uIU/mL (0.27-4.20)
[2025-01-27 05:23] LABS: Slide Review Slide Review Perform
[2025-01-27 05:43] LABS: Alanine Aminotransferase 61 U/L (0-41); Albumin Level 4.7 g/dL (3.5-5.2); Alkaline Phosphatase 102 U/L (40-130); Anion Gap 23.7 (5-19); Aspartate Amino Transferase 74 U/L (0-40); Blood Urea Nitrogen 61 mg/dL (8-23); Calcium 10.3 mg/dL (8.5-10.5); Carbon Dioxide 20 mmol/L (22-29); Chloride 98 mmol/L (98-107); Globulin 1.5 g/dL (1.3-4.6); Glucose 209 mg/dL (65-115); Magnesium 1.9 mg/dL (1.7-2.3); Osmolality Calculated 309 mOsm/kg (285-295); Phosphorus 2.8 mg/dL (2.5-4.5); Potassium 3.7 mmol/L (3.5-5.1); Sodium 138 mmol/L (136-145); Total Protein 6.2 g/dL (6.6-8.7)
[2025-01-27 05:44] LABS: Total Bilirubin 8.8 mg/dL (0.15-1.2)
[2025-01-27 05:51] LABS: T3 Free 1.7 PG/ML (2.0-4.4)
[2025-01-27] MEDS: budesonide 0.5 mg/2 mL Neb INHALATION ×2 (08:19→20:39)
[2025-01-27 09:13] LABS: Glucose Point of Care 313 mg/dL (70-110)
[2025-01-27] MEDS: insulin lispro 100 unit/1 mL SUBCUT ×3 (09:21→21:14)
[2025-01-27] MEDS: pantoprazole 40 mg SDV IVP (09:24)
[2025-01-27] MEDS: meropenem 500 mg SDV IVP (09:28)
--- NOTE | 2025-01-27 10:20 | PC.NURSE ---
This nurse told pt his significant other called to check on him and said she was trying to get a ride in to visit him. He shook his head no. When asked if he wanted her to visit he again shook his head no. When asked he stated She don't love me no more . Further clarification on his thoughts, he stated it was because she don't take him home. Discussed with pt, Mohit's ( his significant other) ability to drive, attempting everyday to get someone to give her a ride to hospital, and how frequent she calls for updates are a clear indication of someone who cares. He conceded that point.
[2025-01-27 12:13] LABS: Glucose Point of Care 191 mg/dL (70-110)
--- NOTE | 2025-01-27 13:57 | P.PN_ITS ---
Subjective 2 Subjective: Patient is more awake today. He opens his eyes. States that his name is Edgard Slater. Reports that his significant other is called Dl. States that he would like to go home. Recognizes that he is in the hospital. He is very lethargic and deconditioned, however this mental status is currently better than what has been seen since this Wednesday. He is able to follow commands. Moves both upper extremities off the bed. Attempts to reach his nasal cannula. He is able to flex his left lower extremity both at the knee and the thigh. He is attempting to move the right lower extremity as well but this appears to be weaker compared to the left side. Platelet count is at 70,000 today. Leukocytosis stable at 29,000. Hemoglobin slightly lower at 7.8. Oxygen supplementation at 3 L/min via high flow nasal cannula. Reports nearly daily consumption of alcohol. Medications: Reviewed: Yes Medication Review Details: Current Medications Albuterol/Ipratropium (Ipratropium-Albuterol 3 Ml Neb) 3 ml INHALATION Q6H.RESP JOANNA Last Admin: 01/26/25 08:16 Dose: 3 ml Alteplase, Recombinant (Alteplase 1 Mg/Ml Sdv 2 Ml) 2 mg INTRACATH PRN PRN PRN Reason: DIALYSIS USE ONLY Budesonide (Budesonide 0.5 Mg/2 Ml Neb) 0.5 mg INHALATION BID.RESPIRATORY JOANNA Last Admin: 01/26/25 08:16 Dose: 0.5 mg Chlorhexidine Gluconate (Chlorhexidine Gluconate 4% Btl 118 Ml) 1 applic TOPICAL DAILY PRN PRN Reason: Intubated patient bathing Last Admin: 01/20/25 01:47 Dose: 1 applic Glucagon (Glucagon 1 Mg/Ml Kit 1 Ml) 1 mg IM ONCE PRN; Protocol PRN Reason: Adult Acute Hypoglycemia Nursing Prot. Glycerin (Glycerin Adult Supp) 1 each FL DAILY JOANNA Last Admin: 01/25/25 10:17 Dose: 1 each Haloperidol Lactate (Haloperidol Inj 5 Mg/Ml Inj 1 Ml) 1 mg IM Q4H PRN PRN Reason: AGITATION Last Admin: 01/14/25 12:08 Dose: 1 mg Heparin Sodium (Porcine) (Heparin, Porcine 1,000 Unit/Ml Inj 10 Ml) 1,000 unit IV PRN PRN PRN Reason: clotting Sodium Chloride (Sodium Chloride 0.9%) 1,000 mls @ 0 mls/hr IV .Q0M PRN PRN Reason: hypotension or symptomatic Dextrose (D5w) 500 mls @ 0 mls/hr IV ONCE PRN; Protocol PRN Reason: Adult Acute Hypoglycemia Prot Dextrose (D10w) 125 mls @ 750 mls/hr IV PRN PRN; Protocol PRN Reason: Adult Acute Hypoglycemia Nursing Protocol Dextrose (D10w) 250 mls @ 1,000 mls/hr IV PRN PRN; Protocol PRN Reason: Adult Acute Hypoglycemia Nursing Protocol Bivalirudin 250 mg/ Sodium (Chloride) 500 mls @ 30 mls/hr IV .[id number] JOANNA Last Admin: 01/26/25 01:48 Dose: 0.25 mg/kg/hr, 30 mls/hr Multivitamins 10 ml/ Amino (Acids/Electrolytes/Dextrose) 1,010 mls @ 42 mls/hr IV .Q24H JOANNA Last Admin: 01/25/25 17:57 Dose: 42 mls/hr Dexmedetomidine/Sodium Chloride (Precedex) 400 mcg in 100 mls @ 0 mls/hr IV .Q0M JOANNA; Protocol Last Titration: 01/26/25 07:56 Dose: 0.2 mcg/kg/hr, 2.78 mls/hr Albumin Human (Albumin) 12.5 gm in 50 mls @ 60 mls/hr IV PRN PRN PRN Reason: Hypotension and/or symptomatic Norepinephrine Bitartrate (Levophed) 4 mg in 250 mls @ 0 mls/hr IV .Q0M JOANNA; Protocol Last Titration: 01/25/25 19:00 Dose: 0 mcg/min, 0 mls/hr Micafungin Sodium 100 mg/ (Sodium Chloride) 100 mls @ 100 mls/hr IV Q24H JOANNA Last Infusion: 01/25/25 19:00 Dose: Infused Acyclovir 500 mg/ Sodium (Chloride) 260 mls @ 110 mls/hr IV Q24H JOANNA Last Infusion: 01/25/25 19:00 Dose: Infused Insulin Human Lispro (Insulin Lispro 100 Unit/1 Ml) 0 unit SUBCUT QID JOANNA; Protocol Last Admin: 01/25/25 21:32 Dose: 4 unit Lanolin (Lanolin Oint 7 Gm) 1 applic TOPICAL PRN PRN PRN Reason: DRYNESS Last Admin: 01/24/25 03:40 Dose: 1 applic Lanolin (Lanolin Oint 7 Gm) 1 applic TOPICAL PRN PRN PRN Reason: DRYNESS Meropenem (Meropenem 500 Mg Sdv) 500 mg IVP Q24H [facility]; Protocol Last Admin: 01/25/25 10:11 Dose: 500 mg Methylprednisolone Sodium Succinate (Methylprednisolone Sod Succ 40 Mg/Ml Inj) 40 mg IVP Q24H JOANNA Last Admin: 01/25/25 10:10 Dose: 40 mg Ondansetron HCl (Ondansetron 2 Mg/Ml Sdv 2 Ml) 4 mg IVP Q8H PRN PRN Reason: vomiting, or N/V if npo Pantoprazole Sodium (Pantoprazole 40 Mg Sdv) 40 mg IVP DAILY [facility] Last Admin: 01/25/25 10:11 Dose: 40 mg Vancomycin HCl (Vancomycin 1,000 Mg Sdv (Pharmacy Mix)) 0 mg XX PRN PRN PRN Reason: Pharmacy to Dose Vitals/I&O/Wt Last Vital Signs Temp 96.4 F L 01/27/25 13:19 Pulse 102 H 01/27/25 13:44 Resp 16 01/27/25 13:30 BP 110/67 01/27/25 13:19 Pulse Ox 88 L 01/27/25 13:30 O2 Del Method Nasal Cannula 01/27/25 13:30 O2 Flow Rate 3 01/27/25 13:30 FiO2 40 01/25/25 08:41 01/26/25 01/27/25 01/27/25 22:59 06:59 14:59 Intake Total 2844.625 / 3545.510 0 / 0 Output Total 134 / 134 0 / 0 Balance 2710.625 / 3411.510 0 / 0 Weight last 48 hrs Weight 66 kg Weight 66.5 kg Weight 64.186 kg Physical Exam 2 Narrative: General: opens eyes to calling name,mental status slightly better compared to previous. HEENT: PERRLA, pupils bilaterally equal and reactive, pallors not present Chest: scattered crackles B/L CVS: S1-S2 regular, no murmurs, no tachycardia, no gallops, no rubs Abdomen: Soft, nontender, non distended Neuro: as above Urinary Catheter Management: Fallon: Cath Placed During This Visit: yes Reason for Continuing Indwelling Catheter: Accurate Measurement of Urinary Output in Critically Ill Patients Urinary Catheter Date of Insertion: 01/12/25 Urinary Catheter Time of Insertion: 21:00 Data 01/27/25 04:27 01/27/25 04:27 Micro: Microbiology 01/26/25 12:19 Occult Blood (FIT) - Final Stool - Stool Aspirate A&P Assessment and plan (1) Obstructive cardiovascular shock: (2) Hypoxic respiratory failure: (3) Pulmonary embolus: (4) Influenza A: (5) Pneumonia: (6) Acute kidney injury: (7) Liver dysfunction: (8) Lymphadenopathy: (9) Elevated lactic acid level: (10) Acute on chronic right-sided heart failure: (11) Pulmonary HTN: (12) Encephalopathy: (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 Patient was on mechanical ventilation until he was Extubated on 01/20.Currently on 8L via NC. Does not appear to be in any respiratory distress - Fluid management with HD Plan: - Continue to wean oxygen as tolerated - Keep head of bed > 30 degrees, high risk for aspiration - Made NPO again - ST consult in am - Repeat Chest xray and ABG if again worsening respiratory status - Has been on solu-medrol as well - decreased to BID - Will maintain for now and once oxygen requirement improve de-escalate to daily and or oral taper Acute Pulmonary Emboli with Cor Pulmonale Secondary to acute right heart failure in the setting of multiple pulmonary emboli and pulmonary HTN. - Off pressors since 01/15/2025. TTE showed dilated RV/RA, RVSP 40-45 mmHg. Plan: - Maintain euvolemia, avoid fluid overload. - Optimize RV afterload reduction. - On heparin drip once able to take PO can consider change to Eliquis Sepsis due to Pneumonia - Suspected aspiration vs viral/bacterial pneumonia. On broad-spectrum antibiotics. Procalcitonin >100 on admission. Patient has been on a prolonged course of antibiotics. Currently noted to have increasing leukocytosis which is likely due to steroids. Culture remained negative. No longer hypothermic. Off bear hugger. Plan: - Continue Zosyn 3.375 grams IV q12h. Plan to de-escalate in next few days - Repeat cultures if febrile - Will consider de-escalation of abx Acute Kidney Injury/Failure now progressed to ESRD requiring HD - Likely secondary to multi-organ failure and cardiogenic shock. Required initiation of dialysis. Remained aneuric. Not likely to recover - Currently has a temp HD catheter - Per nephrology patient will likley be HD dependent Plan: - Continue dialysis per nephrology recommendations. - Will need surgery consult for PermCath placement however no surgery coverage available today - Please consult Sx in am for line placement Influenza A Infection - Positive influenza A testing on admission. - Plan: DC tamiflu Encephalopathy - Multi-factorial - likely components of toxic/metabolic encephalopathy and hypoxemia. - Slowing improving, wax and waning Plan: - Haldol IM PRN for agitation - Avoid benzodiazepines if possible. Gastric Cancer - History of gastric cancer with prior resection. No evidence of acute issues on imaging. Plan: - No further work up inpatient FEN - Made NPO again due to risk of aspiration Plan: - ST consult in am Deconditioning - PT/OT consult in am DVT Prophylaxis - Currently on heparin drip for treatment of pulmonary emboli. Code Status - Full code January 22, 2025 Patient is planned for placement of a tunneled HD cath today. Currently he has a right jugular CVC in place. This has been in for over 10 days at this point. Will remove jugular CVC today. Alternate IV access to be obtained by placement of a PICC line. Patient has had waxing and waning mentation. Failed a swallow evaluation yesterday. He is again very lethargic today. Will start TPN for nutrition. If mentation remains poor and patient is unable to swallow, may need PEG. Head CT on admission was without any acute intracranial findings. There was noted chronic small vessel disease. Noted to have target cells schistocytes on CBC on January 20, 2025. Elevated T. bili 7.0. Low hemoglobin ranging between 8.2-9. Concern for potential hemolysis as contributing. Check peripheral smear. Check indirect bili, haptoglobin LDH reticulocyte count. Unlikely to have sickle cell disease given no prior history of the same. Brother Bal denies any known history of sickle cell anemia. Unlikely to be a sickling crisis currently. Continue steroids methylprednisolone 40 mg IV every 12 hours until results of hemolysis labs are available. Continue dialysis per nephrology. Appreciate recommendations. January 23, 2025 Patient underwent placement of tunneled HD catheter yesterday into the right chest wall. Right jugular central line has since been removed. Patient noted to have bleeding around the insertion site therefore heparin drip has remained on hold. Hemoglobin noted to be at 8.6 today. Similar range previously. PICC line planned today. Patient is on peripheral nutrition currently, we will change to TPN once PICC line is placed. If patient remains encephalopathic as he is today with no improvement over the next 24 to 48 hours, will likely need PEG for oral nutrition. Cause of persisting encephalopathy not entirely clear. Since extubation patient has remained persistently encephalopathic. He opens eyes to calling name, will squeeze fingers, today he was able to reply yes or no. However is not alert enough to try to orally feed him. Differentials for persisting encephalopathy include possible CVA. CT head from admission was unremarkable. Will check MRI of the brain today. During initial course appeared that patient may have multifactorial encephalopathy related to uremia, acute influenza infection, possibly viral encephalitis however continues to be persistently encephalopathy. Given history of long-term alcohol use, consideration for Wernicke's. Add thiamine to TPN. Additionally continues to have persistently elevated T. bili of 7 range. Mostly direct fraction. LDH mildly elevated. Haptoglobin low. Schistocytes target cells noted on manual differential. Peripheral smear ordered yesterday is currently pending. Possibility of hemolysis considered, however with direct fraction elevated consider this to be less likely. Low haptoglobin may be related to liver dysfunction. However continues to have persistent AST ALT are downtrending today elevated T. bili. Currently on steroids for possibility of autoimmune hemolysis. Reduce methylprednisolone 40 mg every 24 hours today Patient has had persisting leukocytosis during course of admission and spite of being on empiric antibiotics. Broadening of antibiotics does not appear to have made much difference. Discontinue antibiotics today and closely monitor. He is afebrile currently. Noted to have bilateral mediastinal lymphadenopathy of unclear significance. Soft tissue swelling is encasing the pulmonary arteries on CT from admission. Patient has a history of gastric malignancy. Ideally would need to have a biopsy to determine the nature of lymphadenopathy, However we do not have pulmonology services available to perform bronchoscopic guided ultrasound biopsy. Will defer this to outpatient. In the interim, noninvasive infectious evaluation to include histoplasma urine antigen, histoplasma antibody, Coccidioides antibody, QuantiFERON screen. HIV sero status is negative. Heparin drip to resume when okay per surgery for PE. Continues to be on 9 L/min supplemental O2. Likely hypoxia is related to PE and right heart strain. January 24, 2025 Clinically worsening today. He remains lethargic, somnolent. Does not wake up today or follow any commands. Minimal response to painful stimuli. MRI of the head was planned for today however patient required increased oxygen requirement and is currently on a heated high flow. Per MRI, heated high flow will not be compatible with MRI at this time. He received dialysis today. Following dialysis he had was taken for CTA of the head and neck since MRI was unable to be performed. Results are currently awaited at this time. Additionally noted to have increasing leukocytosis now at 26,000. Following platelet count at 76,000 today. Peripheral smear made available this afternoon showed moderate normocytic normochromic anemia with marked anisopoikilocytosis and polychromasia. Minimal thrombocytopenia with no platelet clumping. Impression on peripheral smear that of underlying bone marrow stress response. No circulating blasts or atypical lymphocytes were seen. Possibilities at this time include sepsis, DIC, TTP versus XANDER. DIC panel sent. Borges 13 pending, results expected within the next 5 to 7 days. HIT antibody requested, again results not expected back for at least 5 to 7 days. In the interim heparin has been discontinued. Switch to bivalirudin 0.25 mg/kg/h per dialysis dosing. Sepsis may be related to acute cholecystitis as noted on ultrasound of the abdomen yesterday. Previously ultrasound of the abdomen and appendage admission was unremarkable. While his AST and ALT alkaline phosphatase are normal, his T. bili continues to be persistently elevated at 7.7. General surgery was consulted. He is not currently a candidate for cholecystectomy. Findings discussed with radiology, US currently incolclusive for acute cholecystitis, may be related to GB wall edema. Planned HIDA scan tomorrow. PIcc line unable to be placed yesterday in spite of multiple attempts, left fem CVC placed today. Started TPN. Hyperglycemia today since starting parenteral nutrition. negative ketones, less likely DKA, added sliding scale insulin QID. Abx changed to meropenem and vancomycin. All updates discussed with brother bal (next of kin) and life partner. Guarded prognosis explained. They would like to continue all agressive measures incl CPR, intubation, surgica interventions if needed January 25, 2025: [place] [address] today. WBC increasing. Continues to be confused and obtunded. Case was discussed with hematology at [facility] and discuss potential transfer to [facility] for hematology however after review all labs and data presented to hematology, they agreed with current line of management with no additional interventions or change in medications at the time. Based on peripheral smear with no schistocytes, elevated DIRECT bili fraction in spite of low haptoglobin, low fibrinogen, TTP is considered less likely. Possible DIC vs HIT seems more likely. FDP pending. 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 Continue with angiomax gtt, will plan to transition to Eliquis VIA NGT once HDA results are available and no procedures are planned. Cause of increasing leukocytosis not readily evident. Blood cx taken and pending. CXR with stable PNA. Cholecytsitis under evalutaion with HIDA scan. Contineu meropenem, vancomycin empirically, add micafungin since patient has been in ICU for 10 days, has had multiple lines placed. Previosuly placed Right jugular CVC, left temp HD catheter and fallon catheter have been removed. Currently has new left fem CVC in place.New tunneled HD right chest. Possibility of meninigitis considered less likely as he has been inpatient for 10 days, unable to obtain an LP due to thrombocytopenia and limoited utility after being on abx for many days. Will presumptively add ACV renally dosed. Patient needed to be started on levophed GTT this afternoon after returning from HIDA scan. Overall clinically worse, guarded prognosis discussed with family. January 26, 2025 HIDA negative for cholecystistis. No cholecystostomy indicated based on these results. No surgical intervntion inidcated. Will place Dobhoff today with aim to start enteral nutriton next 24 hrs and also start Eliquis if plat continues to trend up For now continue angiomax WBC increasing ? cause: on broad spectrum coverage with MEropenem, vancomycin, micafungin and ACV currently mental status has not improved. persistenly encephalopathic. ? metabolic vs CVA?? ? paraneoplastic ? neurology consult for persisting AMS CTA as noted above, ammonia WNL in spite of deranged LFTs, MV added to TPN, check TSH t3 t4. Platelets improving with change in a/c Off levophed today Received HD today January 27, 2025 Patient is more awake today. Able to answer some basic questions. Activity as noted above. Stable platelets and leukocytosis. Hemoglobin slightly lower at 7.8. Continuing to be on Angiomax currently. Noted worsening on liver function today. T. bili at 8.8 today. AST ALT trending up to 74 and 61 respectively. Alkaline phosphatase remains normal. HIDA scan normal. ?? cause. Recheck indirect fraction. Possibility of alcoholic hepatitis not excluded patient reports near daily use of alcohol. resume glucocorticoids PDMP PDMP Reviewed: Not Reviewed Attestations 2 Medical Necessity Statement*: mental function better, howeverr worsening liver enzymes today Coding Level of Care Code Acute Code for Chg Fwd Diagnoses Obstructive cardiovascular shock R57.8 Hypoxic respiratory failure J96.91 Pulmonary embolus I26.99 Influenza A J10.1 Pneumonia J18.9 Acute kidney injury N17.9 Liver dysfunction K76.89 Lymphadenopathy R59.1 Elevated lactic acid level R79.89 Acute on chronic right-sided heart failure I50.813 Pulmonary HTN I27.20 Encephalopathy G93.40 HIT (heparin-induced thrombocytopenia) D75.829
[2025-01-27 15:06] LABS: ABNORMAL PROTEIN BAND 1 0.1 g/dL (NONE DETECTED); ALBUMIN 5.5 g/dL (3.8-4.8); ALPHA 1 GLOBULIN 0.2 g/dL (0.2-0.3); ALPHA 2 GLOBULIN 0.7 g/dL (0.5-0.9); BETA 1 GLOBULIN 0.2 g/dL (0.4-0.6); BETA 2 GLOBULIN 0.2 g/dL (0.2-0.5); GAMMA GLOBULIN 0.6 g/dL (0.8-1.7)
[2025-01-27 15:22] LABS: Vancomycin Trough 14.6 ug/mL (10-15)
--- NOTE | 2025-01-27 15:30 | PC.SLP ---
Patient attempted communication more today than prior attempts, however, patient does display significant difficulty with communication and production of voice. He is not ready to attempt oral trials at this time due to suspected laryngeal deficits. He has difficulty initiating voice production at this time.
[2025-01-27] MEDS: bivalirudin 250 MG in sodium chloride 0.9% 500 ML 30 MG IV (15:40)
[2025-01-27] MEDS: vancomycin 500 MG in sodium chloride 0.9% (plus) 100 ML 200 MG IV (16:24)
[2025-01-27] MEDS: AA-Dex 8%-10% w/ lytes 1,000 ML with multivitamin inj 10 ML 42 ML IV (16:41)
[2025-01-27 16:57] LABS: Glucose Point of Care 91 mg/dL (70-110)
[2025-01-27] MEDS: micafungin 100 MG in sodium chloride 0.9% (plus) 100 ML IV (17:25)
[2025-01-27] MEDS: methylPREDNISolone sod succ 40 mg/mL INJ 30 MG IVP (17:29)
--- NOTE | 2025-01-27 18:52 | P.PN_ITS ---
Subjective 2 Subjective: No acute events Medications: Reviewed: Yes Vitals/I&O/Wt Last Vital Signs Temp 96.4 F L 01/27/25 13:19 Pulse 102 H 01/27/25 13:44 Resp 16 01/27/25 13:30 BP 110/67 01/27/25 13:19 Pulse Ox 88 L 01/27/25 13:30 O2 Del Method Nasal Cannula 01/27/25 13:30 O2 Flow Rate 3 01/27/25 13:30 FiO2 40 01/25/25 08:41 01/27/25 01/27/25 01/27/25 06:59 14:59 22:59 Intake Total 0 / 0 1547.8 / 1547.8 Output Total 0 / 0 Balance 0 / 0 1547.8 / 1547.8 Weight last 48 hrs Weight 66 kg Weight 66.5 kg Weight 64.186 kg Physical Exam 2 Narrative: NC 02, minimal UOP TPN @ 42 vs noted BP now low heent- nc/at, +icteric neck supple lungs -scattered dull areas b/l heart regular, +s1, s2 ext + 1+ b/l leg edema rt IJ tunneled dialysis catheter neuro- lethargic and confused, moves Urinary Catheter Management: Swain: Cath Placed During This Visit: yes Reason for Continuing Indwelling Catheter: Accurate Measurement of Urinary Output in Critically Ill Patients Urinary Catheter Date of Insertion: 01/12/25 Urinary Catheter Time of Insertion: 21:00 Data 01/27/25 04:27 01/27/25 04:27 A&P Assessment and plan (1) Acute kidney injury: 74 year old male, with a history of gastric resection, history of bilateral LE DVT, PE, who initially presented to the ER on 01/12/2025 complaining og generalized weakness, falls, myalgias. he was previously on Eliquis; however, he has had difficulty obtaining Eliquis and had not taken Eliquis for 2 weeks prior to presentation. On presentation, he was found to be Influenza A positive and was hypotensive, requirin Levophed. CT chest PE protocol revealed a PE and his TTE revealed right ventricular strain. Patient subsequently developed respiratory failure and was intubated. He was weaned off LEvophed, but has been requiring dobutamine. He became anuric with a rising creatinine, prompting a nephrology consult. cr on admission was 1.4 mg/dl 1. YESI -presumed ATN versus renal vein thrombosis -no signs of renal recovery, no response to diuretics Per / heme and they did not feel that this was aTMA or TTP/ HUS. more concerned for DIC and HIT, heme did not recommend eculizumab sent HIT Ab -follow up APLA and Lupus labs - low c3, minimally at 83. normal c4 -HD was done as today, holding off on HD today and monitor 2. Anemia- ? Myeloma , has M spike on protein electrophoresis , noted hypercalemia , ordered serum free light chains - here referral for further work up -low dose EPO w/ PE and clotting 3. leukocytosis- Q cholecystitits vs other infection source 4. resp alkalosis and met acidosis- from pna, PE. met acidosis from YESI- ph 7.44- well compensated 5. encephalopathic - proximal Left ICA occlusion 6. Suspected aspiration vs viral/bacterial pneumonia.- abx per hospitalist s/p tamiflu 7 . inc bilirubin- RUQ abd us- 1. Severely thickened gallbladder with pericholecystic fluid, small stones and sludge. Constellation of findings consistent with acute cholecystitis, reactive changes due to ascites would be less likely. 2. Mild intrahepatic biliary ductal dilatation. 3. Moderate ascites. 4. 2.0 cm simple right renal cyst. No further imaging follow-up is required. -await HIDA scan results seen and examined w/ AIDE of RN- usinf A/V equipment Plan as above PDMP PDMP Reviewed: Not Reviewed Attestations 2 Medical Necessity Statement*: per medicine team Coding Level of Care Code Acute Code for [facility] Fw Diagnoses Acute kidney injury N17.9
[2025-01-27 19:05] LABS: Glomerular Bsmt Membrane IGG <1.0 AI
--- NOTE | 2025-01-27 19:33 | PC.NURSE ---
Shift summary: Pt more alert and talking more today. He spoke in full sentences and was able to verbalize whether he had pain, needed to be repositioned or if too hot/cold. It is noted his speech is more clear after good oral care. He has been fidgeting: his hands around his face, nasal cannula and scratching at his elbows this shift. He has raw spots on bilat elbows from his scratching. Dr Dang verbalized an order for Eucerin cream for that. VSS. Temp remains in low range of 96.4 to 97.3. Sinus rhythm with occasional PVCs noted. His right peripheral IV failed today, it was removed. Pressure dressing that was applied on night baker, remains on Dialysis cath site. Left groin CVL patent with good blood return. Pt remains on TPN and Angiomax gtt. He also received Micafungin, Vancomycin and Acyclovir. He did not urinate nor have BM this shift.
[2025-01-27 20:58] LABS: Beta 2 Glycoprotein IGA <2.0 U/mL (<20.0); Beta 2 Glycoprotein IGG <2.0 U/mL (<20.0); Beta 2 Glycoprotein IGM 4.8 U/mL (<20.0)
[2025-01-27 21:01] LABS: Glucose Point of Care 206 mg/dL (70-110)
[2025-01-28] VITALS (66 sets, daily range): BP systolic 64–142; BP diastolic 45–97; PULSE 66–123; RESP 12–30; TEMP 35.2–36; O2SAT 81–100
[2025-01-28] MEDS: ipratropium-albuterol 3 mL Neb INHALATION ×4 (02:25→19:56)
[2025-01-28 04:45] LABS: Heparin Induced Platelet AB NEGATIVE (NEGATIVE); Patient O.D 0.085
[2025-01-28 05:11] LABS: Alanine Aminotransferase 58 U/L (0-41); Albumin Level 4.5 g/dL (3.5-5.2); Alkaline Phosphatase 110 U/L (40-130); Anion Gap 25.1 (5-19); Aspartate Amino Transferase 58 U/L (0-40); Calcium 10.3 mg/dL (8.5-10.5); Carbon Dioxide 16 mmol/L (22-29); Chloride 103 mmol/L (98-107); Globulin 1.7 g/dL (1.3-4.6); Glucose 273 mg/dL (65-115); Magnesium 1.9 mg/dL (1.7-2.3); Osmolality Calculated 332 mOsm/kg (285-295); Phosphorus 3.5 mg/dL (2.5-4.5); Potassium 4.1 mmol/L (3.5-5.1); Sodium 140 mmol/L (136-145); Total Protein 6.2 g/dL (6.6-8.7)
[2025-01-28 05:20] LABS: Blood Urea Nitrogen 102 mg/dL (8-23)
[2025-01-28] MEDS: budesonide 0.5 mg/2 mL Neb INHALATION ×2 (07:42→19:56)
[2025-01-28 09:04] LABS: Glucose Point of Care 401 mg/dL (70-110)
[2025-01-28] MEDS: glycerin adult supp 1 EACH PR (09:07)
[2025-01-28] MEDS: insulin lispro 100 unit/1 mL SUBCUT ×4 (09:07→22:22)
[2025-01-28] MEDS: pantoprazole 40 mg SDV IVP (09:07)
[2025-01-28] MEDS: meropenem 500 mg SDV IVP (09:20)
[2025-01-28] MEDS: bivalirudin 250 MG in sodium chloride 0.9% 500 ML 30 MG IV (09:22)
--- NOTE | 2025-01-28 11:14 | XRR_ITS ---
PROCEDURE INFORMATION: Exam: XR Chest Exam date and time: 01/28/2025 10:40 AM Age: 74 years old Clinical indication: Shortness of breath; Prior surgery; Surgery date: 6+ months; Surgery type: RT dialysis cath; Worsening pneumonia; SOB TECHNIQUE: Imaging protocol: Radiologic exam of the chest. Views: 1 view. COMPARISON: CR XR chest 1V portable [id number] 01/26/2025 2:16 PM FINDINGS: Lungs: Parenchymal densities is seen in the right lower lobe corresponding to alveolar pneumonia. These findings were not present on prior examination. Diffuse interstitial densities are seen in the left perihilar and lower lobe new since prior examination Pleural spaces: Unremarkable. No pleural effusion. No pneumothorax. Heart/Mediastinum: Unremarkable. No cardiomegaly. Bones/joints: Metallic orthopedic hardware is present in the cervical spine. Right central line is in the SVC Enteric tube is present extending to the distal esophagus XR/XR chest 1V portable [id number] IMPRESSION: 1. Enteric tube is in the distal esophagus proximal to the EG junction. 2. Right lower lobe alveolar pneumonia new since prior 3. Left perihilar and lower lobe interstitial congestion new since prior 4. Right central line is in the SVC 5. Metallic orthopedic hardware is seen in the cervical spine
[2025-01-28 11:34] LABS: Basophils # 0.1 10^3/uL (0.0-0.1); Basophils % 0.5 %; Hematocrit 23.1 % (37-53); Lymphocytes # 0.5 10^3/uL (0.8-4.8); Mean Corpuscular HGB Conc 33.8 g/dL (30-55); Mean Corpuscular Hemoglobin 34.4 pg (27-33); Mean Corpuscular Volume 101.8 fl (82-101); Monocytes # 1.1 10^3/uL (0.2-0.9); Monocytes % 4.3 %; Neutrophils # 22.41 10^3/uL (1.8-7.7); Neutrophils % 91.2 %; Nucleated Red Blood Cells # 6.9 /100WBC; Nucleated Red Blood Cells % 28.1 %; Platelet Count 67 10^3/cmm (157-399); Red Blood Count 2.27 10^6/uL (3.85-5.65); Red Cell Distribution Width 29.3 % (12.1-15.1); White Blood Count 24.56 10^3/uL (3.29-11.43)
--- NOTE | 2025-01-28 12:10 | P.PN_ITS ---
Subjective 2 Subjective: events noted not on pressors Medications: Reviewed: Yes Vitals/I&O/Wt Last Vital Signs Temp 96.3 F L 01/28/25 08:00 Pulse 97 01/28/25 11:20 Resp 30 H 01/28/25 11:20 BP 142/97 01/28/25 08:00 Pulse Ox 92 01/28/25 11:20 O2 Del Method High Flow Nasal Cannula 01/28/25 08:00 O2 Flow Rate 40 01/28/25 11:20 FiO2 50 01/28/25 11:20 01/27/25 01/28/25 01/28/25 22:59 06:59 14:59 Intake Total 1907.8 / 1907.8 500 / 500 Output Total 0 / 0 200 / 200 Balance 1907.8 / 1907.8 -200 / 1707.8 500 / 500 Weight last 48 hrs Weight 64.593 kg Weight 66 kg Weight 66.5 kg Physical Exam 2 Narrative: heent- nc/at, +icteric neck supple lungs -scattered dull areas b/l heart regular, +s1, s2 ext + 1+ b/l leg edema rt IJ tunneled dialysis catheter neuro- lethargic and confused, moves Urinary Catheter Management: Swain: Cath Placed During This Visit: yes Reason for Continuing Indwelling Catheter: Accurate Measurement of Urinary Output in Critically Ill Patients Urinary Catheter Date of Insertion: 01/12/25 Urinary Catheter Time of Insertion: 21:00 Data 01/28/25 04:20 01/28/25 04:20 A&P Assessment and plan (1) Acute kidney injury: 74 year old male, with a history of gastric resection, history of bilateral LE DVT, PE, who initially presented to the ER on 01/12/2025 complaining og generalized weakness, falls, myalgias. he was previously on Eliquis; however, he has had difficulty obtaining Eliquis and had not taken Eliquis for 2 weeks prior to presentation. On presentation, he was found to be Influenza A positive and was hypotensive, requirin Levophed. CT chest PE protocol revealed a PE and his TTE revealed right ventricular strain. Patient subsequently developed respiratory failure and was intubated. He was weaned off LEvophed, but has been requiring dobutamine. He became anuric with a rising creatinine, prompting a nephrology consult. cr on admission was 1.4 mg/dl 1. YESI -presumed ATN versus renal vein thrombosis -no signs of renal recovery, no response to diuretics Per / heme and they did not feel that this was aTMA or TTP/ HUS. more concerned for DIC and HIT, heme did not recommend eculizumab sent HIT Ab -follow up APLA and Lupus labs - low c3, minimally at 83. normal c4 -HD today 2. Anemia- ? Myeloma , has M spike on protein electrophoresis , noted hypercalemia , ordered serum free light chains - here referral for further work up -low dose EPO w/ PE and clotting 3. leukocytosis- Q cholecystitits vs other infection source 4. resp alkalosis and met acidosis- from pna, PE. met acidosis from YESI- ph 7.44- well compensated 5. encephalopathic - proximal Left ICA occlusion 6. Suspected aspiration vs viral/bacterial pneumonia.- abx per hospitalist s/p tamiflu 7 . inc bilirubin- RUQ abd us- 1. Severely thickened gallbladder with pericholecystic fluid, small stones and sludge. Constellation of findings consistent with acute cholecystitis, reactive changes due to ascites would be less likely. 2. Mild intrahepatic biliary ductal dilatation. 3. Moderate ascites. 4. 2.0 cm simple right renal cyst. No further imaging follow-up is required. HIDA scan neg seen and examined w/ AIDE of RN- usinf A/V equipment Plan as above PDMP PDMP Reviewed: Not Reviewed Attestations 2 Medical Necessity Statement*: per [facility] Coding Level of Care Code Acute Code for g Fwd Diagnoses Acute kidney injury N17.9
[2025-01-28] MEDS: dexmedeTOMIDine 0.9 % NaCL 400 MCG/100 ML PREMIX IV (12:27)
[2025-01-28 13:08] LABS: Glucose Point of Care 325 mg/dL (70-110)
--- NOTE | 2025-01-28 13:24 | PC.NURSE ---
Temporal temp 95.3, notified sayra Zaragoza placed on patient.
[2025-01-28 13:25] LABS: ABG PCO2 26.9 mmHg (35-45); ABG PH Result 7.36 (7.35-7.45); Alveolar-Arterial Oxygen Gradi 35.8 mmHg (5-10); Arterial Blood Gas Hematocrit 23.9 % (42-52); Base Excess ABG -9.4 mmol/L (-2.0-2.0); Blood Gas Allen Test Pos; Blood Gas Operator Identificat CAK; Blood Gas Sample Site Radial, left; Blood Gas Sample Type Arterial; Carboxyhemoglobin 1.7 %THgb (0.4-20.1); HGB O2 Sat 68.8 % (95-100); Ionized Calcium Level - ABG 1.3 mmol/L (1.1-1.4); Methemoglobin 2.1 % (0.4-1.5); Oxygen Device HAG; Oxygen Saturation ABG 71.5; PO2 ABG 42.7 mmHg (80.0-100.0); PO2 FiO2 Ratio Arterial Blood 85; Potassium Level - ABG 3.5 mmol/L (3.5-5.0); Total Hemoglobin 7.8 g/dL (14-18)
[2025-01-28] MEDS: norepinephrine 4 MG/250 ML BAG 7.5 MG IV (13:32)
--- NOTE | 2025-01-28 13:48 | PC.NURSE ---
Blood pressure decreased, levophed started, no response, increased levophed to 8. HD in progress, returning blood. Respirations changed to agonal, blood pressure continued to drop. Increased levophed to 20. precedex turned off. Dr. Dang to bedside. ABG reviewed, Dr. Dang called brother and discussed need to reintubate the patient. Patients brother Mateo states that he wants his brother to be reintubated.
--- NOTE | 2025-01-28 14:58 | PC.HD ---
Upon dialysis initiation pt's BP dropped to 83/57, Levophed started per PHYSICAL CHEMISTRY PROFESSOR, BP continued to drop to 60/41, resps agonal. Blood returned and treatment terminated, defer for today per Dr Dang. Dr Murcia notified.
--- NOTE | 2025-01-28 15:04 | XRR_ITS ---
PROCEDURE INFORMATION: Exam: XR Chest Exam date and time: 01/28/2025 2:09 PM Age: 74 years old Clinical indication: Device placement; Ett placement (vent status); Prior surgery; Surgery date: 6+ months; Surgery type: Dialysis cath; Additional info: Intubation TECHNIQUE: Imaging protocol: Radiologic exam of the chest. Views: 1 view. COMPARISON: CR (CHEST, ) 01/28/2025 10:40 AM FINDINGS: Lungs: Right lower lobe parenchymal densities . Interstitial congestion left lower lobe Pleural spaces: Unremarkable. No pleural effusion. No pneumothorax. Heart/Mediastinum: Unremarkable. No cardiomegaly. Bones/joints: Unremarkable. Endotracheal tube is 4 cm above the will. NG tube extends to the distal esophagus. This tube should be advanced at least 10 cm. Right central line extends to the SVC. XR/XR chest 1V portable [id number] IMPRESSION: 1. Right lower lobe pneumonia. 2. Interstitial congestion left lower lobe. 3. NG tube is in the distal esophagus 4. Right central line is in the SVC 5. Endotracheal tube is above the will
--- NOTE | 2025-01-28 15:11 | ANES.PROC ---
Anesthesia Procedures Procedure/Date: 01/28/25 Intubation: Time Out Performed: Yes Consent: other (Verbal consent obtained from brother) Sedative (amount): other (30 mg propofol, 10 mg etomidate, 50 mg rocuronium and 80 mg of lidocaine was injected prior to intubation) Paralytic (amount): rocuronium Laryngoscope: other (Video laryngoscopy performed with MAC 3 blade) ET Tube Size: 8 ET Tube Uncuffed: Yes Tube Secured Depth (cm): 25 Tube Secured Location: lips Tube Placement Confirmation: visualized tube passing through cords, equal breath sounds bilaterally and color change noted Patient Tolerated Procedure: well Intubation Complications: none
--- NOTE | 2025-01-28 15:38 | PC.NURSE ---
1505 -- Meds given per Dr. Mejía, intubated per Dr. Mejía. Tolerated well. Chest x-ray obtained.
[2025-01-28] MEDS: micafungin 100 MG in sodium chloride 0.9% (plus) 100 ML IV (16:01)
--- NOTE | 2025-01-28 16:14 | PM.PN ---
Subjective Subjective: Patient has clinically deteriorated between yesterday and today. Since this morning he has been very lethargic, somnolent, agitated. He is fidgety and pulling at his IV lines, pulling at his NG tube and high flow nasal cannula. He does not have any meaningful conversation today. Does not answer any questions or follow any commands. Medications: Reviewed: Yes Medication Review Details: Current Medications Albuterol/Ipratropium (Ipratropium-Albuterol 3 Ml Neb) 3 ml INHALATION Q6H.RESP JOANNA Last Admin: 01/26/25 08:16 Dose: 3 ml Alteplase, Recombinant (Alteplase 1 Mg/Ml Sdv 2 Ml) 2 mg INTRACATH PRN PRN PRN Reason: DIALYSIS USE ONLY Budesonide (Budesonide 0.5 Mg/2 Ml Neb) 0.5 mg INHALATION BID.RESPIRATORY JOANNA Last Admin: 01/26/25 08:16 Dose: 0.5 mg Chlorhexidine Gluconate (Chlorhexidine Gluconate 4% Btl 118 Ml) 1 applic TOPICAL DAILY PRN PRN Reason: Intubated patient bathing Last Admin: 01/20/25 01:47 Dose: 1 applic Glucagon (Glucagon 1 Mg/Ml Kit 1 Ml) 1 mg IM ONCE PRN; Protocol PRN Reason: Adult Acute Hypoglycemia Nursing Prot. Glycerin (Glycerin Adult Supp) 1 each [place] DAILY JOANNA Last Admin: 01/25/25 10:17 Dose: 1 each Haloperidol Lactate (Haloperidol Inj 5 Mg/Ml Inj 1 Ml) 1 mg IM Q4H PRN PRN Reason: AGITATION Last Admin: 01/14/25 12:08 Dose: 1 mg Heparin Sodium (Porcine) (Heparin, Porcine 1,000 Unit/Ml Inj 10 Ml) 1,000 unit IV PRN PRN PRN Reason: clotting Sodium Chloride (Sodium Chloride 0.9%) 1,000 mls @ 0 mls/hr IV .Q0M PRN PRN Reason: hypotension or symptomatic Dextrose (D5w) 500 mls @ 0 mls/hr IV ONCE PRN; Protocol PRN Reason: Adult Acute Hypoglycemia Prot Dextrose (D10w) 125 mls @ 750 mls/hr IV PRN PRN; Protocol PRN Reason: Adult Acute Hypoglycemia Nursing Protocol Dextrose (D10w) 250 mls @ 1,000 mls/hr IV PRN PRN; Protocol PRN Reason: Adult Acute Hypoglycemia Nursing Protocol Bivalirudin 250 mg/ Sodium (Chloride) 500 mls @ 30 mls/hr IV .[id number] [facility] Last Admin: 01/26/25 01:48 Dose: 0.25 mg/kg/hr, 30 mls/hr Multivitamins 10 ml/ Amino (Acids/Electrolytes/Dextrose) 1,010 mls @ 42 mls/hr IV .Q24H [facility] Last Admin: 01/25/25 17:57 Dose: 42 mls/hr Dexmedetomidine/Sodium Chloride (Precedex) 400 mcg in 100 mls @ 0 mls/hr IV .Q0M [facility]; Protocol Last Titration: 01/26/25 07:56 Dose: 0.2 mcg/kg/hr, 2.78 mls/hr Albumin Human (Albumin) 12.5 gm in 50 mls @ 60 mls/hr IV PRN PRN PRN Reason: Hypotension and/or symptomatic Norepinephrine Bitartrate (Levophed) 4 mg in 250 mls @ 0 mls/hr IV .Q0M [facility]; Protocol Last Titration: 01/25/25 19:00 Dose: 0 mcg/min, 0 mls/hr Micafungin Sodium 100 mg/ (Sodium Chloride) 100 mls @ 100 mls/hr IV Q24H [facility] Last Infusion: 01/25/25 19:00 Dose: Infused Acyclovir 500 mg/ Sodium (Chloride) 260 mls @ 110 mls/hr IV Q24H [facility] Last Infusion: 01/25/25 19:00 Dose: Infused Insulin Human Lispro (Insulin Lispro 100 Unit/1 Ml) 0 unit SUBCUT QID [facility]; Protocol Last Admin: 01/25/25 21:32 Dose: 4 unit Lanolin (Lanolin Oint 7 Gm) 1 applic TOPICAL PRN PRN PRN Reason: DRYNESS Last Admin: 01/24/25 03:40 Dose: 1 applic Lanolin (Lanolin Oint 7 Gm) 1 applic TOPICAL PRN PRN PRN Reason: DRYNESS Meropenem (Meropenem 500 Mg Sdv) 500 mg IVP Q24H [facility]; Protocol Last Admin: 01/25/25 10:11 Dose: 500 mg Methylprednisolone Sodium Succinate (Methylprednisolone Sod Succ 40 Mg/Ml Inj) 40 mg IVP Q24H JOANNA Last Admin: 01/25/25 10:10 Dose: 40 mg Ondansetron HCl (Ondansetron 2 Mg/Ml Sdv 2 Ml) 4 mg IVP Q8H PRN PRN Reason: vomiting, or N/V if npo Pantoprazole Sodium (Pantoprazole 40 Mg Sdv) 40 mg IVP DAILY [facility] Last Admin: 01/25/25 10:11 Dose: 40 mg Vancomycin HCl (Vancomycin 1,000 Mg Sdv (Pharmacy Mix)) 0 mg XX PRN PRN PRN Reason: Pharmacy to Dose Vitals/I&O/Wt Last Vital Signs Temp 95.4 F L 01/28/25 14:53 Pulse 66 01/28/25 14:53 Resp 16 01/28/25 15:12 BP 123/68 01/28/25 14:53 Pulse Ox 100 01/28/25 15:12 O2 Del Method Heated High Flow 01/28/25 14:00 O2 Flow Rate 50 01/28/25 13:45 FiO2 100 01/28/25 15:12 01/28/25 01/28/25 01/28/25 06:59 14:59 22:59 Intake Total 1081.894 / 1081.894 Output Total 200 / 200 0 / 0 Balance -200 / 1707.8 1081.894 / 1081.894 Weight last 48 hrs Weight 66.8 kg Weight 64.593 kg Weight 66 kg Weight 66.5 kg Physical Exam Narrative: General: Clinically worse today, somnolent, lethargic, agitated, attempting to pull out his lines. HEENT: PERRLA, pupils bilaterally equal and reactive, pallors not present Chest: scattered crackles B/L CVS: S1-S2 regular, no murmurs, no tachycardia, no gallops, no rubs Abdomen: Soft, nontender, non distended Neuro: as above Urinary Catheter Management: Fallon: Cath Placed During This Visit: yes Reason for Continuing Indwelling Catheter: Accurate Measurement of Urinary Output in Critically Ill Patients Urinary Catheter Date of Insertion: 01/12/25 Urinary Catheter Time of Insertion: 21:00 Data 01/28/25 04:20 01/28/25 04:20 A&P Assessment and plan (1) Obstructive cardiovascular shock: (2) Hypoxic respiratory failure: (3) Pulmonary embolus: (4) Influenza A: (5) Pneumonia: (6) Acute kidney injury: (7) Liver dysfunction: (8) Lymphadenopathy: (9) Elevated lactic acid level: (10) Acute on chronic right-sided heart failure: (11) Pulmonary HTN: (12) Encephalopathy: (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 Patient was on mechanical ventilation until he was Extubated on 01/20.Currently on 8L via NC. Does not appear to be in any respiratory distress - Fluid management with HD Plan: - Continue to wean oxygen as tolerated - Keep head of bed > 30 degrees, high risk for aspiration - Made NPO again - ST consult in am - Repeat Chest xray and ABG if again worsening respiratory status - Has been on solu-medrol as well - decreased to BID - Will maintain for now and once oxygen requirement improve de-escalate to daily and or oral taper Acute Pulmonary Emboli with Cor Pulmonale Secondary to acute right heart failure in the setting of multiple pulmonary emboli and pulmonary HTN. - Off pressors since 01/15/2025. TTE showed dilated RV/RA, RVSP 40-45 mmHg. Plan: - Maintain euvolemia, avoid fluid overload. - Optimize RV afterload reduction. - On heparin drip once able to take PO can consider change to Eliquis Sepsis due to Pneumonia - Suspected aspiration vs viral/bacterial pneumonia. On broad-spectrum antibiotics. Procalcitonin >100 on admission. Patient has been on a prolonged course of antibiotics. Currently noted to have increasing leukocytosis which is likely due to steroids. Culture remained negative. No longer hypothermic. Off bear hugger. Plan: - Continue Zosyn 3.375 grams IV q12h. Plan to de-escalate in next few days - Repeat cultures if febrile - Will consider de-escalation of abx Acute Kidney Injury/Failure now progressed to ESRD requiring HD - Likely secondary to multi-organ failure and cardiogenic shock. Required initiation of dialysis. Remained aneuric. Not likely to recover - Currently has a temp HD catheter - Per nephrology patient will likley be HD dependent Plan: - Continue dialysis per nephrology recommendations. - Will need surgery consult for PermCath placement however no surgery coverage available today - Please consult Sx in am for line placement Influenza A Infection - Positive influenza A testing on admission. - Plan: DC jeremyiflu Encephalopathy - Multi-factorial - likely components of toxic/metabolic encephalopathy and hypoxemia. - Slowing improving, wax and waning Plan: - Haldol IM PRN for agitation - Avoid benzodiazepines if possible. Gastric Cancer - History of gastric cancer with prior resection. No evidence of acute issues on imaging. Plan: - No further work up inpatient FEN - Made NPO again due to risk of aspiration Plan: - ST consult in am Deconditioning - PT/OT consult in am DVT Prophylaxis - Currently on heparin drip for treatment of pulmonary emboli. Code Status - Full code January 22, 2025 Patient is planned for placement of a tunneled HD cath today. Currently he has a right jugular CVC in place. This has been in for over 10 days at this point. Will remove jugular CVC today. Alternate IV access to be obtained by placement of a PICC line. Patient has had waxing and waning mentation. Failed a swallow evaluation yesterday. He is again very lethargic today. Will start TPN for nutrition. If mentation remains poor and patient is unable to swallow, may need PEG. Head CT on admission was without any acute intracranial findings. There was noted chronic small vessel disease. Noted to have target cells schistocytes on CBC on January 20, 2025. Elevated T. bili 7.0. Low hemoglobin ranging between 8.2-9. Concern for potential hemolysis as contributing. Check peripheral smear. Check indirect bili, haptoglobin LDH reticulocyte count. Unlikely to have sickle cell disease given no prior history of the same. Brother Bal denies any known history of sickle cell anemia. Unlikely to be a sickling crisis currently. Continue steroids methylprednisolone 40 mg IV every 12 hours until results of hemolysis labs are available. Continue dialysis per nephrology. Appreciate recommendations. January 23, 2025 Patient underwent placement of tunneled HD catheter yesterday into the right chest wall. Right jugular central line has since been removed. Patient noted to have bleeding around the insertion site therefore heparin drip has remained on hold. Hemoglobin noted to be at 8.6 today. Similar range previously. PICC line planned today. Patient is on peripheral nutrition currently, we will change to TPN once PICC line is placed. If patient remains encephalopathic as he is today with no improvement over the next 24 to 48 hours, will likely need PEG for oral nutrition. Cause of persisting encephalopathy not entirely clear. Since extubation patient has remained persistently encephalopathic. He opens eyes to calling name, will squeeze fingers, today he was able to reply yes or no. However is not alert enough to try to orally feed him. Differentials for persisting encephalopathy include possible CVA. CT head from admission was unremarkable. Will check MRI of the brain today. During initial course appeared that patient may have multifactorial encephalopathy related to uremia, acute influenza infection, possibly viral encephalitis however continues to be persistently encephalopathy. Given history of long-term alcohol use, consideration for Wernicke's. Add thiamine to TPN. Additionally continues to have persistently elevated T. bili of 7 range. Mostly direct fraction. LDH mildly elevated. Haptoglobin low. Schistocytes target cells noted on manual differential. Peripheral smear ordered yesterday is currently pending. Possibility of hemolysis considered, however with direct fraction elevated consider this to be less likely. Low haptoglobin may be related to liver dysfunction. However continues to have persistent AST ALT are downtrending today elevated T. bili. Currently on steroids for possibility of autoimmune hemolysis. Reduce methylprednisolone 40 mg every 24 hours today Patient has had persisting leukocytosis during course of admission and spite of being on empiric antibiotics. Broadening of antibiotics does not appear to have made much difference. Discontinue antibiotics today and closely monitor. He is afebrile currently. Noted to have bilateral mediastinal lymphadenopathy of unclear significance. Soft tissue swelling is encasing the pulmonary arteries on CT from admission. Patient has a history of gastric malignancy. Ideally would need to have a biopsy to determine the nature of lymphadenopathy, However we do not have pulmonology services available to perform bronchoscopic guided ultrasound biopsy. Will defer this to outpatient. In the interim, noninvasive infectious evaluation to include histoplasma urine antigen, histoplasma antibody, Coccidioides antibody, QuantiFERON screen. HIV sero status is negative. Heparin drip to resume when okay per surgery for PE. Continues to be on 9 L/min supplemental O2. Likely hypoxia is related to PE and right heart strain. January 24, 2025 Clinically worsening today. He remains lethargic, somnolent. Does not wake up today or follow any commands. Minimal response to painful stimuli. MRI of the head was planned for today however patient required increased oxygen requirement and is currently on a heated high flow. Per MRI, heated high flow will not be compatible with MRI at this time. He received dialysis today. Following dialysis he had was taken for CTA of the head and neck since MRI was unable to be performed. Results are currently awaited at this time. Additionally noted to have increasing leukocytosis now at 26,000. Following platelet count at 76,000 today. Peripheral smear made available this afternoon showed moderate normocytic normochromic anemia with marked anisopoikilocytosis and polychromasia. Minimal thrombocytopenia with no platelet clumping. Impression on peripheral smear that of underlying bone marrow stress response. No circulating blasts or atypical lymphocytes were seen. Possibilities at this time include sepsis, DIC, TTP versus XANDER. DIC panel sent. Borges 13 pending, results expected within the next 5 to 7 days. HIT antibody requested, again results not expected back for at least 5 to 7 days. In the interim heparin has been discontinued. Switch to bivalirudin 0.25 mg/kg/h per dialysis dosing. Sepsis may be related to acute cholecystitis as noted on ultrasound of the abdomen yesterday. Previously ultrasound of the abdomen and appendage admission was unremarkable. While his AST and ALT alkaline phosphatase are normal, his T. bili continues to be persistently elevated at 7.7. General surgery was consulted. He is not currently a candidate for cholecystectomy. Findings discussed with radiology, US currently incolclusive for acute cholecystitis, may be related to GB wall edema. Planned HIDA scan tomorrow. PIcc line unable to be placed yesterday in spite of multiple attempts, left fem CVC placed today. Started TPN. Hyperglycemia today since starting parenteral nutrition. negative ketones, less likely DKA, added sliding scale insulin QID. Abx changed to meropenem and vancomycin. All updates discussed with brother bal (next of kin) and life partner. Guarded prognosis explained. They would like to continue all agressive measures incl CPR, intubation, surgica interventions if needed January 25, 2025: [place] [address] today. WBC increasing. Continues to be confused and obtunded. Case was discussed with hematology at [facility] and discuss potential transfer to [facility] for hematology however after review all labs and data presented to hematology, they agreed with current line of management with no additional interventions or change in medications at the time. Based on peripheral smear with no schistocytes, elevated DIRECT bili fraction in spite of low haptoglobin, low fibrinogen, TTP is considered less likely. Possible DIC vs HIT seems more likely. FDP pending. 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 Continue with angiomax gtt, will plan to transition to Eliquis VIA NGT once HDA results are available and no procedures are planned. Cause of increasing leukocytosis not readily evident. Blood cx taken and pending. CXR with stable PNA. Cholecytsitis under evalutaion with HIDA scan. Contineu meropenem, vancomycin empirically, add micafungin since patient has been in ICU for 10 days, has had multiple lines placed. Previosuly placed Right jugular CVC, left temp HD catheter and fallon catheter have been removed. Currently has new left fem CVC in place.New tunneled HD right chest. Possibility of meninigitis considered less likely as he has been inpatient for 10 days, unable to obtain an LP due to thrombocytopenia and limoited utility after being on abx for many days. Will presumptively add ACV renally dosed. Patient needed to be started on levophed GTT this afternoon after returning from HIDA scan. Overall clinically worse, guarded prognosis discussed with family. January 26, 2025 HIDA negative for cholecystistis. No cholecystostomy indicated based on these results. No surgical intervntion inidcated. Will place Dobhoff today with aim to start enteral nutriton next 24 hrs and also start Eliquis if plat continues to trend up For now continue angiomax WBC increasing ? cause: on broad spectrum coverage with MEropenem, vancomycin, micafungin and ACV currently mental status has not improved. persistenly encephalopathic. ? metabolic vs CVA?? ? paraneoplastic ? neurology consult for persisting AMS CTA as noted above, ammonia WNL in spite of deranged LFTs, MV added to TPN, check TSH t3 t4. Platelets improving with change in a/c Off levophed today Received HD today January 27, 2025 Patient is more awake today. Able to answer some basic questions. Activity as noted above. Stable platelets and leukocytosis. Hemoglobin slightly lower at 7.8. Continuing to be on Angiomax currently. Noted worsening on liver function today. T. bili at 8.8 today. AST ALT trending up to 74 and 61 respectively. Alkaline phosphatase remains normal. HIDA scan normal. ?? cause. Recheck indirect fraction. Possibility of alcoholic hepatitis not excluded patient reports near daily use of alcohol. resume glucocorticoids January 28, 2025 Patient is obtunded, lethargic. He has clinically deteriorated in the last 24 hours. He does not answer any questions or follow any commands. As he T. bili has worsened at >9 today. AST and ALT mildly elevated in the 50s. Platelet count falling to 67,000 today. WBC at 24,000. Patient's respiratory status continued to worsen during the course of the morning. ABG taken on heated high flow this afternoon shows a pH of 7.36, pCO2 of 26.9, pO2 of 42.7, bicarb of 15. Oxygen saturation of 68.8 on heated high flow at 50% FiO2 40 L/min. Increasing his FiO2 did not have a very significant difference on his O2 sats, improved in the 80s however patient became tachypneic and exhibiting respiratory distress. Chest x-ray showed worsening bilateral infiltrates per my personal interpretation. Patient needed to be reintubated this afternoon. Additionally he became hypotensive which necessitated starting pressors, currently Levophed at 18 mics. In the interim his HIT antibody panel has returned negative. FDP remains pending. Platelet count is dropping at 67,000. Possibilities for persisting abnormalities with negative HIT antibody panel include DIC versus bone marrow suppression versus acute liver failure. His serum protein electrophoresis showed an M spike which may be account manager sales representative of multiple myeloma especially with noted lymphadenopathy. We are unable to perform any kind of biopsy at this present time due to thrombocytopenia and high bleeding risk. He remains on methylprednisolone 30 mg IV every 24 hours for possibility of alcoholic hepatitis and hepatorenal syndrome, however has not had any significant change in his bilirubin, in fact it has continued to worsen. Pentoxifylline is not available on formulary. Possibly may have hepatic vein thrombosis, however with him currently being on anticoagulation, management is unlikely to change even with discovery of another thrombosis source. CT of the abdomen, ultrasound of the abdomen, without any obvious persisting source of infection. HIDA scan without evidence of cholecystitis. Gallbladder function noted to be normal. Patient remains on very broad-spectrum antibiotics including meropenem, vancomycin, micafungin and acyclovir without any meaningful improvement in his condition. In fact he has continued to deteriorate. At this point in time patient has multiorgan failure including the kidneys, lungs, liver, neurological , cardiovascular and hematological. He has extremely poor prognosis. His poor prognosis was discussed extensively with his brother Bal Slater multiple times during the day. Discussed with him consideration for hospice as being appropriate at this point in time. Bal states that he would not like to give up on his brother and that he is a fighter , therefore he is hopeful for his recovery. He understands that we are doing everything possible to help him and appreciates the various treatments provided, however does not currently wish to transition to hospice. He states he will think about it some more if he fails to improve over the next 2 to 3 days. He did have a video conference today as Bal lives [place] of [place] and saw his brother over the phone. Patient's girlfriend Pamella Loco was at bedside, and states that patient would not have like to live this way. Yesterday patient stated that he wants to just , however with his waxing and waning mentation we are unable to perform any meaningful goals of care discussion with the patient himself. His girlfriend defers all decision-making to brother Bal with regards to goals of care. For now continue Angiomax gtt. may need to stop if platelet count keeps on falling. Would likely discontinue if platelet count falls to less than 50,000. No amparo bleeding currently except mild epistaxis. Intubated on fentanyl and Versed, currently on norepinephrine at 18 mics, continue antibiotics and antifungal, continue hemodialysis, continue TPN. PDMP PDMP Reviewed: Not Reviewed Attestations Medical Necessity Statement*: Multiple critical events as noted above Critical Care Time: The high probability of a clinically significant, sudden or life threatening deterioration of the patient's [respiratory, renal, GI, neuro, ID, heme] system(s) required my full and direct attention, intervention and personal management. The critical care time is as shown. This time is in addition to time spent performing any reported procedures but includes the following: [x] Data and vital sign review and interpretation [x] Patient assessment, examination and intervention [x] Documentation [x] Medication orders and management Critical Care Time (min): 120 Coding Level of Care Code Critical Care >/= 30 minutes Other Coding Information Procedural care (documented in this note), Procedural care (documented in another note), Prolonged care (total time indicated above or notated here), Shared care and Other care Diagnoses Obstructive cardiovascular shock R57.8 Hypoxic respiratory failure J96.91 Pulmonary embolus I26.99 Influenza A J10.1 Pneumonia J18.9 Acute kidney injury N17.9 Liver dysfunction K76.89 Lymphadenopathy R59.1 Elevated lactic acid level R79.89 Acute on chronic right-sided heart failure I50.813 Pulmonary HTN I27.20 Encephalopathy G93.40 HIT (heparin-induced thrombocytopenia) D75.829
[2025-01-28] MEDS: AA-Dex 8%-10% w/ lytes 1,000 ML with multivitamin inj 10 ML 42 ML IV (16:47)
[2025-01-28] MEDS: methylPREDNISolone sod succ 40 mg/mL INJ 30 MG IVP (16:48)
[2025-01-28] MEDS: norepinephrine 4 MG/250 ML BAG 52.5 MG IV ×2 (16:49→22:23)
[2025-01-28 16:56] LABS: Glucose Point of Care 170 mg/dL (70-110)
[2025-01-28 17:29] LABS: ABG PH Result 7.22 (7.35-7.45); Alveolar-Arterial Oxygen Gradi 21.3 mmHg (5-10); Arterial Blood Gas Hematocrit 24.2 % (42-52); Base Excess ABG -9.1 mmol/L (-2.0-2.0); Blood Gas Allen Test Pos; Blood Gas Operator Identificat CAK; Blood Gas Sample Site Brachial, left; Blood Gas Sample Type Arterial; Carboxyhemoglobin 1.7 %THgb (0.4-20.1); HGB O2 Sat 82.8 % (95-100); Ionized Calcium Level - ABG 1.4 mmol/L (1.1-1.4); Methemoglobin 1.7 % (0.4-1.5); Oxygen Device VENT; Oxygen Saturation ABG 85.8; PO2 ABG 64.8 mmHg (80.0-100.0); PO2 FiO2 Ratio Arterial Blood 162; Potassium Level - ABG 3.7 mmol/L (3.5-5.0); Total Hemoglobin 7.9 g/dL (14-18)
--- NOTE | 2025-01-28 21:20 | PC.NURSE ---
Fallon Catheter Upon assessment of patient, urine noted to be on patients sheets unable to be measured. Dr. Bauman contacted and order received to place fallon catheter. Furthermore, angiomax administering at 30 ml/hr. Last ptt on 01/26/25 discussed; no new orders received.
[2025-01-28] MEDS: chlorhexidine gluconate 4% Btl 118 mL 1 APPLIC TOPICAL (22:00)
[2025-01-28 22:03] LABS: Glucose Point of Care 180 mg/dL (70-110)
[2025-01-28] MEDS: dexmedeTOMIDine 0.9 % NaCL 400 MCG/100 ML PREMIX 6.95 MCG IV (23:27)
[2025-01-29] VITALS (111 sets, daily range): BP systolic 68–140; BP diastolic 43–89; PULSE 49–121; RESP 16–27; TEMP 32.7–37.9; O2SAT 90–100
[2025-01-29 00:24] LABS: Glucose Point of Care 201 mg/dL (70-110)
[2025-01-29] MEDS: norepinephrine 4 MG/250 ML BAG 75 MG IV ×2 (00:59→04:43)
--- NOTE | 2025-01-29 02:37 | PC.NURSE ---
Angiomax Patient's dialysis catheter dressing noted to be saturated at beginning of shift. Dressing changed and surgicel applied. At 0200, patient's dressing noted to be saturated again; Dr. Bauman contacted and order received to stop angiomax drip.
[2025-01-29] MEDS: ipratropium-albuterol 3 mL Neb INHALATION ×4 (02:38→19:43)
[2025-01-29] MEDS: EPINEPHrine 2.5 MG in sodium chloride 0.9% 250 ML 6.06 MG IV (03:37)
--- NOTE | 2025-01-29 03:55 | PC.NURSE ---
Epi Patient's blood pressure MAP 59 while levophed administering at maximum rate. Dr. Bauman contacted; order received for epi drip.
[2025-01-29 03:58] LABS: Basophils # 0.1 10^3/uL (0.0-0.1); Basophils % 0.5 %; Lymphocytes % 0.1 %; Mean Corpuscular HGB Conc 33.8 g/dL (30-55); Mean Corpuscular Hemoglobin 35.4 pg (27-33); Mean Corpuscular Volume 104.6 fl (82-101); Monocytes # 2.2 10^3/uL (0.2-0.9); Monocytes % 8.5 %; Neutrophils # 22.51 10^3/uL (1.8-7.7); Neutrophils % 88.3 %; Nucleated Red Blood Cells # 9.4 /100WBC; Platelet Count 58 10^3/cmm (157-399); Red Blood Count 1.95 10^6/uL (3.85-5.65); White Blood Count 25.52 10^3/uL (3.29-11.43)
[2025-01-29 04:30] LABS: Alanine Aminotransferase 56 U/L (0-41); Albumin Level 4.2 g/dL (3.5-5.2); Alkaline Phosphatase 102 U/L (40-130); Anion Gap 24.3 (5-19); Aspartate Amino Transferase 67 U/L (0-40); Calcium 9.1 mg/dL (8.5-10.5); Carbon Dioxide 15 mmol/L (22-29); Chloride 107 mmol/L (98-107); Globulin 1.4 g/dL (1.3-4.6); Glucose 189 mg/dL (65-115); Potassium 5.3 mmol/L (3.5-5.1); Sodium 141 mmol/L (136-145); Total Protein 5.6 g/dL (6.6-8.7)
[2025-01-29 04:40] LABS: ABG PCO2 28.3 mmHg (35-45); ABG PH Result 7.32 (7.35-7.45); Arterial Blood Gas Hematocrit 23.6 % (42-52); Base Excess ABG -10.5 mmol/L (-2.0-2.0); Blood Gas Allen Test Pos; Blood Gas Operator Identificat JDB; Blood Gas Sample Site Radial, right; Blood Gas Sample Type Arterial; Carboxyhemoglobin 1.6 %THgb (0.4-20.1); HCO3 ABG 14.6 mmol/L (22-26); HGB O2 Sat 93.4 % (95-100); Ionized Calcium Level - ABG 1.2 mmol/L (1.1-1.4); Methemoglobin 1.7 % (0.4-1.5); Oxygen Device VENT; Oxygen Saturation ABG 96.6; PO2 ABG 87.3 mmHg (80.0-100.0); PO2 FiO2 Ratio Arterial Blood 174; Potassium Level - ABG 4.9 mmol/L (3.5-5.0); Total Hemoglobin 7.7 g/dL (14-18)
[2025-01-29] MEDS: lanolin oint 7 gm 1 APPLIC TOPICAL (04:44)
[2025-01-29 04:47] LABS: Osmolality Calculated 337 mOsm/kg (285-295)
[2025-01-29 04:49] LABS: Blood Urea Nitrogen 124 mg/dL (8-23); Total Bilirubin 8.8 mg/dL (0.15-1.2)
[2025-01-29 05:00] LABS: Hematocrit 20.4 % (37-53)
[2025-01-29 05:01] LABS: Slide Review Slide Review Perform
--- NOTE | 2025-01-29 06:20 | P.MISC_ITS ---
Miscellaneous Note Purpose of Documentation: called patient's brother Mateo for an update. Unfortunately Mr. Bryon potts ontinues to decline. HB down to < 7, Platelet count now in the 50s, discontinued angiomax overnight due to bleeding around tunneled cath. We can no longer continue anticoagulation safely. This is a very difficult situation as on one hand he needs A/c for PE and respiratory distress, on the other we can no longer safely continue this intervention. He is on 2 pressors now including norepinephrine and epinephrine. He is febrile to 100F in spite of being on broad spectrum abx including meropenem, vanc, presumptve ACV and micaufungin. He is on precedex on the vent and appears to be tolerating well which makes me concerned about higher brain function. I do not believe at this time that any of the medical interventions are helpful. There is little to no hope for any meaningful recovery. The patient is in the process of dying and it may be appropriate to transition to comfort care at this point. His brother understands that Edgard is dying. He is going to try to come to [place] this evening from [facility] to be at bedside, he wants us to continue all measures for his sake (Mateo's) in spite of seemingly understanding the futility at this point so he can be at bedside today. Continue pressors, TPN, abx for now. Care transitioned over to morning hospitalist Dr. Yusuf
[2025-01-29 06:52] LABS: Reflex FDPQ test REFLEX FDP QUEST TES
[2025-01-29] MEDS: norepinephrine 4 MG/250 ML BAG 67.5 MG IV (07:13)
[2025-01-29] MEDS: sodium bicarbonate 150 MEQ in dextrose 5% 1,000 ML 100 MEQ IV ×2 (07:14→17:49)
[2025-01-29 07:15] LABS: D Dimer 2.33 ug/mLFEU (0-0.59)
[2025-01-29 07:19] LABS: Fibrinogen 129 mg/dL (174-498)
[2025-01-29 07:20] LABS: Partial Thromboplastin Time 112.1 SECONDS (23.9-36.7)
--- NOTE | 2025-01-29 07:42 | PC.NURSE ---
Blood, CRRT Dr. Bauman notified of patient hgb 6.9, hct 20.4, INR 8.15. Orders received to transfuse 1 unit PRBCs and call nephrology for orders on a bicarb drip. Dr. Batres contacted; order received for a bicarb drip at 100 ml/hr as well as to assess possibility of CRRT. Dr. Dang contacted unit for update on patient; blood pressure, neurological status, and labs discussed. Dr. Dang updated patient's brother on status. Message left for Dr. Batres through telenephrology that CRRT is possible.
[2025-01-29 07:47] LABS: INR 5.02 (0.8-1.2)
[2025-01-29] MEDS: budesonide 0.5 mg/2 mL Neb INHALATION ×2 (07:59→19:43)
[2025-01-29] MEDS: fentaNYL 1,000 MCG/100 ML BAG 2.5 MCG IV (08:22)
[2025-01-29 08:35] LABS: Phosphorus 4.8 mg/dL (2.5-4.5)
[2025-01-29] MEDS: PrismaSol BGK 4/2.5 - 5,000 mL Bag 5000 ML CRRT ×10 (08:50→23:19)
[2025-01-29 09:04] LABS: Albumin Level 3.9 g/dL (3.5-5.2); Anion Gap 25.3 (5-19); Carbon Dioxide 15 mmol/L (22-29); Chloride 102 mmol/L (98-107); Glucose 320 mg/dL (65-115); Magnesium 1.9 mg/dL (1.7-2.3); Phosphorus 5.2 mg/dL (2.5-4.5); Potassium 5.3 mmol/L (3.5-5.1); Sodium 137 mmol/L (136-145)
[2025-01-29 09:12] LABS: Blood Urea Nitrogen 121 mg/dL (8-23)
[2025-01-29] MEDS: dexmedeTOMIDine 0.9 % NaCL 400 MCG/100 ML PREMIX 9.73 MCG IV (09:30)
[2025-01-29] MEDS: insulin lispro 100 unit/1 mL SUBCUT ×4 (09:36→20:54)
[2025-01-29 09:51] LABS: Glucose Point of Care 383 mg/dL (70-110)
[2025-01-29] MEDS: meropenem 500 mg SDV IVP (10:16)
[2025-01-29] MEDS: pantoprazole 40 mg SDV IVP (10:19)
[2025-01-29] MEDS: norepinephrine 4 MG/250 ML BAG 60 MG IV (11:14)
--- NOTE | 2025-01-29 11:37 | P.PN_ITS ---
Subjective 2 Subjective: intubated , on levophed Medications: Reviewed: Yes Vitals/I&O/Wt Last Vital Signs Temp 96.2 F L 01/29/25 11:15 Pulse 73 01/29/25 11:15 Resp 16 01/29/25 11:34 BP 119/79 01/29/25 11:15 Pulse Ox 95 01/29/25 11:34 O2 Del Method Mechanical Ventilation 01/29/25 11:15 O2 Flow Rate 50 01/28/25 13:45 FiO2 30 01/29/25 11:34 01/28/25 01/29/25 01/29/25 22:59 06:59 14:59 Intake Total 1771.126 / 2853.020 1024.006 / 3877.026 941.204 / 941.204 Output Total 0 / 0 350 / 350 Balance 1771.126 / 2853.020 1024.006 / 3877.026 591.204 / 591.204 Weight last 48 hrs Weight 66.5 kg Weight 66.8 kg Weight 64.593 kg Physical Exam 2 Narrative: intubated , sedated Urinary Catheter Management: Swain: Cath Placed During This Visit: yes Reason for Continuing Indwelling Catheter: Accurate Measurement of Urinary Output in Critically Ill Patients Urinary Catheter Date of Insertion: 01/12/25 Urinary Catheter Time of Insertion: 21:00 Data 01/29/25 03:25 01/29/25 08:32 Micro: Microbiology 01/28/25 15:10 Gram Stain - Final Sputum - Endotracheal Tube Aspirate Sputum Culture - Preliminary A&P Assessment and plan (1) Acute kidney injury: 74 year old male, with a history of gastric resection, history of bilateral LE DVT, PE, who initially presented to the ER on 01/12/2025 complaining og generalized weakness, falls, myalgias. he was previously on Eliquis; however, he has had difficulty obtaining Eliquis and had not taken Eliquis for 2 weeks prior to presentation. On presentation, he was found to be Influenza A positive and was hypotensive, requirin Levophed. CT chest PE protocol revealed a PE and his TTE revealed right ventricular strain. Patient subsequently developed respiratory failure and was intubated. He was weaned off LEvophed, but has been requiring dobutamine. He became anuric with a rising creatinine, prompting a nephrology consult. cr on admission was 1.4 mg/dl 1. YESI -presumed ATN versus renal vein thrombosis -no signs of renal recovery, no response to diuretics Per / heme and they did not feel that this was aTMA or TTP/ HUS. more concerned for DIC and HIT, [facility] did not recommend eculizumab sent HIT Ab -follow up APLA and Lupus labs - low c3, minimally at 83. normal c4 - pt ow on pressors and started CRRT this Am - Intubated last night 2. Anemia- ? Myeloma , has M spike on protein electrophoresis , noted hypercalemia , ordered serum free light chains - heme referral for further work up -low dose EPOw/ PE and clotting 3. leukocytosis- Q cholecystitits vs other infection source 4. resp alkalosis and met acidosis- from pna, PE. met acidosis from YESI- ph 7.44- well compensated 5. encephalopathic - proximal Left ICA occlusion 6. Suspected aspiration vs viral/bacterial pneumonia.- abx per hospitalist s/p tamiflu 7 . inc bilirubin- RUQ abd us- 1. Severely thickened gallbladder with pericholecystic fluid, small stones and sludge. Constellation of findings consistent with acute cholecystitis, reactive changes due to ascites would be less likely. 2. Mild intrahepatic biliary ductal dilatation. 3. Moderate ascites. 4. 2.0 cm simple right renal cyst. No further imaging follow-up is required. HIDA scan neg seen and examined w/ AIDE of RN- usinf A/V equipment Plan as above PDMP PDMP Reviewed: Not Reviewed Attestations 2 Medical Necessity Statement*: per [facility] team Coding Level of Care Code Acute Code for [facility] Diagnoses Acute kidney injury N17.9
--- NOTE | 2025-01-29 11:39 | PC.SOCIAL ---
IMM Update pg 2 of IMM not updated @ this time as patient is intubated. Copy left @ bedside. Copy dated, initialed and placed in chart.
[2025-01-29 12:07] LABS: Glucose Point of Care 338 mg/dL (70-110)
[2025-01-29 14:11] LABS: Basophils # 0.1 10^3/uL (0.0-0.1); Basophils % 0.4 %; Hematocrit 25.1 % (37-53); Lymphocytes # 0.1 10^3/uL (0.8-4.8); Lymphocytes % 0.5 %; Mean Corpuscular HGB Conc 34.3 g/dL (30-55); Mean Corpuscular Volume 99.2 fl (82-101); Monocytes # 1.3 10^3/uL (0.2-0.9); Monocytes % 5.8 %; Neutrophils % 91.5 %; Nucleated Red Blood Cells # 6.9 /100WBC; Nucleated Red Blood Cells % 31.6 %; Platelet Count 49 10^3/cmm (157-399); Red Blood Count 2.53 10^6/uL (3.85-5.65); Red Cell Distribution Width 24.8 % (12.1-15.1); White Blood Count 21.97 10^3/uL (3.29-11.43)
[2025-01-29] MEDS: dexmedeTOMIDine 0.9 % NaCL 400 MCG/100 ML PREMIX 12.51 MCG IV (14:23)
[2025-01-29] MEDS: AA-Dex 8%-10% w/ lytes 1,000 ML with multivitamin inj 10 ML 42 ML IV (14:26)
[2025-01-29 14:29] LABS: Slide Review Slide Review Perform
--- NOTE | 2025-01-29 14:34 | ECG_ITS ---
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 Measurements Intervals [place] Rate: 64 P: 75 GA: 163 QRS: 89 QRSD: 90 T: 106 QT: 457 QTc: 472 Interpretive Statements SINUS RHYTHM WITH OCCASIONAL VENTRICULAR PREMATURE COMPLEXES POSSIBLE LEFT ATRIAL ENLARGEMENT [-0.1mV P-WAVE IN V1/V2] POSSIBLE RIGHT VENTRICULAR CONDUCTION DELAY [RSR (QR) IN V1/V2] NONSPECIFIC ST & T-WAVE ABNORMALITY PROLONGED QT INTERVAL Compared to ECG 01/12/2025 04:18:31 Right-axis deviation no longer present T-wave abnormality still present Electronically Signed On 01-29-2025 20:59:48 CDT by Linnette Bahena M.D. [email or web address]
[2025-01-29 14:35] LABS: Phosphorus 3.5 mg/dL (2.5-4.5)
[2025-01-29 14:51] LABS: Albumin Level 4.3 g/dL (3.5-5.2); Anion Gap 20.6 (5-19); Calcium 8.6 mg/dL (8.5-10.5); Carbon Dioxide 19 mmol/L (22-29); Chloride 105 mmol/L (98-107); Glucose 317 mg/dL (65-115); Phosphorus 3.5 mg/dL (2.5-4.5); Potassium 4.6 mmol/L (3.5-5.1); Sodium 140 mmol/L (136-145)
[2025-01-29] MEDS: fentaNYL 1,000 MCG/100 ML BAG 12.5 MCG IV (14:54)
[2025-01-29 14:56] LABS: Blood Urea Nitrogen 94 mg/dL (8-23)
[2025-01-29 15:18] LABS: ADAMTS 13 Activity 0.37 IU/mL (0.68-1.63)
[2025-01-29] MEDS: glycerin adult supp 1 EACH PR (15:28)
[2025-01-29] MEDS: vancomycin 500 MG in sodium chloride 0.9% (plus) 100 ML 200 MG IV (15:35)
[2025-01-29] MEDS: methylPREDNISolone sod succ 40 mg/mL INJ 30 MG IVP (16:00)
[2025-01-29] MEDS: micafungin 100 MG in sodium chloride 0.9% (plus) 100 ML IV (16:13)
[2025-01-29 17:22] LABS: Glucose Point of Care 302 mg/dL (70-110)
--- NOTE | 2025-01-29 18:05 | PC.NURSE ---
Shift Summary: CRRT started at 10am. CRRT was uneventful throughout the day. Have been reaching hourly fluid removal goals. 1500ml over 24hrs = 63ml/hr. Bleeding surrounding the hemodialysis catheter has stopped. 1 unit of blood transfused and raised hgb levels from 6.9 to 8.6 Epinephrine turned off. Norepinephrine titrated from 20mcg down to 6mcg at time of this note. 125mL of urine output today. Patient has become hypothermic with the start of dialysis. Blood return to the patient is heated. Bare hugger is applied at the warmest setting. Considered using the fluid warmer on bicarb maintenance fluids, but per Himanshu in pharmacy it is not compatible with warming. Physician aware of temperature.
[2025-01-29] MEDS: norepinephrine 4 MG/250 ML BAG 22.5 MG IV (18:26)
[2025-01-29] MEDS: fentaNYL 1,000 MCG/100 ML BAG 17.5 MCG IV (20:02)
--- NOTE | 2025-01-29 20:09 | P.PN_ITS ---
Subjective 2 Subjective: 74 year old male with a complex medical history including gastric cancer (post partial gastrectomy), history of alcohol use, who was admitted with acute hypoxemic respiratory failure, sepsis, influenza and acute pulmonary embolism. His hospital course was marked by progressive multiorgan failure.On admission, the patient was found to have severe hypoxemia and was intubated for respiratory distress. Initial workup revealed pulmonary emboli with associated cor pulmonale, bilateral infiltrates concerning for aspiration pneumonia, elevated procalcitonin >100, and positive Influenza A. He was treated with broad-spectrum antibiotics, oseltamivir, and started on heparin drip for anticoagulation.He was extubated on 01/20 and managed with high-flow nasal cannula. However, encephalopathy persisted, attributed to a multifactorial etiology?including uremia, sepsis, hypoxemia, and possible viral/toxic/metabolic encephalitis. CT head showed chronic small vessel ischemia; MRI was not feasible due to high-flow oxygen incompatibility. A CTA head/neck was obtained on 01/24, which showed nonocclusive thrombus in the left ICA, raising concerns for possible HIT, DIC, or other hypercoagulable states.Dialysis-dependent renal failure developed during early hospitalization, likely from sepsis and multiorgan dysfunction. The patient underwent placement of a tunneled HD catheter and continued on intermittent hemodialysis transitioned to CRRT. A PICC line was not possible, so a left femoral CVC was placed. TPN was initiated via CVC after failing swallow evaluation; later transitioned to Dobhoff for enteral feeds. During the course of hospital stay, the patient developed progressive thrombocytopenia, anemia, and worsening liver function. Peripheral smear showed anisopoikilocytosis and polychromasia, no blasts or schistocytes. With concern for DIC vs HIT vs marrow suppression, heparin was discontinued and bivalirudin was started. HIT antibody later returned negative, but DIC remained possible. Empiric steroids were given for possible autoimmune hemolysis/alcoholic hepatitis. Continued on solu-medrol 30 mg IV daily. An infectious etiology for ongoing leukocytosis with singes of sepsis. Despite prolonged broad-spectrum coverage (Zosyn, later escalated to meropenem, vancomycin, micafungin, acyclovir), WBC count continued to rise. Multiple cultures remained negative. A HIDA scan ruled out cholecystitis, and liver imaging revealed no biliary obstruction. However, T. bili brenna to >9, and AST/ALT began to climb?consistent with progressive liver failure, possibly related to alcoholic hepatitis or ischemic hepatitis.On 01/28, the patient acutely decompensated. He became lethargic, unresponsive, and tachypneic with hypoxia refractory to high-flow oxygen. ABG revealed severe hypoxemia with a PaO2 of 42.7 mmHg. He was reintubated for worsening respiratory failure. Chest x-ray showed diffuse worsening bilateral infiltrates. Levophed and epinephine was restarted for hypotension.Despite aggressive support patient continues to decline. 01/29 weaned off epi drip. ON CRRT. Was bleeding from HD line site. Agrenox was stopped. he was also very hypothemic with temp of 90 despite bear hugger. Brother wanted to maintain full code. Vitals/I&O/Wt Last Vital Signs Temp 90.9 F L 01/29/25 20:00 Pulse 53 L 01/29/25 20:00 Resp 17 01/29/25 19:44 BP 123/86 01/29/25 20:00 Pulse Ox 99 01/29/25 20:00 O2 Del Method Mechanical Ventilation 01/29/25 19:44 O2 Flow Rate 50 01/28/25 13:45 FiO2 30 01/29/25 19:44 01/29/25 01/29/25 01/29/25 06:59 14:59 22:59 Intake Total 1024.006 / 3877.026 2035.061 / 2035.061 1764.144 / 3799.205 Output Total 435 / 435 15 / 450 Balance 1024.006 / 3877.026 1600.061 / 3285.529 1677.144 / 3349.205 Weight last 48 hrs Weight 66.5 kg Weight 66.8 kg Weight 64.593 kg Physical Exam 2 Narrative: GEN: Intubated, sedated, ett in place HEAD: normocephalic, atraumatic EYES: eyes are closed HEENT: ett in place NECK: no jvd CV: RRR LUNGS: diminished BS ABD: Soft, ND, +bs EXT: trace BLE edema NEURO: sedated : fallon in place SKIN: no rash Urinary Catheter Management: Fallon: Cath Placed During This Visit: yes Reason for Continuing Indwelling Catheter: Accurate Measurement of Urinary Output in Critically Ill Patients Urinary Catheter Date of Insertion: 01/12/25 Urinary Catheter Time of Insertion: 21:00 Data 01/29/25 14:03 01/29/25 14:03 Micro: Microbiology 01/24/25 14:55 Blood Culture - Final Blood NO GROWTH AFTER 5 DAYS 01/24/25 12:10 Blood Culture - Final Blood NO GROWTH AFTER 5 DAYS 01/24/25 12:05 Blood Culture - Final Blood NO GROWTH AFTER 5 DAYS 01/28/25 15:10 Gram Stain - Final Sputum - Endotracheal Tube Aspirate Sputum Culture - Preliminary A&P Assessment and plan (1) Obstructive cardiovascular shock: (2) Hypoxic respiratory failure: (3) Pulmonary embolus: (4) Influenza A: (5) Pneumonia: (6) Acute kidney injury: (7) Liver dysfunction: (8) Lymphadenopathy: (9) Elevated lactic acid level: (10) Acute on chronic right-sided heart failure: (11) Pulmonary HTN: (12) Encephalopathy: (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 Acute Hypoxemic Respiratory Failure ? Multifactorial Contributing factors include bilateral pneumonia (likely aspiration-related), fluid overload in setting of ESRD, and pulmonary emboli. Patient was extubated on 01/20 and initially maintained on 8?9 L O? via NC/HHF. On 01/28, he developed worsening respiratory distress with severe hypoxemia , requiring reintubation and mechanical ventilation. ABG on 01/28 showed Type I respiratory failure with respiratory alkalosis and metabolic acidosis. CXR revealed worsening bilateral infiltrates. Plan: Mechanically ventilated; sedation with fentanyl and Versed. Continue aggressive pulmonary toilet. Continue daily CXR and ABG monitoring. Monitor readiness for weaning based on gas exchange, ventilatory mechanics, and mental status. 2. Acute Pulmonary Embolism with Cor Pulmonale Confirmed PE with evidence of RV strain on TTE. Initially treated with heparin, transitioned to bivalirudin (Angiomax) due to concern for HIT/DIC. On Angiomax since 01/24, pending resolution of thrombocytopenia. HIT antibody returned negative on 01/28, though platelet count remains low (~67K). CTA head/neck on 01/24 showed nonocclusive thrombus in L ICA. Plan: Holding bivalirudin gtt due to active bleeding 3. Sepsis (Presumed pulmonary/abdominal source) now hypothemic Likely aspiration pneumonia and possibly cholecystitis (though HIDA scan 01/26 was negative). Blood cultures remain negative; persistent WBC >24K despite escalation of antibiotics. No improvement with Zosyn; transitioned to meropenem, vancomycin, micafungin, and acyclovir for broad-spectrum coverage. No lumbar puncture performed due to coagulopathy and thrombocytopenia. Plan: Continue meropenem, vancomycin, micafungin, acyclovir. 4. YESI progressed to ESRD on CRRT Tunneled HD catheter placed on 01/23. Continued volume overload, contributing to respiratory distress. Plan: Continue CRRT 5. Persistent Encephalopathy ? Multifactorial Likely contributors: uremia, hypoxemia, sepsis, metabolic derangements, possible FLOOR MOLDER thrombus, alcohol use, possibly paraneoplastic. Mental status initially waxed and waned; acutely worsened on 01/28?now obtunded and unresponsive. MRI not feasible due to ventilatory needs. CTA head/neck (01/24) showed L ICA thrombus. Neurology consulted; no acute interventions possible due to coagulopathy and instability. Plan: Now on sedation 6. Thrombocytopenia, Anemia, Elevated Bilirubin ? DIC vs Hepatic Dysfunction Platelets dropped from 90K ? 67K, now trending downward. HIT panel negative, but DIC remains possible. Evidence of hemolysis and liver dysfunction: ? direct bilirubin (>9), mild AST/ALT elevation, low haptoglobin. SPEP showed M spike, raising concern for plasma cell dyscrasia, but no biopsy feasible due to coagulopathy. Plan: Stopped bivalirudin cautiously; monitor platelets daily. Continue methylprednisolone 30 mg IV daily Await pending labs: [id number], FDP. Continues to decline. This was discussed with partner. Son called and wanted patient to remain Full code. Extremely poor prognosis. PDMP PDMP Reviewed: Not Reviewed Attestations 2 Medical Necessity Statement*: Multiple critical events as noted above Critical Care Time: The high probability of a clinically significant, sudden or life threatening deterioration of the patient's [respiratory, renal, GI, neuro, ID, heme] s ystem(s) required my full and direct attention, intervention and personal management. The critical care time is as shown. This time is in addition to time spent performing any reported procedures but includes the following: [x] Data and vital sign review and interpretation [x] Patient assessment, examination and intervention [x] Documentation [x] Medication orders and management Critical Care Time (min): 120 Coding Level of Care Code Acute Code for [facility] Diagnoses Obstructive cardiovascular shock R57.8 Hypoxic respiratory failure J96.91 Pulmonary embolus I26.99 Influenza A J10.1 Pneumonia J18.9 Acute kidney injury N17.9 Liver dysfunction K76.89 Lymphadenopathy R59.1 Elevated lactic acid level R79.89 Acute on chronic right-sided heart failure I50.813 Pulmonary HTN I27.20 Encephalopathy G93.40 HIT (heparin-induced thrombocytopenia) D75.829
[2025-01-29 20:52] LABS: Glucose Point of Care 268 mg/dL (70-110)
[2025-01-29 21:12] LABS: Phosphorus 2.5 mg/dL (2.5-4.5)
[2025-01-29 21:13] LABS: Albumin Level 4.2 g/dL (3.5-5.2); Blood Urea Nitrogen 63 mg/dL (8-23); Calcium 8.3 mg/dL (8.5-10.5); Carbon Dioxide 23 mmol/L (22-29); Chloride 103 mmol/L (98-107); Glucose 234 mg/dL (65-115); Magnesium 2.1 mg/dL (1.7-2.3); Phosphorus 2.5 mg/dL (2.5-4.5); Sodium 137 mmol/L (136-145)
[2025-01-29] MEDS: dexmedeTOMIDine 0.9 % NaCL 400 MCG/100 ML PREMIX 8.34 MCG IV (22:05)
[2025-01-30] VITALS (74 sets, daily range): BP systolic 71–157; BP diastolic 45–110; PULSE 42–116; RESP 16–17; TEMP 32.7–35.2; O2SAT 88–100; BMI 23.1
[2025-01-30] MEDS: PrismaSol BGK 4/2.5 - 5,000 mL Bag 5000 ML CRRT ×5 (01:35→06:38)
[2025-01-30] MEDS: fentaNYL 1,000 MCG/100 ML BAG 17.5 MCG IV (01:49)
[2025-01-30] MEDS: ipratropium-albuterol 3 mL Neb INHALATION ×3 (02:02→13:01)
[2025-01-30 02:22] LABS: Basophils # 0.1 10^3/uL (0.0-0.1); Basophils % 0.6 %; Eosinophils % 0.1 %; Hematocrit 24.5 % (37-53); Mean Corpuscular HGB Conc 34.3 g/dL (30-55); Mean Corpuscular Hemoglobin 34.4 pg (27-33); Mean Corpuscular Volume 100.4 fl (82-101); Monocytes # 1.2 10^3/uL (0.2-0.9); Monocytes % 6.4 %; Neutrophils # 16.47 10^3/uL (1.8-7.7); Neutrophils % 91.3 %; Nucleated Red Blood Cells # 7.5 /100WBC; Nucleated Red Blood Cells % 41.7 %; Platelet Count 41 10^3/cmm (157-399); Red Blood Count 2.44 10^6/uL (3.85-5.65); Red Cell Distribution Width 25.4 % (12.1-15.1); White Blood Count 18.03 10^3/uL (3.29-11.43)
[2025-01-30 02:50] LABS: Albumin Level 4.1 g/dL (3.5-5.2); Anion Gap 13.9 (5-19); Blood Urea Nitrogen 48 mg/dL (8-23); Calcium 8.2 mg/dL (8.5-10.5); Carbon Dioxide 25 mmol/L (22-29); Chloride 101 mmol/L (98-107); Glucose 163 mg/dL (65-115); Magnesium 2.2 mg/dL (1.7-2.3); Phosphorus 2.2 mg/dL (2.5-4.5); Potassium 3.9 mmol/L (3.5-5.1); Slide Review Slide Review Perform; Sodium 136 mmol/L (136-145)
[2025-01-30 02:51] LABS: Alanine Aminotransferase 56 U/L (0-41); Albumin Level 4.2 g/dL (3.5-5.2); Alkaline Phosphatase 96 U/L (40-130); Anion Gap 13.1 (5-19); Aspartate Amino Transferase 63 U/L (0-40); Blood Urea Nitrogen 47 mg/dL (8-23); Calcium 8.3 mg/dL (8.5-10.5); Carbon Dioxide 26 mmol/L (22-29); Chloride 101 mmol/L (98-107); Globulin 1.3 g/dL (1.3-4.6); Glucose 160 mg/dL (65-115); Osmolality Calculated 298 mOsm/kg (285-295); Potassium 4.1 mmol/L (3.5-5.1); Sodium 136 mmol/L (136-145); Total Protein 5.5 g/dL (6.6-8.7)
[2025-01-30 02:59] LABS: Total Bilirubin 10.3 mg/dL (0.15-1.2)
[2025-01-30] MEDS: vancomycin 500 MG in sodium chloride 0.9% (plus) 100 ML 200 MG IV (04:18)
[2025-01-30 04:37] LABS: ABG PCO2 41.4 mmHg (35-45); ABG PH Result 7.42 (7.35-7.45); Arterial Blood Gas Hematocrit 28.1 % (42-52); Base Excess ABG 2.3 mmol/L (-2.0-2.0); Blood Gas Allen Test Pos; Blood Gas Operator Identificat JDB; Blood Gas Sample Site Radial, right; Blood Gas Sample Type Arterial; Carboxyhemoglobin 1.8 %THgb (0.4-20.1); HGB O2 Sat 90.7 % (95-100); Ionized Calcium Level - ABG 1.1 mmol/L (1.1-1.4); Methemoglobin 1.6 % (0.4-1.5); Oxygen Device VENT; PO2 ABG 68.8 mmHg (80.0-100.0); Potassium Level - ABG 3.8 mmol/L (3.5-5.0); Total Hemoglobin 9.2 g/dL (14-18)
[2025-01-30 04:38] LABS: Alveolar-Arterial Oxygen Gradi 12.1 mmHg (5-10); PO2 FiO2 Ratio Arterial Blood 229
--- NOTE | 2025-01-30 05:10 | PC.NURSE ---
all nursing documentation overseen by Francisco Nicolas RN for this shift
[2025-01-30] MEDS: sodium bicarbonate 150 MEQ in dextrose 5% 1,000 ML 100 MEQ IV (05:18)
[2025-01-30] MEDS: budesonide 0.5 mg/2 mL Neb INHALATION (07:36)
--- NOTE | 2025-01-30 07:57 | PC.NURSE ---
Mateo , Pt's brother , called and notified ofcardaic arrest, CPR, pulse is back. Dr Yusuf speaking to him regarding his status. This nurse called and notife pt's life partner Sasha of situation.
--- NOTE | 2025-01-30 08:00 | XR_ITS ---
WS: [id number] Exam: XR chest 1V portable [id number] Date/Time of Exam: 01/30/2025 8:00 AM Reason For Exam: post code Comparison 01/28/2025. ET tube in place unchanged in location ending about 6 cm above the will. Metallic tip enteric tube most likely ending near the GE junction unchanged in position. Right-sided double-lumen dialysis catheter ending at the cavoatrial junction. Diffuse infiltrates throughout the mid and lower RIGHT lung and throughout the LEFT lung. Minimal improvement since prior study. Heart size is normal. The mediastinum is normal in contour. No pneumothorax. Bony structures are intact. XR/XR chest 1V portable [id number] IMPRESSION: 1. ET tube and right-sided double-lumen catheter both in satisfactory location. Metallic tip feeding tube probably ending near the GE junction. 2. Improving diffuse interstitial infiltrates in the mid and lower RIGHT lung a nd throughout the LEFT lung.
[2025-01-30] MEDS: insulin lispro 100 unit/1 mL SUBCUT ×2 (08:28→14:17)
[2025-01-30 08:29] LABS: Glucose Point of Care 191 mg/dL (70-110)
[2025-01-30] MEDS: meropenem 500 mg SDV IVP (08:34)
[2025-01-30] MEDS: pantoprazole 40 mg SDV IVP (08:34)
[2025-01-30] MEDS: DOBUTamine drip 500 MG/250 ML PREMIX 10.05 MG IV (08:39)
--- NOTE | 2025-01-30 08:51 | PC.NURSE ---
At 0748, patient became bradycardic and then went into PEA. This nurse immediately started compressions and called a code blue. shortly after starting compressions additional nurses came to bedside and took over compressions and ACLS protocol. This nurse then continued to manage the CRRT and started blood return. Dr Yusuf and Dr pool came to bedside. ROsc achieved. See acls flowsheet in physical chart for exact times and interventions during ACLS.
[2025-01-30 08:52] LABS: Anion Gap 14.6 (5-19); Blood Urea Nitrogen 39 mg/dL (8-23); Calcium 8.2 mg/dL (8.5-10.5); Carbon Dioxide 24 mmol/L (22-29); Chloride 100 mmol/L (98-107); Glucose 214 mg/dL (65-115); Magnesium 2.2 mg/dL (1.7-2.3); Phosphorus 2.8 mg/dL (2.5-4.5); Potassium 4.6 mmol/L (3.5-5.1); Sodium 134 mmol/L (136-145)
--- NOTE | 2025-01-30 09:02 | PC.NURSE ---
Addendum entered by Shayan Finley RN 01/30/25 10:08: Dr gibson rounded. Hold off on CRRT. will recheck labs at 1200 and evaluate needs at that time. Original Note: Nurse called DR gibson. Updated on CUrrent status. Post CPR. CRRT stopped. SHe briefly reviewed labs and instructed to hold off on CRRT at this time. She will round via video shortly with further orders after reviewing chart.
--- NOTE | 2025-01-30 09:18 | PC.NURSE ---
CODE BLUE; 0749 Bradycardia> PEA. CODE BLUE called overhead. 0749 CPR Intiated 0750 EPI IVP 0751 Pulse Check> PEA>CPR 0751 Levo gtt titrated up to 8 0753 Pulse check> ROSC 0755 Levo gtt titirated down to 2. 0759 Levo paused (BP 201/148) 0802 Levo gtt restarted at 2.
--- NOTE | 2025-01-30 09:21 | PM.PN ---
Subjective Subjective: events noted Had sudden bradycardia and PEA this Am , s/p CPR and ROSC Off CRRT currently on pressors Medications: Reviewed: Yes Vitals/I&O/Wt Last Vital Signs Temp 91 F L 01/30/25 02:15 Pulse 54 L 01/30/25 07:37 Resp 16 01/30/25 07:38 BP 91/67 01/30/25 06:00 Pulse Ox 98 01/30/25 07:38 O2 Del Method Mechanical Ventilation 01/30/25 07:37 O2 Flow Rate 50 01/28/25 13:45 FiO2 30 01/30/25 07:38 01/29/25 01/30/25 01/30/25 22:59 06:59 14:59 Intake Total 1803.875 / 3838.936 1549.878 / 5388.814 Output Total 15 / 450 Balance 1788.875 / 3388.936 1549.878 / 4938.814 Weight last 48 hrs Weight 67 kg Weight 66.093 kg Weight 66.5 kg Weight 66.8 kg Physical Exam Narrative: intubated , sedated Urinary Catheter Management: Swain: Cath Placed During This Visit: yes Reason for Continuing Indwelling Catheter: Accurate Measurement of Urinary Output in Critically Ill Patients Urinary Catheter Date of Insertion: 01/12/25 Urinary Catheter Time of Insertion: 21:00 Data 01/30/25 02:15 01/30/25 08:19 Micro: Microbiology 01/24/25 14:55 Blood Culture - Final Blood NO GROWTH AFTER 5 DAYS 01/24/25 12:10 Blood Culture - Final Blood NO GROWTH AFTER 5 DAYS 01/24/25 12:05 Blood Culture - Final Blood NO GROWTH AFTER 5 DAYS 01/28/25 15:10 Gram Stain - Final Sputum - Endotracheal Tube Aspirate Sputum Culture - Preliminary A&P Assessment and plan (1) Acute kidney injury: 74 year old male, with a history of gastric resection, history of bilateral LE DVT, PE, who initially presented to the ER on 01/12/2025 complaining og generalized weakness, falls, myalgias. he was previously on Eliquis; however, he has had difficulty obtaining Eliquis and had not taken Eliquis for 2 weeks prior to presentation. On presentation, he was found to be Influenza A positive and was hypotensive, requirin Levophed. CT chest PE protocol revealed a PE and his TTE revealed right ventricular strain. Patient subsequently developed respiratory failure and was intubated. He was weaned off LEvophed, but has been requiring dobutamine. He became anuric with a rising creatinine, prompting a nephrology consult. cr on admission was 1.4 mg/dl 1. YESI -presumed ATN versus renal vein thrombosis -no signs of renal recovery, no response to diuretics -follow up APLA and Lupus labs - low c3, minimally at 83. normal c4 - pt was on CRRT ,on hold currently - currently intubated and had PEA arrest this AM , s/p CPR and ROSC bmp Q 4 hours , continue to hold CRRT for now 2. Anemia- ? Myeloma , has M spike on protein electrophoresis , noted hypercalemia , ordered serum free light chains - heme referral for further work up -low dose EPOw/ PE and clotting 3. leukocytosis- Q cholecystitits vs other infection source 4. resp alkalosis and met acidosis- from pna, PE. met acidosis from YESI 5. encephalopathic - proximal Left ICA occlusion 6. Suspected aspiration vs viral/bacterial pneumonia.- abx per hospitalist s/p tamiflu seen and examined w/ AIDE of RN- usinf A/V equipment Plan as above PDMP PDMP Reviewed: Not Reviewed Attestations Medical Necessity Statement*: per medicine Coding Level of Care Code Acute Code for [facility] Diagnoses Acute kidney injury N17.9
[2025-01-30] MEDS: norepinephrine 4 MG/250 ML BAG 30 MG IV (10:00)
[2025-01-30 11:25] LABS: ANCA Screen NEGATIVE (NEGATIVE)
[2025-01-30 11:44] LABS: KAPPA LIGHT CHAIN, FREE, SERUM 46.3 mg/L (3.3-19.4); KAPPA/LAMBDA LIGHT CHAINS FREE 0.17 (0.26-1.65)
[2025-01-30] MEDS: fentaNYL 1,000 MCG/100 ML BAG 2.5 MCG IV (12:10)
--- NOTE | 2025-01-30 12:11 | P.PN_ITS ---
Subjective 2 Subjective: Today, 01/30/2025, Patient was unchanged in the morning. Shortly after, he became bradycardic. Initially, this was thought to be due to Precedex, which was discontinued overnight and Patient was transitioned to fentanyl and Versed for sedation. Patient had an episode where he became more bradycardic and eventually had asystole/PEA arrest. Code blue was called and CPR was initiated. Patient received epinephrine one time. After continued CPR, at the first pulse check, he had ROSC. Following this, he was started on Levophed and dobutamine. I discussed with Patient's brother, who was flying to [place] today, and he stated that he wanted to maintain full code until he arrived. Following his arrival, I discussed in detail Patient's clinical condition and progressive decline and answered all questions to his brother and his partner, who was at bedside, with the nursing staff as well. Given Patient's poor prognosis and progressive decline, the brother agreed to change the code status to comfort care and to terminally wean. At Patient's brother's request, a service dog trainer was called. Medications: Reviewed: Yes Vitals/I&O/Wt Last Vital Signs Temp 93 F L 01/30/25 11:15 Pulse 88 01/30/25 11:15 Resp 17 01/30/25 11:07 BP 98/61 01/30/25 11:15 Pulse Ox 95 01/30/25 11:15 O2 Del Method Mechanical Ventilation 01/30/25 10:00 O2 Flow Rate 50 01/28/25 13:45 FiO2 40 01/30/25 11:07 01/29/25 01/30/25 01/30/25 22:59 06:59 14:59 Intake Total 1803.875 / 3838.936 1549.878 / 5388.814 159.75 / 159.75 Output Total Balance 1788.875 / 3388.936 1549.878 / 4938.814 134.75 / 134.75 Weight last 48 hrs Weight 67 kg Weight 66.093 kg Weight 66.5 kg Weight 66.8 kg Physical Exam 2 Narrative: GEN: Intubated, sedated, ett in place HEAD: normocephalic, atraumatic EYES: eyes are closed HEENT: ett in place NECK: no jvd CV: RRR LUNGS: diminished BS ABD: Soft, ND, +bs EXT: trace BLE edema NEURO: sedated : fallon in place SKIN: no rash Urinary Catheter Management: Fallon: Cath Placed During This Visit: yes Reason for Continuing Indwelling Catheter: Accurate Measurement of Urinary Output in Critically Ill Patients Urinary Catheter Date of Insertion: 01/12/25 Urinary Catheter Time of Insertion: 21:00 Data 01/30/25 02:15 01/30/25 12:00 Micro: Microbiology 01/28/25 15:10 Gram Stain - Final Sputum - Endotracheal Tube Aspirate Sputum Culture - Preliminary Yeast species 01/24/25 14:55 Blood Culture - Final Blood NO GROWTH AFTER 5 DAYS 01/24/25 12:10 Blood Culture - Final Blood NO GROWTH AFTER 5 DAYS 01/24/25 12:05 Blood Culture - Final Blood NO GROWTH AFTER 5 DAYS A&P Assessment and plan (1) Obstructive cardiovascular shock: (2) Hypoxic respiratory failure: (3) Pulmonary embolus: (4) Influenza A: (5) Pneumonia: (6) Acute kidney injury: (7) Liver dysfunction: (8) Lymphadenopathy: (9) Elevated lactic acid level: (10) Acute on chronic right-sided heart failure: (11) Pulmonary HTN: (12) Encephalopathy: (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 Transition to comfort care measures as per family's wishes 2. Terminal weaning of ventilatory support 3. Discontinue all life-sustaining treatments 4. Provide appropriate medications for comfort (e.g., opioids for pain/dyspnea) 5. Emotional support for family, including service dog trainer services as requested 6. Document time of : 16:33 on 01/30/2025 7. Notify appropriate personnel and complete necessary documentation 8. Offer condolences and support to family 9. Arrange for post-mortem care as per hospital protocol PDMP PDMP Reviewed: Not Reviewed Attestations 2 Medical Necessity Statement*: Multiple critical events as noted above Critical Care Time: The high probability of a clinically significant, sudden or life threatening deterioration of the patient's [respiratory, renal, GI, neuro, ID, heme] s ystem(s) required my full and direct attention, intervention and personal management. The critical care time is as shown. This time is in addition to time spent performing any reported procedures but includes the following: [x] Data and vital sign review and interpretation [x] Patient assessment, examination and intervention [x] Documentation [x] Medication orders and management Critical Care Time (min): 120 Coding Level of Care Code Acute Code for g Fwd Diagnoses Obstructive cardiovascular shock R57.8 Hypoxic respiratory failure J96.91 Pulmonary embolus I26.99 Influenza A J10.1 Pneumonia J18.9 Acute kidney injury N17.9 Liver dysfunction K76.89 Lymphadenopathy R59.1 Elevated lactic acid level R79.89 Acute on chronic right-sided heart failure I50.813 Pulmonary HTN I27.20 Encephalopathy G93.40 HIT (heparin-induced thrombocytopenia) D75.829
[2025-01-30] MEDS: midazolam hcl 100 MG/100 ML BAG IV (12:13)
[2025-01-30 12:45] LABS: Albumin Level 3.7 g/dL (3.5-5.2); Anion Gap 13.5 (5-19); Blood Urea Nitrogen 46 mg/dL (8-23); Carbon Dioxide 26 mmol/L (22-29); Chloride 98 mmol/L (98-107); Creatinine Clr Calc Pharmacy 49.9988; Glucose 274 mg/dL (65-115); Phosphorus 2.9 mg/dL (2.5-4.5); Potassium 4.5 mmol/L (3.5-5.1); Sodium 133 mmol/L (136-145)
[2025-01-30 13:40] LABS: Glucose Point of Care 302 mg/dL (70-110)
[2025-01-30] MEDS: AA-Dex 8%-10% w/ lytes 1,000 ML with multivitamin inj 10 ML 42 ML IV (14:16)
--- NOTE | 2025-01-30 14:47 | PC.NURSE ---
[facility] transplant - [phone] Nurse called [facility]. SPoke to Orin. Updated her on code status change form full code to comfort measures. WIll be removing ET tube shortly. Orin states that this patient is not a candidate based on age. They request that we call [facility] with a time of .
--- NOTE | 2025-01-30 14:50 | PC.NURSE ---
Patient's brother Mateo Slater has arrived. Mateo has decided that he will change code status form full code to comfort measures, but wants a little bit more time at the bedside with him. Mateo will tell us when he is ready to change to comfort measures
[2025-01-30] MEDS: morphine 4 mg/mL SDV 1 mL IVP (15:43)
[2025-01-30] MEDS: LORazepam 2 mg/mL INJ 1 mL IVP (15:45)
[2025-01-30] MEDS: glycopyrrolate 0.2 mg/mL SDV 2 mL IV (15:49)
--- NOTE | 2025-01-30 16:19 | PC.NURSE ---
Patient's brother Mateo Slater has decided to proceed with comfort measures. IV versed and IV fentanyl stopped. Ativan and morphine available for comfort if needed. Endotracheal tube removed at 1540. Patient appeared to be in pain with labored breathing and very restless. Ativan and morphine administered which helped calm the patient. Family brought to bedside.
--- NOTE | 2025-01-30 16:44 | PC.NURSE ---
Patient went asystole at 1633. Auscultated heart sounds for 1 minute, none heard. Verified no activity with Lesli Petersen RN. Nurse alerted Family present that the patient had . Nurse contacted [facility]. Spoke to Sharonda. She ruled him out at a organ and tissue donor and they will send a referral to [facility]. Reference#: [id number]
--- NOTE | 2025-01-30 17:04 | PM.DDS ---
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): Other Contributing Factors/Diagnoses - Acute hypoxemic respiratory failure - Sepsis - Influenza A - Acute pulmonary embolism - Multiorgan failure - Dialysis-dependent renal failure - Progressive liver failure - Encephalopathy - Thrombocytopenia and anemia - Coagulopathy Reason for Visit Reason for Visit Fall, Flu Like Summary Date and Time of Date of : 01/30/25 Time of : 16:33 Summary Summary: Brief Hospital Course: - 74-year-old male with a complex medical history including gastric cancer (post partial gastrectomy), history of alcohol use, who was admitted with acute hypoxemic respiratory failure, sepsis, influenza and acute pulmonary embolism. - Hospital course marked by progressive multiorgan failure. - Intubated on admission for severe hypoxemia. - Treated for pulmonary emboli, aspiration pneumonia, and Influenza A. - Extubated on 01/20/2025 and managed with high-flow nasal cannula. - Developed encephalopathy, dialysis-dependent renal failure, and progressive liver dysfunction. - Reintubated on 01/28/2025 due to acute decompensation and worsening respiratory failure. - On 01/29/2025, weaned off epinephrine drip, continued on CRRT, noted bleeding from HD line site, Agrenox stopped, and noted to be hypothermic with a temperature of 90?F despite bear hugger use. Final Events: - On 01/30/2025, the patient became bradycardic. - Experienced systole/PEA arrest. - Code blue called, CPR initiated. - Received one dose of epinephrine. - Achieved ROSC. - Started on Levophed and dobutamine for hemodynamic support. - Family discussion held with patient's brother and partner regarding poor prognosis and progressive decline. Brother initially requested full code status until his arrival on 01/30/2025. - Code status changed to comfort care with terminal weaning per family wishes. - Transitioned to full comfort care measures. - comfortably at 16:33 on 01/30/2025. Core Java Engineer called at brother's request. Treatments and Interventions: - Mechanical ventilation - Broad-spectrum antibiotics (Zosyn, later escalated to meropenem, vancomycin, micafungin, acyclovir) - Oseltamivir - Anticoagulation (initially heparin, later bivalirudin) - Continuous renal replacement therapy (CRRT) - Total parenteral nutrition (TPN), later transitioned to enteral feeding via Dobhoff - Vasopressor support (Levophed, epinephrine, dobutamine) - Steroids (Solu-Medrol 30mg IV daily) Family Involvement: - Brother initially requested full code status until his arrival. - Upon arrival, brother and partner were present for detailed discussion with nursing staff. - Family agreed to change code status to comfort care and terminal weaning. - Core Java Engineer called at family's request. Additional Data Advance directives?: No Discharge Plan Discharge Patient Disposition: Prescriptions: No Action omeprazole 40 mg capsule,delayed release(DR/EC) 40 mg PO DAILY amlodipine-benazepril 5-10 mg capsule 1 cap PO DAILY albuterol sulfate [Proventil HFA] 90 mcg/actuation Hfa Aerosol Inhaler 2 puff INHALATION QID PRN (Reason: Shortness Of Breath Or Wheezing) cholecalciferol (vitamin D3) [Vitamin D3] 125 mcg (5,000 unit) Tablet 125 mcg PO DAILY cyanocobalamin (vitamin B-12) [Vitamin B-12] 1,000 mcg/mL Solution 1,000 mcg SUBCUT Q30D potassium chloride 8 mEq capsule, extended release 8 meq PO DAILY furosemide 20 mg tablet 20 mg PO DAILY Eliquis 5 mg tablet 5 mg PO BID Patient Instructions: Dialysis Nutrition Plan (DC), Acute Wound Care (DC), Hemodialysis (DC), GI Post Discharge Instructions w/ Anesthesia, Opioid Safety, Post Anesthesia Care DS Attestations Time Spent in /Discharge Care*: greater than 30 min Quality - AMI: AMI present?: No Quality - Stroke: CVA present?: No Symptom Onset Unknown: No Quality - VTE: VTE present?: Yes Deep Vein Thrombosis/Pulmonary Embolism Present on Admission: No Coding Level of Care Code Critical Care >/= 30 minutes Diagnoses Obstructive cardiovascular shock R57.8 Hypoxic respiratory failure J96.91 Pulmonary embolus I26.99 Influenza A J10.1 Pneumonia J18.9 Acute kidney injury N17.9 Liver dysfunction K76.89 Lymphadenopathy R59.1 Elevated lactic acid level R79.89 Acute on chronic right-sided heart failure I50.813 Pulmonary HTN I27.20 Encephalopathy G93.40 HIT (heparin-induced thrombocytopenia) D75.829
--- NOTE | 2025-01-30 17:14 | PC.NURSE ---
Family wants to use [facility]. Body transfer record signed. Nurse contacted [facility] and advised them of [facility]. We still to provide post mortem care and will call them when ready to be picked up.
--- NOTE | 2025-01-30 17:24 | PC.NURSE ---
[facility] called. Spoke to Ly. After screening she determined that he is not a donation candidate and Edgard is free to be released to the home.
--- NOTE | 2025-01-30 18:19 | PC.NURSE ---
Postmortem care provided to patient. All invasive lines removed. Bed bath. 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
[2025-01-30 21:49] LABS: Histoplasma capsulatum H Ab NEGATIVE; Histoplasma capsulatum M Ab NEGATIVE
[2025-01-31 01:59] LABS: UFH High Dose, 100 IU/ML 0 % release; UFH Low Dose, 0.1 IU/ML 1 % release; UFH Low Dose, 0.5 IU/ML 1 % release; UFH SRA Result NEGATIVE (NEGATIVE)
[2025-01-31 18:49] LABS: Coccidioides AB CF Serum <1:2
[2025-02-01 00:54] LABS: Fibrinogen Degradation Product 20 mcg/mL (LESS THAN 5)
[2025-02-01 00:54] LABS: Fibrinogen Degradation Product 10 mcg/mL (LESS THAN 5)
[2025-02-01 15:39] LABS: Blastomyces AB Immunodiffusion Negative (Negative); Blastomyces Dermatitidis AB <1:8 titer (<1:8)
[2025-02-02 22:50] LABS: Histoplasma Galactomannan Ag <0.2 ng/mL
[2025-02-08 06:14] LABS: Fibrinogen Degradation Product <5 mcg/mL (LESS THAN 5)
== END 2025-01-30 18:23 | disposition expired | DRG 870 ==
LOC: ER 06:22 → ER IP 09:47 → ICU 14:19 → ER IP 01-13 09:40
PROVIDERS: Emergency Medicine; Hospitalist; Internal Medicine; Internal Medicine Nephrology; Student in an Organized Health Care Education/Training Program; Surgery; Admitting Provider Internal Medicine; Emergency Provider Family Medicine; Visit Provider Hospitalist
DX: A41.9 Sepsis, unspecified organism (principal); I26.09 Other pulmonary embolism with acute cor pulmonale; J69.0 Pneumonitis due to inhalation of food and vomit; J96.21 Acute and chronic respiratory failure with hypoxia; G93.41 Metabolic encephalopathy; N17.0 Acute kidney failure with tubular necrosis; J18.9 Pneumonia, unspecified organism; N18.6 End stage renal disease; R57.9 Shock, unspecified; E87.20 Acidosis, unspecified; D68.4 Acquired coagulation factor deficiency; K81.0 Acute cholecystitis; E46 Unspecified protein-calorie malnutrition; G72.81 Critical illness myopathy; I13.2 Hypertensive heart and chronic kidney disease with heart failure and with stage 5 chronic kidney disease, or end stage renal disease; R65.20 Severe sepsis without septic shock; W18.30XA Fall on same level, unspecified, initial encounter; T45.516A Underdosing of anticoagulants, initial encounter; Z91.128 Patient's intentional underdosing of medication regimen for other reason; Z86.711 Personal history of pulmonary embolism; Z86.718 Personal history of other venous thrombosis and embolism; Z91.81 History of falling; Z99.81 Dependence on supplemental oxygen; Z51.5 Encounter for palliative care; R68.0 Hypothermia, not associated with low environmental temperature; F10.10 Alcohol abuse, uncomplicated; Z90.3 Acquired absence of stomach [part of]; Z85.028 Personal history of other malignant neoplasm of stomach; D75.829 Heparin-induced thrombocytopenia, unspecified; I27.20 Pulmonary hypertension, unspecified; I50.813 Acute on chronic right heart failure; K76.89 Other specified diseases of liver; J10.1 Influenza due to other identified influenza virus with other respiratory manifestations; Z87.891 Personal history of nicotine dependence; J43.9 Emphysema, unspecified; K86.89 Other specified diseases of pancreas; E27.9 Disorder of adrenal gland, unspecified; R00.1 Bradycardia, unspecified; I46.9 Cardiac arrest, cause unspecified
CPT/HCPCS: 36415; 36416; 36430; 36592; 36600; 51702; 70450; 70496; 70498; 71045; 71275; 74177; 76000; 76705; 77001; 78226; 80048; 80051; 80053; 80061; 80069; 80074; 80202; 80306; 80503; 81001; 82009; 82010; 82140; 82248; 82274; 82310; 82330; 82533; 82550; 82607; 82728; 82746; 82803; 82805; 82962; 83010; 83036; 83520; 83540; 83550; 83605; 83615; 83735; 83880; 83883; 83970; 84100; 84145; 84155; 84165; 84439; 84443; 84481; 84484; 85007; 85014; 85018; 85025; 85045; 85362; 85378; 85384; 85397; 85610; 85730; 86036; 86038; 86140; 86146; 86147; 86160; 86225; 86403; 86480; 86612; 86635; 86698; 86706; 86803; 86850; 86900; 86920; 87040; 87070; 87106; 87205; 87340; 87385; 87486; 87581; 87633; 87637; 87806; 90935; 92523; 92610; 93005; 93306; 94002; 94003; 94640; 94799; 96365; 96372; 96374; 96376; 99285; A4570; A9537; C1052; C1750; C1751; J0133; J0171; J0360; J0583; J0630; J1250; J1610; J1630; J1642; J1644; J1815; J1940; J2060; J2185; J2248; J2250; J2270; J2470; J2543; J2704; J2919; J3010; J3370; J3490; J7030; J7040; J7050; J7070; J7626; J9999; P9016; P9045; P9046; P9047; Q3014; Q5105